=== PATIENT | male | born 1960 | race Caucasian/White ===

== ENCOUNTER 2018-05-06 01:36 | Outpatient (CLI) | payer BC, SELFPAY ==
--- NOTE | 2018-05-06 15:00 | DI.US_ITS ---
SYMPTOMS/DIAGNOSIS: LEFT RENAL CALCULUS, N20.0, F/U KIDNEY STONES RENAL ULTRASOUND: Renal ultrasound was performed according to the usual protocol. Previously described left renal mid pole calculus as seen on examination of October 2017 is again noted and is measured at about 13 mm in diameter on today's examination. No hydronephrosis identified in either kidney. No renal mass seen, although there is a small simple cyst of the left kidney measuring up to about 12 mm in diameter. Prevoid and postvoid urinary bladder volume measurements are 390 cc and 120 cc, respectively. Urinary bladder grossly unremarkable. Prostate is enlarged at a volume of about 66 cc. CONCLUSION: Persistent nonobstructing left renal calculus. This was previously measured at about 9 mm and is measured at about 13 mm on today's examination.
== END 2018-05-06 01:56 ==
PROVIDERS: PCP Emergency Medicine; Visit Provider Urology
DX: N20.0 Calculus of kidney (principal)
CPT/HCPCS: 76770

== ENCOUNTER 2018-06-06 11:50 | Day surgery (SDC) | payer BC, SELFPAY ==
[2018-06-06] VITALS (7 sets, daily range): BP systolic 142–174; BP diastolic 77–95; PULSE 57–75; RESP 11–17; TEMP 36.5–36.6; O2SAT 93–98
[2018-06-06] MEDS: Lactated Ringers 1,000 ML 80 ML IV (12:35)
--- NOTE | 2018-06-06 13:47 | DI.RAD_ITS ---
SYMPTOMS/DIAGNOSIS: URINARY CALCULI C-ARM FLUOROSCOPY: Fluoroscopy Time: 17.5 SEC C-arm fluoroscopy was utilized by Dr. Quispe during retrograde ureterography. Hardcopies show catheterization of left renal collecting system. Please see Dr. Quispe's procedure note.
[2018-06-06] MEDS: Lidocaine 2% Jelly 6 ML SYR (14:44)
--- NOTE | 2018-06-06 15:08 | W.PM.DSUDISC ---
Discharge Plan Disposition Patient Disposition: HOME Condition: Stable Discharge Details Reason For Visit: (L) RENAL CALCULUS Attending Provider: Titi Quispe Primary Care Provider: Kendall Lanier Home Meds and New Rx's Prescriptions: No Action ascorbic acid (vitamin C) 1,000 MG tablet 1,000 mg PO DAILY RF: 0 levetiracetam [Keppra] 500 MG tablet 1,000 mg PO BID Qty: 360 RF: 3 alendronate 70 MG tablet 70 mg PO once weekly Qty: 12 RF: 4 amlodipine 10 MG tablet 10 mg PO DAILY Qty: 90 RF: 4 calcium citrate-vitamin D3 1 EACH tablet 1 ea PO BID RF: 0 ranitidine HCl 150 MG capsule 300 mg PO HS Qty: 180 RF: 3 multivitamin with minerals [Men's One Daily] 1 EACH tablet 1 ea PO DAILY RF: 0 omega-3 fatty acids-fish oil 1 EACH capsule 1 ea PO HS RF: 0 ibuprofen 600 MG tablet 600 mg PO QID PRN (Reason: Pain) Qty: 15 RF: 0 Discharge Instructions Additional Instructions: F/U 4 to 6 weeks with renal US No need to strain urine Activity:: Activity as Tolerated Diet:: As Tolerated Discharge Orders Discharge Orders: Discharge Order (Routine); Ordered 06/06/18 Ordered By: Titi Quispe
[2018-06-06] MEDS: Omnipaque 300 MG/ML 50 ML BTL (15:09)
--- NOTE | 2018-06-06 16:49 | ROE_ITS ---
DATE OF PROCEDURE: June 06, 2018 PREOPERATIVE DIAGNOSIS: Left kidney stone. POSTOPERATIVE DIAGNOSIS: Same. PROCEDURE: Cystoscopy and left retrograde pyelogram; left flexible ureteroscopy with holmium laser o f stone; evacuation of stone fragments. SURGEON: Titi Quispe M.D. ANESTHESIA: General. COMPLICATIONS: None. ESTIMATED BLOOD LOSS: Minimal. HISTORY: This is a 58-year-old gentleman who has a history of hyperparathyroid disease and kidney st ones. He has an enlarging left lower pole stone that is not symptomatic, but because of its increasi ng size, he has elected to have stone manipulation. OPERATIVE REPORT: The patient was brought to the operating room on 06/06/18. After successful induc tion of general anesthesia, he was placed in the dorsal lithotomy position. His genitalia was preppe d and draped. A 22 Bur[place]ian rigid cystoscope is passed through the urethra into the bladder. The urethra and bladder were inspected with a 30-degree lens. The pendulous, bulbous and membranous urethras all appeared normal. The prostatic urethra showed lat eral lobe enlargement, as well as a slight median lobe. The bladder neck was then entered and the bl adder mucosa was inspected. The left ureteral orifice was visualized. It was cannulated with a 6 Burundian access catheter. A retr ograde film was obtained by injecting Omnipaque through the access catheter under fluoroscopic guidan ce. The retrograde film demonstrated a filling defect in the lower pole calyx. I then passed a Glidewire through the access catheter and maneuvered the wire into the upper pole calyx. I removed the access catheter and cystoscope, leaving the wire in place. I passed a dual-lumen catheter over the initial wire. I passed a second wire. We chose one of the w ires as a working wire and the other as a safety wire. We then passed a ureteral access sheath over the working wire. We passed the flexible ureteroscope u p through the access sheath into the renal pelvis. We deflected the scope to the lower pole calyx an d were able to identify his stone. We then used a 272 micron holmium laser fiber to fragment the stone. We used a power setting of 800 and a rate of 8. The stone appeared quite soft and fragmented very well. We grasped two of the larg er fragments in a Zero-Tip stone basket and removed then in their entirety. Once the fragmentation was completed, we elected not to place a ureteral stent. We then removed the access sheath and ureteroscope. He tolerated this procedure well with no complications.
== END 2018-06-06 16:42 | disposition home or self-care (01) ==
PROVIDERS: PCP Emergency Medicine; Visit Provider Urology
PROC: (CPT 52353; principal; 2018-06-06 13:00)
DX: N20.0 Calculus of kidney (principal); Z87.442 Personal history of urinary calculi; I10 Essential (primary) hypertension; E21.3 Hyperparathyroidism, unspecified
CPT/HCPCS: 52353; 74420; 82360; J1100; J1885; J2405; Q9967

== ENCOUNTER 2018-06-15 16:03 | Outpatient (CLI) | payer BC, SELFPAY ==
[2018-06-15 17:55] LABS: Cholesterol 176 mg/dL (50-200); HDL Cholesterol 44 mg/dL (40-60); LDL CHOLESTEROL 115 mg/dL (<100); Triglyceride 83 mg/dL (30-150)
== END 2018-06-15 16:23 ==
PROVIDERS: PCP Emergency Medicine; Visit Provider Emergency Medicine
DX: Z00.00 Encounter for general adult medical examination without abnormal findings (principal); Z13.220 Encounter for screening for lipoid disorders
CPT/HCPCS: 36415; 80061; 83721

== ENCOUNTER 2018-07-01 00:25 | Outpatient (CLI) | payer BC, SELFPAY ==
--- NOTE | 2018-07-01 13:53 | MERGE_ITS ---
*[facility]* *[facility]* [address] [place] [address] Date of study: 07/01/2018 Transthoracic Echocardiography M-mode, complete 2D, complete spectral Doppler, and color Doppler *STUDY CONCLUSIONS* Summary: 1. Left ventricle: The cavity size was normal. Wall thickness was normal. Systolic function was normal. The estimated ejection fraction was 60-65%. Wall motion was normal; there were no regional wall motion abnormalities. 2. Right ventricle: The cavity size was normal. Systolic function was normal. 3. Aortic valve: Possibly bicuspid; moderately thickened, mildly calcified leaflets. Valve mobility was restricted. Transvalvular velocity was increased. There was moderate stenosis. There was mild to moderate regurgitation. Peak velocity (S): 3m/sec. VTI ratio of LVOT to aortic valve: 0.49. 4. Inferior vena cava: The vessel was normal in size. The respirophasic diameter changes were in the normal range (greater than or equal to 50%), consistent with normal central venous pressure. *PATIENT PRESENTATION* Height: 185.4cm ((73in) ) S/D Pressure: 143 / 76 Weight: 97.5kg ((214.5lb) ) BSA: 2.26m^2 Test start time: 02:00 PM. Test stop time: 03:00 PM. ORDERING Kendall Lanier REFERRING Kendall Lanier PERFORMING Unknown PERFORMING [facility] MOLECULAR BIOLOGY SCIENTIST Keesha Bustamante *PROCEDURE DATA* Procedure information: This study was interpreted by [facility]. Pertinent images and digital data are archived for permanent storage and are available for subsequent review. Comparison was made to the study of 05/11/2013. Study status: Routine. Transthoracic echocardiography. M-mode, complete 2D, complete spectral Doppler, and color Doppler. A Transthoracic Echocardiogram was performed. Scanning was performed from the parasternal, apical, subcostal, and suprasternal notch acoustic windows. Images were obtained using an [employer] 2000 cardiac ultrasound machine. Image quality was adequate. Study completion: The patient tolerated the procedure well. There were no complications. History: PMH: Aortic Stenosis. *CARDIAC ANATOMY* Left ventricle: The cavity size was normal. Wall thickness was normal. Systolic function was normal. The estimated ejection fraction was 60-65%. Wall motion was normal; there were no regional wall motion abnormalities. Findings consistent with diastolic dysfunction. There was no evidence of elevated ventricular filling pressure by Doppler parameters. Aortic valve: Possibly bicuspid; moderately thickened, mildly calcified leaflets. Valve mobility was restricted. Doppler: Transvalvular velocity was increased. There was moderate stenosis. There was mild to moderate regurgitation. VTI ratio of LVOT to aortic valve: 0.49. Valve area (VTI): 1.5cm^2. Indexed valve area (VTI): 0.7cm^2/m^2. Peak velocity ratio of LVOT to aortic valve: 0.4. Valve area (Vmax): 1.2cm^2. Indexed valve area (Vmax): 0.5cm^2/m^2. Mean velocity ratio of LVOT to aortic valve: 0.38. Valve area (Vmean): 1.1cm^2. Indexed valve area (Vmean): 0.5cm^2/m^2. Mean gradient (S): 20.5mm Hg. Peak gradient (S): 36.8mm Hg. Aorta: Aortic root: The aortic root was normal in size. Ascending aorta: The ascending aorta was mildly dilated (43 mm). Mitral valve: Structurally normal valve. Mobility was not restricted. Doppler: Transvalvular velocity was within the normal range. There was no evidence for stenosis. There was trivial regurgitation. Valve area by pressure half-time: 1.9cm^2. Indexed valve area by pressure half-time: 0.8cm^2/m^2. Peak gradient (D): 2.3mm Hg. Left atrium: The atrium was normal in size. Right ventricle: The cavity size was normal. Systolic function was normal. Pulmonic valve: Poorly visualized. Doppler: Transvalvular velocity was within the normal range. There was no evidence for stenosis. There was trivial regurgitation. Tricuspid valve: Structurally normal valve. Doppler: Transvalvular velocity was within the normal range. There was no evidence for stenosis. There was mild regurgitation. Pulmonary artery: Poorly visualized. Pulmonary systolic pressure was within the normal range, in the range of 25mm Hg to 30mm Hg. Right atrium: The atrium was dilated. Pericardium: There was no pericardial effusion. Systemic veins: Inferior vena cava: The vessel was normal in size. The respirophasic diameter changes were in the normal range (greater than or equal to 50%), consistent with normal central venous pressure. Measurements Left ventricle Value Reference LV ID, ED, PLAX 5.2 cm 3.5 - 6.0 LV ID, ES, PLAX 3.6 cm 2.1 - 4.0 LV PW thickness, ED, PLAX 1.0 cm LV end-diastolic volume, 1-p A2C 129 ml LV ejection fraction, 1-p A2C 62 % LV end-diastolic volume, 1-p A4C 137 ml LV ejection fraction, 1-p A4C 63 % LV e', lateral 0.111 m/sec LV E/e', lateral 7 LV e', medial 0.092 m/sec LV E/e', medial 8 LV e', average 0.102 m/sec LV E/e', average 7 Ventricular septum Value Reference IVS thickness, ED, PLAX 1.0 cm LVOT Value Reference LVOT ID, A-P 2.0 cm LVOT area 3 cm^2 LVOT peak velocity, S 1.22 m/sec LVOT mean velocity, S 0.81 m/sec LVOT VTI, S 32.3 cm LVOT peak gradient, S 5.9 mm Hg LVOT mean gradient, S 3.1 mm Hg Stroke volume (SV), LVOT DP 97 ml Stroke index (SV/bsa), LVOT DP 43 ml/m^2 Aortic valve Value Reference Aortic valve peak velocity, S 3 m/sec Aortic valve mean velocity, S 2.14 m/sec Aortic valve VTI, S 66.0 cm Aortic mean gradient, S 20.5 mm Hg Aortic peak gradient, S 36.8 mm Hg VTI ratio, LVOT/AV 0.49 Aortic valve area, VTI 1.5 cm^2 Velocity ratio, peak, LVOT/AV 0.4 Aortic valve area, peak velocity 1.2 cm^2 Velocity ratio, mean, LVOT/AV 0.38 Aortic valve area, mean velocity 1.1 cm^2 Aortic valve area/bsa, mean velocity 0.5 cm^2/m^2 Aortic regurg deceleration 214 cm/s^2 Aortic regurg pressure half-time 514 ms Aorta Value Reference Aortic root ID, ED 3.7 cm Ascending aorta ID, A-P, S 4.3 cm Left atrium Value Reference LA ID, A-P, ES 3.0 cm LA ID/bsa, A-P 1.3 cm/m^2 <=2.2 LA area, ES, A4C 20 cm^2 8.8 - 23.4 LA area, ES, A2C 19 cm^2 LA volume/bsa, S 29 ml/m^2 LA volume, ES, 2-p 58 ml LA volume/bsa, ES, 2-p 26 ml/m^2 LA/aortic root ratio 0.82 Mitral valve Value Reference Mitral E-wave peak velocity 0.76 m/sec Mitral A-wave peak velocity 0.89 m/sec Mitral deceleration time (H) 402 ms 150 - 230 Mitral pressure half-time 117 ms Mitral peak gradient, D 2.3 mm Hg Mitral E/A ratio, peak 0.85 Mitral valve area, PHT, DP 1.9 cm^2 Tricuspid valve Value Reference Tricuspid regurg peak velocity 2.4 m/sec Tricuspid peak RV-RA gradient 23.4 mm Hg Right atrium Value Reference RA area, ES, A4C (H) 21.4 cm^2 8.3 - 19.5 Legend: (L) and (H) willard values outside specified reference range. I have personally reviewed the images and have reviewed and edited the reported findings. Electronically signed by Fito Oakley 07/02/2018 10:29
== END 2018-07-01 00:45 ==
PROVIDERS: PCP Emergency Medicine; Visit Provider Emergency Medicine
DX: I35.2 Nonrheumatic aortic (valve) stenosis with insufficiency (principal)
CPT/HCPCS: 93306

== ENCOUNTER 2018-07-22 07:06 | Outpatient (CLI) | payer BC, SELFPAY ==
--- NOTE | 2018-07-22 07:12 | DI.US_ITS ---
SYMPTOM/DIAGNOSIS: H/O KIDNEY STONES, Z87.442, F/U AFTER URETEROSCOPY RENAL ULTRASOUND: Routine examination was performed. Comparison is made with 05/06/18. The right kidney measures 13.8 cm. long. No renal masses are seen. No definite renal calculi are appreciated sonographically. There is stable mild dilatation of the right renal collecting system. The left kidney measures 13.0 cm. long. There do appear to be a few echogenic shadowing foci within the kidney suspicious for non obstructing stones. No hydronephrosis or solid renal mass is seen. The prevoid urinary bladder volume is 412 cc's. Postvoid urinary bladder volume is 14 cc's. Prostate gland measures 32 cc's. No intraluminal masses or bladder wall thickening is seen. Both ureteral jets were visualized. IMPRESSION: 1. Findings of echogenic foci seen in the left kidney suspicious for non obstructing stones. 2. Mild prominence of the left renal pelvis. This may represent extrarenal pelvis or mild hydronephrosis.
== END 2018-07-22 07:26 ==
PROVIDERS: PCP Emergency Medicine; Visit Provider Urology
DX: N20.0 Calculus of kidney (principal); Z87.442 Personal history of urinary calculi; Z98.890 Other specified postprocedural states
CPT/HCPCS: 76770

== ENCOUNTER 2018-09-14 12:10 | Outpatient (CLI) | payer BC, SELFPAY ==
[2018-09-14 13:32] LABS: Bilirubin Negative (Negative); Blood Negative (Negative); Clarity Clear; Glucose Negative (Negative); Ketones Negative (Negative); Leukocyte Esterase Negative (Negative); Nitrite Negative (Negative); Urobilinogen 0.2 EU/dL (Up TO 0.2); pH 5.5 (5-8)
[2018-09-14 13:38] LABS: ALT 26 U/L (12-78); AST 19 U/L (15-37); Abs Immature Grans 0.02 k/cumm (0.0-0.09); Absolute Basophil Count 0.02 k/cumm (0.0-0.2); Absolute Eosinophil Count 0.13 k/cumm (0.0-0.7); Absolute Lymphocyte Count 1.16 k/cumm (1.2-3.4); Absolute Monocyte Count 0.43 k/cumm (0.11-0.7); Absolute Neutrophil Count 5.17 k/cumm (1.2-6.7); Albumin 3.8 g/dL (3.4-5.0); Alkaline Phosphatase 111 U/L (46-116); Anion Gap 7.7 mmol/L (3-11); BUN 16 mg/dL (7-18); Basophils % 0.3; Bilirubin, Total 0.3 mg/dL (0.2-1.0); CO2 29.3 mmol/L (21.0-32.0); CREATININE 0.73 mg/dL (0.70-1.30); Chloride 104 mmol/L (98-107); Eosinophils % 1.9; Glucose 85 mg/dL (70-100); HCT 44.4 % (40.0-50.0); HGB 14.6 g/dL (13.5-17.5); Immature Grans % 0.3; Lipase 98 U/L (73-393); Lymphocytes % 16.7; Mean Corp. HGB Concentration 32.9 g/dL (32.0-36.0); Mean Corpuscular Hemoglobin 30.8 pg (27.0-33.0); Mean Corpuscular Volume 93.7 fL (80-95); Mean Platelet Volume 10.6 fL (8.0-11.0); Monocytes % 6.2; Neutrophils % 74.6; Platelet Count 248 x1000/uL (130-400); Potassium 3.9 mmol/L (3.5-5.1); RBC 4.74 m/cumm (4.50-6.00); Sodium 141 mmol/L (136-145); Total Protein 7.8 g/dL (6.4-8.2); White Blood Cell Count 6.93 k/cumm (4.4-10.8)
== END 2018-09-14 12:30 ==
PROVIDERS: PCP Emergency Medicine; Visit Provider Family Medicine
DX: Z00.00 Encounter for general adult medical examination without abnormal findings (principal); R10.9 Unspecified abdominal pain; R39.11 Hesitancy of micturition
CPT/HCPCS: 36415; 80053; 83690; 81003; 85025

== ENCOUNTER 2018-09-22 07:23 | Day surgery (SDC) | payer BC, SELFPAY ==
[2018-09-22] VITALS (8 sets, daily range): BP systolic 131–170; BP diastolic 69–87; PULSE 47–66; RESP 11–18; TEMP 35.6–36.6; O2SAT 94–99
[2018-09-22] MEDS: Lactated Ringers 1,000 ML 80 ML IV (08:05)
--- NOTE | 2018-09-22 08:42 | DI.RAD_ITS ---
SYMPTOM/DIAGNOSIS: CALCULUS LT KIDNEY OR RETROGRADE: Fluoroscopy Time: 27.1 seconds Fluoroscopy was utilized by Dr. Quispe during retrograde evaluation of the left renal collecting system. Please refer to the procedure report for complete details.
[2018-09-22] MEDS: Lidocaine 2% Jelly 6 ML SYR (09:28)
[2018-09-22] MEDS: Omnipaque 300 MG/ML 50 ML BTL (09:30)
--- NOTE | 2018-09-22 10:01 | W.PM.DSUDISC ---
Discharge Plan Disposition Patient Disposition: HOME Condition: Stable Discharge Details Reason For Visit: kidney stone Attending Provider: Titi Quispe Primary Care Provider: Kendall Lanier Home Meds and New Rx's Prescriptions: No Action cholecalciferol (vitamin D3) 1,000 unit capsule 1,000 unit PO DAILY RF: 0 levetiracetam [Keppra] 500 MG tablet 1,000 mg PO BID Qty: 360 RF: 3 alendronate 70 MG tablet 70 mg PO once weekly Qty: 12 RF: 4 folic acid 1 mg tablet 1 mg PO DAILY Qty: 90 RF: 3 amlodipine 10 mg tablet 10 mg PO DAILY Qty: 90 RF: 4 omeprazole 40 mg capsule,delayed release(DR/EC) 40 mg PO DAILY Qty: 30 RF: 0 multivitamin with minerals [Men's One Daily] 1 EACH tablet 1 ea PO DAILY RF: 0 omega-3 fatty acids-fish oil 1 EACH capsule 1 ea PO HS RF: 0 Discharge Instructions Additional Instructions: F/U with me 4 to 6 weeks with renal US at time of visit Activity:: Activity as Tolerated Diet:: As Tolerated Discharge Orders Discharge Orders: Discharge Order (Routine); Ordered 09/22/18 Ordered By: Titi Quispe DS: Diagnosis Discharge Diagnosis (1) Kidney stones: Status: Chronic
[2018-09-22] MEDS: Phenazopyridine 200 MG TAB PO (10:55)
[2018-09-22] MEDS: HYDROcodone 5/Acetaminophen 325 TAB PO (11:00)
[2018-09-22] MEDS: Ondansetron 4 MG/2 ML VIAL IVP (11:21)
--- NOTE | 2018-09-22 16:57 | ROE_ITS ---
DATE OF OPERATION: September 22, 2018 PREOPERATIVE DIAGNOSIS: Left kidney stones. POSTOPERATIVE DIAGNOSIS: Left kidney stones. PROCEDURE: Cystoscopy, left retrograde pyelogram, left flexible ureteroscopy with stone extractions. SURGEON: Titi Quispe M.D. ANESTHESIA: General. COMPLICATIONS: None. ESTIMATED BLOOD LOSS: Minimal. HISTORY: This is a 58-year-old gentleman who has a history of hyperparathyroid disease. He has recu rrent kidney stones and is currently found to have a 5-mm stone in the upper pole of the left kidney and two smaller stones in the mid poles. He presents now for ureteroscopic stone manipulation. OPERATIVE REPORT: The patient was brought to the Operating Room on 09/22/18. After successful inducti on of general anesthesia, he was placed in the dorsal lithotomy position. His genitalia was prepped and draped. Two percent xylocaine jelly was instilled into the urethra to act as a local anesthetic. A 22 Kisw[place]ili rigid cystoscope was passed through the urethra into the bladder. The urethra and bladde r were inspected using the 30-degree lens. The pendulous, bulbous, and membranous urethras all appeared normal with no strictures. The prostati c urethra showed some lateral lobe enlargement. The bladder neck was entered and the bladder mucosa was inspected. No stones were seen at the base o f the bladder. The left ureteral orifice was cannulated with a 6 Kiswahili access catheter and a retrog rade film was obtained by injecting Omnipaque through the access catheter under fluoroscopic guidance . This outlined at least the larger stone in the upper pole calyx. A Glidewire was then passed through the access catheter and maneuvered until the proximal end was up in the renal pelvis. The ureteral access catheter was removed and was replaced with a dual-lumen cat heter. A second wire was then positioned. The dual-lumen catheter was removed. We chose one of the wires as a working wire and the other as a safety wire. We passed the ureteral access sheath over t he working wire. A flexible ureteroscope was then introduced through the access sheath and advanced up to the upper po le calyx. The stone was visualized and was grasped in a zero-tip stone basket. The stone was then e xtracted and sent to Pathology for chemical analysis. We reintroduced the ureteroscope and inspected the other calices. A very small stone was identified at the lower pole. This was easily irrigated free. A larger stone was found in one of the midpole calices. This was grasped in a zero-tip stone basket and removed in its entirety. No traumatic injury was identified along the ureter so we elected not to place a ureteral stent. We removed the safety wire and access sheath. The bladder was then drained. The patient tolerated the procedure well. There were no complications .
[2018-09-24 00:29] LABS: Source: Kidney
== END 2018-09-22 13:10 | disposition home or self-care (01) ==
PROVIDERS: PCP Emergency Medicine; Visit Provider Urology
PROC: (CPT 52352; principal; 2018-09-22 09:00)
DX: N20.0 Calculus of kidney (principal); Z87.442 Personal history of urinary calculi; E21.3 Hyperparathyroidism, unspecified; I10 Essential (primary) hypertension
CPT/HCPCS: 52352; 74420; 82365; J0690; J1100; J1885; J2405; J3010; Q9967

== ENCOUNTER 2018-10-05 12:12 | Outpatient (CLI) | payer BC, SELFPAY ==
[2018-10-05 13:44] LABS: Anion Gap 9.9 mmol/L (3-11); BUN 24 mg/dL (7-18); CO2 27.1 mmol/L (21.0-32.0); CREATININE 0.74 mg/dL (0.70-1.30); Chloride 105 mmol/L (98-107); Glucose 87 mg/dL (70-100); Potassium 4.1 mmol/L (3.5-5.1); Sodium 142 mmol/L (136-145); TSH 0.52 uIU/mL (0.358-3.74)
== END 2018-10-05 12:32 ==
PROVIDERS: PCP Emergency Medicine; Visit Provider Emergency Medicine
DX: E03.9 Hypothyroidism, unspecified (principal); I10 Essential (primary) hypertension
CPT/HCPCS: 36415; 80048; 84443

== ENCOUNTER 2018-10-07 01:49 | Outpatient (CLI) | payer BC, SELFPAY ==
--- NOTE | 2018-11-14 15:54 | CER_ITS ---
DATE OF DICTATION: November 14, 2018 PREVENTICE MONITOR REPORT STUDY INDICATION: Aortic stenosis. REQUESTING PROVIDER: Jelani Gunderson M.D. FINDINGS: The patient was monitored for 12 days and 6 hours. Baseline sinus rhythm. Average heart rate in sinus rhythm 69 bpm, range 54-106 bpm. The patient was in atrial fibrillation for 2% of the time for a total of 6 hours and 31 minutes. Average heart rate in atrial fibrillation 114 bpm. Longest episode 2 hours and 46 minutes. No pauses greater than 3 seconds. No high-degree heart block. Two patient events. One episode correlated with atrial fibrillation with rapid ventricular response. The other event did not correlate with arrhythmias. FINAL INTERPRETATION: Paroxysmal atrial fibrillation, overall poorly-controlled and at times symptomatic.
== END 2018-10-07 02:09 ==
PROVIDERS: PCP Emergency Medicine; Visit Provider Emergency Medicine
DX: I35.0 Nonrheumatic aortic (valve) stenosis (principal); I48.91 Unspecified atrial fibrillation; I48.0 Paroxysmal atrial fibrillation
CPT/HCPCS: 93270

== ENCOUNTER 2018-10-18 01:47 | Outpatient (CLI) | payer BC, SELFPAY ==
--- NOTE | 2018-10-18 14:15 | DI.US_ITS ---
SYMPTOMS/DIAGNOSIS: CALCULUS OF KIDNEY, N20.0, ? HYDRONEPHROSIS AFTER URETEROSCOPY RENAL ULTRASOUND: The right kidney measures 12.3 x 5.2 x 5.5 cm, the left kidney 12.3 x 5.7 x 6.1 cm. There is an echogenic focus in the right kidney in the inferior to mid pole, which measures approximately 5 mm with faint posterior shadowing. This could represent a small stone or artifact. There is no evidence of right or left hydronephrosis. A simple left renal cyst in the mid pole cortex of the left kidney measures 10 x 12 x 13 mm. The prevoid bladder contains 5 cc, the postvoid bladder contains 0. The ureteral jets were not visualized. SUMMARY: The possibility of nonobstructing right nephrolithiasis could not be entirely excluded on this examination. There is a question regarding a 10 x 12 x 13 mm cyst in the left kidney. The study is otherwise unremarkable.
== END 2018-10-18 02:07 ==
PROVIDERS: PCP Emergency Medicine; Visit Provider Urology
DX: N20.0 Calculus of kidney (principal)
CPT/HCPCS: 76770

== ENCOUNTER 2018-10-23 08:16 | Outpatient (REF) | payer BC, SELFPAY ==
[2018-10-23 14:53] LABS: Total Volume 3250 ml
[2018-10-24 06:40] LABS: Creatinine,24hr Ur 1.45 g/24hr (0.95-2.49); Creatinine,Urine 45.26 mg/dL; Sodium, Urine 75 mmol/L
[2018-10-24 06:45] LABS: CLEAVED CELLS 244 mmol/24h (40-220); Total Volume 3250 ml
[2018-10-25 10:10] LABS: Calcium Urine 11.9 mg/dl; Calcium Urine 24 hr 387 mg/24hr (100-300); Magnesium 24hr Urine 107.3 mg/24h (73.0-122.0); Magnesium Random Urine 3.3 mg/dl; Uric Acid Urine 18.4 mg/dl; Uric Acid Urine 24hr 598 mg/24h (250-750)
[2018-10-25 12:35] LABS: Citrate Excretion, 24hr, U 738 mg/24 h (434 - 1191); Urine Volume 3250 mL
[2018-10-25 17:00] LABS: Oxalate Conc (mmol/L) 0.08 mmol/L; Oxalate, U 0.26 mmol/24 h (0.11-0.46); Oxalate, U 22.9 mg/24 h (9.7 - 40.5); Urine Volume 3250 mL
== END 2018-10-23 08:36 ==
LOC: LBN 08:16
PROVIDERS: PCP Emergency Medicine; Visit Provider Urology
DX: N20.0 Calculus of kidney (principal)
CPT/HCPCS: 82507; 83735; 81050; 82340; 82570; 83945; 84300; 84560

== ENCOUNTER 2018-11-15 09:17 | Outpatient (CLI) | payer BC, SELFPAY ==
[2018-11-15 10:28] LABS: Anion Gap 7.7 mmol/L (3-11); BUN 18 mg/dL (7-18); CO2 32.3 mmol/L (21.0-32.0); CREATININE 0.74 mg/dL (0.70-1.30); Calcium 8.9 mg/dL (8.5-10.1); Chloride 99 mmol/L (98-107); Glucose 95 mg/dL (70-100); Potassium 3.4 mmol/L (3.5-5.1); Sodium 139 mmol/L (136-145)
== END 2018-11-15 09:37 ==
PROVIDERS: PCP Emergency Medicine; Visit Provider Urology
DX: N20.0 Calculus of kidney (principal)
CPT/HCPCS: 36415; 80048

== ENCOUNTER 2018-12-09 01:15 | Outpatient (CLI) | payer OTHER, SELFPAY ==
[2018-12-09 10:15] LABS: Potassium 3.9 mmol/L (3.5-5.1)
== END 2018-12-09 01:35 ==
PROVIDERS: PCP Emergency Medicine; Visit Provider Urology
DX: N20.0 Calculus of kidney (principal)
CPT/HCPCS: 36415; 84132

== ENCOUNTER 2018-12-11 08:33 | Outpatient (REF) | payer OTHER, SELFPAY ==
[2018-12-13 06:29] LABS: Creatinine,Urine 52.41 mg/dL; Sodium, Urine 70 mmol/L
[2018-12-13 06:52] LABS: CLEAVED CELLS 229 mmol/24h (40-220); Creatinine,24hr Ur 1.68 g/24hr (0.95-2.49); Total Volume 3275 ml
[2018-12-14 09:01] LABS: Magnesium 24hr Urine 209.6 mg/24h (73.0-122.0); Magnesium Random Urine 6.4 mg/dl; Uric Acid Urine 26.1 mg/dl; Uric Acid Urine 24hr 855 mg/24h (250-750)
[2018-12-14 09:12] LABS: Calcium Urine 24 hr 491 mg/24hr (100-300)
[2018-12-14 16:26] LABS: Citrate Excretion, 24hr, U 940 mg/24 h (434 - 1191); Urine Volume 3275 mL
[2018-12-15 11:05] LABS: Oxalate Conc (mmol/L) 0.09 mmol/L; Oxalate Concentration 7.9 mg/L; Oxalate, U 0.29 mmol/24 h (0.11-0.46); Oxalate, U 25.5 mg/24 h (9.7 - 40.5); Urine Volume 3275 mL
== END 2018-12-11 08:53 ==
LOC: LBN 08:33
PROVIDERS: PCP Emergency Medicine; Visit Provider Urology
DX: N20.0 Calculus of kidney (principal)
CPT/HCPCS: 82507; 83735; 81050; 82340; 82570; 83945; 84300; 84560

== ENCOUNTER 2019-02-11 05:00 | Outpatient (REF) | payer OTHER, SELFPAY ==
[2019-02-12 16:32] LABS: Sodium, Urine 44 mmol/L
[2019-02-12 16:43] LABS: CLEAVED CELLS 123 mmol/24h (40-220); Total Volume 2800 ml
[2019-02-14 11:36] LABS: Calcium Urine 7.2 mg/dl; Calcium Urine 24 hr 202 mg/24hr (100-300); Uric Acid Urine 15.9 mg/dl; Uric Acid Urine 24hr 445 mg/24h (250-750)
== END 2019-02-11 05:20 ==
LOC: LBN 05:00
PROVIDERS: PCP Emergency Medicine; Visit Provider Urology
DX: N20.0 Calculus of kidney (principal)
CPT/HCPCS: 81050; 82340; 84300; 84560

== ENCOUNTER 2019-06-20 15:00 | Outpatient (CLI) | payer OTHER, SELFPAY ==
[2019-06-22 10:12] LABS: PSA, Screening 1.7 ng/mL (0.0-4.5)
== END 2019-06-20 15:20 ==
PROVIDERS: PCP Emergency Medicine; Visit Provider Emergency Medicine
DX: Z12.5 Encounter for screening for malignant neoplasm of prostate (principal)
CPT/HCPCS: 36415; 84153

== ENCOUNTER 2019-06-24 13:29 | Emergency (ER) | payer OTHER, SELFPAY ==
[2019-06-24 13:34] VITALS: BP 159/89; PULSE 63; RESP 18; TEMP 36.5; O2SAT 98
[2019-06-24] MEDS: diazePAM 5 MG TAB PO (14:16)
--- NOTE | 2019-06-24 14:30 | DI.CT_ITS ---
EXAM: CT THORACIC SPINE WO CLINICAL HISTORY: pain, hx compression fx in past, new back pain TECHNIQUE: Noncontrast COMPARISON: MRI - THORACIC SPINE WO CONT from 04/03/2016 MRI - THORACIC SPINE WO CONT from 04/03/2016 CT ABDOMEN PELVIS W from 09/14/2018 FINDINGS: There is a stable severe compression fracture of T7. There is extentuation of the normal thoracic ky phosis at this level. There is a mild compression fracture of L1, also stable. There is no evidence of an acute fracture. There is no significant narrowing of the central canal. Prominent flowing os teophytes are noted. Visualized portions of the lungs are clear. Aorta shows mild calcification. T here are coronary artery calcifications and aortic valve calcifications. The transverse dimension of the ascending aorta measures 4.5 cm. IMPRESSION: Stable severe compression fracture of T7. Stable mild compression fracture of L1.
--- NOTE | 2019-06-24 15:21 | DI.VRAD_ITS ---
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 Patient also sts known disk compressions, and herniation's. New onset pain not trauma or recent injury. TECHNIQUE: Imaging protocol: Computed tomography images of the thoracic spine without contrast. Radiation optimization: All CT scans at this facility use at least one of these dose optimization techniques: automated exposure control; mA and/or kV adjustment per patient size (includes targeted exams where dose is matched to clinical indication); or iterative reconstruction. COMPARISON: [facility] THORACIC SP 2 VIEW 07/09/2016 10:22 AM FINDINGS: Diffuse degenerative spurring of thoracic spine. Mild old compression of the T7 vertebral body. No acute fractures. No focal bony destructive process. Minimal nonobstructing right nephrolithiasis. Mild chronic lung disease at the lung bases. IMPRESSION: No evidence of acute bony abnormality. Dictated and Authenticated by: Nasim Spear MD. Ordering:RAQUEL Berry MD
--- NOTE | 2019-06-24 15:31 | ED.GENADUL_ITS ---
Discharge Plan Disposition Patient Disposition: HOME Condition: Good Discharge Details Chief Complaint: Orthopedic Clinical Impression: Back pain Primary Care Provider: Kendall Lanier ED Provider: Kristi Robertson Home Meds and New Rx's Prescriptions: New cyclobenzaprine 10 mg tablet 10 mg PO TID PRN (Reason: muscle spasm) Qty: 10 RF: 0 Discontinued ibuprofen 600 mg tablet 600 mg PO QID PRNRF: 0 No Action allopurinol 300 mg tablet 300 mg PO DAILY Qty: 30 RF: 12 ascorbic acid (vitamin C) 500 mg tablet 500 mg PO DAILY RF: 0 polyethylene glycol 3350 17 gram/dose powder 238 g PO ONCE Qty: 238 RF: 0 bisacodyl 5 mg tablet,delayed release (DR/EC) 5 mg PO ONCE Qty: 4 RF: 0 cholecalciferol (vitamin D3) 1,000 unit capsule 1,000 unit PO DAILY RF: 0 gabapentin 300 mg capsule 300 mg PO QHS Qty: 60 RF: 2 famotidine 20 mg tablet 20 mg PO BID Qty: 180 RF: 3 Eliquis 5 mg tablet 5 mg PO BID RF: 0 metoprolol tartrate 25 mg tablet 12.5 mg PO BID RF: 0 levetiracetam [Keppra] 500 mg tablet 1,000 mg PO BID Qty: 360 RF: 3 folic acid 1 mg tablet 1 mg PO DAILY Qty: 90 RF: 3 multivitamin with minerals [Men's One Daily] 1 EACH tablet 1 ea PO DAILY RF: 0 omega-3 fatty acids-fish oil 1 EACH capsule 1 ea PO HS RF: 0 Discharge Instructions Instructions: Back Pain (ED) Additional Instructions: Ice or heat to the back for discomfort. Use Tylenol [id number] if needed. Use caution not to mix with Vicodin. Rest activities as tolerated. Consider using TENS unit. Consider [id number] pain patches over site of maximum pain as discussed. Use muscle relaxant as prescribed. Use caution while taking muscle relaxant this will cause dizziness. Do not drive, drink more work while taking this medication. Use caution mixing with narcotic pain medications as discussed. Recheck with primary care doctor this week for reevaluation if not improving Medical Decision Making 59-year-old patient with known history of thoracic compression fractures due to osteoporosis. Patient reports onset of back pain in the last 24 hours for which he is concerned with the potential new compression fracture. Patient denies any specific injury or trauma recently. Patient denies any radiating pain into his legs, arms or trunk. Patient denies numbness, tingling or weakness. Patient denies any ill feeling or fever. No associated chest pain difficulty breathing shortness of breath or wheezing. Patient reports back pain in the mid back similar to his previous presentation of pain. He also does have known arthritis. Patient is requesting imaging studies to be sure there is no associated new fracture. Patient's physical exam reveals no focal tenderness of the back. No associated CVA tenderness. Clear breath sounds. Pain with straight leg raise on the left eliciting back pain. DTRs intact bilaterally no associated foot drop. Patient is nontoxic-appearing. After discussion of x-ray versus CT patient's preference is CT evaluation of the spine. Patient was provided Valium for discomfort. Patient had no significant improvement with Valium. Patient is requesting muscle relaxant as he has tolerated this in the past however Valium was unhelpful during his ER visit therefore will trial cyclobenzaprine for muscle relaxant. Conservative treatments also discussed including use of TENS unit, topical pain patches, rest. Of note patient had been taking ibuprofen regularly while he is on Eliquis. I encouraged him to discontinue any use of NSAIDs. Discussed use of Tylenol. Patient does have prescriptions for tramadol as well as Vicodin which he has present with him. Discussed use of these medications. The patient was stable and requested discharge. Prior to discharge, my usual and customary return precautions were reviewed with the patient - this included follow-up instructions and reasons to return to the Emergency Department if conditions worsens, does not improve as expected, or other new concerns arise. HPI General Date/Time Provider Initiated Documentation: 06/24/19 13:40 . HPI Narrative: This is a 59-year-old gentleman who presents to the emergency room for complaints of back pain for the last 24 hours. Patient does report a history of T7-T8 and T10 compression fractures of his spine historically several years ago. Patient does report known arthritis in his spine. Patient does report occasional flares of back pain. Patient denies any radiating symptoms into his legs. Denies numbness, tingling or weakness of arms or legs. No chest or abdominal complaints. Patient denies any specific injury or trauma. Denies fever, chills, nausea, vomiting. Eating and drink without difficulty. No ill feeling whatsoever. Patient reports back pain is worse with range of motion. He was able to find a comfortable position and sleep last night however change in position increases pain in the mid back. No difficulty breathing shortness of breath or wheezing. Related Data Home Medications Medication Instructions Recorded Confirmed multivitamin with minerals [Men's 1 ea PO DAILY 12/17/12 06/24/19 One Daily] omega-3 fatty acids-fish oil 1 ea PO HS 06/04/16 06/24/19 cholecalciferol (vitamin D3) 1,000 1,000 unit PO DAILY 06/15/18 06/24/19 unit capsule allopurinol 300 mg tablet 300 mg PO DAILY #30 tab 12/27/18 06/24/19 apixaban 5 mg tablet 5 mg PO BID 12/30/18 06/24/19 metoprolol tartrate 25 mg tablet 12.5 mg PO BID tab 12/30/18 06/24/19 ascorbic acid (vitamin C) 500 mg 500 mg PO DAILY 01/24/19 06/24/19 tablet levetiracetam 500 mg tablet 1,000 mg PO BID #360 tab-cap 03/31/19 06/24/19 bisacodyl 5 mg tablet,delayed 5 mg PO ONCE #4 tab 05/30/19 06/24/19 release polyethylene glycol 3350 17 238 g PO ONCE #238 gm 05/30/19 06/24/19 gram/dose oral powder folic acid 1 mg tablet 1 mg PO DAILY #90 tab 06/05/19 06/24/19 famotidine 20 mg tablet 20 mg PO BID #180 tab 06/20/19 06/24/19 gabapentin 300 mg capsule 300 mg PO QHS #60 cap 06/20/19 06/24/19 cyclobenzaprine 10 mg PO TID PRN #10 tab 06/24/19 Previous Rx's Medication Instructions Recorded allopurinol 300 mg tablet 300 mg PO DAILY #30 tab 12/27/18 levetiracetam 500 mg tablet 1,000 mg PO BID #360 tab-cap 03/31/19 bisacodyl 5 mg tablet,delayed 5 mg PO ONCE #4 tab 05/30/19 release polyethylene glycol 3350 17 238 g PO ONCE #238 gm 05/30/19 gram/dose oral powder folic acid 1 mg tablet 1 mg PO DAILY #90 tab 06/05/19 famotidine 20 mg tablet 20 mg PO BID #180 tab 06/20/19 gabapentin 300 mg capsule 300 mg PO QHS #60 cap 06/20/19 cyclobenzaprine 10 mg PO TID PRN #10 tab 06/24/19 Allergies Allergy/AdvReac Type Severity Reaction Status Date / Time No Known Allergies Allergy Verified 06/24/19 13:38 General Stated Complaint: Orthopedic FLY: 4 Review of Systems All systems reviewed & are unremarkable except as noted in HPI and below Constitutional Constitutional: Denies chills, Denies fatigue, Denies fever(s), Denies headache(s) and Denies malaise ENT Ears, Nose, Mouth, and Throat: Denies dizziness, Denies headache(s) and Denies neck pain Musculoskeletal Musculoskeletal: Denies abnormal gait, Reports back pain, Denies deformity, Denies neck pain, Denies numbness and Denies stiffness Integumentary/Breasts Skin/Breast: Denies rash Neurologic Neurologic: Denies abnormal gait, Denies dizziness, Denies headache(s) and Denies numbness Endocrine Endocrine: Denies fatigue [facility] Medical History Actinic keratoses (Chronic) Alcohol abuse (Chronic) in patient treatment at [facility] 2011 Aortic valve stenosis (Chronic) mild. echo 2013 neg MPI 12/01. Benign prostatic hyperplasia (Chronic) Essential hypertension (Chronic) Hearing loss (Chronic) Hyperparathyroidism (Chronic 10/22/17) [place] [facility] [place] [facility] [place] Osteoporosis (Chronic) T score of 3.5 LS spine Renal calculus, right (Chronic 03/29/17) Right ureteral stone (Chronic 03/29/17) Sciatica (Chronic) left; disk; persistent left foot numbness Seizure (Chronic) Serum calcium elevated (Chronic 11/19/15) Hyper PTH Parathyroid surgery 10/03 removing one of 4 glands Thoracic spondyloarthritis (Chronic) Tobacco use disorder (Chronic) Surgical History (Updated 05/30/19 @ 10:01 by Susie Meng MD) [place] [facility] [place]ystoscopy 11/14/15; DR. DEVI Excision, Distal Clavicle (03/22/15) ALSO [facility] ACROMIOPLASTY/LIMITED ROTATOR CUFF REPAIR/ DR ROSARIO H/O parathyroidectomy (Acute) Family History (Updated 06/21/19 @ 09:04 by Rafael Carvalho) Mother , age 68 Alzheimer disease MS (multiple sclerosis) Father , age 72 Diabetes Essential hypertension Heart disease Hyperlipidemia Sister No problems noted. Brother No problems noted. Brother Crohns disease Maternal Grandfather , age 70 Heart disease Paternal Grandfather , age 92 No problems noted. Maternal Grandmother , age 70 No problems noted. Paternal Grandmother , age 94 Intestinal cancer Brother No problems noted. Son No problems noted. Daughter No problems noted. Daughter No problems noted. Social History Smoking/Tobacco Use Status: Former Tobacco Use Quit Date: 07/19/06 Pack-years: 25 Tobacco: How many years used: 15 Second Hand Exposure: Yes Alcohol Intake: former Drug use: Current Sobriety Substance use type: does not use Caregiver/Support person: Yes Household members: spouse Housing: house Communication Needs: None Do you need help understanding health information?: Rarely Pets and animals: Yes Pets and animals: cat(s) Sexually active: Yes Do you think of yourself as: straight/heterosexual Current gender identity: male What is your relationship status?: How often do you talk on the phone with friends or family?: once per week How often do you get together with friends or relatives?: once per week How often do you attend jew or religion services?: 1-3 times per year Do you belong to any clubs or organized social groups?: no Panel score (0-1 are the most socially isolated patients): 1 What type of physical activity do you participate in: yoga Duration: 15-30 minutes/day Frequency: 5-6 times per week Caitlin/Yazidi: Nondenominational Special caitlin needs: No Seatbelt use: always Helmet use: Yes Helmet use: always Drive 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 Well hydrated. Alert and alert. NECK: Normal visual inspection. FROM. No lymphadenopathy. Trachea midline. No Midline tenderness. No meningeal signs CHEST: Normal insepection of the chest. RESP: Normal respiratory effort. Speaking full sentences. No cough. No wheezing. No retractions. Clear to auscaltation. Breath sound equal and present bilaterally. CARDIO: No JVD. Normal PMI. Regular Rate. Regular Rhythm. Normal peripheral pulses. GI: Normal inspection of abdomen. No distension. Soft. Nontender. Bowel sounds present in all 4 quadrants. No rebound. No gaurding. Back: No palpable midline tenderness. No CVA tenderness or paraspinal tenderness. No rashes MUSCULOSKELETAL: Normal Gait. FROM of all extremities. Distal neurovascularly intact. Sensation intact distally. DTRs intact and equal bilaterally. Straight leg raise intact with mild pain in the left back with left-sided straight leg raise. No foot drop. Sensation equal and intact bilaterally SKIN: Normal. Dry. No rashes. NEURO: Alert and awake. Speech clear. PSYCH: Normal affect. Cooperative. Course Vital Signs Vital signs: Vital Signs Temperature 36.5 C 06/24/19 13:34 Pulse 63 06/24/19 13:34 Respiratory Rate 18 06/24/19 13:34 Blood Pressure 159/89 H 06/24/19 13:34 Pulse Oximetry 98 06/24/19 13:34 Temperature 36.5 C 06/24/19 13:34 Temperature Source Skin 06/24/19 13:34 Pulse 63 06/24/19 13:34 Respiratory Rate 18 06/24/19 13:34 Respiratory Effort Non-Labored 06/24/19 13:37 Blood Pressure 159/89 H 06/24/19 13:34 Blood Pressure Position Sitting 06/24/19 13:34 Pulse Oximetry 98 06/24/19 13:34 Oxygen Delivery Method Room Air 06/24/19 13:34 Oxygen Flow Rate 0 06/24/19 13:34 Pain Level 9 06/24/19 14:16
[2019-06-24 15:57] VITALS: BP 159/89; PULSE 63; RESP 18; TEMP 36.5; O2SAT 98
== END 2019-06-24 15:53 | disposition home or self-care (01) ==
PROVIDERS: Emergency Provider Physician Assistant; PCP Emergency Medicine
DX: M54.6 Pain in thoracic spine (principal); M80.88XA Other osteoporosis with current pathological fracture, vertebra(e), initial encounter for fracture; I10 Essential (primary) hypertension
CPT/HCPCS: 99284; 72128

== ENCOUNTER 2019-06-27 18:09 | Emergency (ER) | payer OTHER, SELFPAY ==
[2019-06-27] VITALS (32 sets, daily range): BP systolic 135–162; BP diastolic 71–88; PULSE 58–154; RESP 13–25; TEMP 36.7–37.1; O2SAT 91–99
--- NOTE | 2019-06-27 18:47 | ED.GENADUL_ITS ---
Discharge Plan Disposition Condition: Improving Discharge Details Chief Complaint: Palpitatns Clinical Impression: PAF (paroxysmal atrial fibrillation), Acute hypokalemia Primary Care Provider: Kendall Lanier ED Provider: Fran Trivedi Home Meds and New Rx's Prescriptions: Continued allopurinol 300 mg tablet 300 mg PO DAILY Qty: 30 RF: 12 ascorbic acid (vitamin C) 500 mg tablet 500 mg PO DAILY RF: 0 polyethylene glycol 3350 17 gram/dose powder 238 g PO ONCE Qty: 238 RF: 0 bisacodyl 5 mg tablet,delayed release (DR/EC) 5 mg PO ONCE Qty: 4 RF: 0 cholecalciferol (vitamin D3) 1,000 unit capsule 1,000 unit PO DAILY RF: 0 gabapentin 300 mg capsule 300 mg PO QHS Qty: 60 RF: 2 famotidine 20 mg tablet 20 mg PO BID Qty: 180 RF: 3 Eliquis 5 mg tablet 5 mg PO BID RF: 0 metoprolol tartrate 25 mg tablet 12.5 mg PO BID RF: 0 levetiracetam [Keppra] 500 mg tablet 1,000 mg PO BID Qty: 360 RF: 3 folic acid 1 mg tablet 1 mg PO DAILY Qty: 90 RF: 3 multivitamin with minerals [Men's One Daily] 1 EACH tablet 1 ea PO DAILY RF: 0 omega-3 fatty acids-fish oil 1 EACH capsule 1 ea PO HS RF: 0 cyclobenzaprine 10 mg tablet 10 mg PO TID PRN (Reason: muscle spasm) Qty: 10 RF: 0 Discharge Instructions Instructions: Atrial Fibrillation (ED), Hypokalemia (ED) Additional Instructions: Please call [facility] [place] [facility] tomorrow morning as you have planned. Your initial rhythm upon presentation to the emergency department was a rapid atrial fibrillation with a ventricular rate of approximately 140. You spontaneously converted to a normal sinus rhythm without intervention. Your laboratories found you to have a potassium of 3.0, which was supplemented in the emergency department. You may liberalize dietary potassium as we discussed. You were given your evening dose of metoprolol and an additional 5 mg IV. Please discuss with cardiology whether you are a candidate to increase your metoprolol from 12.5 mg twice daily to 25 mg twice daily. Return to the ER for any acute concerns. Medical Decision Making 59-year-old male presents from home with his with palpitations that began at dinnertime. No syncope and no chest pain associated with this. He has a history of paroxysmal atrial fibrillation for which he has establish care with cardiology and takes metoprolol 12.5 mg twice daily (has not had evening dose) and is anticoagulated with apixaban. He also has a bicuspid aortic valve for which she has an echocardiogram scheduled on Wednesday with subsequent follow-up in cardiology clinic. He arrives to the ED with a rapid atrial fibrillation initially captured on his first EKG. He subsequently self converted to normal sinus rhythm approximately 6:30 PM, prior to intervention. Patient was placed on a hall monitor, IV access established and patient given a fluid bolus. As he had not had his evening metoprolol he was given 5 mg IV x1 as well as 12.5 mg p.o. x1. Screening laboratories obtained: ECG Data Attestation: I personally reviewed and interpreted this ECG (s) as follows: Interpretation: EKG #1 obtained at 1816 hrs. reveals atrial fibrillation with tachycardic response of 135 bpm, no ST segment elevation present. EKG #2 obtained at 1829 hrs. reveals normal sinus rhythm, rate of 88, QRS is narrow, no ST segment elevation present HPI General Mode of arrival: ambulatory . Date/Time Provider Initiated Documentation: 06/27/19 18:10 . Limitations to Documentation: no limitations . Information obtained by: patient and family . History of Present Illness 59 year old M presents to the emergency department with the chief complaint of Palpitations at home tonight at dinnertime, described as similar to prior episodes, Quality is described as constant, and is localized to the chest. Patient reports no radiation. Patient started experiencing this minute(s) and it has been constant. No relieving factors improve symptom(s), No exacerbating factors reported . Patient notes denies chest pain, shortness of breath and syncope. Patient did receive the following treatments prior to arrival, none Related Data Home Medications Medication Instructions Recorded Confirmed multivitamin with minerals [Men's 1 ea PO DAILY 12/17/12 06/27/19 One Daily] omega-3 fatty acids-fish oil 1 ea PO HS 06/04/16 06/27/19 cholecalciferol (vitamin D3) 1,000 1,000 unit PO DAILY 06/15/18 06/27/19 unit capsule allopurinol 300 mg tablet 300 mg PO DAILY #30 tab 12/27/18 06/27/19 apixaban 5 mg tablet 5 mg PO BID 12/30/18 06/27/19 metoprolol tartrate 25 mg tablet 12.5 mg PO BID tab 12/30/18 06/27/19 ascorbic acid (vitamin C) 500 mg 500 mg PO DAILY 01/24/19 06/27/19 tablet levetiracetam 500 mg tablet 1,000 mg PO BID #360 tab-cap 03/31/19 06/27/19 bisacodyl 5 mg tablet,delayed 5 mg PO ONCE #4 tab 05/30/19 06/27/19 release polyethylene glycol 3350 17 238 g PO ONCE #238 gm 05/30/19 06/24/19 gram/dose oral powder folic acid 1 mg tablet 1 mg PO DAILY #90 tab 06/05/19 06/27/19 famotidine 20 mg tablet 20 mg PO BID #180 tab 06/20/19 06/27/19 gabapentin 300 mg capsule 300 mg PO QHS #60 cap 06/20/19 06/27/19 cyclobenzaprine 10 mg PO TID PRN #10 tab 06/24/19 06/27/19 Previous Rx's Medication Instructions Recorded allopurinol 300 mg tablet 300 mg PO DAILY #30 tab 12/27/18 levetiracetam 500 mg tablet 1,000 mg PO BID #360 tab-cap 03/31/19 bisacodyl 5 mg tablet,delayed 5 mg PO ONCE #4 tab 05/30/19 release polyethylene glycol 3350 17 238 g PO ONCE #238 gm 05/30/19 gram/dose oral powder folic acid 1 mg tablet 1 mg PO DAILY #90 tab 06/05/19 famotidine 20 mg tablet 20 mg PO BID #180 tab 06/20/19 gabapentin 300 mg capsule 300 mg PO QHS #60 cap 06/20/19 cyclobenzaprine 10 mg PO TID PRN #10 tab 06/24/19 Allergies Allergy/AdvReac Type Severity Reaction Status Date / Time No Known Allergies Allergy Verified 06/27/19 18:13 General Stated Complaint: Palpitatns FLY: 2 Review of Systems Narrative: No recent illness. States he is been taking his medications as prescribed. Has an echocardiogram scheduled this Wednesday for bicuspid aortic valve. 8 systems reviewed and otherwise negative. See HPI. PFSH Medical History Actinic keratoses (Chronic) Alcohol abuse (Chronic) in patient treatment at [facility] 2011 Aortic valve stenosis (Chronic) mild. echo 2013 neg MPI 12/01. Benign prostatic hyperplasia (Chronic) Essential hypertension (Chronic) Hearing loss (Chronic) Hyperparathyroidism (Chronic 10/22/17) [place] [facility] [place] Osteoporosis (Chronic) T score of 3.5 LS spine Renal calculus, right (Chronic 03/29/17) Right ureteral stone (Chronic 03/29/17) Sciatica (Chronic) left; disk; persistent left foot numbness Seizure (Chronic) Serum calcium elevated (Chronic 11/19/15) Hyper PTH Parathyroid surgery 10/03 removing one of 4 glands Thoracic spondyloarthritis (Chronic) Tobacco use disorder (Chronic) Surgical History Colonoscopy - [facility] [place] 2008 Cystoscopy 11/14/15; DR. DEVI Excision, Distal Clavicle (03/22/15) ALSO [facility] ACROMIOPLASTY/LIMITED ROTATOR CUFF REPAIR/ DR ROSARIO H/O parathyroidectomy (Acute) Family History Mother , age 68 Alzheimer disease MS (multiple sclerosis) Father , age 72 Diabetes Essential hypertension Heart disease Hyperlipidemia Sister No problems noted. Brother No problems noted. Brother Crohns disease Maternal Grandfather , age 70 Heart disease Paternal Grandfather , age 92 No problems noted. Maternal Grandmother , age 70 No problems noted. Paternal Grandmother , age 94 Intestinal cancer Brother No problems noted. Son No problems noted. Daughter No problems noted. Daughter No problems noted. Social History Smoking/Tobacco Use Status: Former Tobacco Use Quit Date: 07/19/06 Pack-years: 25 Tobacco: How many years used: 15 Second Hand Exposure: Yes Alcohol Intake: former Drug use: Current Sobriety Substance use type: does not use Caregiver/Support person: Yes Household members: spouse Housing: house Communication Needs: None Do you need help understanding health information?: Rarely Pets and animals: Yes Pets and animals: cat(s) Sexually active: Yes Do you think of yourself as: straight/heterosexual Current gender identity: male What is your relationship status?: How often do you talk on the phone with friends or family?: once per week How often do you get together with friends or relatives?: once per week How often do you attend gnosticist or pentecostal services?: 1-3 times per year Do you belong to any clubs or organized social groups?: no Panel score (0-1 are the most socially isolated patients): 1 What type of physical activity do you participate in: yoga Duration: 15-30 minutes/day Frequency: 5-6 times per week Caitlin/Buddhism: Religion Special caitlin needs: No Seatbelt use: always Helmet use: Yes Helmet use: always Drive intox or ride w/intox charter bus 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 Exam Narrative Exam Narrative: GEN: awake, alert, oriented 3. Pleasant, well groomed, interactive. HEAD: Normocephalic, atraumatic ENT: Mucous membranes moist, oropharynx unremarkable, External ear exam unremarkable EYES: PERRL, EOMI NECK: Full ROM, no WILLEM, no menigismus CHEST/RESP: Nontender, clear to auscultation bilateral, no wheeze/rhonchi/rales CARDIOVASCULAR: RRR, no murmur, rub samy. 2+ Rad pulse bilateral ABDOMEN: Soft, nontender, no mass. +Bowel sounds EXT: Full ROM, no edema, no rash Neuro: Grossly normal neurologic exam, conversant, interactive. Psych: Speech fluent, thoughts congruent, affect normal Course Vital Signs Vital signs: Vital Signs Temperature 37.1 C 06/27/19 18:19 Pulse 147 H 06/27/19 18:19 Respiratory Rate 23 06/27/19 18:19 Blood Pressure 162/79 H 06/27/19 18:19 Pulse Oximetry 94 L 06/27/19 18:19 Temperature 37.1 C 06/27/19 18:19 Temperature Source Skin 06/27/19 18:19 Pulse 84 06/27/19 18:25 Respiratory Rate 23 06/27/19 18:19 Respiratory Effort 06/27/19 18:21 Blood Pressure 162/79 H 06/27/19 18:19 Pulse Oximetry 94 L 06/27/19 18:19 Oxygen Delivery Method Room Air 06/27/19 18:19 Oxygen Flow Rate 0 06/27/19 18:19 Pain Level 3 06/27/19 18:19 Comment 06/27/19 18:25
[2019-06-27] MEDS: Metoprolol 5 MG/5 ML VIAL IVP (19:03)
[2019-06-27] MEDS: Metoprolol 25 MG TAB (19:03)
[2019-06-27 19:06] LABS: Abs Immature Grans 0.01 k/cumm (0.0-0.09); Absolute Basophil Count 0.03 k/cumm (0.0-0.2); Absolute Eosinophil Count 0.21 k/cumm (0.0-0.7); Absolute Lymphocyte Count 1.47 k/cumm (1.2-3.4); Absolute Monocyte Count 0.78 k/cumm (0.11-0.7); Basophils % 0.3; Eosinophils % 2.4; HCT 44.9 % (40.0-50.0); HGB 14.9 g/dL (13.5-17.5); Immature Grans % 0.1; Lymphocytes % 16.7; Mean Corp. HGB Concentration 33.2 g/dL (32.0-36.0); Mean Corpuscular Hemoglobin 31.6 pg (27.0-33.0); Mean Corpuscular Volume 95.1 fL (80-95); Mean Platelet Volume 10.5 fL (8.0-11.0); Monocytes % 8.9; Neutrophils % 71.6; Platelet Count 249 x1000/uL (130-400); RBC 4.72 m/cumm (4.50-6.00); RBC Distribution Width 12.8 % (11.8-14.1)
[2019-06-27 19:22] LABS: ALT 24 U/L (16-63); AST 22 U/L (15-37); Alkaline Phosphatase 104 U/L (46-116); BUN 21 mg/dL (7-18); Bilirubin, Total 0.3 mg/dL (0.2-1.0); Chloride 104 mmol/L (98-107); Glucose 84 mg/dL (74-106); Magnesium 1.9 mg/dL (1.8-2.4); Sodium 144 mmol/L (136-145); Total Protein 8.3 g/dL (6.4-8.2); Troponin I < 0.05 ng/Ml (<0.06)
[2019-06-27] MEDS: Potassium Chloride 20 MEQ TABCR PO (19:35)
[2019-06-27] MEDS: POTASSIUM CHLORIDE 10 MEQ/100 ML BAG 100 MEQ IVPB (19:36)
[2019-06-27] MEDS: Normal Saline 1,000 ML 1000 ML IV (19:36)
== END 2019-06-27 20:55 | disposition home or self-care (01) ==
PROVIDERS: Emergency Provider Emergency Medicine; PCP Emergency Medicine
DX: I48.0 Paroxysmal atrial fibrillation (principal); E87.6 Hypokalemia; Z79.01 Long term (current) use of anticoagulants; I10 Essential (primary) hypertension; F17.210 Nicotine dependence, cigarettes, uncomplicated
CPT/HCPCS: 36415; 80053; 93005; 96361; 96365; 96375; 99284; 83735; 84484; 85025; 93010; J3480

== ENCOUNTER 2019-06-30 00:47 | Outpatient (CLI) | payer OTHER, SELFPAY ==
--- NOTE | 2019-06-20 11:32 | PDOC.ANES ---
Anesthesia Note Report Anesthesia Note: Mr. Wallace is a 59 yo man with a history of a-fib and on elaquis. He was recently seen by cardiology with dyspnea on exertion and fatigue. A stress test and echo were ordered for June. Given that he has not had these, with known symptoms as well as history of moderate valve disease, decision was made to postpone his colonoscopy scheduled for 06/23 until his cardiac workup is complete. Surgery Office is aware of plan.
--- NOTE | 2019-06-30 13:50 | DI.US_ITS ---
APPROVED REPORT EXAM: Comprehensive 2D, Doppler, and color-flow Echocardiogram Patient Location: Out-Patient [facility]ocational [facility]acement Specialist: Estrella Coughlin RDCS (AE) Rhythm: NSR Indications: aortic stenosis i35.0 Conclusion Left Ventricle : The left ventricle is normal. Mild left ventricular hypertrophy. Left ventricular s ystolic function is normal. There is normal LV segmental wall motion. The left ventricular diastolic function is normal. LVEF is estimated to be 60-65%. Right Ventricle : Right ventricle is mildly dilated. The right ventricular systolic function appears normal. Atria : The right atrium size is normal. The left atrium size is normal. Aortic Valve : Aortic valve is probably bicuspid. Moderate aortic valve sclerosis. Moderate aortic re gurgitation directed eccentrically posterior. Moderate aortic stenosis (mean gradient 24mmHg, VICENTE 1.4 2cm2). Mitral Valve : Mitral valve leaflets are mildly thickened. AVML bend without prolapse. Trivial mitral regurgitation. No evidence of mitral valve stenosis. Tricuspid Valve : The tricuspid valve is normal in structure. Trace to mild tricuspid regurgitation. Great Vessels : Aortic root is dilated (4cm) Ascending aorta is dilated (4.56cm), there is thickening of the lumen. The IVC appears small in size and collapses >50% with inspiration. Estimated RVSP is 29-32mmHg. Compared to echocardiogram dated 07/01/2018 the aortic stenosis gradient has increased minimally and the ascending aorta has increased in size. Wall motion Left Ventricle The left ventricle is normal. Left ventricular systolic function is normal. Mild left ventricular hyp ertrophy. There is normal LV segmental wall motion. The left ventricular diastolic function is normal . LVEF is estimated to be 60-65%. Right Ventricle Right ventricle is mildly dilated. The right ventricular systolic function appears normal. Atria The left atrium size is normal. The right atrium size is normal. Aortic Valve Aortic valve is probably bicuspid. Moderate aortic valve sclerosis. Moderate aortic stenosis (mean gr adient 24mmHg, VICENTE 1.42cm2). Moderate aortic regurgitation directed eccentrically posterior. Mitral Valve Mitral valve leaflets are mildly thickened. AVML bend without prolapse. No evidence of mitral valve s tenosis. Trivial mitral regurgitation. Tricuspid Valve The tricuspid valve is normal in structure. Trace to mild tricuspid regurgitation. Pulmonic Valve Pulmonic valve is not well visualized. Mild pulmonic regurgitation. Great Vessels Aortic root is dilated (4cm) Ascending aorta is dilated (4.56cm), there is thickening of the lumen. T he IVC appears small in size and collapses >50% with inspiration. Estimated RVSP is 29-32mmHg. Pericardium There is no pericardial effusion. 2D Dimensions IVSd 1.45 cm M: 0.6-1.2 LV EDV A2C 123.10 mL PWd 1.20 cm M: 0.6 - 1.2 LV EDV A4C 103.60 mL LVDd 5.45 cm M: 4.2 - 5.8 LA Volume Index A2C 30.63 mL/m2 LVDs 3.60 cm M: 2.5 - 4.0 LA Volume Index A4C 21.19 mL/m2 Aortic Root 4.00 cm M: 3.1 - 3.7 LA Volume Index Biplane 27.36 mL/m2 RA Area A4C 11.01 cm2 LA Area A4C 17.73 cm2 LVOT 2.20 cm (M/F) 1.5-2.5 LA Area A2C 22.89 cm2 Ascending Aorta 4.56 cm M: 2.6 - 3.4 EF AP4 67.57 % LVEF (Teich) 62.38 % EF AP2 71.57 % LVEF (Corbin's) 69.21 % M: 52 - 72 EF BP 69.21 % LV Volume 81.58 mL M: 62 - 150 LV Volume Index 36.25 mL/m2 M: 34 - 74 FS 34.00 % LV Diastology E/A Ratio 0.6 MED E' 0.06 (>0.07 m/s) LV E/e MED 8.25 (<14) LAT E' 0.09 (>0.1 m/s) LV E/e LAT 5.65 (<14) Aortic Valve LVOT Area 3.89 cm2 LVOT Peak Chemo. 0.95 m/s LVOT Mean Chemo. 0.80 m/s LVOT Peak Gr. 3.70 mmHg VICENTE Vmax Index 0.51 cm2/m2 LVOT Mean Gr. 2.70 mmHg LVOT VTI 0.25 m VICENTE Mean Chemo. Index 0.60 cm2/m2 AoV Peak Chemo. 3.24 (0.5-1.3 m/s) AoV Mean Chemo. 2.30 m/s AO Peak GR. 42.07 mmHg AO Mean GR. 23.74 (<5 mmHg) AO VTI 0.36 (0.18-0.25 m) VTI Ratio 0.30 VICENTE (VTI) 1.42 (2.5-4.5 cm2) VICENTE (VTI) Index 0.62 cm/m2 Mitral Valve MV E Max Chemo. 0.49 (0.4-1.3 m/s) MVA VTI 6.16 (4.0-6.0 cm2) MV A Velocity 0.80 (0.4-1.3 m/s) E/A Ratio 0.59 MV Decel. Time 367.30 (160-240 msec) MV PHT 106.52 msec MVA PHT 2.05 cm2 Tricuspid Valve TR P. Velocity 2.71 m/s TV Regurg Vmax 2.71 m/s RAP Estimate 3.00 mmHg RVSP 32.00 mmHg TR P. Gradient 29.25 mmHg
== END 2019-06-30 01:07 ==
PROVIDERS: PCP Emergency Medicine; Visit Provider Nurse Practitioner Family
DX: I35.0 Nonrheumatic aortic (valve) stenosis (principal); I51.7 Cardiomegaly; I48.91 Unspecified atrial fibrillation; I10 Essential (primary) hypertension
CPT/HCPCS: 93306

== ENCOUNTER 2019-07-10 09:55 | Day surgery (SDC) | payer OTHER, SELFPAY ==
[2019-07-10] VITALS (18 sets, daily range): BP systolic 104–254; BP diastolic 57–105; PULSE 53–93; RESP 11–24; TEMP 36.1–37.1; O2SAT 93–97
--- NOTE | 2019-07-10 10:30 | HPE_ITS ---
Date of service: 07/10/19 Time of Service: 10:30 Assessment and Plan Assessment and plan (1) Encounter for screening colonoscopy: Status: Acute Assessment and plan: I advised colonoscopy. The procedure was described including the risks of perforation with need for surgery or bleeding. Patient agrees to proceed. He stopped Eliquis on Wednesday. History of Present Illness Narrative: Presents for screening colonoscopy No abdominal complaints Last colonoscopy was 10 years. Brother with Crohn's but no FH colon cancer. Sees cardiology for a fib and a bicuspid aortic valve. Recent ECHO showed stable disease with moderate and a ascending aortic aneurysm. Did have recent episode of a fib with palpitations. Review of Systems All systems reviewed & are unremarkable except as noted in HPI and below PFS Medical History Actinic keratoses (Chronic) Alcohol abuse (Chronic) in patient treatment at [facility] 2011 Aortic valve stenosis (Chronic) mild. echo 2012 neg MPI 12/01. Benign prostatic hyperplasia (Chronic) Essential hypertension (Chronic) Hearing loss (Chronic) Hyperparathyroidism (Chronic 10/22/17) surgery [facility] [place] 2017 Osteoporosis (Chronic) T score of 3.5 LS spine Renal calculus, right (Chronic 03/29/17) Right ureteral stone (Chronic 03/29/17) Sciatica (Chronic) left; disk; persistent left foot numbness Seizure (Chronic) last seizure 35 years ago Serum calcium elevated (Chronic 11/19/15) Hyper PTH Parathyroid surgery 10/03 removing one of 4 glands Thoracic spondyloarthritis (Chronic) Tobacco use disorder (Chronic) Surgical History Colonoscopy - [facility] [place] 2008 Cystoscopy 11/14/15; DR. DEVI Excision, Distal Clavicle (03/22/15) ALSO [facility]LE ACROMIOPLASTY/LIMITED ROTATOR CUFF REPAIR/ DR ROSARIO H/O parathyroidectomy (Acute) Family History Mother , age 68 Alzheimer disease MS (multiple sclerosis) Father , age 72 Diabetes Essential hypertension Heart disease Hyperlipidemia Sister No problems noted. Brother No problems noted. Brother Crohns disease Maternal Grandfather , age 70 Heart disease Paternal Grandfather , age 92 No problems noted. Maternal Grandmother , age 70 No problems noted. Paternal Grandmother , age 94 Intestinal cancer Brother No problems noted. Son No problems noted. Daughter No problems noted. Daughter No problems noted. Social History Smoking/Tobacco Use Status: Former Tobacco Use Quit Date: 07/19/06 Pack-years: 25 Tobacco: How many years used: 15 Second Hand Exposure: Yes Alcohol Intake: former Drug use: Current Sobriety Substance use type: does not use Caregiver/Support person: Yes Household members: spouse Housing: house Communication Needs: None Do you need help understanding health information?: Rarely Pets and animals: Yes Pets and animals: cat(s) Sexually active: Yes Do you think of yourself as: straight/heterosexual Current gender identity: male What is your relationship status?: How often do you talk on the phone with friends or family?: once per week How often do you get together with friends or relatives?: once per week How often do you attend jain or taoist services?: 1-3 times per year Do you belong to any clubs or organized social groups?: no Panel score (0-1 are the most socially isolated patients): 1 What type of physical activity do you participate in: yoga Duration: 15-30 minutes/day Frequency: 5-6 times per week Caitlin/Presybeterian: Moravian Special caitlin needs: No Seatbelt use: always Helmet use: Yes Helmet use: always Drive intox or ride w/intox log 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 Meds Home Medications and Allergies Home Medications Medication Instructions Recorded Confirmed Type multivitamin with minerals [Men's 1 ea PO DAILY 12/17/12 07/07/19 History One Daily] omega-3 fatty acids-fish oil 1 ea PO HS 06/04/16 07/07/19 History cholecalciferol (vitamin D3) 25 1,000 unit PO DAILY 06/15/18 07/07/19 History mcg (1,000 unit) capsule allopurinol 300 mg tablet 300 mg PO DAILY #30 tab 12/27/18 07/07/19 Rx apixaban 5 mg tablet 5 mg PO BID 12/30/18 07/07/19 History metoprolol tartrate 25 mg tablet 25 mg PO BID tab 12/30/18 07/07/19 History ascorbic acid (vitamin C) 500 mg 500 mg PO DAILY 01/24/19 07/07/19 History tablet levetiracetam 500 mg tablet 1,000 mg PO BID #360 tab-cap 03/31/19 07/07/19 Rx bisacodyl 5 mg tablet,delayed 5 mg PO ONCE #4 tab 05/30/19 06/27/19 Rx release polyethylene glycol 3350 17 238 g PO ONCE #238 gm 05/30/19 06/24/19 Rx gram/dose oral powder folic acid 1 mg tablet 1 mg PO DAILY #90 tab 06/05/19 07/07/19 Rx famotidine 20 mg tablet 20 mg PO BID #180 tab 06/20/19 07/07/19 Rx gabapentin 300 mg capsule 300 mg PO QHS #60 cap 06/20/19 07/07/19 Rx cyclobenzaprine 10 mg PO TID PRN #10 tab 06/24/19 07/07/19 Rx Allergies Allergy/AdvReac Type Severity Reaction Status Date / Time No Known Allergies Allergy Verified 06/27/19 18:13 Exam Const General: healthy appearing and not in acute distress Nutritional Appearance: well nourished Orientation: oriented x3 HENMT Head: normal to inspection Eyes Sclera: sclerae normal Pupils: PERRL Neck Neck: no lymphadenopathy Thyroid: thyroid normal Resp Effort & Inspection: normal respiratory effort Auscultation: clear to auscultation bilaterally and no wheezes Cardio Rate: regular rate Rhythm: regular rhythm GI Inspection: non-distended Palpation: soft, no hepatosplenomegaly, no hernias and nontender Skin General skin exam: no rashes or lesions noted Neuro General: alert Cognition: normal cognition Extrem General: normal to inspection Psych Affect: normal affect Attitude: cooperative Results Last Vital Signs Temp 97.0 F L 07/10/19 10:19 Pulse 65 07/10/19 10:19 Resp 18 07/10/19 10:19 BP 141/86 H 07/10/19 10:19 Pulse Ox 97 07/10/19 10:19
--- NOTE | 2019-07-10 10:35 | W.PM.DSUDISC ---
Discharge Plan Disposition Patient Disposition: HOME Condition: Good Discharge Details Reason For Visit: SCREENING Colonoscopy Attending Provider: Susie Meng Primary Care Provider: Kendall Lanier Home Meds and New Rx's Prescriptions: Continued allopurinol 300 mg tablet 300 mg PO DAILY Qty: 30 RF: 12 ascorbic acid (vitamin C) 500 mg tablet 500 mg PO DAILY RF: 0 cholecalciferol (vitamin D3) 1,000 unit capsule 1,000 unit PO DAILY RF: 0 gabapentin 300 mg capsule 300 mg PO QHS Qty: 60 RF: 2 famotidine 20 mg tablet 20 mg PO BID Qty: 180 RF: 3 Eliquis 5 mg tablet 5 mg PO BID RF: 0 metoprolol tartrate 25 mg tablet 25 mg PO BID RF: 0 levetiracetam [Keppra] 500 mg tablet 1,000 mg PO BID Qty: 360 RF: 3 folic acid 1 mg tablet 1 mg PO DAILY Qty: 90 RF: 3 multivitamin with minerals [Men's One Daily] 1 EACH tablet 1 ea PO DAILY RF: 0 omega-3 fatty acids-fish oil 1 EACH capsule 1 ea PO HS RF: 0 cyclobenzaprine 10 mg tablet 10 mg PO TID PRN (Reason: muscle spasm) Qty: 10 RF: 0 Discontinued polyethylene glycol 3350 17 gram/dose powder 238 g PO ONCE Qty: 238 RF: 0 bisacodyl 5 mg tablet,delayed release (DR/EC) 5 mg PO ONCE Qty: 4 RF: 0 Discharge Instructions Additional Instructions: Findings: Your colonoscopy showed minimal diverticulosis. Make sure to take in 30 grams of fiber daily. Follow up: Plan for routine screening colonoscopy in 10 years or sooner if symptoms arise. Please call if you develop: fevers >101.5 Nausea or Vomiting Abdominal pain that is not transient DAY SURGERY UNIT POST COLONOSCOPY INSTRUCTIONS 1. Because there will be medication in your system for the next 24 hours, you may feel a little sleepy. Your coordination will be affected. Therefore: a. Do not drive or operate dangerous equipment for 24 hours. b. Do not drink alcohol beverages for 24 hours (not even beer). c. Plan to go home and rest for the day. 2. Generally there are no restrictions on your activity after a day or so has gone by, but you may feel a bit fatigued for a few days. 3 After you arrive home you may have a light meal and return to a normal diet as you can tolerate it without feeling sick to your stomach. 4. After surgery, you may feel pain or discomfort. This should be only transient, but if it persists please contact your doctor. 5. If there are any questions regarding the findings of your procedure, please feel free to contact your doctor. 6. If you are unable to contact your doctor with a problem, contact the hospital at [phone]. 7. Continue all your regular medications unless directed otherwise. I understand the above instructions and have no questions. Signature of Patient or Responsible Adult Escort Date/Time Name of Responsible Adult Escort Signature of Nurse Date/Time Activity:: Activity as Tolerated Diet:: As Tolerated Discharge Orders Discharge Orders: Discharge Order (Routine); Ordered 07/10/19 Ordered By: Susie Meng DS: Diagnosis Discharge Diagnosis (1) Encounter for screening colonoscopy: Status: Acute (2) Diverticulosis: Status: Acute
[2019-07-10] MEDS: Lactated Ringers 1,000 ML 80 ML IV (10:42)
--- NOTE | 2019-07-10 12:00 | DSU.FORM ---
07/10/19 1138: pt. returned from procedure room to DSU, partial vs were taken pt. BP 200/83, pulse 107 repeat BP taken, pt. stated he felt nauseous, and began to dry heave. COLIN Gatica in room, repeat BP taken on LRL, BP in high 200's, Decision was made with Nevin MEJÍAN to return to PACU for further recovery and monitoring. Report given to Lisa Persaud RN.
--- NOTE | 2019-07-10 15:19 | PDOC.ANES ---
Date of service: 07/10/19 Time of Service: 15:23 Anesthesia Note Report Anesthesia Note: Asked to see Ebenezer in DSU in preparation for discharge. Ebenezer had a colonoscopy today and towards the end of the procedure his blood pressure was noted to increase from 130's-140's systolic to 220/120. He was sent to the PACU to recover and received a total of 20mg hydralazine with some effect. During the PACU stay, he did complain of abdominal discomfort due to gas pain and while using the bathroom, did have an episode of dry heaving resulting in a frontal headache. He has been in DSU now for a few hours. He appears in no distress, does complain of a 3/10 frontal headache and blood pressure are now 150's->160's/90's. He denies chest pain, blurred vision, shortness of breath, he just states that he would like to go home and just feels wiped. He has ambulated again to the bathroom, unable to pass any additional gas.He also has received the remaining 500ml's of LR through his IV as a bolus. I discussed Ebenezer with Dr. Meng who agrees that discharge home is reasonable. Ebenezer was educated on hypertensive crisis and given literature of this as well, although I do not believe this is occurring. The plan is to go home and take his BP meds as prescribed, continue to take his blood pressure through the evening and present to the ED or call surgical team if he is feeling worse through the evening. Ebenezer understands this plan and agrees that it is reasonable.
--- NOTE | 2019-07-11 09:30 | COLE_ITS ---
DATE OF PROCEDURE July 10, 2019 PREOPERATIVE DIAGNOSIS Screening. POSTOPERATIVE DIAGNOSIS Mild diverticulosis. PROCEDURE Colonoscopy. SURGEON Susie Meng M.D. ANESTHESIA General. INDICATIONS This is a 59-year-old man, who presents for routine colon evaluation. His last colonoscopy in 2008 wa s normal. He has no family history of colon cancer. He does have a brother with Crohn's disease. PROCEDURE He was placed in the left Lewis position. Propofol was titrated to sedation. Digital rectal examinatio n revealed no abnormalities. The scope was advanced to the cecum without difficulty. The distal ileum was intubated and appeared grossly normal. The patient's prep was excellent. The scope was slowly wi thdrawn with no abnormalities seen within the ascending, transverse or descending colon. The sigmoid region revealed mild diverticular change. The rectum was normal including on retroflexed view. He emanuel erated the procedure well and was stable to Recovery. He will need a followup colonoscopy for screening purposes in 10 years, or sooner if symptoms indicat e. CC: Kendall Lanier D.O.
== END 2019-07-10 15:50 | disposition home or self-care (01) ==
PROVIDERS: PCP Emergency Medicine; Visit Provider Surgery
PROC: 0DJD8ZZ Inspection of Lower Intestinal Tract, Via Natural or Artificial Opening Endoscopic (ICD-10-PCS; CPT 45378; principal; 2019-07-10 10:15)
DX: Z12.11 Encounter for screening for malignant neoplasm of colon (principal); K57.30 Diverticulosis of large intestine without perforation or abscess without bleeding; I10 Essential (primary) hypertension
CPT/HCPCS: 45378; NC

== ENCOUNTER 2019-12-20 11:44 | Outpatient (CLI) | payer OTHER, SELFPAY ==
--- NOTE | 2019-12-20 09:15 | DI.US_ITS ---
EXAM: US RENAL CLINICAL HISTORY: monitor kidney stones, N20.0 TECHNIQUE: Ultrasound performed using standard protocol. COMPARISON: US US ECHOCARDIOGRAM from 06/30/2019 FINDINGS: Renal ultrasound was performed according to the usual protocol. The kidneys are normal in size and s hape. There are tiny nonobstructing renal calculi bilaterally, posterior acoustic shadowing and twin kle artifact noted. There is a 14 millimeter in diameter is simple cortical cyst of the left renal midpole. Urinary bladder is unremarkable in appearance with pre and postvoid urinary bladder volume 120 cc and 3 cc respectively. Ureteral jets are noted bilaterally. Prostatic volume is 46 cc. IMPRESSION: Bilateral nonobstructing renal calculi. No other specific abnormality seen. DATA REPOSITORY:
== END 2019-12-20 12:04 ==
PROVIDERS: PCP Emergency Medicine; Visit Provider Urology
DX: N20.0 Calculus of kidney (principal); N28.1 Cyst of kidney, acquired
CPT/HCPCS: 76770

== ENCOUNTER 2019-12-28 01:25 | Outpatient (CLI) | payer OTHER, SELFPAY ==
--- NOTE | 2019-12-28 13:45 | DI.DEXA_ITS ---
EXAM: XR DEXA BONE DENSITY W/WO DUGLAS CLINICAL HISTORY: OSTEOPOROSIS, M81.0, COMPRESSION FX, DRUG HOLIDAY FROM BISPHOSPHONATE TX TECHNIQUE: COMPARISON: 01/25/2018 and 02/02/2012 FINDINGS: Lateral Spine Image: Unremarkable. No compression deformities identified. Left hip: Total T-Score: -1.4 this compares to -1.7. Total Z-Score: -0.9 T- and Z-scores: Consistent with osteopenia Lumbar Spine: Total T-Score: -3.2. This compares with -2.6. Total Z-Score: -2.6 T- and Z-scores: Consistent with osteoporosis. IMPRESSION: Findings consistent with osteoporosis in the lumbar spine.
== END 2019-12-28 01:45 ==
PROVIDERS: PCP Emergency Medicine; Visit Provider Internal Medicine Endocrinology, Diabetes & Metabolism
DX: M81.0 Age-related osteoporosis without current pathological fracture (principal); M85.88 Other specified disorders of bone density and structure, other site
CPT/HCPCS: 77080

== ENCOUNTER 2020-04-18 16:26 | Emergency (ER) | payer OTHER, SELFPAY ==
[2020-04-18] VITALS (26 sets, daily range): BP systolic 111–156; BP diastolic 73–84; PULSE 76–173; RESP 10–23; TEMP 36.7; O2SAT 89–96
--- NOTE | 2020-04-18 16:15 | RT.EKG_ITS ---
APPROVED REPORT Exam: Resting ECG Patient Location: E HR:141 bpm ECG Measurements Heart Rate 141 AXIS NH [id number] P [id number] QRSd 97 QRS 34 QT 306 T 26 QTc 469 Conclusion Atrial fibrillation...V-rate 105-170, irreg A-activity
--- NOTE | 2020-04-18 16:30 | DI.RAD_ITS ---
EXAM: XR CHEST 2V PA LATERAL CLINICAL HISTORY: afib TECHNIQUE: 2D digital imaging was performed. COMPARISON: CR THORACIC SPINE from 02/14/2016 FINDINGS: The heart is mildly enlarged. The aorta is tortuous. There are mild fibrotic changes. Degenerative changes are noted in the thoracic spine. Stable T7 compression fracture. IMPRESSION: No acute abnormality. Cardiomegaly.
[2020-04-18 16:57] LABS: Abs Immature Grans 0.03 10^3/uL (0.0-0.06); Absolute Basophil Count 0.04 10^3/uL (0.0-0.2); Absolute Eosinophil Count 0.21 10^3/uL (0.0-0.7); Absolute Monocyte Count 0.74 10^3/uL (0.1-0.8); Basophils % 0.5; Eosinophils % 2.5; HCT 43.4 % (40.0-50.0); HGB 14.4 g/dL (13.5-17.5); Immature Grans % 0.4; Lymphocytes % 16.4; MCH 31.5 pg (27.0-33.0); MCHC 33.2 % (32.0-36.0); MPV 10.2 fL (8.0-11.0); Monocytes % 8.7; Neutrophils % 71.5; Nucleated RBC 0 %; Platelet Count 237 10^3/uL (130-400); RBC 4.57 10^6/uL (4.36-5.78); RDW 12.3 % (11.8-14.1); RDW-SD 42.7 fL; WBC 8.52 10^3/uL (4.4-10.8)
[2020-04-18 17:18] LABS: PTT Activated 28.8 sec (21.0-31.4); Prothrombin Time 10.2 sec (9.3-11.0)
[2020-04-18 17:21] LABS: ALT 28 U/L (16-63); AST 29 U/L (15-37); Albumin 3.8 g/dL (3.4-5.0); Alkaline Phosphatase 81 U/L (46-116); Anion Gap 7.9 mmol/L (3-11); BUN 19 mg/dL (7-18); Bilirubin, Total 0.5 mg/dL (0.2-1.0); CO2 28.1 mmol/L (21.0-32.0); CREATININE 0.95 mg/dL (0.70-1.30); Calcium 8.8 mg/dL (8.5-10.1); Chloride 104 mmol/L (98-107); Glucose 86 mg/dL (74-106); Magnesium 1.9 mg/dL (1.8-2.4); Potassium 3.5 mmol/L (3.5-5.1); Sodium 140 mmol/L (136-145); TSH 1.39 uIU/mL (0.36-3.74); Total Protein 7.7 g/dL (6.4-8.2)
[2020-04-18] MEDS: Normal Saline 1,000 ML 1000 ML IV (17:24)
[2020-04-18 17:26] LABS: Troponin I < 0.05 ng/mL (<0.06)
--- NOTE | 2020-04-18 17:30 | RT.EKG_ITS ---
APPROVED REPORT Exam: Resting ECG Patient Location: E HR:80 bpm ECG Measurements Heart Rate 80 AXIS MT 179 P 62 QRSd 100 QRS 36 QT 366 T 34 QTc 423 Conclusion Sinus rhythm...normal P axis, V-rate 60- 99
--- NOTE | 2020-04-18 17:57 | ED.GENADUL_ITS ---
Discharge Plan Disposition Patient Disposition: HOME Condition: Stable Discharge Details Clinical Impression: A-fib Primary Care Provider: Kendall Lanier ED Provider: Félix Dubose Home Meds and New Rx's Prescriptions: Continued ascorbic acid (vitamin C) 500 mg tablet 500 mg PO DAILY RF: 0 calcium citrate-vitamin D3 500 mg-500 unit /5 gram powder PO RF: 0 losartan 50 mg tablet 50 mg PO DAILY RF: 0 allopurinol 300 mg tablet 300 mg PO DAILY Qty: 30 RF: 12 cholecalciferol (vitamin D3) 1,000 unit capsule 1,000 unit PO DAILY RF: 0 gabapentin 300 mg capsule 300 mg PO QHS Qty: 60 RF: 2 Eliquis 5 mg tablet 5 mg PO BID RF: 0 metoprolol tartrate 25 mg tablet 25 mg PO BID RF: 0 folic acid 1 mg tablet 1 mg PO DAILY Qty: 90 RF: 3 famotidine 40 mg tablet 40 mg PO BID Qty: 180 RF: 3 levetiracetam [Keppra] 500 mg tablet 1,000 mg PO BID Qty: 360 RF: 3 multivitamin with minerals [Men's One Daily] 1 EACH tablet 1 ea PO DAILY RF: 0 omega-3 fatty acids-fish oil 1 EACH capsule 1 ea PO HS RF: 0 cyclobenzaprine 10 mg tablet 10 mg PO TID PRN (Reason: muscle spasm) Qty: 10 RF: 0 Discharge Instructions Instructions: A-fib (Atrial Fibrillation) (ED) Additional Instructions: At this time your laboratory values do not reveal any obvious emergent process. Your atrial fibrillation broke and went back in sinus rhythm on its own without any intervention. I personally spoke with Dr. Gunderson. He stated that if you go into A. fib for longer than 10 minutes you may take a extra dose of your metoprolol. Please contact their office tomorrow for prompt outpatient reevaluation. Otherwise I would like you to watch for new or worsening symptoms and return to the ER for any concerns. Discharge Data Discharge Date/Time-TO BE ENTERED AT DEPARTURE: 04/18/20 21:24 Medical Decision Making <THONY Andrews - Last Filed: 04/18/20 21:15> This is a 59-year-old gentleman presenting to the ER reporting that he has been in A. fib for approximately 10-15 minutes. He has a history of atrial fibrillation, seizure disorder, hypertension, aortic valve stenosis. He is followed by cardiology at [facility]. Patient has not missed any doses of his medications recently. Denies any recent illness or trauma. Denies any chest pain or shortness of breath whatsoever. No pain or swelling in his legs. On cardiac rhythm it appears as though he is in atrial fibrillation. Cardiac work-up initiated and I immediately discussed the case with Dr. Cope who personally evaluated the patient in his room. After their discussion the option was for cardioversion versus pharmacology treatments. Decision was made for cardioversion once laboratory values were obtained and resulted. Work-up was being obtained, patient spontaneously broke from A. fib and went back into a sinus rhythm. Repeat EKG obtained, please see official report by Dr. Cope. Sinus rhythm, ventricular rate of 80, no STEMI. In the meantime his work-up resulted and revealed a white blood cell count of 8.52 hemoglobin 14.4 hematocrit 43.4 platelet count 237. INR 1.0 electrolytes unremarkable. Creatinine 0.95 with a GFR greater than 60. Troponin less than 0.05. TSH 1.39. Chest x-ray read by radiology as negative I reached out to cardiology at [facility], spoke with Dr. Gunderson. We discussed the patient's work-up here in the ER including his spontaneous conversion. He felt as though the patient could be safely discharged here from the ER and had no additional recommendations while the patient was here. He did recommend that the patient feels as though he does go into atrial fibrillation, and stays in it longer than 10 minutes, he can take an extra 25 mg of his metoprolol. Patient is to contact their office tomorrow for prompt outpatient reevaluation. My discussion with the cardiology team was then relayed to the patient. He has no additional questions or concerns and is comfortable this plan. Discussed my conversation with cardiology with Dr. Cope as well. He to felt the patient can be safely discharged, no clear indication for repeat troponin. Once his atrial fibrillation broke, heart rate remained primarily in the 80s. Blood pressures trended downward and upon discharge was 123/81. Medical Records Medical records reviewed: Yes I reviewed the patient's medical records. <Mark Cope MD - Last Filed: 05/11/20 23:38> Patient seen, examined, and discussed with THONY Dubose. Initial plan for electrical cardioversion. Patient is spontaneously cardioverted while awaiting labs. Labs reviewed and nondiagnostic. 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 I agree with treatment plan as discussed/documented. HPI <THONY Andrews - Last Filed: 04/18/20 21:15> General Mode of arrival: ambulatory . Date/Time Provider Initiated Documentation: 04/18/20 16:29 . Limitations to Documentation: no limitations . Information obtained by: patient . HPI Narrative: This is a 59-year-old g entleman with past medical history of aortic valve stenosis, BPH, hypertension, seizure disorder, atrial fibrillation, currently anticoagulated with apixaban. He reports that his initial diagnosis of atrial fibrillation was approximately 2 years ago. His cardiology team is at [facility] and he reports recent stress test and echocardiogram. Approximately 15 minutes ago while working in his garage he felt fluttering in his chest, a pressure in his throat, and he could tell that he went into A. fib. He denies any chest pain, shortness of breath, cough, recent illness or trauma, abdominal pain, vomiting. Does admit to mild nausea. Denies numbness, tingling, weakness. He did take all of his medication today as directed. Patient is able to tell exactly when he went into his atrial fibrillation. Sometimes this does happen he break spontaneously but this time he has not broken yet. Related Data Home Medications Medication Instructions Recorded Confirmed multivitamin with minerals [Men's 1 ea PO DAILY 12/17/12 12/22/19 One Daily] omega-3 fatty acids-fish oil 1 ea PO HS 06/04/16 12/22/19 cholecalciferol (vitamin D3) 25 1,000 unit PO DAILY 06/15/18 12/22/19 mcg (1,000 unit) capsule apixaban 5 mg tablet 5 mg PO BID 12/30/18 12/22/19 metoprolol tartrate 25 mg tablet 25 mg PO BID tab 12/30/18 12/22/19 ascorbic acid (vitamin C) 500 mg 500 mg PO DAILY 01/24/19 12/22/19 tablet folic acid 1 mg tablet 1 mg PO DAILY #90 tab 06/05/19 12/22/19 gabapentin 300 mg capsule 300 mg PO QHS #60 cap 06/20/19 12/22/19 cyclobenzaprine 10 mg PO TID PRN #10 tab 06/24/19 12/22/19 famotidine 40 mg tablet 40 mg PO BID #180 tab 10/26/19 12/22/19 allopurinol 300 mg tablet 300 mg PO DAILY #30 tab 12/22/19 12/22/19 calcium citrate 500 mg-vit D3 12.5 gm PO 12/22/19 12/22/19 mcg (500 unit)/5 gram oral powder losartan 50 mg tablet 50 mg PO DAILY 12/22/19 12/22/19 levetiracetam 500 mg tablet 1,000 mg PO BID #360 tab-cap 03/26/20 Previous Rx's Medication Instructions Recorded folic acid 1 mg tablet 1 mg PO DAILY #90 tab 06/05/19 gabapentin 300 mg capsule 300 mg PO QHS #60 cap 06/20/19 cyclobenzaprine 10 mg PO TID PRN #10 tab 06/24/19 famotidine 40 mg tablet 40 mg PO BID #180 tab 10/26/19 allopurinol 300 mg tablet 300 mg PO DAILY #30 tab 12/22/19 levetiracetam 500 mg tablet 1,000 mg PO BID #360 tab-cap 03/26/20 Allergies Allergy/AdvReac Type Severity Reaction Status Date / Time No Known Allergies Allergy Verified 04/18/20 16:34 General Stated Complaint: Palpitatns FLY: 3 Review of Systems <THONY Andrews - Last Filed: 04/18/20 21:15> Constitutional Constitutional: Denies fatigue, Denies fever(s) and Denies headache(s) ENT Ears, Nose, Mouth, and Throat: Denies headache(s), Denies neck pain and Denies sore throat Cardiovascular Cardiovascular: Denies chest pain, Reports irregular heart rhythm and Denies dyspnea Respiratory Respiratory: Denies cough and Denies dyspnea Gastrointestinal Gastrointestinal: Denies abdominal pain, Reports nausea and Denies vomiting Musculoskeletal Musculoskeletal: Denies back pain, Denies neck pain, Denies numbness and Denies tingling Integumentary/Breasts Skin/Breast: Denies rash Neurologic Neurologic: Denies headache(s), Denies numbness and Denies tingling Endocrine Endocrine: Denies fatigue Hematologic/Lymphatic Hematologic/Lymphatic: Reports easy bleeding and Reports easy bruising PFS <THONY Andrews - Last Filed: 04/18/20 21:15> Medical History Actinic keratoses Advanced directives, counseling/discussion Alcohol abuse in patient treatment at [facility] 2011 Aortic valve stenosis mild. echo 2013 neg MPI 12/01. Benign prostatic hyperplasia Essential hypertension Hearing loss Hyperparathyroidism (10/22/17) surgery [facility] [place] Osteoporosis T score of 3.5 LS spine Renal calculus, right (03/29/17) Right ureteral stone (03/29/17) Sciatica left; disk; persistent left foot numbness Seizure last seizure 35 years ago Serum calcium elevated (11/19/15) Hyper PTH Parathyroid surgery 10/03 removing one of 4 glands Thoracic spondyloarthritis Tobacco use disorder Surgical History Colonoscopy - [facility] [place] 2008 Cystoscopy 11/14/15; DR. DEVI Excision, Distal Clavicle (03/22/15) ALSO [place] ACROMIOPLASTY/LIMITED ROTATOR CUFF REPAIR/ DR ROSARIO H/O parathyroidectomy Family History Mother , age 68 Alzheimer disease MS (multiple sclerosis) Father , age 72 Diabetes Essential hypertension Heart disease Hyperlipidemia Sister No problems noted. Brother No problems noted. Brother Crohns disease Maternal Grandfather , age 70 Heart disease Paternal Grandfather , age 92 No problems noted. Maternal Grandmother , age 70 No problems noted. Paternal Grandmother , age 94 Intestinal cancer Brother No problems noted. Son No problems noted. Daughter No problems noted. Daughter No problems noted. Social History Smoking/Tobacco Use Status: Former Tobacco Use Quit Date: 07/19/06 Pack-years: 25 Tobacco: How many years used: 15 Second Hand Exposure: Yes Alcohol Intake: former Drug use: Current Sobriety Substance use type: does not use Caregiver/Support person: Yes Household members: spouse Housing: house Communication Needs: None Do you need help understanding health information?: Rarely Pets and animals: Yes Pets and animals: cat(s) Sexually active: Yes Do you think of yourself as: straight/heterosexual Current gender identity: male What is your relationship status?: How often do you talk on the phone with friends or family?: once per week How often do you get together with friends or relatives?: once per week How often do you attend faith or jain services?: 1-3 times per year Do you belong to any clubs or organized social groups?: no Panel score (0-1 are the most socially isolated patients): 1 What type of physical activity do you participate in: yoga Duration: 15-30 minutes/day Frequency: 5-6 times per week Caitlin/Uatsdin: Adventism Special caitlin needs: No Seatbelt use: always Helmet use: Yes Helmet use: always Drive intox or ride w/intox patient transportation 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 Exam <THONY Andrews - Last Filed: 04/18/20 21:15> Const General: cooperative, healthy appearing, comfortable and no acute distress Orientation: alert, awake and oriented x3 HENMT Head: normal to inspection, normocephalic and atraumatic Mouth: moist mucous membranes Eyes Conjunctivae: conjunctivae normal Sclera: sclerae normal Neck Neck: normal visual inspection, full ROM, trachea midline, supple and nontender Resp Effort & Inspection: normal respiratory effort and able to speak in complete sentences Auscultation: clear to auscultation bilaterally Cardio Rate: tachycardic (150s) Rhythm: abnormal rhythm irregularly irregular GI Palpation: soft and nontender Back/Spine/Pelvis Back: No back tenderness Skin General skin exam: no rashes or lesions noted Neuro General: patient alert, patient awake, moves all extremities and no focal motor deficits Cognition: normal cognition Speech: speech normal Gait: normal gait Motor: muscle tone normal throughout Sensory Exam: no sensory deficits noted Extrem General: normal to inspection, full ROM, capillary refill normal, no pedal edema and no calf tenderness Psych Appearance: grossly normal Mental Status: mental status grossly normal Course <THONY Andrews - Last Filed: 04/18/20 21:15> Vital Signs Vital signs: Vital Signs Temperature 36.7 C 04/18/20 16:31 Pulse 153 H 04/18/20 16:31 Respiratory Rate 20 04/18/20 16:31 Blood Pressure 156/84 H 04/18/20 16:31 Pulse Oximetry 95 04/18/20 16:31 Temperature 36.7 C 04/18/20 16:31 Temperature Source Skin 04/18/20 16:31 Pulse 116 H 04/18/20 16:34 Pulse 144 H 04/18/20 16:35 Respiratory Rate 14 04/18/20 16:35 Respiratory Effort Non-Labored 04/18/20 16:37 Blood Pressure 156/84 H 04/18/20 16:34 Blood Pressure Mean 96 04/18/20 16:34 Blood Pressure Position Supine 04/18/20 16:31 Pulse Oximetry 95 04/18/20 16:35 Oxygen Delivery Method Room Air 04/18/20 16:31 Oxygen Flow Rate 0 04/18/20 16:31 Pain Level 4 04/18/20 16:31 Lab/Test Results Lab/Test Results: Laboratory Tests Range/Units 04/18/20 04/18/20 04/18/20 16:38 16:38 16:38 WBC (4.4-10.8) 10^3/uL 8.52 RBC (4.36-5.78) 10^6/uL 4.57 Hgb (13.5-17.5) g/dL 14.4 Hct (40.0-50.0) % 43.4 MCV (80-95) fL 95.0 MCH (27.0-33.0) pg 31.5 MCHC (32.0-36.0) % 33.2 RDW (11.8-14.1) % 12.3 Plt Count (130-400) 10^3/uL 237 MPV (8.0-11.0) fL 10.2 Immature Gran % 0.4 Neutrophils % 71.5 Lymphocytes % 16.4 Monocytes % 8.7 Eosinophils % 2.5 Basophils % 0.5 Nucleated RBC % % 0 Absolute Neutrophils (1.2-6.7) 10^3/uL 6.10 Absolute Lymphocytes (1.2-3.4) 10^3/uL 1.40 Absolute Monocytes (0.1-0.8) 10^3/uL 0.74 Absolute Eosinophils (0.0-0.7) 10^3/uL 0.21 Absolute Basophils (0.0-0.2) 10^3/uL 0.04 PT (9.3-11.0) sec 10.2 INR (0.9-1.1) 1.0 APTT (21.0-31.4) sec 28.8 Sodium (136-145) mmol/L 140 Potassium (3.5-5.1) mmol/L 3.5 Chloride (98-107) mmol/L 104 Carbon Dioxide (21.0-32.0) mmol/L 28.1 Anion Gap (3-11) mmol/L 7.9 BUN (7-18) mg/dL 19 H Creatinine (0.70-1.30) mg/dL 0.95 Estimated GFR/1.73 m2 (mL/min/1.73m2) >= 60.00 Glucose (74-106) mg/dL 86 Calcium (8.5-10.1) mg/dL 8.8 Magnesium (1.8-2.4) mg/dL 1.9 Total Bilirubin (0.2-1.0) mg/dL 0.5 AST (15-37) U/L 29 ALT (16-63) U/L 28 Alkaline Phosphatase (46-116) U/L 81 Troponin I (<0.06) ng/mL < 0.05 Total Protein (6.4-8.2) g/dL 7.7 Albumin (3.4-5.0) g/dL 3.8 TSH (0.36-3.74) uIU/mL 1.39 Critical Care Time <THONY Andrews - Last Filed: 04/18/20 21:15> Critical Care Time Critical Care Time: Yes Total Critical Care Time: 35 Attestation: Upon my evaluation, this patient had a high probability of clinically significant, life-threatening deterioration due to their current medical conditions, which required my direct attention, intervention, and personal management. I have personally provided greater than 30 minutes of critical care time exclusive of the time spend on separately billable procedures. Time includes obtaining a history, examining the patient, pulse oximetry, review of laboratory data, radiology results, discussion with consultants, arranging urgent treatment with development of a management plan, evaluation of patient's response to treatment, and monitoring for potential decompensation. Interventions were performed as documented above.
--- NOTE | 2020-04-18 19:19 | DI.VRAD_ITS ---
PROCEDURE INFORMATION: Exam: XR Chest, 2 Views Exam date and time: 04/18/2020 5:11 PM Age: 59 years old Clinical indication: Other: Afib TECHNIQUE: Imaging protocol: XR of the chest Views: 2 views. COMPARISON: CR CHEST 2 VIEWS PA,LAT 16/11/2015 09:09 FINDINGS: Lungs: Unremarkable. No consolidation. Pleural space: Unremarkable. No pleural effusion. No pneumothorax. Heart/Mediastinum: Unremarkable. No cardiomegaly. Bones/joints: Multilevel degenerative changes of the mid and lower thoracic spine. IMPRESSION: No acute cardiopulmonary findings. Dictated and Authenticated by: Susan Green MD. Ordering:MARY Heard MD
== END 2020-04-18 21:24 | disposition home or self-care (01) ==
PROVIDERS: Emergency Provider Physician Assistant; PCP Emergency Medicine
DX: I48.91 Unspecified atrial fibrillation (principal); Z79.01 Long term (current) use of anticoagulants; I10 Essential (primary) hypertension
CPT/HCPCS: 36415; 80053; 93005; 96360; 99291; 71046; 83735; 84443; 84484; 85025; 85610; 85730; 93010

== ENCOUNTER 2020-06-19 14:49 | Day surgery (SDC) | payer OTHER, SELFPAY ==
[2020-06-19 14:58] VITALS: BP 149/78; PULSE 71; RESP 18; TEMP 36.4; O2SAT 98
--- NOTE | 2020-06-19 15:53 | W.PM.DSUDISC ---
Discharge Plan Disposition Patient Disposition: HOME Condition: Good Discharge Details Reason For Visit: HALLEY Attending Provider: Denise Fragoso Primary Care Provider: Kendall Lanier Home Meds and New Rx's Prescriptions: New tramadol [Ultram] 50 mg tablet 50 mg PO Q6H PRNQty: 10 RF: 0 amoxicillin-pot clavulanate [Augmentin] 875-125 mg tablet 1 tab PO Q12H 7 Days Qty: 14 RF: 0 Bio-K plus 50 billion cell capsule,delayed release(DR/EC) 1 cap PO DAILY Qty: 30 RF: 0 Continued ascorbic acid (vitamin C) 500 mg tablet 500 mg PO DAILY RF: 0 calcium citrate-vitamin D3 500 mg-500 unit /5 gram powder PO RF: 0 losartan 50 mg tablet 50 mg PO DAILY RF: 0 allopurinol 300 mg tablet 300 mg PO DAILY Qty: 30 RF: 12 cholecalciferol (vitamin D3) 1,000 unit capsule 1,000 unit PO DAILY RF: 0 gabapentin 300 mg capsule 300 mg PO QHS Qty: 60 RF: 2 Eliquis 5 mg tablet 5 mg PO BID RF: 0 metoprolol tartrate 25 mg tablet 25 mg PO BID RF: 0 famotidine 40 mg tablet 40 mg PO BID Qty: 180 RF: 3 levetiracetam [Keppra] 500 mg tablet 1,000 mg PO BID Qty: 360 RF: 3 folic acid 1 mg tablet 1 mg PO DAILY Qty: 90 RF: 3 multivitamin with minerals [Men's One Daily] 1 EACH tablet 1 ea PO DAILY RF: 0 omega-3 fatty acids-fish oil 1 EACH capsule 1 ea PO HS RF: 0 cyclobenzaprine 10 mg tablet 10 mg PO TID PRN (Reason: muscle spasm) Qty: 10 RF: 0 Discharge Instructions Additional Instructions: Findings:infected sebaceous cyst w/ abscess Rx: augmentin and BioK (probiotic) ultram- for pain >7 tylenol or ibuprofen for mild pain. -Hold elliquis for 24hrs. Than ok to resume. Follow up: Dr Fragoso Jun 26 9:30 Please call if you develop: fevers >101.5 Nausea or Vomiting Abdominal pain that is not transient DAY SURGERY UNIT 5. If there are any questions regarding the findings of your procedure, please feel free to contact your doctor. 6. If you are unable to contact your doctor with a problem, contact the hospital at [phone]. 4. Continue all your regular medications unless directed otherwise. I understand the above instructions and have no questions. Signature of Patient or Responsible Adult Escort Date/Time Name of Responsible Adult Escort Signature of Nurse Date/Time Caring for Your Incision You?ll need to help care for your incision after surgery and certain medical procedures. To close an incision, your healthcare provider used stitches (sutures). Follow the tips on this sheet to help stop bleeding, speed healing, and prevent infection of your incision. Pain Control Use ice! Ice keeps the swelling down and swelling is what causes pain. Never apply ice directly to the skin. Wrap it in a towel or cloth. Apply ice 20 minutes on and 20 minutes off for pain control. Use as needed. Take tylenol 325 mg by mouth with food every 4 hours as needed for pain. Or ibuprofen 600 mg by mouth with food every 6 hours as needed for pain. Do not take tylenol if you have a history of heavy drinking , hepatits C or liver problems. Do not take ibuprofen if you have a history of stomach ulcers/problems, bleeding problem or kidney issues. Types of incision closures ? Surgical stitches (sutures) are placed by sewing the edges of an incision together with surgical thread. Sutures are either absorbable or non-absorbable. Absorbable sutures break down in the body over time. Non-absorbable sutures need to be removed. ? Home care ? Always wash your hands before touching your incision. ? Keep the incision clean, dry, and out of water, keep the incision out of water. ? Do not to pick at the scabs. Scabs help protect the wound. ? You can take a shower in 24 hours and wash the incision with soap and water. Pat dry/don?t scrub. It?s OK to wash around the incision. But don?t spray water directly on it. ? Pat stitches dry if they get wet. Don't rub. ? Check the incision site daily for pain, redness, drainage, swelling, or separation of the incision edges. ? If there is a bandage (dressing) over the incision, change this every 24 hours as instructed by your provider. Using clean hands change the dressing as directed by your healthcare provider. Always wash your hands before changing your dressing. ? Make sure any clothing that touches the incision is loose-fitting. This will prevent rubbing. If the incision is on the head, keep your child from wearing caps or other head coverings. These may rub against the incision. ? Try to avoid from rough play, contact sports, or physical activities for two weeks. This can put you at risk of opening the incision. ? Make sure you avoid doing things that could cause dirt or sweat to get in or on the incision. As your incision heals, the skin may appear pink or red. It may also feel slightly bumpy or raised. This is called a healing ridge. Over time, the color should fade and the raised skin will become less noticeable. Care for specific closures : ? Sutures or briseida. Once you no longer need to keep these dry, clean the incision or wound daily, generally after the first 24 hours. First remove the bandage using clean hands. Then wash the area gently with soap and warm water. Use a wet cotton swab to loosen and remove any blood or crust that forms. After cleaning, put a thin layer of antibiotic ointment on. Keep covered w/ gauze and scrotal support. Follow-up care [place] or sutures generally need to be removed in 7-10 days. Be sure to return for suture or staple removal as directed. If dissolving stitches were used in your mouth, these will not need to be removed. They should fall out or dissolve on their own. If tape closures were used, remove them yourself when your healthcare provider tells you to if they have not fallen off on their own. When to seek medical care Call your healthcare provider right away if you have any of these: ? More pain, redness, swelling, bleeding, or foul-smelling discharge around the incision area ? Fever of 101?F (38.3?C) or higher, or as directed by your child's healthcare provider ? Shaking chills ? Vomiting or nausea that doesn?t go away ? Numbness, coldness, or tingling around the incision area, or changes in skin color ? Opening of the sutures or wound Stitches or briseida come apart or fall out or surgical tape falls off before 7 days, or as directed by your healthcare provider DS: Diagnosis Discharge Diagnosis (1) Infected sebaceous cyst of skin: Status: Acute
[2020-06-19] MEDS: cefTRIAXone 1 GM VIAL IM (16:02)
[2020-06-19] MEDS: Lidocaine 1% Multi-Dose 50 ML VIAL IM (16:03)
--- NOTE | 2020-06-19 16:14 | W.PM.OP ---
Date of service: 06/19/20 Time of Service: 16:14 Operative Note Operative Note DATE OF PROCEDURE: 06/19/20 PRE-OP DIAGNOSIS: infected toby cyst w/ abscess POST-OP DIAGNOSIS: same PROCEDURE: I&D SURGEON: Denise Fragoso ANESTHESIA: local ESTIMATED BLOOD LOSS: 5 PATHOLOGY: other Patient was transported to: same day Patient's condition: stable Procedure Description: Ebenezer Wallace date of 1960 is seen today at request of Dr. Lanier. He came to the office with a left-sided scrotal abscess. Upon further questioning of the patient, I do think this is an infected sebaceous cyst. He does have a moderate infection going on and does require I&D versus excision of the cyst and antibiotics. However he is on Eliquis and took his medication today. I do not think he can wait 48 hours to have this done. He does have a history of very easy bleeding. So was decided to take patient over to the operative room and do the procedure. Informed consent is obtained explaining risks and benefits of the procedure including but not limited to: Bleeding, infection, need to heal by secondary intent, need for resection of more tissue, complications from local anesthesi, and Other unforetold complications. Patient is brought to the procedure room and placed in supine position. Timeout is performed. All Covid precautions are taken. The area is prepped and draped in the usual sterile fashion using a Betadine scrub solution. it is Infiltrated with 20 cc of quarter percent Marcaine with epinephrine. A centimeters incision is made over the apex of the cyst. Purulent drainage is encountered. Cultures are taken. Material consistent with a sebaceous cyst is encountered. All of the cyst capsule is dissected out in its entirety. Electrocautery is used to provide hemostasis. We did not encounter significant or dangerous bleeding. The wound is then copiously irrigated. The skin is closed with 3-0 chromic. Sterile compression dressings are applied. Patient tolerated the procedure well without complication and transferred back to same day surgery in stable condition.
== END 2020-06-19 16:26 | disposition home or self-care (01) ==
PROVIDERS: PCP Emergency Medicine; Visit Provider Surgery
PROC: (CPT 55100; principal; 2020-06-19 15:30)
DX: L72.3 Sebaceous cyst (principal); N49.2 Inflammatory disorders of scrotum
CPT/HCPCS: 55100; 87070; 87075; 87205; J0696

== ENCOUNTER 2020-07-30 02:19 | Outpatient (CLI) | payer OTHER, SELFPAY ==
[2020-07-30 09:23] LABS: Anion Gap 6.4 mmol/L (3-11); BUN 18 mg/dL (7-18); CO2 30.6 mmol/L (21.0-32.0); CREATININE 0.86 mg/dL (0.70-1.30); Chloride 103 mmol/L (98-107); Glucose 92 mg/dL (74-106); Potassium 4.4 mmol/L (3.5-5.1); Sodium 140 mmol/L (136-145)
== END 2020-07-30 02:39 ==
PROVIDERS: PCP Emergency Medicine; Visit Provider Emergency Medicine
DX: I10 Essential (primary) hypertension (principal)
CPT/HCPCS: 36415; 80048

== ENCOUNTER 2020-07-31 13:00 | Outpatient (RCR) | payer OTHER, SELFPAY ==
[2020-07-31] MEDS: Normal Saline Flush 10 ML SYR IVP (13:42)
== END 2020-08-18 23:59 | disposition home or self-care (01) ==
LOC: INF 13:00
PROVIDERS: PCP Emergency Medicine; Visit Provider Emergency Medicine
DX: M81.0 Age-related osteoporosis without current pathological fracture (principal)
CPT/HCPCS: 96365; J3489

== ENCOUNTER 2020-09-14 07:29 | Emergency (ER) | payer OTHER, SELFPAY ==
[2020-09-14] VITALS (13 sets, daily range): BP systolic 130–181; BP diastolic 69–86; PULSE 57–71; RESP 13–18; TEMP 36.4; O2SAT 90–96
--- NOTE | 2020-09-14 07:30 | DI.CT_ITS ---
EXAM: CT THORAX ABDOMEN CTA CLINICAL HISTORY: abd pain from umbilicus to chest. TECHNIQUE: Imaging Protocol: Axial CT angiography was performed with multi-slice acquisition and m ulti-planar and/or 3D reconstructions. CONTRAST MATERIAL: Intravenous: Omnipaque 350 Contrast volume:100 mL Oral: No COMPARISON: CT CT ABDOMEN PELVIS W from 09/14/[address] THORACIC SPINE WO from 06/24/[address] THORACIC SPINE WO from 06/24/2019 FINDINGS: CHEST: Tracheobronchial tree: Patent where visualized. Pulmonary parenchyma: No consolidation or dominant measurable mass. Mild centrilobular emphysematous changes are present. There is a 3 mm calcified granuloma in the right lower lobe. There is scarring s een in the lung bases. Pulmonary Arteries: No evidence of filling defect to suggest pulmonary emboli. Mediastinum and Radha: No dominant adenopathy or fluid collection. Visualized thyroid: Unremarkable. Pleura: No effusion or pneumothorax. Heart: The heart is not dilated. [id number]-[id number] coronary artery calcification is present. No perica rdial effusion. Aorta: The ascending aorta measures 4.5 cm in diameter. Mild atherosclerosis. No evidence of dissecti on. Soft Tissues: Unremarkable. Bones: There is an old T7 compression deformity and an old L1 compression deformity. [facility] is seen in the thoracic and upper lumbar spine. There is an old sclerotic focus seen in the T 2 vertebral body. This likely reflects a bone island. ABDOMEN AND PELVIS: Abdomen: Celiac axis/mesenteric arteries: No evidence of occlusion or significant stenosis. Renal Arteries: No evidence of occlusion or significant stenosis. There is a single renal artery per fusing each kidney. Aorta: No evidence of occlusion or significant stenosis. No aneurysm or dissection. Mild atheroscl erosis. Pelvis: Iliac Arteries: No evidence of occlusion or significant stenosis. Mild atherosclerosis. ABDOMEN: Liver: Normal density. There is a stable cyst in the left lobe of the liver. Portal, Superior Mesenteric, and Splenic Veins: Unremarkable. Gallbladder and Biliary Tract: No radiodense calculus or dilation. Pancreas: Normal density, no abnormal calcifications or inflammatory process. Spleen: Normal. Adrenals: No masses seen. Kidneys: Normal size, contour and axis. Bilateral nonobstructing renal stones. There are few tiny hyp odensities in the right kidney. They are too small for further characterization, but likely reflect s mall cysts. Bowel: No obstruction or bowel wall thickening. No evidence of acute appendicitis. Moderate amount of retained stool throughout the colon. Peritoneal Cavity: No ascites, collection or mesenteric inflammatory response. No free air. Lymph Nodes: Within normal limits. Bones: Please see the above discussion. Soft Tissues: Unremarkable. IMPRESSION: 1. No evidence of pulmonary embolism, thoracic aortic dissection. 2. 4.5 cm unruptured ascending thoracic aortic aneurysm. 3. No abdominal aneurysm or dissection. 4. No acute abdominal process. RADIATION DOSE DELIVERED: 900.08mGy.cm Total DLP DATA REPOSITORY: All CT scans at this facility are submitted to the National Radiology Data Registry (NRDR) Dose Index Registry (DIR) with the [employer] (A[employer]). RADIATION OPTIMIZATION: All CT scans at this facility use at least one of these dose optimization te chniques: automated exposure control; mA and/or kV adjustment per patient size (includes targeted exa ms where dose is matched to clinical indication); or iterative reconstruction.
--- NOTE | 2020-09-14 07:30 | RT.EKG_ITS ---
APPROVED REPORT Exam: Resting ECG Patient Location: E HR:60 bpm ECG Measurements Heart Rate 60 AXIS TN 186 P 52 QRSd 97 QRS 21 QT 403 T 36 QTc 403 Conclusion Sinus rhythm...normal P axis, V-rate 60- 99
--- NOTE | 2020-09-14 07:40 | W.ED.GENAD ---
Discharge Plan Disposition Patient Disposition: HOME Condition: Stable Discharge Details Clinical Impression: Abdominal pain Primary Care Provider: Kendall Lanier ED Provider: Albino Ambrosio Home Meds and New Rx's Prescriptions: New ondansetron 4 mg tablet,disintegrating 4 mg PO Q8H PRN (Reason: nausea and vomiting) Qty: 30 RF: 0 sucralfate [Carafate] 1 gram tablet 1 g PO BID Qty: 30 RF: 0 Continued ascorbic acid (vitamin C) 500 mg tablet 500 mg PO DAILY RF: 0 calcium citrate-vitamin D3 500 mg-500 unit /5 gram powder PO RF: 0 losartan 50 mg tablet 50 mg PO DAILY RF: 0 allopurinol 300 mg tablet 300 mg PO DAILY Qty: 30 RF: 12 cholecalciferol (vitamin D3) 1,000 unit capsule 1,000 unit PO DAILY RF: 0 gabapentin 300 mg capsule 300 mg PO QHS Qty: 60 RF: 2 Eliquis 5 mg tablet 5 mg PO BID RF: 0 metoprolol tartrate 25 mg tablet 25 mg PO BID RF: 0 famotidine 40 mg tablet 40 mg PO BID Qty: 180 RF: 3 levetiracetam [Keppra] 500 mg tablet 1,000 mg PO BID Qty: 360 RF: 3 folic acid 1 mg tablet 1 mg PO DAILY Qty: 90 RF: 3 multivitamin with minerals [Men's One Daily] 1 EACH tablet 1 ea PO DAILY RF: 0 omega-3 fatty acids-fish oil 1 EACH capsule 1 ea PO HS RF: 0 tramadol [Ultram] 50 mg tablet 50 mg PO Q6H PRNQty: 10 RF: 0 Bio-K plus 50 billion cell capsule,delayed release(DR/EC) 1 cap PO DAILY Qty: 30 RF: 0 Discharge Instructions Instructions: Abdominal Pain (ED) Additional Instructions: Your lab work and cat scan did not show any concerning findings. You likely have gastritis or a stomach ulcer you should be contacted with an appointment for general surgery to discuss having an endoscopy if you have severe worsening pain, persistent vomit or feel more ill return to the emergency department Discharge Data Discharge Date/Time-TO BE ENTERED AT DEPARTURE: 09/14/20 09:20 Medical Decision Making <Miguel A Haywood DO - Last Filed: 09/14/20 21:38> This is a pleasant 60-year-old male with a past medical history of hypertension, previous kidney stones, parathyroid surgery atrial fibrillation on Eliquis, seizures, who presents today for evaluation of umbilical to chest pain. Patient states that for the last 3 days he has had this pain in this region, it is sharp in nature, it comes and goes in severity. It travels nowhere else except from the umbilicus to the epigastric region. He denies any focal chest pain, chest tightness, arm neck or shoulder pain. He denies any tearing or ripping sensation. He denies any radiation to the genitals. Pain became severe this morning, and he did have one episode of vomiting which was nonbloody. No diarrhea. Is been eating well and this does not change his symptoms. He denies ever having symptoms like this before. States that the symptoms do not feel similar to his previous kidney stones. No other complaints at this time. No other modifying factors. Physical exam is relatively unremarkable. Mild abdominal tenderness from the epigastrium to the umbilicus. No evidence of an acute surgical abdomen. No genital tenderness. Clinically the patient feels that the symptoms are not at all similar to his previous kidney stones. Differential is broad, but includes atypical cardiac etiology, pancreatitis, less likely but potentially AAA. Especially in conjunction with his history of hypertension. We will treat the patient's pain, gently rehydrate, get a CT scan evaluating the abdomen and lower chest, monitor closely and reassess. Case will be signed out to my colleague Dr. Albino Ambrosio for follow-up on labs imaging and EKG. <Albino Ambrosio MD - Last Filed: 09/14/20 09:14> Pt's labs and imaging unremarkable. On assessment he is layinging in the stretcher in distress and no evidence of pain. States he has had 3 days of intermittent epigastric pain worse a few hours after eating. He has a soft nontender abdomen at the moment. I suspet he could have gerd vs ulcer, given reassuring labs, imaging and ct feel he is stable for d/c and will have him f/u with general surgery to discuss possible endoscopy as outpatient. Discussed with pt return precautions which he understood and is comfortable with plan. Imaging Data Radiologic Study: Attestation: I personally reviewed and interpreted this imaging study as follows: Imaging: CT Scan Radiologist's impression: no acute findings on ct Lab Data Lab results reviewed: Yes I reviewed the patient's lab results. ECG Data Attestation: I personally reviewed and interpreted this ECG (s) as follows: Prior ECG tracings: available for review Interpretation: sinus rhythm, rate of 60, pr 186, qtc 403, no acute st t wave ischemic findings HPI <Miguel A OsmanDO galileo - Last Filed: 09/14/20 21:38> General Date/Time Provider Initiated Documentation: 09/14/20 07:31. HPI Narrative: This is a pleasant 60-year-old male with a past medical history of hypertension, previous kidney stones, parathyroid surgery atrial fibrillation on Eliquis, seizures, who presents today for evaluation of umbilical to chest pain. Patient states that for the last 3 days he has had this pain in this region, it is sharp in nature, it comes and goes in severity. It travels nowhere else except from the umbilicus to the epigastric region. He denies any focal chest pain, chest tightness, arm neck or shoulder pain. He denies any tearing or ripping sensation. He denies any radiation to the genitals. Pain became severe this morning, and he did have one episode of vomiting which was nonbloody. No diarrhea. Is been eating well and this does not change his symptoms. He denies ever having symptoms like this before. States that the symptoms do not feel similar to his previous kidney stones. No other complaints at this time. No other modifying factors Related Data Home Medications Medication Instructions Recorded Confirmed multivitamin with minerals [Men's 1 ea PO DAILY 12/17/12 09/14/20 One Daily] omega-3 fatty acids-fish oil 1 ea PO HS 06/04/16 09/14/20 cholecalciferol (vitamin D3) 25 1,000 unit PO DAILY 06/15/18 09/14/20 mcg (1,000 unit) capsule apixaban 5 mg tablet 5 mg PO BID 12/30/18 09/14/20 metoprolol tartrate 25 mg tablet 25 mg PO BID tab 12/30/18 09/14/20 ascorbic acid (vitamin C) 500 mg 500 mg PO DAILY 01/24/19 09/14/20 tablet gabapentin 300 mg capsule 300 mg PO QHS #60 cap 06/20/19 09/14/20 famotidine 40 mg tablet 40 mg PO BID #180 tab 10/26/19 09/14/20 allopurinol 300 mg tablet 300 mg PO DAILY #30 tab 12/22/19 09/14/20 calcium citrate 500 mg-vit D3 12.5 gm PO 12/22/19 06/28/20 mcg (500 unit)/5 gram oral powder losartan 50 mg tablet 50 mg PO DAILY 12/22/19 09/14/20 levetiracetam 500 mg tablet 1,000 mg PO BID #360 tab-cap 03/26/20 09/14/20 folic acid 1 mg tablet 1 mg PO DAILY #90 tab 05/22/20 09/14/20 Bio-K plus 1 cap PO DAILY #30 cap 06/19/20 06/28/20 tramadol [Ultram] 50 mg PO Q6H PRN #10 tab 06/19/20 06/28/20 ondansetron 4 mg PO Q8H PRN #30 tab 09/14/20 sucralfate [Carafate] 1 g PO BID #30 tab 09/14/20 Previous Rx's Medication Instructions Recorded gabapentin 300 mg capsule 300 mg PO QHS #60 cap 06/20/19 famotidine 40 mg tablet 40 mg PO BID #180 tab 10/26/19 allopurinol 300 mg tablet 300 mg PO DAILY #30 tab 12/22/19 levetiracetam 500 mg tablet 1,000 mg PO BID #360 tab-cap 03/26/20 folic acid 1 mg tablet 1 mg PO DAILY #90 tab 05/22/20 Bio-K plus 1 cap PO DAILY #30 cap 06/19/20 tramadol [Ultram] 50 mg PO Q6H PRN #10 tab 06/19/20 ondansetron 4 mg PO Q8H PRN #30 tab 09/14/20 sucralfate [Carafate] 1 g PO BID #30 tab 09/14/20 Allergies Allergy/AdvReac Type Severity Reaction Status Date / Time No Known Allergies Allergy Verified 09/14/20 07:39 General Stated Complaint: Abd Prob FLY: 3 Review of Systems <Miguel A Haywood DO - Last Filed: 09/14/20 21:38> All systems reviewed & are unremarkable except as noted in HPI and below PFSH <Miguel A Haywood DO - Last Filed: 09/14/20 21:38> Medical History Actinic keratoses Advanced directives, counseling/discussion Alcohol abuse in patient treatment at [facility] 2011 Aortic valve stenosis mild. echo 2013 neg MPI 12/01. Benign prostatic hyperplasia Essential hypertension Hearing loss Hx of gastroesophageal reflux (GERD) Hyperparathyroidism (10/22/17) surgery [facility] [place] Infected sebaceous cyst of skin Osteoporosis T score of 3.5 LS spine Renal calculus, right (03/29/17) Right ureteral stone (03/29/17) Sciatica left; disk; persistent left foot numbness Scrotal abscess Seizure last seizure 35 years ago Serum calcium elevated (11/19/15) Hyper PTH Parathyroid surgery 10/03 removing one of 4 glands Thoracic spondyloarthritis Tobacco use disorder Surgical History Colonoscopy - [facility] [place] 2008 Cystoscopy 11/14/15; DR. DEVI Excision, Distal Clavicle (03/22/15) ALSO [place] ACROMIOPLASTY/LIMITED ROTATOR CUFF REPAIR/ DR ROSARIO H/O parathyroidectomy Hx of esophagogastroduodenoscopy Family History Mother , age 68 Alzheimer disease MS (multiple sclerosis) Father , age 72 Diabetes Essential hypertension Heart disease Hyperlipidemia Sister No problems noted. Brother No problems noted. Brother Crohns disease Maternal Grandfather , age 70 Heart disease Paternal Grandfather , age 92 No problems noted. Maternal Grandmother , age 70 No problems noted. Paternal Grandmother , age 94 Intestinal cancer Brother No problems noted. Son No problems noted. Daughter No problems noted. Daughter No problems noted. Social History Smoking/Tobacco Use Status: Former Tobacco Use Quit Date: 07/19/06 Pack-years: 25 Tobacco: How many years used: 15 Second Hand Exposure: Yes Smoking risk assessment performed?: Yes Alcohol Intake: former Drug use: Current Sobriety Substance use type: does not use Details: sober for 6 years Caregiver/Support person: Yes Household members: spouse Housing: house Communication Needs: None Do you need help understanding health information?: Rarely Pets and animals: Yes Pets and animals: cat(s) Sexually active: Yes Do you think of yourself as: straight/heterosexual Current gender identity: male What is your relationship status?: How often do you talk on the phone with friends or family?: once per week How often do you get together with friends or relatives?: once per week How often do you attend quaker or christian services?: 1-3 times per year Do you belong to any clubs or organized social groups?: no Panel score (0-1 are the most socially isolated patients): 1 What type of physical activity do you participate in: yoga Duration: 30-45 minutes/day Frequency: 3-4 times per week Caitlin/Gnosticism: Confucianist Special caitlin needs: No Seatbelt use: always Helmet use: Yes Helmet use: always Drive intox or ride w/intox driver education instructor: No Do you feel safe at home: Yes Do you feel safe in your relationship?: Yes Exam <Miguel A Haywood DO - Last Filed: 09/14/20 21:38> Narrative Exam Narrative: 1.Const: Well-nourished, Well-developed, appearing stated age 2.Eyes: PERRL, no conjunctival injection, and symmetrical lids. 3.ENT: Atraumatic external nose and ears. Moist MM. Neck: Symmetric, trachea midline, No thyromegaly. 4.CVS: +S1/S2, No murmurs or gallops. Peripheral pulses 2+ and equal in all extremities. Brisk capillary refill in all extremities. 5.RESP: Unlabored respiratory effort. Clear to auscultation bilaterally. No wheezes rales or rhonchi 6.GI: Soft, nondistended, no guarding or rebound. No pulsatile abdominal mass. Mild reproducible tenderness from the epigastrium to the umbilicus. No pain at McBurney's point, negative Asher sign. No genital tenderness. 7.MSK: Normocephalic/Atraumatic, Extremities w/o deformity or ttp No cyanosis or clubbing, Normal movement of all extremities posterior tibial pulse +2 bilaterally 8.Skin: Warm, Dry. No rashes or lesions. 9.Neuro: pricing clerk II-XII grossly intact. Sensation grossly intact, no focal neurologic deficits. 10.Psych: (AAO) x3. Appropriate mood and affect Course <Miguel A Haywood DO - Last Filed: 09/14/20 21:38> Vital Signs Vital signs: Vital Signs Temperature 36.4 C L 09/14/20 07:34 Pulse 71 09/14/20 07:34 Respiratory Rate 16 09/14/20 07:34 Blood Pressure 181/84 H 09/14/20 07:34 Pulse Oximetry 96 09/14/20 07:34 Temperature 36.4 C L 09/14/20 07:34 Temperature Source Skin 09/14/20 07:34 Pulse 71 09/14/20 07:34 Respiratory Rate 16 09/14/20 07:34 Blood Pressure 181/84 H 09/14/20 07:34 Blood Pressure Position Sitting 09/14/20 07:34 Pulse Oximetry 96 09/14/20 07:34 Oxygen Delivery Method Room Air 09/14/20 07:34 Oxygen Flow Rate 0 09/14/20 07:34 Pain Level 9 09/14/20 07:34 Sign Out <Miguel A Haywood DO - Last Filed: 09/14/20 21:38> Sign Out Data: Sign Out Comment: Abdominal pain for 3 days, follow-up on labs, imaging, and EKG. Last updated by Miguel A Haywood DO at 09/14/20 07:45
[2020-09-14] MEDS: Normal Saline 500 ML IV (07:51)
[2020-09-14 08:03] LABS: Abs Immature Grans 0.02 10^3/uL (0.0-0.06); Absolute Basophil Count 0.03 10^3/uL (0.0-0.2); Absolute Eosinophil Count 0.02 10^3/uL (0.0-0.7); Absolute Lymphocyte Count 0.96 10^3/uL (1.2-3.4); Absolute Monocyte Count 0.62 10^3/uL (0.1-0.8); Absolute Neutrophil Count 8.03 10^3/uL (1.2-6.7); Basophils % 0.3; Eosinophils % 0.2; HGB 15.4 g/dL (13.5-17.5); Immature Grans % 0.2; Lactate 0.8 mmol/L (0.6-1.4); Lymphocytes % 9.9; MCH 31.7 pg (27.0-33.0); MCHC 33.5 % (32.0-36.0); MCV 94.7 fL (80-95); MPV 10.5 fL (8.0-11.0); Monocytes % 6.4; Nucleated RBC 0 %; Platelet Count 236 10^3/uL (130-400); RBC 4.86 10^6/uL (4.36-5.78); RDW 12.4 % (11.8-14.1); RDW-SD 43.4 fL; WBC 9.68 10^3/uL (4.4-10.8)
[2020-09-14] MEDS: Omnipaque 350 MG/ML 100 ML BTL IJ (08:14)
[2020-09-14] MEDS: Normal Saline - Diluent 50 ML VIAL IV (08:15)
[2020-09-14 08:17] LABS: Prothrombin Time 10.3 sec (9.3-11.0)
[2020-09-14 08:23] LABS: ALT 26 U/L (16-63); AST 17 U/L (15-37); Albumin 3.5 g/dL (3.4-5.0); Alkaline Phosphatase 90 U/L (46-116); Anion Gap 8.9 mmol/L (3-11); BUN 18 mg/dL (7-18); Bilirubin, Total 0.5 mg/dL (0.2-1.0); CO2 26.1 mmol/L (21.0-32.0); CREATININE 0.8 mg/dL (0.70-1.30); Calcium 8.9 mg/dL (8.5-10.1); Chloride 103 mmol/L (98-107); Glucose 125 mg/dL (74-106); Lipase 74 U/L (73-393); Potassium 3.8 mmol/L (3.5-5.1); Sodium 138 mmol/L (136-145); Total Protein 7.8 g/dL (6.4-8.2); Troponin I < 0.05 ng/mL (<0.06)
--- NOTE | 2020-09-14 08:59 | DI.VRAD_ITS ---
PROCEDURE INFORMATION: Exam: CT Angiography Chest With Contrast Exam date and time: 09/14/2020 7:40 AM Age: 60 years old Clinical indication: Chest pain and other: Epigastric pain x several days; Type not specified; Abdominal pain TECHNIQUE: Imaging protocol: Computed tomographic angiography of the chest with contrast. 3D rendering (Not supervised by radiologist): MIP and/or 3D reconstructed images were created by the technologist. Radiation optimization: All CT scans at this facility use at least one of these dose optimization techniques: automated exposure control; mA and/or kV adjustment per patient size (includes targeted exams where dose is matched to clinical indication); or iterative reconstruction. Contrast material: OMNIPAQUE 350; Contrast volume: 100 ml; Contrast route: INTRAVENOUS (IV); COMPARISON: CR XR CHEST 2V PA LATERAL 04/18/2020 5:09 PM FINDINGS: Pulmonary arteries: No evidence of pulmonary embolus to the segmental level. Aorta: Unruptured aneurysm of the ascending aorta 4.5 cm. No dissection of the aorta. Lungs: Unremarkable. No consolidation. No masses. Pleural spaces: Unremarkable. No pneumothorax. No pleural effusion. Heart: Unremarkable. No cardiomegaly. No pericardial effusion. Lymph nodes: Unremarkable. No enlarged lymph nodes. Bones/joints: Compression fractures of unknown age in the thoracic spine No acute fracture. Soft tissues: Unremarkable. IMPRESSION: 1. No evidence of pulmonary embolus to the segmental level. 2. Unruptured aneurysm of the ascending aorta 4.5 cm. 3. No dissection of the aorta. PROCEDURE INFORMATION: Exam: CT Angiography Abdomen With Contrast Exam date and time: 09/14/2020 7:40 AM Age: 60 years old Clinical indication: Chest pain and other: Epigastric pain x several days; Type not specified; Abdominal pain TECHNIQUE: Imaging protocol: Computed tomographic angiography images of the abdomen with intravenous contrast material. 3D rendering (Not supervised by radiologist): MIP and/or 3D reconstructed images were created by the technologist. Radiation optimization: All CT scans at this facility use at least one of these dose optimization techniques: automated exposure control; mA and/or kV adjustment per patient size (includes targeted exams where dose is matched to clinical indication); or iterative reconstruction. Contrast material: OMNIPAQUE 350; Contrast volume: 100 ml; Contrast route: INTRAVENOUS (IV); COMPARISON: CR XR CHEST 2V PA LATERAL 04/18/2020 5:09 PM FINDINGS: Aorta: No aneurysm of the aorta. No dissection of the aorta. Celiac trunk and mesenteric arteries: No occlusion or significant stenosis. Renal arteries: No occlusion or significant stenosis. Liver: Subcentimeter low attenuation area in the liver is too small for characterization. Gallbladder and bile ducts: Normal. No calcified stones. No ductal dilation. Pancreas: Normal. No ductal dilation. Spleen: Normal. No splenomegaly. Adrenals: Normal. No mass. Kidneys and ureters: Normal. No hydronephrosis. Stomach and bowel: Unremarkable. No obstruction. No mucosal thickening. Lymph nodes: Unremarkable. No enlarged lymph nodes. Intraperitoneal space: Unremarkable. No free air. No significant fluid collection. Bones/joints: Compression fractures of unknown age in the lumbar spine No acute fracture. No dislocation. Soft tissues: Unremarkable. IMPRESSION: 1. No aneurysm of the aorta. 2. No dissection of the aorta. Dictated and Authenticated by: Jaguar Perdomo MD. Ordering:HORACIO Grady MD
--- NOTE | 2020-09-14 09:18 | NUR.NOTE ---
Referral faxed to General Surgery abd pain.Nursing Note:
--- NOTE | 2020-09-14 21:48 | W.ED.GENAD ---
Discharge Plan Disposition Patient Disposition: HOME Condition: Stable Discharge Details Clinical Impression: Abdominal pain Primary Care Provider: Kendall Lanier ED Provider: Albino Ambrosio Home Meds and New Rx's Prescriptions: New ondansetron 4 mg tablet,disintegrating 4 mg PO Q8H PRN (Reason: nausea and vomiting) Qty: 30 RF: 0 sucralfate [Carafate] 1 gram tablet 1 g PO BID Qty: 30 RF: 0 Continued ascorbic acid (vitamin C) 500 mg tablet 500 mg PO DAILY RF: 0 calcium citrate-vitamin D3 500 mg-500 unit /5 gram powder PO RF: 0 losartan 50 mg tablet 50 mg PO DAILY RF: 0 allopurinol 300 mg tablet 300 mg PO DAILY Qty: 30 RF: 12 cholecalciferol (vitamin D3) 1,000 unit capsule 1,000 unit PO DAILY RF: 0 gabapentin 300 mg capsule 300 mg PO QHS Qty: 60 RF: 2 Eliquis 5 mg tablet 5 mg PO BID RF: 0 metoprolol tartrate 25 mg tablet 25 mg PO BID RF: 0 famotidine 40 mg tablet 40 mg PO BID Qty: 180 RF: 3 levetiracetam [Keppra] 500 mg tablet 1,000 mg PO BID Qty: 360 RF: 3 folic acid 1 mg tablet 1 mg PO DAILY Qty: 90 RF: 3 multivitamin with minerals [Men's One Daily] 1 EACH tablet 1 ea PO DAILY RF: 0 omega-3 fatty acids-fish oil 1 EACH capsule 1 ea PO HS RF: 0 tramadol [Ultram] 50 mg tablet 50 mg PO Q6H PRNQty: 10 RF: 0 Bio-K plus 50 billion cell capsule,delayed release(DR/EC) 1 cap PO DAILY Qty: 30 RF: 0 Discharge Instructions Instructions: Abdominal Pain (ED) Additional Instructions: Your lab work and cat scan did not show any concerning findings. You likely have gastritis or a stomach ulcer you should be contacted with an appointment for general surgery to discuss having an endoscopy if you have severe worsening pain, persistent vomit or feel more ill return to the emergency department Discharge Data Discharge Date/Time-TO BE ENTERED AT DEPARTURE: 09/14/20 09:20 HPI General Date/Time Provider Initiated Documentation: 09/14/20 07:31. Related Data Home Medications Medication Instructions Recorded Confirmed multivitamin with minerals [Men's 1 ea PO DAILY 12/17/12 09/14/20 One Daily] omega-3 fatty acids-fish oil 1 ea PO HS 06/04/16 09/14/20 cholecalciferol (vitamin D3) 25 1,000 unit PO DAILY 06/15/18 09/14/20 mcg (1,000 unit) capsule apixaban 5 mg tablet 5 mg PO BID 12/30/18 09/14/20 metoprolol tartrate 25 mg tablet 25 mg PO BID tab 12/30/18 09/14/20 ascorbic acid (vitamin C) 500 mg 500 mg PO DAILY 01/24/19 09/14/20 tablet gabapentin 300 mg capsule 300 mg PO QHS #60 cap 06/20/19 09/14/20 famotidine 40 mg tablet 40 mg PO BID #180 tab 10/26/19 09/14/20 allopurinol 300 mg tablet 300 mg PO DAILY #30 tab 12/22/19 09/14/20 calcium citrate 500 mg-vit D3 12.5 gm PO 12/22/19 06/28/20 mcg (500 unit)/5 gram oral powder losartan 50 mg tablet 50 mg PO DAILY 12/22/19 09/14/20 levetiracetam 500 mg tablet 1,000 mg PO BID #360 tab-cap 03/26/20 09/14/20 folic acid 1 mg tablet 1 mg PO DAILY #90 tab 05/22/20 09/14/20 Bio-K plus 1 cap PO DAILY #30 cap 06/19/20 06/28/20 tramadol [Ultram] 50 mg PO Q6H PRN #10 tab 06/19/20 06/28/20 ondansetron 4 mg PO Q8H PRN #30 tab 09/14/20 sucralfate [Carafate] 1 g PO BID #30 tab 09/14/20 Previous Rx's Medication Instructions Recorded gabapentin 300 mg capsule 300 mg PO QHS #60 cap 06/20/19 famotidine 40 mg tablet 40 mg PO BID #180 tab 10/26/19 allopurinol 300 mg tablet 300 mg PO DAILY #30 tab 12/22/19 levetiracetam 500 mg tablet 1,000 mg PO BID #360 tab-cap 03/26/20 folic acid 1 mg tablet 1 mg PO DAILY #90 tab 11/04/20 Bio-K plus 1 cap PO DAILY #30 cap 06/19/20 tramadol [Ultram] 50 mg PO Q6H PRN #10 tab 06/19/20 ondansetron 4 mg PO Q8H PRN #30 tab 09/14/20 sucralfate [Carafate] 1 g PO BID #30 tab 09/14/20 Allergies Allergy/AdvReac Type Severity Reaction Status Date / Time No Known Allergies Allergy Verified 09/14/20 07:39 General Stated Complaint: Abd Prob FLY: 3 PFSH Medical History Actinic keratoses Advanced directives, counseling/discussion Alcohol abuse in patient treatment at [facility] 2011 Aortic valve stenosis mild. echo 2012 neg MPI 12/01. Benign prostatic hyperplasia Essential hypertension Hearing loss Hx of gastroesophageal reflux (GERD) Hyperparathyroidism (10/22/17) surgery [facility] [place] 2017 Infected sebaceous cyst of skin Osteoporosis T score of 3.5 LS spine Renal calculus, right (03/29/17) Right ureteral stone (03/29/17) Sciatica left; disk; persistent left foot numbness Scrotal abscess Seizure last seizure 35 years ago Serum calcium elevated (11/19/15) Hyper PTH Parathyroid surgery 10/03 removing one of 4 glands Thoracic spondyloarthritis Tobacco use disorder Surgical History Colonoscopy - [facility] [place] 2008 Cystoscopy 11/14/15; DR. DEVI Excision, Distal Clavicle (03/22/15) ALSO NEER ACROMIOPLASTY/LIMITED ROTATOR CUFF REPAIR/ DR ROSARIO H/O parathyroidectomy Hx of esophagogastroduodenoscopy Family History Mother , age 68 Alzheimer disease MS (multiple sclerosis) Father , age 72 Diabetes Essential hypertension Heart disease Hyperlipidemia Sister No problems noted. Brother No problems noted. Brother Crohns disease Maternal Grandfather , age 70 Heart disease Paternal Grandfather , age 92 No problems noted. Maternal Grandmother , age 70 No problems noted. Paternal Grandmother , age 94 Intestinal cancer Brother No problems noted. Son No problems noted. Daughter No problems noted. Daughter No problems noted. Social History Smoking/Tobacco Use Status: Former Tobacco Use Quit Date: 07/19/06 Pack-years: 25 Tobacco: How many years used: 15 Second Hand Exposure: Yes Smoking risk assessment performed?: Yes Alcohol Intake: former Drug use: Current Sobriety Substance use type: does not use Details: sober for 6 years Caregiver/Support person: Yes Household members: spouse Housing: house Communication Needs: None Do you need help understanding health information?: Rarely Pets and animals: Yes Pets and animals: cat(s) Sexually active: Yes Do you think of yourself as: straight/heterosexual Current gender identity: male What is your relationship status?: How often do you talk on the phone with friends or family?: once per week How often do you get together with friends or relatives?: once per week How often do you attend christianity or catholic services?: 1-3 times per year Do you belong to any clubs or organized social groups?: no Panel score (0-1 are the most socially isolated patients): 1 What type of physical activity do you participate in: yoga Duration: 30-45 minutes/day Frequency: 3-4 times per week Caitlin/Oriental Orthodox: Adventism Special caitlin needs: No Seatbelt use: always Helmet use: Yes Helmet use: always Drive intox or ride w/intox roll off 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 Course Vital Signs Vital signs: Vital Signs Temperature 36.4 C L 09/14/20 07:34 Pulse 71 09/14/20 07:34 Respiratory Rate 16 09/14/20 07:34 Blood Pressure 181/84 H 09/14/20 07:34 Pulse Oximetry 96 09/14/20 07:34 Temperature 36.4 C L 09/14/20 07:34 Temperature Source Skin 09/14/20 07:34 Pulse 61 09/14/20 09:22 Pulse 57 L 09/14/20 08:50 Respiratory Rate 15 09/14/20 08:50 Respiratory Effort 09/14/20 08:34 Blood Pressure 137/70 09/14/20 09:22 Blood Pressure Mean 84 09/14/20 08:46 Blood Pressure Position Sitting 09/14/20 07:34 Pulse Oximetry 96 09/14/20 09:22 Oxygen Delivery Method Room Air 09/14/20 07:34 Oxygen Flow Rate 0 09/14/20 07:34 Pain Level 3 09/14/20 09:22 Lab/Test Results Lab/Test Results: Laboratory Tests Range/Units 09/14/20 09/14/20 09/14/20 07:45 07:45 07:45 WBC (4.4-10.8) 10^3/uL 9.68 RBC (4.36-5.78) 10^6/uL 4.86 Hgb (13.5-17.5) g/dL 15.4 Hct (40.0-50.0) % 46.0 MCV (80-95) fL 94.7 MCH (27.0-33.0) pg 31.7 MCHC (32.0-36.0) % 33.5 RDW (11.8-14.1) % 12.4 Plt Count (130-400) 10^3/uL 236 MPV (8.0-11.0) fL 10.5 Immature Gran % 0.2 Neutrophils % 83.0 Lymphocytes % 9.9 Monocytes % 6.4 Eosinophils % 0.2 Basophils % 0.3 Nucleated RBC % % 0 Absolute Neutrophils (1.2-6.7) 10^3/uL 8.03 H Absolute Lymphocytes (1.2-3.4) 10^3/uL 0.96 L Absolute Monocytes (0.1-0.8) 10^3/uL 0.62 Absolute Eosinophils (0.0-0.7) 10^3/uL 0.02 Absolute Basophils (0.0-0.2) 10^3/uL 0.03 PT (9.3-11.0) sec INR (0.9-1.1) APTT (21.0-27.5) sec VBG Lactate (0.6-1.4) mmol/L 0.8 Sodium (136-145) mmol/L 138 Potassium (3.5-5.1) mmol/L 3.8 Chloride (98-107) mmol/L 103 Carbon Dioxide (21.0-32.0) mmol/L 26.1 Anion Gap (3-11) mmol/L 8.9 BUN (7-18) mg/dL 18 Creatinine (0.70-1.30) mg/dL 0.8 Estimated GFR/1.73 m2 (mL/min/1.73m2) >= 60.00 Glucose (74-106) mg/dL 125 H Calcium (8.5-10.1) mg/dL 8.9 Total Bilirubin (0.2-1.0) mg/dL 0.5 AST (15-37) U/L 17 ALT (16-63) U/L 26 Alkaline Phosphatase (46-116) U/L 90 Troponin I (<0.06) ng/mL < 0.05 Total Protein (6.4-8.2) g/dL 7.8 Albumin (3.4-5.0) g/dL 3.5 Lipase (73-393) U/L 74 Range/Units 09/14/20 07:45 WBC (4.4-10.8) 10^3/uL RBC (4.36-5.78) 10^6/uL Hgb (13.5-17.5) g/dL Hct (40.0-50.0) % MCV (80-95) fL MCH (27.0-33.0) pg MCHC (32.0-36.0) % RDW (11.8-14.1) % Plt Count (130-400) 10^3/uL MPV (8.0-11.0) fL Immature Gran % Neutrophils % Lymphocytes % Monocytes % Eosinophils % Basophils % Nucleated RBC % % Absolute Neutrophils (1.2-6.7) 10^3/uL Absolute Lymphocytes (1.2-3.4) 10^3/uL Absolute Monocytes (0.1-0.8) 10^3/uL Absolute Eosinophils (0.0-0.7) 10^3/uL Absolute Basophils (0.0-0.2) 10^3/uL PT (9.3-11.0) sec 10.3 INR (0.9-1.1) 1.0 APTT (21.0-27.5) sec 28.0 H VBG Lactate (0.6-1.4) mmol/L Sodium (136-145) mmol/L Potassium (3.5-5.1) mmol/L Chloride (98-107) mmol/L Carbon Dioxide (21.0-32.0) mmol/L Anion Gap (3-11) mmol/L BUN (7-18) mg/dL Creatinine (0.70-1.30) mg/dL Estimated GFR/1.73 m2 (mL/min/1.73m2) Glucose (74-106) mg/dL Calcium (8.5-10.1) mg/dL Total Bilirubin (0.2-1.0) mg/dL AST (15-37) U/L ALT (16-63) U/L Alkaline Phosphatase (46-116) U/L Troponin I (<0.06) ng/mL Total Protein (6.4-8.2) g/dL Albumin (3.4-5.0) g/dL Lipase (73-393) U/L Sign Out Sign Out Data: Sign Out Comment: Abdominal pain for 3 days, follow-up on labs, imaging, and EKG. Last updated by Miguel A Haywood DO at 09/14/20 07:45
== END 2020-09-14 09:20 | disposition home or self-care (01) ==
PROVIDERS: Student in an Organized Health Care Education/Training Program; Emergency Provider Emergency Medicine; PCP Emergency Medicine
DX: R10.13 Epigastric pain (principal); I71.2 Thoracic aortic aneurysm, without rupture
CPT/HCPCS: 71275; 74175; 80053; 83690; 93005; 96361; 96374; 99285; 83605; 84484; 85025; 85610; 85730; 93010; 99284; J3490

== ENCOUNTER 2020-10-01 07:11 | Day surgery (SDC) | payer OTHER, SELFPAY ==
--- NOTE | 2020-09-30 12:00 | ANES_ITS ---
Date of service: 09/30/20 Time of Service: 12:00 Anesthesia Note Report Anesthesia Note: I reviewed, after discussion with preop RN, Ebenezer's Stress test from 09/20/2019. My initial read of this test was worrisome given the Positive ECG stress test as well as 2-3mm depression without chest pain in inferior and lateral leads. I called [facility] [place] cardiology where the test was performed and initially spoke to BRADLY Dyer who then called me back after speaking to Chun Merlos NP who advised patient was cleared for his Colonoscopy/EGD and is being medically managed at this time. I clarified that there was no discussion or plan for cardiac cath given the test results to which Gomez confirmed the clearance for surgery stating that the bigger concern was the which has progressed to moderate. Given this clearance, we will proceed with the procedure.
[2020-10-01 07:15] VITALS: BP 138/77; PULSE 52; RESP 18; TEMP 36.5; O2SAT 95
[2020-10-01] MEDS: Lactated Ringers 1,000 ML 80 ML IV (07:55)
--- NOTE | 2020-10-01 09:10 | STOM_PTH ---
PATIENT: Ebenezer Wallace LOC: [facility] U#:[id number] AGE/SX: 60/M ROOM: RE10/01/[address]: Denise Fragoso : 1960 BED: DIS: 10/01/2020 SPEC #: [id number] RECD: 10/01/20 12:37 STATUS: RICARDO RE #: [id number] JOSE ALBERTO: 10/01/20 09:[address]: Denise Fragoso DEPT: Surgical Specimen RECD BY: Gricelda Mcdaniel ENTERED: 10/01/20 12:40 SP TYPE: STOMACH OTHR DR: Kendall Lanier DO Tissues: 1 - BIOPSY BOWEL 2 - BIOPSY BOWEL 3 - STOMACH BIOPSY 4 - STOMACH BIOPSY 5 - ESOPHAGUS BIOPSY 6 - ESOPHAGUS BIOPSY Procedures: GROSS AND MICRO LEVEL 4 Comments: [id number]
--- NOTE | 2020-10-01 09:17 | W.PM.DSUDISC ---
Discharge Plan Disposition Patient Disposition: HOME Condition: Good Discharge Details Reason For Visit: stomach scope Attending Provider: Denise Fragoso Primary Care Provider: Kendall Lanier Home Meds and New Rx's Prescriptions: New pantoprazole [Protonix] 40 mg tablet,delayed release (DR/EC) 40 mg PO DAILY Qty: 30 RF: 12 Continued calcium citrate-vitamin D3 500 mg-500 unit /5 gram powder 5 gm PO DAILY RF: 0 losartan 50 mg tablet 50 mg PO DAILY RF: 0 allopurinol 300 mg tablet 300 mg PO DAILY Qty: 30 RF: 12 cholecalciferol (vitamin D3) 1,000 unit capsule 1,000 unit PO DAILY RF: 0 gabapentin 300 mg capsule 300 mg PO QHS Qty: 60 RF: 2 Eliquis 5 mg tablet 5 mg PO BID RF: 0 metoprolol tartrate 25 mg tablet 25 mg PO BID RF: 0 levetiracetam [Keppra] 500 mg tablet 1,000 mg PO BID Qty: 360 RF: 3 folic acid 1 mg tablet 1 mg PO DAILY Qty: 90 RF: 3 multivitamin with minerals [Men's One Daily] 1 EACH tablet 1 ea PO DAILY RF: 0 omega-3 fatty acids-fish oil 1 EACH capsule 1 ea PO HS RF: 0 Bio-K plus 50 billion cell capsule,delayed release(DR/EC) 1 cap PO DAILY Qty: 30 RF: 0 Discontinued ascorbic acid (vitamin C) 500 mg tablet 500 mg PO DAILY RF: 0 famotidine 40 mg tablet 40 mg PO BID Qty: 180 RF: 3 Discharge Instructions Instructions: GERD (Gastroesophageal Reflux Disease) (GEN), Hiatal Hernia (GEN) Additional Instructions: Findings:hiatal hernia Continue with lifestyle modifications: no alcohol, tobacco products, Aspirin or NSAID's (ibuprofen, Motrin, Naprosyn, aleve, etc), soda pop/any carbonated beverages, caffeine (including tea & chocolate). Try to limit acidic foods, (tomatoes, citrus, onions, peppermints) spicy foods. Do not lie down for 30 minutes after eating, and do not eat 2 hours prior to bedtime. Avoid wearing tight fitting clothing/ belts No ASA/NSAID's. -Stop taking Vit C and pepcid -No alcohol -No more than 2 cups of coffee a day. Do not drink coffee on an empty stomach. Eat something first or take a carafate before you drink coffee -start taking protonix daily Follow up: pcp in 3-4 wks Please call if you develop: fevers >101.5 Nausea or Vomiting Abdominal pain that is not transient DAY SURGERY UNIT POST COLONOSCOPY INSTRUCTIONS 1. Because there will be medication in your system for the next 24 hours, you may feel a little sleepy. Your coordination will be affected. Therefore: a. Do not drive or operate dangerous equipment for 24 hours. b. Do not drink alcohol beverages for 24 hours (not even beer). c. Plan to go home and rest for the day. 2. Generally there are no restrictions on your activity after a day or so has gone by, but you may feel a bit fatigued for a few days. 3 After you arrive home you may have a light meal and return to a normal diet as you can tolerate it without feeling sick to your stomach. 4. After surgery, you may feel pain or discomfort. This should be only transient, but if it persists please contact your doctor. 5. If there are any questions regarding the findings of your procedure, please feel free to contact your doctor. 6. If you are unable to contact your doctor with a problem, contact the hospital at [phone]. 7. Continue all your regular medications unless directed otherwise. I understand the above instructions and have no questions. Signature of Patient or Responsible Adult Escort Date/Time Name of Responsible Adult Escort Signature of Nurse Date/Time DS: Diagnosis Discharge Diagnosis (1) Hiatal hernia: Status: Chronic
--- NOTE | 2020-10-01 09:24 | ENDO_ITS ---
Date of service: 10/01/20 Time of Service: 09:24 Endoscopy Report DATE OF PROCEDURE: 10/01/20 PRE-OP DIAGNOSIS: non cardiac chest pain/suspect reflux POST-OP DIAGNOSIS: other (hiatal hernia ) PROCEDURE: egd w/ bx SURGEON: Denise Fragoso ANESTHESIA: GETA ESTIMATED BLOOD LOSS: 1 PATHOLOGY: other COMPLICATIONS: None DISPOSITION: same day PROCEDURE DESCRIPTION: After informed consent was obtained the patient was take to the procedure room and placed in a supine position. Monitors were applied and a time out was done. The patients name, date of , procedure type, allergies to medications and metal in their body was reviewed. A bite block was placed and the patient was sedated. Once sedated and comfortable the gastroscope was advanced through the oropharynx which was grossly normal into the esophagus. The proximal and mid-esophagus were nl In the distal esophagus there was : No esophageal erosion/varices/diverticula apparent. the scope was advanced into the stomach and through the pylorus into the 3rd portion of the duodenum. The duodenum was noted to be nl. Biopsies were done /all specimens are retrieved and no bleeding is noted. The scope was retracted back into the stomach and biopsies were done to rule out H. pylori. There were no ulcers or gastritis.. The scope was retroflexed. The cardia and fundus were noted to be normal. There is a small a hiatal hernia noted. The scope was retracted back into the esophagus and biopsies were done of the GE junction to rule out Gruber's. The Z line was regular. The GE junction was at 38 cm. The scope was removed and the patient was woken up and taken back to [facility] in stable condition. Follow up:
[2020-10-01 09:55] VITALS: BP 131/73; PULSE 50; RESP 17; TEMP 36.3; O2SAT 94
== END 2020-10-01 11:04 | disposition home or self-care (01) ==
PROVIDERS: PCP Emergency Medicine; Visit Provider Surgery
PROC: 0DJ68ZZ Inspection of Stomach, Via Natural or Artificial Opening Endoscopic (ICD-10-PCS; CPT 43235; principal; 2020-10-01 08:30)
DX: R07.89 Other chest pain (principal); K44.9 Diaphragmatic hernia without obstruction or gangrene; I10 Essential (primary) hypertension
CPT/HCPCS: 43239; 88305; J1100; J2001; J2405

== ENCOUNTER 2020-10-08 16:26 | Inpatient (IN) | payer OTHER, SELFPAY ==
[2020-10-08] VITALS (78 sets, daily range): BP systolic 109–150; BP diastolic 63–94; PULSE 55–159; RESP 11–24; TEMP 36.4–36.9; O2SAT 89–100
--- NOTE | 2020-10-08 16:15 | RT.EKG_ITS ---
APPROVED REPORT Exam: Resting ECG Patient Location: E HR:154 bpm ECG Measurements Heart Rate 154 AXIS MD 90 P 94 QRSd 97 QRS 1 QT 344 T -66 QTc 549 Conclusion Regular narrow complex tachycardi, likely Aflutter Repolarization abnormality, prob rate related...ST dep, T neg, tachycardia Prolonged QT interval...QTc >500mS
--- NOTE | 2020-10-08 16:45 | RT.EKG_ITS ---
APPROVED REPORT Exam: Resting ECG Patient Location: E HR:137 bpm ECG Measurements Heart Rate 137 AXIS SD [id number] P [id number] QRSd 95 QRS 38 QT 313 T 27 QTc 473 Conclusion Atrial fibrillation...V-rate 101-174, irreg A-activity
--- NOTE | 2020-10-08 16:45 | RT.EKG_ITS ---
APPROVED REPORT Exam: Resting ECG Patient Location: E HR:90 bpm ECG Measurements Heart Rate 90 AXIS MI [id number] P [id number] QRSd 95 QRS 31 QT 369 T 29 QTc 452 Conclusion Atrial fibrillation...V-rate 67-111, irreg A-activity
[2020-10-08 17:14] LABS: Abs Immature Grans 0.03 10^3/uL (0.0-0.06); Absolute Basophil Count 0.05 10^3/uL (0.0-0.2); Absolute Eosinophil Count 0.16 10^3/uL (0.0-0.7); Absolute Lymphocyte Count 1.26 10^3/uL (1.2-3.4); Absolute Neutrophil Count 6.45 10^3/uL (1.2-6.7); Basophils % 0.6; Eosinophils % 1.8; HCT 42.9 % (40.0-50.0); HGB 14.3 g/dL (13.5-17.5); Immature Grans % 0.3; Lymphocytes % 14.4; MCH 31.8 pg (27.0-33.0); MCHC 33.3 % (32.0-36.0); MCV 95.5 fL (80-95); MPV 10.8 fL (8.0-11.0); Monocytes % 9.1; Neutrophils % 73.8; Nucleated RBC 0 %; Platelet Count 228 10^3/uL (130-400); RBC 4.49 10^6/uL (4.36-5.78); RDW 12.6 % (11.8-14.1); WBC 8.75 10^3/uL (4.4-10.8)
[2020-10-08] MEDS: dilTIAZem 25 MG/5 ML VIAL 20 MG IVP (17:17)
[2020-10-08 17:30] LABS: PTT Activated 27.2 sec (21.0-27.5); Prothrombin Time 10.2 sec (9.3-11.0)
[2020-10-08 17:37] LABS: ALT 34 U/L (16-63); AST 27 U/L (15-37); Albumin 3.7 g/dL (3.4-5.0); Alkaline Phosphatase 82 U/L (46-116); Anion Gap 11.3 mmol/L (3-11); BUN 23 mg/dL (7-18); Bilirubin, Total 0.6 mg/dL (0.2-1.0); CO2 26.7 mmol/L (21.0-32.0); CREATININE 0.9 mg/dL (0.70-1.30); Calcium 9.1 mg/dL (8.5-10.1); Chloride 104 mmol/L (98-107); Glucose 84 mg/dL (74-106); Magnesium 1.7 mg/dL (1.8-2.4); Potassium 3.5 mmol/L (3.5-5.1); Sodium 142 mmol/L (136-145); Total Protein 7.7 g/dL (6.4-8.2)
[2020-10-08 17:39] LABS: Troponin I < 0.05 ng/mL (<0.06)
[2020-10-08] MEDS: dilTIAZem 125 MG in Normal Saline 100 ML IV (17:49)
[2020-10-08 17:54] LABS: TSH 1.01 uIU/mL (0.36-3.74)
--- NOTE | 2020-10-08 18:00 | DI.RAD_ITS ---
EXAM: XR CHEST 2V PA LATERAL CLINICAL HISTORY: palpitations. TECHNIQUE: 2D digital imaging was performed. COMPARISON: CR,XR XR CHEST 2V PA LATERAL from 04/18/2020 FINDINGS: Heart size is normal. The mediastinum is not widened. Tortuous descending thoracic aorta is again n oted. Lungs are clear. No infiltrates nor pleural effusions. Hyperinflation again noted. Chest leads are in place. IMPRESSION: No acute pulmonary findings.No significant change compared to 04/18/2020. Nonacute compression fract ures of midthoracic vertebra is unchanged. DATA REPOSITORY: RADIATION DOSE DELIVERED:
--- NOTE | 2020-10-08 18:16 | W.ED.GENAD ---
Discharge Plan Discharge Details Chief Complaint: Palpitatns Admit Date/Time: 10/08/20 20:36 Admit Provider: Ebenezer Doyle Attending Provider: Ebenezer Doyle Primary Care Provider: Kendall Lanier ED Provider: Michaela Guzmán Medical Decision Making Patient is a pleasant 60-year-old male presented with chief complaint of palpitations. He reports he is again approximate 20 minutes prior to arrival. States that this feels similar to when he has had atrial fibrillation historically. States that he is having some neck tightness and nausea. Denies any chest pain. No shortness of breath. Denies any pain radiating into his back. Patient is anticoagulated on Eliquis. States that he was taken off of this over a week ago and missed roughly 1 week of dosing dosing for an endoscopy but has been taking this full-time for the past week. Patient is on 25 mg twice daily metoprolol. 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 Patient states that at the time of onset, he took one of his as needed metoprolol, waited 10 minutes per his previous directions and came to the ED when the symptoms did not resolve. He denies any recent trauma. No leg discomfort or swelling. Heart rate 156. I have asked nursing staff to have him try to complete vagal maneuvers. On exam, patient appears nontoxic. Lungs are clear. He is tachycardic and irregularly irregular. Heart rate 156. Abdominal exam is benign. No lower extremity swelling, calves are soft and nontender. Initial EKG was reviewed by Dr. Trivedi. He was questioning the patient was not atrial flutter. Patient was in a regular rhythm with a narrow complex a heart rate of 154. However, when I evaluated the patient, he was coming out of this was becoming more irregular with a lower heart rate. Patient blowing into a syringe to induce his vagal reaction does help slow his heart rate but this is quite short-lived. Repeat EKG after this change was again reviewed by Dr. Trivedi. Patient has a heart rate of 137 is now irregularly irregular consistent with history of atrial fibrillation. No acute ischemic changes noted. As initial maneuvers were unsuccessful, will give the patient IV diltiazem. Plan for cardiac work-up. Patient's history and exam is not consistent with dissection, pulmonary embolism, pneumothorax, infectious process. Patient is tolerating a rapid heart rate well and maintaining his blood pressure. Patient's heart rate down to the 110s after the initial bolus of diltiazem. However, he continues to be symptomatic and irregularly irregular. We will start on a diltiazem drip. Labs are reviewed. No leukocytosis. Stable H&H. Coags are normal. CMP significant for BUN of 23. Mag slightly low at 1.7. Initial troponin within normal limits. TSH within normal limits. Will replenish magnesium and continue to monitor the patient. Repeat troponin remains less than 0.05. Patient remains on the diltiazem drip. He does become notably more tachycardic with any type with minimal movement and the heart rate comes back from the low 100s to the 120s or 130s. When he does experience this increased tachycardia, symptoms of throat tightness when measured to return. I do feel that admission for observation and continued treatment is appropriate at this point. Discussed this plan with the patient is in agreement. Comfortable with Dr. Doyle who agrees to admission. Patient is already anticoagulated on Eliquis. Is on a diltiazem drip and currently resting comfortably. HPI General Mode of arrival: ambulatory. Date/Time Provider Initiated Documentation: 10/08/20 16:29. Limitations to Documentation: no limitations. Information obtained by: patient, RN notes reviewed and old records reviewed. History of Present Illness 60 year old M presents to the emergency department with the chief complaint of palpitations, described as moderate and similar to prior episodes, Quality is described as other (tight in throat), and is localized to the neck. Patient reports no radiation. Patient started experiencing this minute(s) (20) and it has been constant. No relieving factors improve symptom(s), No exacerbating factors reported . Patient notes nausea/vomiting (nausea); denies chest pain, cough, fever/chills, headaches and shortness of breath. Patient did receive the following treatments prior to arrival, other (25mg metoprolol) Related Data Home Medications Medication Instructions Recorded Confirmed multivitamin with minerals [Men's 1 ea PO DAILY 12/17/12 10/08/20 One Daily] omega-3 fatty acids-fish oil 1 ea PO HS 06/04/16 10/08/20 cholecalciferol (vitamin D3) 25 1,000 unit PO DAILY 06/15/18 10/08/20 mcg (1,000 unit) capsule apixaban 5 mg tablet 5 mg PO BID 12/30/18 10/08/20 metoprolol tartrate 25 mg tablet 25 mg PO BID tab 12/30/18 10/08/20 allopurinol 300 mg tablet 300 mg PO DAILY #30 tab 12/22/19 10/08/20 calcium citrate 500 mg-vit D3 12.5 5 gm PO DAILY 12/22/19 10/08/20 mcg (500 unit)/5 gram oral powder losartan 50 mg tablet 50 mg PO DAILY 12/22/19 10/08/20 levetiracetam 500 mg tablet 1,000 mg PO BID #360 tab-cap 03/26/20 10/08/20 folic acid 1 mg tablet 1 mg PO DAILY #90 tab 05/22/20 10/08/20 pantoprazole [Protonix] 40 mg PO DAILY #30 tab 10/01/20 10/08/20 Bio-K plus 1 cap PO DAILY PRN 10/08/20 10/08/20 gabapentin 300 mg PO QHS PRN 10/08/20 10/08/20 Previous Rx's Medication Instructions Recorded allopurinol 300 mg tablet 300 mg PO DAILY #30 tab 12/22/19 levetiracetam 500 mg tablet 1,000 mg PO BID #360 tab-cap 03/26/20 folic acid 1 mg tablet 1 mg PO DAILY #90 tab 05/22/20 pantoprazole [Protonix] 40 mg PO DAILY #30 tab 10/01/20 Allergies Allergy/AdvReac Type Severity Reaction Status Date / Time No Known Allergies Allergy Verified 10/08/20 16:36 General Stated Complaint: Palpitatns FLY: 2 Review of Systems Constitutional Constitutional: Reports as per HPI, Denies chills, Denies fever(s), Denies headache(s), Denies lethargy and Denies poor appetite Eyes Eyes: Denies change in vision ENT Ears, Nose, Mouth, and Throat: Denies dizziness and Denies headache(s) Cardiovascular Cardiovascular: Reports as per HPI, Denies dyspnea and Denies dyspnea on exertion Respiratory Respiratory: Reports as per HPI, Denies chest congestion, Denies cough, Denies pain on inspiration, Denies pain with cough, Denies dyspnea, Denies dyspnea on exertion and Denies wheezing Gastrointestinal Gastrointestinal: Reports as per HPI, Denies abdominal pain, Denies diarrhea, Denies nausea and Denies vomiting Genitourinary Genitourinary: Denies system reviewed and no additional complaints, except as documented (denies change in urinary habits) Musculoskeletal Musculoskeletal: Reports as per HPI and Denies back pain Integumentary/Breasts Skin/Breast: Reports as per HPI and Denies rash Neurologic Neurologic: Reports as per HPI, Denies dizziness and Denies headache(s) Allergic/Immunologic Allergic/Immunologic: Denies wheezing [facility] Medical History Actinic keratoses Advanced directives, counseling/discussion Alcohol abuse in patient treatment at [facility] 2011 Aortic valve stenosis mild. echo 2013 neg MPI 12/01. Ascending aortic aneurysm Benign prostatic hyperplasia Essential hypertension Hearing loss History of postoperative nausea and vomiting Hx of gastroesophageal reflux (GERD) Hyperparathyroidism (10/22/17) surgery [facility] [place] 2017 Infected sebaceous cyst of skin Osteoporosis T score of 3.5 LS spine Renal calculus, right (03/29/17) Right ureteral stone (03/29/17) Sciatica left; disk; persistent left foot numbness Scrotal abscess Seizure last seizure 35 years ago Serum calcium elevated (11/19/15) Hyper PTH Parathyroid surgery 10/03 removing one of 4 glands Thoracic spondyloarthritis Tobacco use disorder Surgical History Colonoscopy - [facility] [place] 2008 Cystoscopy 11/14/15; DR. DEVI Excision, Distal Clavicle (03/22/15) ALSO NEER ACROMIOPLASTY/LIMITED ROTATOR CUFF REPAIR/ DR ROSARIO H/O parathyroidectomy Hx of esophagogastroduodenoscopy Family History Mother , age 68 Alzheimer disease MS (multiple sclerosis) Father , age 72 Diabetes Essential hypertension Heart disease Hyperlipidemia Sister No problems noted. Brother No problems noted. Brother Crohns disease Maternal Grandfather , age 70 Heart disease Paternal Grandfather , age 92 No problems noted. Maternal Grandmother , age 70 No problems noted. Paternal Grandmother , age 94 Intestinal cancer Brother No problems noted. Son No problems noted. Daughter No problems noted. Daughter No problems noted. Social History Smoking/Tobacco Use Status: Former Tobacco Use Quit Date: 07/19/06 Pack-years: 25 Tobacco: How many years used: 15 Second Hand Exposure: Yes Smoking risk assessment performed?: Yes Alcohol Intake: former Drug use: Current Sobriety Substance use type: does not use Details: sober for 6 years Caregiver/Support person: Yes Household members: spouse Housing: house Communication Needs: None Do you need help understanding health information?: Rarely Pets and animals: Yes Pets and animals: cat(s) Sexually active: Yes Do you think of yourself as: straight/heterosexual Current gender identity: male What is your relationship status?: How often do you talk on the phone with friends or family?: once per week How often do you get together with friends or relatives?: once per week How often do you attend yazidism or mu-ism services?: 1-3 times per year Do you belong to any clubs or organized social groups?: no Panel score (0-1 are the most socially isolated patients): 1 What type of physical activity do you participate in: yoga Duration: 30-45 minutes/day Frequency: 3-4 times per week Caitlin/Worship: Shinto Special caitlin needs: No Seatbelt use: always Helmet use: Yes Helmet use: always Drive intox or ride w/intox emergency vehicle 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 Exam Const General: cooperative, healthy appearing, comfortable, no acute distress and well developed Nutritional Appearance: well nourished and overweight Orientation: alert, awake and oriented x3 HENMT Head: normal to inspection Ears: hearing grossly normal bilaterally Mouth: moist mucous membranes Chest Chest: normal inspection of the chest, normal palpation of entire chest wall and no crepitus Resp Effort & Inspection: normal respiratory effort, able to speak in complete sentences and no respiratory distress Auscultation: clear to auscultation bilaterally, no rales, no rhonchi and no wheezes Cardio Rate: tachycardic Rhythm: abnormal rhythm irregularly irregular Heart Sounds: S1 normal and S2 normal GI Inspection: normal to inspection, no edema and non-distended Palpation: soft, no hepatosplenomegaly, not firm, no guarding, not rigid and nontender Auscultation: normal bowel sounds Skin General skin exam: no rashes or lesions noted Trauma: no lacerations or abrasions Neuro General: patient alert, patient awake and patient oriented x3 Cognition: normal cognition Speech: speech normal Gait: normal gait Extrem General: normal to inspection, capillary refill normal, no pedal edema, no calf tenderness and normal gait Psych Appearance: grossly normal and well kempt Mental Status: mental status grossly normal Speech and Movement: speech and movement normal Course Vital Signs Vital signs: Vital Signs Temperature 36.9 C 10/08/20 16:28 Pulse 156 H 10/08/20 16:28 Respiratory Rate 17 10/08/20 16:28 Blood Pressure 148/93 H 10/08/20 16:28 Pulse Oximetry 97 10/08/20 16:28 Temperature 36.9 C 10/08/20 16:28 Temperature Source Skin 10/08/20 16:28 Pulse 68 10/08/20 17:51 Pulse 94 H 10/08/20 17:51 Respiratory Rate 13 10/08/20 17:51 Respiratory Effort Non-Labored 10/08/20 16:34 Blood Pressure 132/81 10/08/20 17:51 Blood Pressure Mean 93 10/08/20 17:51 Blood Pressure Position Supine 10/08/20 16:28 Pulse Oximetry 93 10/08/20 17:51 Oxygen Delivery Method Room Air 10/08/20 16:28 Oxygen Flow Rate 0 10/08/20 16:28 Pain Level 4 10/08/20 16:28 Lab/Test Results Lab/Test Results: Laboratory Tests Range/Units 10/08/20 10/08/20 10/08/20 16:33 16:33 16:33 WBC (4.4-10.8) 10^3/uL RBC (4.36-5.78) 10^6/uL Hgb (13.5-17.5) g/dL Hct (40.0-50.0) % MCV (80-95) fL MCH (27.0-33.0) pg MCHC (32.0-36.0) % RDW (11.8-14.1) % Plt Count (130-400) 10^3/uL MPV (8.0-11.0) fL Immature Gran % Neutrophils % Lymphocytes % Monocytes % Eosinophils % Basophils % Nucleated RBC % % Absolute Neutrophils (1.2-6.7) 10^3/uL Absolute Lymphocytes (1.2-3.4) 10^3/uL Absolute Monocytes (0.1-0.8) 10^3/uL Absolute Eosinophils (0.0-0.7) 10^3/uL Absolute Basophils (0.0-0.2) 10^3/uL PT (9.3-11.0) sec 10.2 INR (0.9-1.1) 1.0 APTT (21.0-27.5) sec 27.2 Sodium (136-145) mmol/L 142 Potassium (3.5-5.1) mmol/L 3.5 Chloride (98-107) mmol/L 104 Carbon Dioxide (21.0-32.0) mmol/L 26.7 Anion Gap (3-11) mmol/L 11.3 H BUN (7-18) mg/dL 23 H Creatinine (0.70-1.30) mg/dL 0.9 Estimated GFR/1.73 m2 (mL/min/1.73m2) >= 60.00 Glucose (74-106) mg/dL 84 Calcium (8.5-10.1) mg/dL 9.1 Magnesium (1.8-2.4) mg/dL 1.7 L Total Bilirubin (0.2-1.0) mg/dL 0.6 AST (15-37) U/L 27 ALT (16-63) U/L 34 Alkaline Phosphatase (46-116) U/L 82 Troponin I (<0.06) ng/mL < 0.05 Total Protein (6.4-8.2) g/dL 7.7 Albumin (3.4-5.0) g/dL 3.7 TSH (0.36-3.74) uIU/mL 1.01 Range/Units 10/08/20 16:33 WBC (4.4-10.8) 10^3/uL 8.75 RBC (4.36-5.78) 10^6/uL 4.49 Hgb (13.5-17.5) g/dL 14.3 Hct (40.0-50.0) % 42.9 MCV (80-95) fL 95.5 H MCH (27.0-33.0) pg 31.8 MCHC (32.0-36.0) % 33.3 RDW (11.8-14.1) % 12.6 Plt Count (130-400) 10^3/uL 228 MPV (8.0-11.0) fL 10.8 Immature Gran % 0.3 Neutrophils % 73.8 Lymphocytes % 14.4 Monocytes % 9.1 Eosinophils % 1.8 Basophils % 0.6 Nucleated RBC % % 0 Absolute Neutrophils (1.2-6.7) 10^3/uL 6.45 Absolute Lymphocytes (1.2-3.4) 10^3/uL 1.26 Absolute Monocytes (0.1-0.8) 10^3/uL 0.80 Absolute Eosinophils (0.0-0.7) 10^3/uL 0.16 Absolute Basophils (0.0-0.2) 10^3/uL 0.05 PT (9.3-11.0) sec INR (0.9-1.1) APTT (21.0-27.5) sec Sodium (136-145) mmol/L Potassium (3.5-5.1) mmol/L Chloride (98-107) mmol/L Carbon Dioxide (21.0-32.0) mmol/L Anion Gap (3-11) mmol/L BUN (7-18) mg/dL Creatinine (0.70-1.30) mg/dL Estimated GFR/1.73 m2 (mL/min/1.73m2) Glucose (74-106) mg/dL Calcium (8.5-10.1) mg/dL Magnesium (1.8-2.4) mg/dL Total Bilirubin (0.2-1.0) mg/dL AST (15-37) U/L ALT (16-63) U/L Alkaline Phosphatase (46-116) U/L Troponin I (<0.06) ng/mL Total Protein (6.4-8.2) g/dL Albumin (3.4-5.0) g/dL TSH (0.36-3.74) uIU/mL
--- NOTE | 2020-10-08 18:40 | DI.VRAD_ITS ---
PROCEDURE INFORMATION: Exam: XR Chest Exam date and time: 10/08/2020 6:28 PM Age: 60 years old Clinical indication: Other: Palpitations TECHNIQUE: Imaging protocol: XR of the chest Views: 2 views. Total images: 2 COMPARISON: CT THORAX ABDOMEN CTA 09/14/2020 8:17 AM FINDINGS: Lungs: Question mild hyperexpansion and hyperlucency with mild diaphragmatic flattening suggesting possible COPD. Pulmonary vasculature grossly normal. No gross pulmonary infiltrates. Pleural spaces: No pleural effusion. No pneumothorax. Heart/Mediastinum: Heart size normal. No tracheal/mediastinal shift. Vasculature: Moderate aortic ectasia/tortuosity and moderate calcific atherosclerosis. Bones/joints: No acute osseous abnormalities are identified. Osteopenia and moderate thoracic spondylosis. IMPRESSION: 1. No acute thoracic process. No significant change from CT accounting analyst image [id number]. 2. Evidence of COPD. Dictated and Authenticated by: Bhavik Muse MD. Ordering:WING Jennings MD
--- NOTE | 2020-10-08 19:28 | NUR.NOTE ---
Nursing Note: Pt stands side of bed to use urinal, O2 sat 88% at lowest, and HR up to 130's. Upon sitting back in bed HR recovers at rate prior to exerting standing at bedside to 100-108. Pt reports I was a little short of breath just then but now not. O2 corrects itself to 96% once back in bed. EDP notified of events in this note. Pt reports I feel fine. Updated awaiting for rpt trop/EKG at 1940.
[2020-10-08] MEDS: MAGNESIUM SULFATE 1 GM/100 ML BAG IVPB (19:53)
[2020-10-08 20:05] LABS: Source Nasal/Nares
[2020-10-08 20:08] LABS: Troponin I < 0.05 ng/mL (<0.06)
--- NOTE | 2020-10-08 20:51 | HPE_ITS ---
Date of service: 10/08/20 Time of Service: 20:51 Assessment and Plan Assessment and plan (1) Atrial fibrillation with rapid ventricular response: Start date: 10/08/20 Status: Acute Assessment and plan: This is a 60-year-old gentleman with paroxysmal atrial fibrillation and rapid ventricular response reporting to the ED with treatment and transferred to ICU now in sinus rhythm and comfortable. He has had negative troponins with trending and has a cardiology consultation placed for the morning if needed. Patient has had recent negative stress test and is up-to-date on his echocardiograms monitoring his aortic stenosis. His atypical chest pain associated with his rapid ventricular response is similar to previous episodes the patient has never had cardiac catheterization or an acute NE. He has minimal other risk factors for CAD. If he continues in sinus rhythm now weaned off diltiazem he could return home with increased metoprolol dosing and on losartan if blood pressure allows with outpatient reevaluation as indicated by his license and permit specialist. He is a full code. (2) Atypical chest pain: Status: Acute Assessment and plan: This radiation of pain into his neck and nausea does not appear to be angina equivalent with patient having negative stress test in the past and similar symptoms with rapid ventricular response to atrial fibrillation in the past. Patient should have ongoing cardiovascular risk reduction and monitoring. Consider empiric treatment with statin and consider reevaluation with cardiac stress test. Patient may be stable enough to have outpatient cardiology follow-up rather than immediate cardiology consultation as an inpatient. (3) Paroxysmal A-fib: Status: Chronic Assessment and plan: Continue on increased dose of metoprolol as blood pressure tolerates with adjustment of losartan as mentioned. Patient is off diltiazem and this can be held for now. History of Present Illness History of Present Illness Chief Complaint: Palpitations. Narrative: This is a 60-year-old male patient who has a history of paroxysmal atrial fibrillation on increasing dosages of metoprolol recently at 25 mg twice daily up from 12.5 mg twice daily. He recently held his Eliquis for an EGD which revealed a hiatal hernia and has been replaced on Eliquis at least for the last 5 days. 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 He has had no increased stress. He had onset of palpitations the day of presentation with associated neck tightness and nausea which has happened in the past whenever his atrial fibrillation with a rapid ventricular response. He reported to the ED after less than 1/2-hour of symptoms for evaluation and did have tachycardia with atrial fibrillation upon initial evaluation. He did respond to diltiazem to control rate but continued to have tachycardia with any exertion. With tachycardia he would have recurrent neck tightness and nausea. He had no diaphoresis, chest pain, radiation of discomfort or dyspnea. The patient did take an extra dose of metoprolol as directed by his license and permit specialist prior to reporting to the ED and reported to the ED when his symptoms persisted. His EKG showed no acute ST changes and his troponins were negative. Because of his persistent need for rate control on IV diltiazem infusion he was admitted to the ICU. Shortly after admission to the ICU the patient did convert to sinus rhythm and his symptoms resolved. He was continued on the IV diltiazem drip with weaning and he did have his metoprolol dose increased to 25 mg 3 times a day holding his losartan because of soft blood pressures. Review of Systems Narrative: 13 point review of systems otherwise unrevealing or stable. Patient has had no recent weight gain or peripheral edema. He has had no exertional symptoms. [facility] Medical History Actinic keratoses Advanced directives, counseling/discussion Alcohol abuse in patient treatment at [facility] 2011 Aortic valve stenosis mild. echo 2013 neg MPI 12/01. Ascending aortic aneurysm Benign prostatic hyperplasia Essential hypertension Hearing loss History of postoperative nausea and vomiting Hx of gastroesophageal reflux (GERD) Hyperparathyroidism (10/22/17) surgery [facility] [place] 2017 Infected sebaceous cyst of skin Osteoporosis T score of 3.5 LS spine Renal calculus, right (03/29/17) Right ureteral stone (03/29/17) Sciatica left; disk; persistent left foot numbness Scrotal abscess Seizure last seizure 35 years ago Serum calcium elevated (11/19/15) Hyper PTH Parathyroid surgery 10/03 removing one of 4 glands Thoracic spondyloarthritis Tobacco use disorder Surgical History [place]oscopy - [facility] [place] Cystoscopy 11/14/15; DR. DEVI Excision, Distal Clavicle (03/22/15) ALSO [place] ACROMIOPLASTY/LIMITED ROTATOR CUFF REPAIR/ DR ROSARIO H/O parathyroidectomy Hx of esophagogastroduodenoscopy Family History Mother , age 68 Alzheimer disease MS (multiple sclerosis) Father , age 72 Diabetes Essential hypertension Heart disease Hyperlipidemia Sister No problems noted. Brother No problems noted. Brother Crohns disease Maternal Grandfather , age 70 Heart disease Paternal Grandfather , age 92 No problems noted. Maternal Grandmother , age 70 No problems noted. Paternal Grandmother , age 94 Intestinal cancer Brother No problems noted. Son No problems noted. Daughter No problems noted. Daughter No problems noted. Social History Smoking/Tobacco Use Status: Former Tobacco Use Quit Date: 07/19/06 Pack-years: 25 Tobacco: How many years used: 15 Second Hand Exposure: Yes Smoking risk assessment performed?: Yes Alcohol Intake: former Drug use: Current Sobriety Substance use type: does not use Details: sober for 6 years Caregiver/Support person: Yes Household members: spouse Housing: house Communication Needs: None Do you need help understanding health information?: Rarely Pets and animals: Yes Pets and animals: cat(s) Sexually active: Yes Do you think of yourself as: straight/heterosexual Current gender identity: male What is your relationship status?: How often do you talk on the phone with friends or family?: once per week How often do you get together with friends or relatives?: once per week How often do you attend scientologist or anglican services?: 1-3 times per year Do you belong to any clubs or organized social groups?: no Panel score (0-1 are the most socially isolated patients): 1 What type of physical activity do you participate in: yoga Duration: 30-45 minutes/day Frequency: 3-4 times per week Caitlin/[employer] Special caitlin needs: No Seatbelt use: always Helmet use: Yes Helmet use: always Drive intox or ride w/intox driver license reviewing officer: No Do you feel safe at home: Yes Do you feel safe in your relationship?: Yes Meds Home Medications and Allergies Allergies Allergy/AdvReac Type Severity Reaction Status Date / Time No Known Allergies Allergy Verified 10/08/20 16:36 Home Medications Medication Instructions Recorded Confirmed Type multivitamin with minerals [Men's 1 ea PO DAILY 12/17/12 10/08/20 History One Daily] omega-3 fatty acids-fish oil 1 ea PO HS 06/04/16 10/08/20 History cholecalciferol (vitamin D3) 25 1,000 unit PO DAILY 06/15/18 10/08/20 History mcg (1,000 unit) capsule apixaban 5 mg tablet 5 mg PO BID 12/30/18 10/08/20 History metoprolol tartrate 25 mg tablet 25 mg PO BID tab 12/30/18 10/08/20 History allopurinol 300 mg tablet 300 mg PO DAILY #30 tab 12/22/19 10/08/20 Rx calcium citrate 500 mg-vit D3 12.5 5 gm PO DAILY 12/22/19 10/08/20 History mcg (500 unit)/5 gram oral powder losartan 50 mg tablet 50 mg PO DAILY 12/22/19 10/08/20 History levetiracetam 500 mg tablet 1,000 mg PO BID #360 tab-cap 03/26/20 10/08/20 Rx folic acid 1 mg tablet 1 mg PO DAILY #90 tab 05/22/20 10/08/20 Rx pantoprazole [Protonix] 40 mg PO DAILY #30 tab 10/01/20 10/08/20 Rx Bio-K plus 1 cap PO DAILY PRN 10/08/20 10/08/20 History gabapentin 300 mg PO QHS PRN 10/08/20 10/08/20 History Exam Narrative Exam Narrative: General: Patient appears appropriate for age, alert and oriented x3 and in no acute distress. HEENT: Normocephalic, eyes with pupils equal and reactive to light symmetrically, extraocular movement intact and sclera anicteric. Oropharynx with moist mucosa. Good dentition. Neck: Supple without JVD. No auscultated bruits. Back: Normal posture with no CVA tenderness. Lungs: Clear to auscultation and percussion. Heart: Regular rate and rhythm in normal sinus rhythm by monitor car operator at the time of exam 3/6 crescendo systolic murmur best heard with expiration over left sternal border. No gallops or rubs. Abdomen: Normal contour, soft and nontender to palpation with no palpable hepatosplenomegaly. Bowel sounds positive all quadrants. Genitalia/rectal: Exam deferred. Extremities: Without clubbing, cyanosis or pitting edema. Peripheral pulses intact. All joints have fair range of motion. Skin: Actinic changes over sun exposed areas, warm and dry with normal turgor. Neuro: Cranial nerves II through XII grossly intact, no focalizing motor deficits. Psych: Normal mood and affect, no abnormal thought processes. Remote and recent memory intact. Results Labs Result diagrams: 10/09/20 05:35 10/09/20 05:35 Labs: Laboratory Results - last 24 hr 10/08/20 10/08/20 10/08/20 16:33 16:33 16:33 WBC RBC Hgb Hct MCV MCH MCHC RDW Plt Count MPV Immature Gran % Neutrophils % Lymphocytes % Monocytes % Eosinophils % Basophils % Nucleated RBC % Absolute Neutrophils Absolute Lymphocytes Absolute Monocytes Absolute Eosinophils Absolute Basophils PT 10.2 INR 1.0 APTT 27.2 Sodium 142 Potassium 3.5 Chloride 104 Carbon Dioxide 26.7 Anion Gap 11.3 H BUN 23 H Creatinine 0.9 Estimated GFR/1.73 m2 >= 60.00 Glucose 84 Calcium 9.1 Magnesium 1.7 L Total Bilirubin 0.6 AST 27 ALT 34 Alkaline Phosphatase 82 Troponin I < 0.05 Total Protein 7.7 Albumin 3.7 TSH 1.01 COVID-19 Source 10/08/20 10/08/20 10/08/20 16:33 19:35 19:55 WBC 8.75 RBC 4.49 Hgb 14.3 Hct 42.9 MCV 95.5 H MCH 31.8 MCHC 33.3 RDW 12.6 Plt Count 228 MPV 10.8 Immature Gran % 0.3 Neutrophils % 73.8 Lymphocytes % 14.4 Monocytes % 9.1 Eosinophils % 1.8 Basophils % 0.6 Nucleated RBC % 0 Absolute Neutrophils 6.45 Absolute Lymphocytes 1.26 Absolute Monocytes 0.80 Absolute Eosinophils 0.16 Absolute Basophils 0.05 PT INR APTT Sodium Potassium Chloride Carbon Dioxide Anion Gap BUN Creatinine Estimated GFR/1.73 m2 Glucose Calcium Magnesium Total Bilirubin AST ALT Alkaline Phosphatase Troponin I < 0.05 Total Protein Albumin TSH COVID-19 Source Nasal/nares Last Vital Signs Temp 36.9 C 10/08/20 16:28 Pulse 68 10/08/20 20:16 Resp 13 10/08/20 20:20 BP 110/72 10/08/20 20:16 Pulse Ox 89 L 10/08/20 20:20 COVID-19 Screening Have you, or household traveled for leisure in last 14 days?: No Had IN PERSON contact w/suspected or confirmed C-19 person: No
[2020-10-08] MEDS: Normal Saline 1,000 ML 100 ML IV (22:37)
[2020-10-08 22:39] LABS: COVID-19 PCR Negative (Negative)
[2020-10-08] MEDS: levETIRAcetam 500 MG TAB 1000 MG PO (23:24)
[2020-10-08] MEDS: Apixaban 5 MG TAB PO (23:33)
[2020-10-08] MEDS: Metoprolol 25 MG TAB PO (23:33)
[2020-10-08 23:43] LABS: Troponin I < 0.05 ng/mL (<0.06)
[2020-10-09] VITALS (76 sets, daily range): BP systolic 85–113; BP diastolic 38–64; PULSE 48–90; RESP 12–26; TEMP 36.6; O2SAT 90–97
--- NOTE | 2020-10-09 01:03 | NUR.NOTE ---
pt goes into mik briefly when stands to void but immediately returns to sinus mauri. placed on 2l of o2 for sats of 88-90. sats now 97.
[2020-10-09 05:44] LABS: Abs Immature Grans 0.02 10^3/uL (0.0-0.06); Absolute Basophil Count 0.03 10^3/uL (0.0-0.2); Absolute Eosinophil Count 0.22 10^3/uL (0.0-0.7); Absolute Monocyte Count 0.69 10^3/uL (0.1-0.8); Absolute Neutrophil Count 3.92 10^3/uL (1.2-6.7); Basophils % 0.5; Eosinophils % 3.8; HCT 40.5 % (40.0-50.0); HGB 13.4 g/dL (13.5-17.5); Immature Grans % 0.3; Lymphocytes % 15.6; MCH 32.1 pg (27.0-33.0); MCHC 33.1 % (32.0-36.0); MCV 96.9 fL (80-95); Monocytes % 11.9; Neutrophils % 67.9; Nucleated RBC 0 %; Platelet Count 182 10^3/uL (130-400); RBC 4.18 10^6/uL (4.36-5.78); RDW 12.6 % (11.8-14.1); RDW-SD 44.8 fL; WBC 5.78 10^3/uL (4.4-10.8)
[2020-10-09] MEDS: Metoprolol 25 MG TAB PO (05:57)
[2020-10-09 06:01] LABS: ALT 28 U/L (16-63); AST 22 U/L (15-37); Albumin 3.1 g/dL (3.4-5.0); Alkaline Phosphatase 68 U/L (46-116); BUN 18 mg/dL (7-18); CREATININE 0.7 mg/dL (0.70-1.30); Chloride 107 mmol/L (98-107); Glucose 87 mg/dL (74-106); Magnesium 1.9 mg/dL (1.8-2.4); Potassium 3.9 mmol/L (3.5-5.1); Sodium 142 mmol/L (136-145); Total Protein 6.6 g/dL (6.4-8.2)
[2020-10-09 06:03] LABS: Troponin I < 0.05 ng/mL (<0.06)
[2020-10-09] MEDS: Allopurinol 300 MG TAB PO (07:56)
[2020-10-09] MEDS: Folic Acid 1 MG TAB PO (07:56)
[2020-10-09] MEDS: levETIRAcetam 500 MG TAB 1000 MG PO (07:56)
[2020-10-09] MEDS: Cholecalciferol (Vitamin D3) 1,000 UNIT TAB 1000 UNITS PO (07:56)
[2020-10-09] MEDS: Omega-3 Fatty Acids 1000 MG CAP PO (07:56)
[2020-10-09] MEDS: Apixaban 5 MG TAB PO (07:56)
[2020-10-09] MEDS: Multivitamin w/Minerals TAB 1 TAB PO (07:56)
[2020-10-09] MEDS: Pantoprazole 40 MG TABCR PO (07:56)
--- NOTE | 2020-10-09 08:10 | W.PM.PROGNOT ---
Subjective Subjective Interval history since last seen: Converted to NSR in the ED with 10 mg of diltiazem and vagal maneuver. Afib again while on diltiazem gtt in 120s-130s 2300-500 am, then back to NSR. HR 52. He is off of gtt since 5 am. Received metoprolol at 6 am today. O2 sats 88% overnight. No O2 through [place], apparently. Objective Last Vital Signs Temp 36.6 C 10/09/20 04:05 Pulse 53 L 10/09/20 06:01 Resp 17 10/09/20 06:30 BP 105/60 10/09/20 06:01 Pulse Ox 94 10/09/20 07:45 Laboratory Results - last 24 hr 10/08/20 10/08/20 10/08/20 16:33 16:33 16:33 WBC RBC Hgb Hct MCV MCH MCHC RDW Plt Count MPV Immature Gran % Neutrophils % Lymphocytes % Monocytes % Eosinophils % Basophils % Nucleated RBC % Absolute Neutrophils Absolute Lymphocytes Absolute Monocytes Absolute Eosinophils Absolute Basophils PT 10.2 INR 1.0 APTT 27.2 Sodium 142 Potassium 3.5 Chloride 104 Carbon Dioxide 26.7 Anion Gap 11.3 H BUN 23 H Creatinine 0.9 Estimated GFR/1.73 m2 >= 60.00 Glucose 84 Calcium 9.1 Magnesium 1.7 L Total Bilirubin 0.6 AST 27 ALT 34 Alkaline Phosphatase 82 Troponin I < 0.05 Total Protein 7.7 Albumin 3.7 TSH 1.01 COVID-19 Source SARS-CoV-2 (PCR) 10/08/20 10/08/20 10/08/20 16:33 19:35 19:55 WBC 8.75 RBC 4.49 Hgb 14.3 Hct 42.9 MCV 95.5 H MCH 31.8 MCHC 33.3 RDW 12.6 Plt Count 228 MPV 10.8 Immature Gran % 0.3 Neutrophils % 73.8 Lymphocytes % 14.4 Monocytes % 9.1 Eosinophils % 1.8 Basophils % 0.6 Nucleated RBC % 0 Absolute Neutrophils 6.45 Absolute Lymphocytes 1.26 Absolute Monocytes 0.80 Absolute Eosinophils 0.16 Absolute Basophils 0.05 PT INR APTT Sodium Potassium Chloride Carbon Dioxide Anion Gap BUN Creatinine Estimated GFR/1.73 m2 Glucose Calcium Magnesium Total Bilirubin AST ALT Alkaline Phosphatase Troponin I < 0.05 Total Protein Albumin TSH COVID-19 Source Nasal/nares SARS-CoV-2 (PCR) Negative 10/08/20 10/09/20 10/09/20 23:20 05:35 05:35 WBC RBC Hgb Hct MCV MCH MCHC RDW Plt Count MPV Immature Gran % Neutrophils % Lymphocytes % Monocytes % Eosinophils % Basophils % Nucleated RBC % Absolute Neutrophils Absolute Lymphocytes Absolute Monocytes Absolute Eosinophils Absolute Basophils PT INR APTT Sodium 142 Potassium 3.9 Chloride 107 Carbon Dioxide 26.0 Anion Gap 9.0 BUN 18 Creatinine 0.7 Estimated GFR/1.73 m2 >= 60.00 Glucose 87 Calcium 8.0 L Magnesium 1.9 Total Bilirubin 1.0 AST 22 ALT 28 Alkaline Phosphatase 68 Troponin I < 0.05 < 0.05 Total Protein 6.6 Albumin 3.1 L TSH COVID-19 Source SARS-CoV-2 (PCR) 10/09/20 05:35 WBC 5.78 D RBC 4.18 L Hgb 13.4 L Hct 40.5 MCV 96.9 H MCH 32.1 MCHC 33.1 RDW 12.6 Plt Count 182 MPV 10.0 Immature Gran % 0.3 Neutrophils % 67.9 Lymphocytes % 15.6 Monocytes % 11.9 Eosinophils % 3.8 Basophils % 0.5 Nucleated RBC % 0 Absolute Neutrophils 3.92 Absolute Lymphocytes 0.90 L Absolute Monocytes 0.69 Absolute Eosinophils 0.22 Absolute Basophils 0.03 PT INR APTT Sodium Potassium Chloride Carbon Dioxide Anion Gap BUN Creatinine Estimated GFR/1.73 m2 Glucose Calcium Magnesium Total Bilirubin AST ALT Alkaline Phosphatase Troponin I Total Protein Albumin TSH COVID-19 Source SARS-CoV-2 (PCR)
--- NOTE | 2020-10-09 08:15 | RT.EKG_ITS ---
APPROVED REPORT Exam: Resting ECG Patient Location: I HR:53 bpm ECG Measurements Heart Rate 53 AXIS HI 192 P 52 QRSd 100 QRS 20 QT 476 T 30 QTc 449 Conclusion Sinus bradycardia...rate< 60
--- NOTE | 2020-10-09 08:46 | PDOC.CMIN ---
Care Management Initial Assess REASON FOR HOSPITALIZATION:: PAF with Rapid Ventricular Response, Atypical CP
--- NOTE | 2020-10-09 12:02 | W.PM.DS.N ---
Date of service: 10/09/20 Time of Service: 12:03 DS: Diagnosis Discharge Diagnosis (1) Atrial fibrillation with rapid ventricular response: Status: Resolved (2) Atypical chest pain: Status: Resolved (3) Paroxysmal A-fib: Status: Chronic (4) COVID-19 ruled out by laboratory testing: Status: Ruled-out Discharge Plan Disposition Patient Disposition: HOME Condition: Good Discharge Details Reason For Visit: PAF WITH RAPID VENTRICULAR RESPONSE,ATYPICAL CP Admit Date/Time: 10/08/20 20:36 Admit Provider: Ebenezer Doyle Attending Provider: Ebenezer Doyle Primary Care Provider: Kendall Lanier [facility] Course Hospital Course: Mr Wallace is a 60 year old male with PMHx of paroxysmal afib, on metoprolol and anticoagulation with eliquis, as wlel as h/o hypertension, mild , GERD, hiatal hernia, who was a patient in [facility] ICU under the hospitalist service from 10/08/2020 until 10/09/2020 for rapid Afib. The patient also had chest discomfort associated with this. He ruled out for ACS. He converted to NSR in the ED with a bolus of cardizem IV as well as a vagal maneuver, however, converting back to rapid Afib and requiring a cardizem gtt in the ICU. He did eventually convert back to NSR. His lopressor dose was increased to 25 mg Po TID. He is being discharged home today with a prescription for oral cardizem 30 mg prn which he is instructed to take if he notices himself go back into rapid Afib and to go to the ED if this does not work after 1 hour. In light of the increase in the dose of his metoprolol, his losartan was discontinued due to borderline low BPs. The patient follows closely with his outpatient cardiology office at [facility] (Dr Amin), with whom our care management team has communicated about the need for extended cardiac monitoring. The patient has an outpatient appointment for an echocardiogram in 4 weeks which he is encouraged to keep. Finally, he would benefit from an outpatient sleep study as we have noticed desaturations in oxygenation at night. PCP is recommended to follow up on this. Patient is stable for discharge home today. Care for patient as well as completion of his discharge summary on day of discharge took 45 minutes. Home Meds and New Rx's Prescriptions: New diltiazem HCl [Cardizem] 30 mg tablet 30 mg PO DAILY PRN PRNQty: 10 RF: 0 Continued calcium citrate-vitamin D3 500 mg-500 unit /5 gram powder 5 gm PO DAILY RF: 0 allopurinol 300 mg tablet 300 mg PO DAILY Qty: 30 RF: 12 cholecalciferol (vitamin D3) 1,000 unit capsule 1,000 unit PO DAILY RF: 0 Eliquis 5 mg tablet 5 mg PO BID RF: 0 levetiracetam [Keppra] 500 mg tablet 1,000 mg PO BID Qty: 360 RF: 3 folic acid 1 mg tablet 1 mg PO DAILY Qty: 90 RF: 3 multivitamin with minerals [Men's One Daily] 1 EACH tablet 1 ea PO DAILY RF: 0 omega-3 fatty acids-fish oil 1 EACH capsule 1 ea PO HS RF: 0 pantoprazole [Protonix] 40 mg tablet,delayed release (DR/EC) 40 mg PO DAILY Qty: 30 RF: 12 gabapentin 300 mg capsule 300 mg PO QHS PRNRF: 0 Bio-K plus 50 billion cell capsule,delayed release(DR/EC) 1 cap PO DAILY PRNRF: 0 Changed metoprolol tartrate 25 mg tablet 25 mg PO TID Qty: 90 RF: 0 Discontinued losartan 50 mg tablet 50 mg PO DAILY RF: 0 Discharge Instructions Instructions: Diltiazem (By mouth), A-fib (Atrial Fibrillation) (DC), Sleep Apnea (DC), Sleep Study (GEN) Additional Instructions: Return to the hospital with any fever, bleeding, chest pain, shortness of breath. Take cardizem (diltiazem) 30 mg if your rapid afib (HR>120) recurs. If your symptoms do not improve after 1 hour, go to the emergency room. Follow up with your platform consultant for atrial fibrillation, including extended cardiac monitoring, as well as repeat echocardiogram. Follow up with your PCP in 1- 2 weeks. A sleep study referral is being sent. Referrals: SLEEP [facility]IC,[facility] [OTHER] - Kendall Lanier DO [Primary Care Provider] - Chun Merlos NP [NURSE PRACTITIONER] - Activity:: Activity as Tolerated Equipment/Supplies:: No Equipment Needed Diet:: Low Sodium Discharge Orders Discharge Orders: Discharge Order (Routine); Ordered 10/09/20 Ordered By: Jennie Watts DS: Summary Time Spent with Patient providing and/or coordinating discharge services: Greater than 30 minutes Status at Discharge Functional status at discharge: independent ambulation Overall status at discharge: patient is back to baseline Mental Status: mental status grossly normal Speech and Movement: speech and movement normal Mood: congruent mood Affect: normal affect Exam Narrative Exam Narrative: General: Pleasant middle-aged male, A&Ox3, laying comfortably in bed HEENT: EOMI, MMM Heart: RRR, + MAGGIE Lungs: CTAB Abdomen: soft,nontender, nondisteded Extremities: no edema BLEs Psych Mental Status: mental status grossly normal Speech and Movement: speech and movement normal Mood: congruent mood Affect: normal affect DS: Data Vitals/I&O Vitals and I&O: Vital Signs Temperature 36.6 C 10/09/20 09:17 Temperature Source Temporal Artery Scan 10/09/20 09:17 Pulse 53 L 10/09/20 09:17 Pulse 55 L 10/09/20 09:20 Respiratory Rate 16 10/09/20 09:20 Respiratory Effort Non-Labored 10/09/20 09:17 Respiratory Depth Normal 10/09/20 09:17 Respiratory Pattern Normal 10/09/20 09:17 Blood Pressure 108/58 L 10/09/20 09:01 Blood Pressure Mean 69 10/09/20 09:01 Blood Pressure Position Supine 10/09/20 09:17 Pulse Oximetry 94 10/09/20 09:17 Oxygen Delivery Method Room Air 10/09/20 09:17 Oxygen Flow Rate 0 10/09/20 09:17 Pain Level 0 10/09/20 09:17 Intake & Output 10/08/20 10/09/20 10/09/20 23:59 11:59 23:59 Intake Total 111.5 / 111.5 1588.833 / 1588.833 Output Total 725 / 725 600 / 600 Balance -613.5 / -613.5 988.833 / 988.833 Weight 102.3 kg 103.2 kg Intake: IV 111.5 / 111.5 1108.833 / 1108.833 Oral 480 / 480 Output: Urine 725 / 725 600 / 600 Other: Urine Color Light Susie Light Susie Urine Appearance Clear Clear Urine Odor None None Comment voids in urinal at bedside. urine clear susie # Voids 1 Data Completed and Pending Completed studies during hospitalization [Text1]: CXR: o acute pulmonary findings.No significant change compared to 04/18/2020. Nonacute compression fractures of midthoracic vertebra is unchanged. Labs on day of discharge: Labs from last 24 hours 10/09/20 10/09/20 10/09/20 05:35 05:35 05:35 WBC 5.78 D RBC 4.18 L Hgb 13.4 L Hct 40.5 MCV 96.9 H MCH 32.1 MCHC 33.1 RDW 12.6 Plt Count 182 MPV 10.0 Immature Gran % 0.3 Neutrophils % 67.9 Lymphocytes % 15.6 Monocytes % 11.9 Eosinophils % 3.8 Basophils % 0.5 Nucleated RBC % 0 Absolute Neutrophils 3.92 Absolute Lymphocytes 0.90 L Absolute Monocytes 0.69 Absolute Eosinophils 0.22 Absolute Basophils 0.03 PT INR APTT Sodium 142 Potassium 3.9 Chloride 107 Carbon Dioxide 26.0 Anion Gap 9.0 BUN 18 Creatinine 0.7 Estimated GFR/1.73 m2 >= 60.00 Glucose 87 Calcium 8.0 L Magnesium 1.9 Total Bilirubin 1.0 AST 22 ALT 28 Alkaline Phosphatase 68 Troponin I Total Protein 6.6 Albumin 3.1 L TSH Levetiracetam Pending COVID-19 Source SARS-CoV-2 (PCR) 10/09/20 10/08/20 10/08/20 05:35 23:20 19:55 WBC RBC Hgb Hct MCV MCH MCHC RDW Plt Count MPV Immature Gran % Neutrophils % Lymphocytes % Monocytes % Eosinophils % Basophils % Nucleated RBC % Absolute Neutrophils Absolute Lymphocytes Absolute Monocytes Absolute Eosinophils Absolute Basophils PT INR APTT Sodium Potassium Chloride Carbon Dioxide Anion Gap BUN Creatinine Estimated GFR/1.73 m2 Glucose Calcium Magnesium Total Bilirubin AST ALT Alkaline Phosphatase Troponin I < 0.05 < 0.05 Total Protein Albumin TSH Levetiracetam COVID-19 Source Nasal/nares SARS-CoV-2 (PCR) Negative 10/08/20 10/08/20 10/08/20 19:35 16:33 16:33 WBC 8.75 RBC 4.49 Hgb 14.3 Hct 42.9 MCV 95.5 H MCH 31.8 MCHC 33.3 RDW 12.6 Plt Count 228 MPV 10.8 Immature Gran % 0.3 Neutrophils % 73.8 Lymphocytes % 14.4 Monocytes % 9.1 Eosinophils % 1.8 Basophils % 0.6 Nucleated RBC % 0 Absolute Neutrophils 6.45 Absolute Lymphocytes 1.26 Absolute Monocytes 0.80 Absolute Eosinophils 0.16 Absolute Basophils 0.05 PT INR APTT Sodium 142 Potassium 3.5 Chloride 104 Carbon Dioxide 26.7 Anion Gap 11.3 H BUN 23 H Creatinine 0.9 Estimated GFR/1.73 m2 >= 60.00 Glucose 84 Calcium 9.1 Magnesium 1.7 L Total Bilirubin 0.6 AST 27 ALT 34 Alkaline Phosphatase 82 Troponin I < 0.05 < 0.05 Total Protein 7.7 Albumin 3.7 TSH Levetiracetam COVID-19 Source SARS-CoV-2 (PCR) 10/08/20 10/08/20 16:33 16:33 WBC RBC Hgb Hct MCV MCH MCHC RDW Plt Count MPV Immature Gran % Neutrophils % Lymphocytes % Monocytes % Eosinophils % Basophils % Nucleated RBC % Absolute Neutrophils Absolute Lymphocytes Absolute Monocytes Absolute Eosinophils Absolute Basophils PT 10.2 INR 1.0 APTT 27.2 Sodium Potassium Chloride Carbon Dioxide Anion Gap BUN Creatinine Estimated GFR/1.73 m2 Glucose Calcium Magnesium Total Bilirubin AST ALT Alkaline Phosphatase Troponin I Total Protein Albumin TSH 1.01 Levetiracetam COVID-19 Source SARS-CoV-2 (PCR) [facility] Medical History Actinic keratoses Advanced directives, counseling/discussion Alcohol abuse in patient treatment at [place] 2011 Aortic valve stenosis mild. echo 2013 neg MPI 12/01. Ascending aortic aneurysm Benign prostatic hyperplasia Essential hypertension Hearing loss History of postoperative nausea and vomiting Hx of gastroesophageal reflux (GERD) Hyperparathyroidism (10/22/17) surgery [facility] 2018 Infected sebaceous cyst of skin Osteoporosis T score of 3.5 LS spine Renal calculus, right (03/29/17) Right ureteral stone (03/29/17) Sciatica left; disk; persistent left foot numbness Scrotal abscess Seizure last seizure 35 years ago Serum calcium elevated (11/19/15) Hyper PTH Parathyroid surgery 10/03 removing one of 4 glands Thoracic spondyloarthritis Tobacco use disorder Surgical History Colonoscopy - [facility] [place] 2008 Cystoscopy 11/14/15; DR. DEVI Excision, Distal Clavicle (03/22/15) ALSO NEER ACROMIOPLASTY/LIMITED ROTATOR CUFF REPAIR/ DR ROSARIO H/O parathyroidectomy Hx of esophagogastroduodenoscopy Family History Mother , age 68 Alzheimer disease MS (multiple sclerosis) Father , age 72 Diabetes Essential hypertension Heart disease Hyperlipidemia Sister No problems noted. Brother No problems noted. Brother Crohns disease Maternal Grandfather , age 70 Heart disease Paternal Grandfather , age 92 No problems noted. Maternal Grandmother , age 70 No problems noted. Paternal Grandmother , age 94 Intestinal cancer Brother No problems noted. Son No problems noted. Daughter No problems noted. Daughter No problems noted. Social History Smoking/Tobacco Use Status: Former Tobacco Use Quit Date: 07/19/06 Pack-years: 25 Tobacco: How many years used: 15 Second Hand Exposure: Yes Smoking risk assessment performed?: Yes Alcohol Intake: former Drug use: Current Sobriety Substance use type: does not use Details: sober for 6 years Caregiver/Support person: Yes Household members: spouse Housing: house Communication Needs: None Do you need help understanding health information?: Rarely Pets and animals: Yes Pets and animals: cat(s) Sexually active: Yes Do you think of yourself as: straight/heterosexual Current gender identity: male What is your relationship status?: How often do you talk on the phone with friends or family?: once per week How often do you get together with friends or relatives?: once per week How often do you attend gnosticist or sikhism services?: 1-3 times per year Do you belong to any clubs or organized social groups?: no Panel score (0-1 are the most socially isolated patients): 1 What type of physical activity do you participate in: yoga Duration: 30-45 minutes/day Frequency: 3-4 times per week Caitlin/Pentecostalism: Rastafari Special caitlin needs: No Seatbelt use: always Helmet use: Yes Helmet use: always Drive intox or ride w/intox utility worker 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
--- NOTE | 2020-10-09 14:37 | CMPROGNOTE_ITS ---
Care Management Progress Note requested CHAPIS to coordinate follow up appointment with [facility] Cardiology. CHAPIS called [phone] and left voicemail, F#[phone]. CHAPIS faxed dc summary and request for follow up appointment and prior authorization for 14 day systems engineering manager.
--- NOTE | 2020-10-09 14:37 | PDOC.CMPRO ---
Care Management Progress Note requested CHAPIS to coordinate follow up appointment with [facility] [place] Cardiology. CHAPIS called [phone] and left voicemail, F#[phone]. CHAPIS faxed dc summary and request for follow up appointment and prior authorization for 14 day youth nutritional monitor.
[2020-10-11 10:18] LABS: Levetiracetam 17.5 mcg/mL
== END 2020-10-09 12:45 | disposition home or self-care (01) | DRG 313 ==
LOC: ER 20:58 → ICU 21:50
PROVIDERS: Admitting Provider Family Medicine; Emergency Provider Physician Assistant; PCP Emergency Medicine; Visit Provider Family Medicine
DX: R07.89 Other chest pain (principal); I48.0 Paroxysmal atrial fibrillation; Z20.822 Contact with and (suspected) exposure to COVID-19; Z79.01 Long term (current) use of anticoagulants; I10 Essential (primary) hypertension; I35.0 Nonrheumatic aortic (valve) stenosis; K21.9 Gastro-esophageal reflux disease without esophagitis; K44.9 Diaphragmatic hernia without obstruction or gangrene; F10.11 Alcohol abuse, in remission; I71.2 Thoracic aortic aneurysm, without rupture; N40.0 Benign prostatic hyperplasia without lower urinary tract symptoms; H91.90 Unspecified hearing loss, unspecified ear; M81.0 Age-related osteoporosis without current pathological fracture; M54.32 Sciatica, left side; Z87.442 Personal history of urinary calculi; F17.210 Nicotine dependence, cigarettes, uncomplicated; M47.894 Other spondylosis, thoracic region
CPT/HCPCS: 36415; 80053; 87635; 93005; 96365; 96366; 96367; 96375; 99223; 99239; 99285; 71046; 80177; 83735; 84443; 84484; 85025; 85610; 85730; 93010; 93306; J3475

== ENCOUNTER 2021-04-04 02:51 | Outpatient (CLI) | payer OTHER, SELFPAY ==
[2021-04-04 15:06] LABS: Anion Gap 5.1 mmol/L (3-11); BUN 24 mg/dL (7-18); CO2 29.9 mmol/L (21.0-32.0); CREATININE 0.9 mg/dL (0.70-1.30); Calcium 9.1 mg/dL (8.5-10.1); Chloride 107 mmol/L (98-107); Glucose 72 mg/dL (74-106); Potassium 4.1 mmol/L (3.5-5.1); Sodium 142 mmol/L (136-145)
[2021-04-07 02:41] LABS: Vitamin D 25 Total 28.3 ng/mL (30-100)
[2021-04-07 09:16] LABS: Parathyroid Hormone,Intact 49 pg/mL (19-88)
== END 2021-04-04 02:52 | disposition home or self-care (01) ==
LOC: LBO 02:51
PROVIDERS: Internal Medicine Endocrinology, Diabetes & Metabolism; PCP Emergency Medicine; Visit Provider Emergency Medicine
DX: M81.0 Age-related osteoporosis without current pathological fracture (principal)
CPT/HCPCS: 36415; 80048; 82306; 83970

== ENCOUNTER 2021-06-03 06:30 | Emergency (ER) | payer OTHER, SELFPAY ==
--- NOTE | 2021-06-03 | DI.CT_ITS ---
Exam(s) CT LUMBAR SPINE WO EXAM: CT LUMBAR SPINE WO CLINICAL HISTORY: BACK PAIN. TECHNIQUE: Imaging Protocol: Axial computed tomography images with coronal and sagittal reformatted images were created and reviewed CONTRAST MATERIAL: Noncontrast COMPARISON: CT CT THORACIC SPINE WO from 06/24/[address] THORAX ABDOMEN CTA from 09/14/[address] THORAX ABDOMEN CTA from 09/14/2020 FINDINGS: Bones: The last intervertebral disc space is designated the L5/S1 level for the numbering purpose of this examination. Stable mild L1 compression fracture.. Alignment is satisfactory. Multi level end plate osteophytes, extent trick toward the left. T12-L1: No disc herniations, central canal stenosis or neural foraminal narrowing are present. L1-2: No disc herniations, central canal stenosis or neural foraminal narrowing are present. L2-3: No disc herniations, central canal stenosis or neural foraminal narrowing are present. L3-4: No disc herniations, central canal stenosis or neural foraminal narrowing are present. L4-5: Mild concentric disc bulging. No focal disc herniation present. Facet degenerative changes c ombine with disc bulging to produce mild central canal stenosis and mild bilateral neural foraminal n arrowing. L5-S1: Endplate osteophytes and degenerative signal changes in the endplates. Mild disc space narro wing greater on the left. Bilateral neural foraminal narrowing. No significant central canal stenos is. Soft Tissues: The visualized SI joints show mild spurring. The paraspinal soft tissues are unremark able. IMPRESSION: 1. Mild L1 compression fracture, stable. 2. Degenerative changes greatest at L5-S1 where there is bilateral neural foraminal narrowing. Mild central canal stenosis and neural foraminal narrowing at L4-5. No visible focal disc herniation. RADIATION DOSE DELIVERED: 904.12mGy.cm Total DLP DATA REPOSITORY: All CT scans at this facility are submitted to the National Radiology Data Registry (NRDR) Dose Index Registry (DIR) with the [employer] (A[employer]). RADIATION OPTIMIZATION: All CT scans at this facility use at least one of these dose optimization te chniques: automated exposure control; mA and/or kV adjustment per patient size (includes targeted exa ms where dose is matched to clinical indication); or iterative reconstruction.
[2021-06-03 12:28] LABS: Bilirubin Negative (Negative); Blood Trace-lysed (Negative); Clarity Clear (Clear); Glucose Negative (Negative); Ketones Negative (Negative); Leukocyte Esterase Negative (Negative); Nitrite Negative (Negative); Urobilinogen 0.2 EU/dL (Up TO 0.2)
[2021-06-03 12:29] LABS: Bacteria Negative HPF (Negative); C & S Indicated? No; Casts Negative LPF (Negative); Crystals Negative HPF (Negative); Epithelial Cells Negative HPF (Negative); Mucus Negative (Negative); RBC 0-2 HPF (0-2); WBC 0-2 HPF (0-5)
== END 2021-06-03 07:10 ==
LOC: ER 09:48
PROVIDERS: Emergency Provider Student in an Organized Health Care Education/Training Program; PCP Emergency Medicine
DX: M54.50 Low back pain, unspecified (principal)
CPT/HCPCS: 99284; 72131; 81003; 81015

== ENCOUNTER 2021-06-11 02:22 | Outpatient (CLI) | payer OTHER, SELFPAY ==
[2021-06-11 08:56] LABS: Anion Gap 7.1 mmol/L (3-11); BUN 22 mg/dL (7-18); CO2 31.9 mmol/L (21.0-32.0); CREATININE 0.8 mg/dL (0.70-1.30); Calcium 8.9 mg/dL (8.5-10.1); Chloride 100 mmol/L (98-107); Glucose 94 mg/dL (74-106); Potassium 4.6 mmol/L (3.5-5.1); Sodium 139 mmol/L (136-145)
== END 2021-06-11 02:23 | disposition home or self-care (01) ==
LOC: LBO 02:22
PROVIDERS: PCP Emergency Medicine; Visit Provider Internal Medicine Endocrinology, Diabetes & Metabolism
DX: M81.0 Age-related osteoporosis without current pathological fracture (principal)
CPT/HCPCS: 36415; 80048

== ENCOUNTER 2021-07-03 02:30 | Outpatient (CLI) | payer OTHER, SELFPAY ==
[2021-07-03 13:42] LABS: Anion Gap 5.2 mmol/L (3-11); BUN 21 mg/dL (7-18); CO2 32.8 mmol/L (21.0-32.0); Calcium 9.1 mg/dL (8.5-10.1); Chloride 104 mmol/L (98-107); Glucose 69 mg/dL (74-106); Potassium 3.6 mmol/L (3.5-5.1); Sodium 142 mmol/L (136-145)
== END 2021-07-03 02:31 | disposition home or self-care (01) ==
LOC: LBO 02:30
PROVIDERS: PCP Emergency Medicine; Visit Provider Emergency Medicine
DX: I10 Essential (primary) hypertension (principal); Z12.5 Encounter for screening for malignant neoplasm of prostate
CPT/HCPCS: 36415; 80048; 84153

== ENCOUNTER 2021-07-31 04:14 | Outpatient (CLI) | payer OTHER, SELFPAY ==
[2021-07-31 22:50] LABS: PSA, Diagnostic 2.3 ng/mL (0.0-4.5)
[2021-08-01 10:05] LABS: CREATININE 0.9 mg/dL (0.70-1.30)
== END 2021-07-31 04:15 | disposition home or self-care (01) ==
LOC: LBO 04:15
PROVIDERS: PCP Emergency Medicine; Visit Provider Emergency Medicine
DX: R97.20 Elevated prostate specific antigen [PSA] (principal); M81.0 Age-related osteoporosis without current pathological fracture
CPT/HCPCS: 36415; 82565; 84153

== ENCOUNTER 2021-08-01 03:33 | Outpatient (RCR) | payer OTHER, SELFPAY ==
[2021-08-01] MEDS: Normal Saline Flush 10 ML SYR IVP (11:08)
== END 2021-08-18 23:59 | disposition home or self-care (01) ==
LOC: INF 03:33
PROVIDERS: PCP Emergency Medicine; Visit Provider Emergency Medicine
DX: M81.0 Age-related osteoporosis without current pathological fracture (principal)
CPT/HCPCS: 96365; J3489

== ENCOUNTER 2021-10-10 09:42 | Emergency (ER) | payer OTHER, SELFPAY ==
[2021-10-10] VITALS (25 sets, daily range): BP systolic 112–138; BP diastolic 59–95; PULSE 42–70; RESP 8–21; TEMP 36; O2SAT 93–98
[2021-10-10 10:18] LABS: Abs Immature Grans 0.01 10^3/uL (0.0-0.06); Absolute Basophil Count 0.03 10^3/uL (0.0-0.2); Absolute Eosinophil Count 0.13 10^3/uL (0.0-0.7); Absolute Lymphocyte Count 1.19 10^3/uL (1.2-3.4); Absolute Monocyte Count 0.39 10^3/uL (0.1-0.8); Absolute Neutrophil Count 4.03 10^3/uL (1.2-6.7); Basophils % 0.5; Eosinophils % 2.2; HCT 42.1 % (40.0-50.0); HGB 13.6 g/dL (13.5-17.5); Immature Grans % 0.2; Lymphocytes % 20.6; MCH 31.5 pg (27.0-33.0); MCHC 32.3 % (32.0-36.0); MCV 97.5 fL (80-95); MPV 9.9 fL (8.0-11.0); Monocytes % 6.7; Neutrophils % 69.8; Nucleated RBC 0 %; Platelet Count 193 10^3/uL (130-400); RBC 4.32 10^6/uL (4.36-5.78); RDW 12.3 % (11.8-14.1); WBC 5.78 10^3/uL (4.4-10.8)
--- NOTE | 2021-10-10 10:37 | W.ED.GENAD ---
Discharge Plan Disposition Patient Disposition: HOME Condition: Stable Discharge Details Clinical Impression: Dizziness, Bradycardia Primary Care Provider: Konstantin Barba ED Provider: Codie Lam Home Meds and New Rx's Prescriptions: Continued calcium citrate-vitamin D3 500 mg-500 unit /5 gram powder 5 gm PO DAILY 0RF allopurinol 300 mg tablet 300 mg PO DAILY Qty: 30 12RF hydrochlorothiazide 12.5 mg capsule 12.5 mg PO DAILY 0RF acetaminophen [Tylenol Extra Strength] 500 mg tablet 500 mg PO Q6H PRN0RF lidocaine 4 % adhesive patch,medicated 1 patch topical BID PRN0RF cholecalciferol (vitamin D3) 1,000 unit capsule 1,000 unit PO DAILY 0RF Eliquis 5 mg tablet 5 mg PO BID 0RF Label Comments: 12/30/18 rx by cardiology at [facility]. [facility] isosorbide mononitrate 30 mg tablet extended release 24 hr 30 mg PO DAILY 0RF atorvastatin 40 mg tablet 40 mg PO DAILY 0RF nitroglycerin 0.4 mg tablet, sublingual 0.4 mg sublingual Q5M PRN0RF Rx Instructions: do not exceed 3 doses per episode levetiracetam [Keppra] 500 mg tablet 1,000 mg PO BID Qty: 360 3RF folic acid 1 mg tablet 1 mg PO DAILY Qty: 90 3RF pantoprazole 40 mg tablet,delayed release (DR/EC) See Rx Instructions .ROUTE .COMPLEX Qty: 30 12RF Dose Instruction: TAKE ONE TABLET BY MOUTH EVERY DAY Rx Instructions: TAKE ONE TABLET BY MOUTH EVERY DAY Men's One Daily 1 EACH tablet 1 ea PO DAILY 0RF omega-3 fatty acids-fish oil 1 EACH capsule 1 ea PO HS 0RF gabapentin 300 mg capsule 300 mg PO QHS PRN0RF Label Comments: 06/27/19-med recently rx for RLS pt hasnt started med yet Bio-K plus 50 billion cell capsule,delayed release(DR/EC) 1 cap PO DAILY PRN0RF diltiazem HCl [Cardizem] 30 mg tablet 30 mg PO DAILY PRN PRNQty: 10 0RF Rx Instructions: prn recurrence of rapid Afib. Go to the ED if this does not control your symptoms within 1 hour. metoprolol tartrate 25 mg tablet 25 mg PO TID Qty: 90 0RF Label Comments: 12/30/18 rx by cardiology CV. md Discharge Instructions Instructions: Bradycardia (ED), Dizziness (ED) Additional Instructions: Your lab work, EKG and imaging today is reassuring and shows no evidence of acute concerning or significant findings. Your blood pressure has improved and appears more consistent with your normal blood pressure levels. Your heart rate has ranged between 40s and 50s when you are resting. It is recommended that you decrease your metoprolol from 3 times daily to 2 times daily. Do not take any additional metoprolol today. Resume taking your metoprolol tomorrow and take it twice daily starting tomorrow. You can stop taking your Flomax as recommended by Dr. Quispe. Follow-up with Dr. Quispe for reevaluation as needed. 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 Call your primary care doctor on Wednesday morning to schedule a follow-up appointment for reevaluation and for continued monitoring of your heart rate and blood pressure. Follow-up with your scheduled appointment with [facility] cardiology next month. Return immediately to the emergency department if you develop any worsening or new concerning symptoms. Referrals: Titi Quispe MD [ [facility] STAFF PHYSICIAN] - Discharge Data Discharge Physician: Codie Lam Medical Decision Making 1000 -- 61-year-old male with a history of paroxysmal atrial fibrillation on Eliquis, hypertension, GERD, seizure who presents from home for fatigue and dizziness with a blood pressure of 111/56 heart rate of 49 with dizziness and fatigue at home this morning. Heart rate 52, blood pressure 136/56 on arrival. He appears comfortable and nontoxic. EKG notes a rate of 48, sinus, no STEMI and nondiagnostic. Review of heart rate on previous ED visit notes it is usually in the mid 50s. He appears comfortable and. He has no focal deficits on exam. History and presentation does not appear consistent with acute CVA, sepsis, pneumonia, UTI, however considering patient's age and comorbidities, will obtain screening labs, chest x-ray, urinalysis and give fluids, IV Tylenol and Zofran and reassess. 1100 --labs and imaging reviewed and unremarkable. Normal white blood cell count. Normal electrolytes. Troponin negative. Urinalysis negative. Chest x-ray negative. Patient states he would rather stop the Flomax as his urinary retention complaint is more tolerable than the fatigue and lightheadedness which is potentially caused by flomax. 1250 --discussed with Dr. Quispe and he is fine with stopping the Flomax at this time. Orthostatic vital signs obtained and they are unremarkable. Heart rate was noted to be in the low to mid 40s. Patient states he is completely asymptomatic and would like to go home. Case discussed with hospitalist regarding patient's beta-suad and current bradycardia --recommends decreasing metoprolol from 3 times daily to twice daily. Patient states he only takes the Cardizem as needed for symptoms or heart rate associated with his atrial fibrillation states he has not taken it for the past year. He took his metoprolol this morning so he is advised to hold any additional doses today and start taking metoprolol twice daily tomorrow. We are placing a 48-hour Holter monitor here in the ED. Patient advised to call his PCP on Wednesday morning for follow-up. Usual and customary return precautions given prior to discharge. Medical Records Medical records reviewed: Yes I reviewed the patient's medical records. Imaging Data Radiologic Study: Radiologist's impression: ?XR CHEST 2V PA ? LATERAL CLINICAL HISTORY:? dizziness, fatigue, hypotension, r/o acute disease TECHNIQUE:? 2D digital imaging was performed of the chest.? Two images were obtained.? PA and lateral views were obtained. COMPARISON:? CR,XR XR CHEST 2V PA ? LATERAL from 10/08/2020 FINDINGS: MEDIASTINUM: Normal.? HEART: Normal. PULMONARY VASCULATURE: Normal. LUNGS: Clear. ? PLEURAL SPACE: No pleural effusion or pneumothorax. BONE:Within normal limits for the patient's age.? Stable old mid thoracic compression fracture deformity is noted. OTHER FINDINGS:Normal.? IMPRESSION: No acute pulmonary findings. Lab Data Lab results reviewed: Yes I reviewed the patient's lab results. Labs: Laboratory Tests Range/Units 10/10/21 10/10/21 10/10/21 10:12 10:12 11:30 WBC (4.4-10.8) 10^3/uL 5.78 RBC (4.36-5.78) 10^6/uL 4.32 L Hgb (13.5-17.5) g/dL 13.6 Hct (40.0-50.0) % 42.1 MCV (80-95) fL 97.5 H MCH (27.0-33.0) pg 31.5 MCHC (32.0-36.0) % 32.3 RDW (11.8-14.1) % 12.3 Plt Count (130-400) 10^3/uL 193 MPV (8.0-11.0) fL 9.9 Immature Gran % 0.2 Neutrophils % 69.8 Lymphocytes % 20.6 Monocytes % 6.7 Eosinophils % 2.2 Basophils % 0.5 Nucleated RBC % % 0 Absolute Neutrophils (1.2-6.7) 10^3/uL 4.03 Absolute Lymphocytes (1.2-3.4) 10^3/uL 1.19 L Absolute Monocytes (0.1-0.8) 10^3/uL 0.39 Absolute Eosinophils (0.0-0.7) 10^3/uL 0.13 Absolute Basophils (0.0-0.2) 10^3/uL 0.03 Sodium (136-145) mmol/L 139 Potassium (3.5-5.1) mmol/L 3.5 Chloride (98-107) mmol/L 103 Carbon Dioxide (21.0-32.0) mmol/L 31.5 Anion Gap (3-11) mmol/L 4.5 BUN (7-18) mg/dL 10 Creatinine (0.70-1.30) mg/dL 0.8 Estimated GFR/1.73 m2 (mL/min/1.73m2) >= 60.00 Glucose (74-106) mg/dL 102 Calcium (8.5-10.1) mg/dL 8.8 Magnesium (1.8-2.4) mg/dL 1.9 Total Bilirubin (0.2-1.0) mg/dL 0.7 AST (15-37) U/L 23 ALT (16-63) U/L 35 Alkaline Phosphatase (46-116) U/L 98 Troponin I (<or=60) ng/L < 50 Total Protein (6.4-8.2) g/dL 7.7 Albumin (3.4-5.0) g/dL 3.9 Urine Color (Yellow) Yellow Urine Clarity (Clear) Clear Urine pH (5-8) 6.5 Ur Specific [place] (1.005-1.025) 1.010 Urine Protein (Negative) mg/dL Negative Urine Ketones (Negative) mg/dL Negative Urine Blood (Negative) Negative Urine Nitrite (Negative) Negative Urine Bilirubin (Negative) Negative Urine Urobilinogen (Up TO 0.2) EU/dL 0.2 Ur Leukocyte Esterase (Negative) Negative Urine Glucose (Negative) mg/dL Negative ECG Data Attestation: I personally reviewed and interpreted this ECG (s) as follows: Interpretation: Rate of 48, sinus, normal axis, no STEMI. HPI General Mode of arrival: ambulatory. Date/Time Provider Initiated Documentation: 10/10/21 09:44. Limitations to Documentation: no limitations. Information obtained by: patient. HPI Narrative: Patient is a 61-year-old male with a history of paroxysmal atrial fibrillation on Eliquis, hypertension, GERD, seizures, presents from home for hypotension and bradycardia noted this morning upon checking at home. Patient states he was placed on Flomax for urinary retention at Dr. Quispe 1 week ago and was told that it may cause hypotension. He states he checked his blood pressure and heart rate this morning due to recently starting the flomax but also for feeling fatigued and lightheaded. Patient states he awakes early for work and upon standing he felt lightheaded and fatigued. He states this is when his blood pressure was 111/56 and his heart rate was 49. He states he took his regular blood pressure medication an hour before checking his blood pressure. He admits to a similar episode occurring 2 days ago upon awakening and then resolved. He states he also had a mild frontal headache and nausea this morning. He states overall his symptoms are significantly improved. He denies any significant blurry vision, chest pain, shortness of breath, vomiting or palpitations. He states he had similar symptoms occur last month when started on a new cardiac medication. Related Data Home Medications Medication Instructions Recorded Confirmed multivitamin with minerals (Men's 1 ea PO DAILY 12/17/12 10/10/21 One Daily) omega-3 fatty acids-fish oil 300 1 ea PO HS 06/04/16 10/10/21 mg-1,000 mg capsule cholecalciferol (vitamin D3) 25 1,000 unit PO DAILY 06/15/18 10/10/21 mcg (1,000 unit) capsule apixaban 5 mg tablet (Eliquis) 5 mg PO BID 12/30/18 10/10/21 calcium citrate 500 mg-vit D3 12.5 5 gm PO DAILY 12/22/19 10/10/21 mcg (500 unit)/5 gram oral powder L. acidophilus,casei,rhamnosus 50 1 cap PO DAILY PRN 10/08/20 10/10/21 billion cell capsule,delayed release (Bio-K plus) gabapentin 300 mg capsule 300 mg PO QHS PRN 10/08/20 10/10/21 diltiazem HCl 30 mg tablet 30 mg PO DAILY PRN PRN #10 tab 10/09/20 10/10/21 (Cardizem) metoprolol tartrate 25 mg tablet 25 mg PO TID #90 tab 10/09/20 10/10/21 allopurinol 300 mg tablet 300 mg PO DAILY #30 tab 01/24/21 10/10/21 levetiracetam 500 mg tablet 1,000 mg PO BID #360 tab-cap 03/27/21 10/10/21 (Keppra) folic acid 1 mg tablet 1 mg PO DAILY #90 tab 05/23/21 10/10/21 acetaminophen 500 mg tablet 500 mg PO Q6H PRN 06/04/21 10/10/21 (Tylenol Extra Strength) hydrochlorothiazide 12.5 mg capsule 12.5 mg PO DAILY 06/04/21 10/10/21 lidocaine 4 % topical patch 1 patch TOPICAL BID PRN 06/04/21 10/10/21 atorvastatin 40 mg tablet 40 mg PO DAILY 09/26/21 10/10/21 isosorbide mononitrate 30 mg 30 mg PO DAILY 09/26/21 10/10/21 tablet,extended release 24 hr nitroglycerin 0.4 mg sublingual 0.4 mg SUBLINGUAL Q5M PRN 09/26/21 10/10/21 tablet pantoprazole 40 mg tablet,delayed See Rx Instructions .ROUTE 10/07/21 10/10/21 release .COMPLEX #30 tab Previous Rx's Medication Instructions Recorded diltiazem HCl 30 mg tablet 30 mg PO DAILY PRN PRN #10 tab 10/09/20 (Cardizem) metoprolol tartrate 25 mg tablet 25 mg PO TID #90 tab 10/09/20 allopurinol 300 mg tablet 300 mg PO DAILY #30 tab 01/24/21 levetiracetam 500 mg tablet 1,000 mg PO BID #360 tab-cap 03/27/21 (Keppra) folic acid 1 mg tablet 1 mg PO DAILY #90 tab 05/23/21 pantoprazole 40 mg tablet,delayed See Rx Instructions .ROUTE 10/07/21 release .COMPLEX #30 tab Allergies Allergy/AdvReac Type Severity Reaction Status Date / Time No Known Allergies Allergy Verified 10/10/21 09:54 General Stated Complaint: GenMedical FLY: 2 Review of Systems All systems reviewed & are unremarkable except as noted in HPI and below Constitutional Constitutional: Denies chills, Denies excessive sweating, Reports fatigue, Denies fever(s), Reports weakness and Denies weight loss Eyes Eyes: Reports system reviewed and no additional complaints, except as documented and Denies blurry vision ENT Ears, Nose, Mouth, and Throat: Denies vertigo, Reports dizziness, Denies otalgia, Denies nasal congestion, Denies sore throat and Denies throat swelling Cardiovascular Cardiovascular: Denies chest pain, Denies syncope, Denies rapid heart rate and Denies dyspnea Respiratory Respiratory: Denies chest congestion, Denies cough, Denies pain on inspiration and Denies dyspnea Gastrointestinal Gastrointestinal: Denies abdominal pain, Denies diarrhea and Denies vomiting Genitourinary Genitourinary: Denies hematuria, Denies dysuria and Denies flank pain Musculoskeletal Musculoskeletal: Denies back pain and Denies joint swelling Integumentary/Breasts Skin/Breast: Denies lesions and Denies rash Neurologic Neurologic: Denies behavioral changes, Denies confusion, Denies vertigo, Reports dizziness, Denies syncope, Denies localized weakness and Reports weakness Psychiatric Psychiatric: Denies behavioral changes, Denies confusion and Denies depression Endocrine Endocrine: Denies excessive sweating and Reports fatigue Hematologic/Lymphatic Hematologic/Lymphatic: Denies easy bruising and Denies lymphadenopathy Allergic/Immunologic Allergic/Immunologic: Denies throat swelling PFSH All Active Problems Dizziness (Acute) Bradycardia (Acute) Urinary hesitancy (Acute) Rising PSA level (Acute) Kidney stones (Chronic) Paroxysmal A-fib (Chronic) Ascending aortic aneurysm (Acute) Scrotal abscess (Acute) Actinic keratoses (Chronic) Essential hypertension (Chronic) Tobacco use disorder (Chronic) Serum calcium elevated (Chronic 11/19/15) Hyper PTH Parathyroid surgery 10/03 removing one of 4 glands Seizure (Chronic) last seizure 35 years ago Sciatica (Chronic) left; disk; persistent left foot numbness 05/2021-recurrent low back pain. No persistent sciatica, prior history of compression fracture to L1-stable per imaging consistent with diagnosis of prior osteoporosis Osteoporosis (Chronic) T score of 3.5 LS spine, history of compression fracture, managed by endocrine at [facility], presumed secondary to iatrogenic effect with long-term seizure use-Dilantin, as of 05/2021 on Reclast infusion Hyperparathyroidism (Chronic 10/22/17) surgery [facility] [place] 2017 Hearing loss (Chronic) Benign prostatic hyperplasia (Chronic) Aortic valve stenosis (Chronic) mild. echo 2012 neg MPI 12/01. Alcohol abuse (Chronic) in patient treatment at [facility] [employer] [facility] 2011 Medical History (Updated 10/10/21 @ 13:40 by Codie Lam DO) History of postoperative nausea and vomiting Hx of gastroesophageal reflux (GERD) Surgical History (Updated 06/04/21 @ 08:08 by Konstantin Barba MD) Colonoscopy - [facility] [place] Cystoscopy 11/14/15; DR. QUISPE Excision, Distal Clavicle (03/22/15) ALSO NEER ACROMIOPLASTY/LIMITED ROTATOR CUFF REPAIR/ DR ROSARIO H/O parathyroidectomy Hx of esophagogastroduodenoscopy (~10/01/20) Family History Mother , age 68 Alzheimer disease MS (multiple sclerosis) Father , age 72 Diabetes Essential hypertension Heart disease Hyperlipidemia Sister No problems noted. Brother No problems noted. Brother Crohns disease Maternal Grandfather , age 70 Heart disease Paternal Grandfather , age 92 No problems noted. Maternal Grandmother , age 70 No problems noted. Paternal Grandmother , age 94 Intestinal cancer Brother No problems noted. Son No problems noted. Daughter No problems noted. Daughter No problems noted. Social History (Updated 07/01/21 @ 16:43 by Sara Lieberman) Smoking/Tobacco Use Status: Former Tobacco Use tobacco type: cigarettes Quit Date: 07/19/06 Pack-years: 25 Tobacco: How many years used: 15 Second Hand Exposure: Yes Smoking risk assessment performed?: Yes Alcohol Intake: former Drug use: Never Substance use type: does not use Details: sober for 6 years Caregiver/Support person: Yes Household members: spouse Housing: house Communication Needs: None Do you need help understanding health information?: Rarely Pets and animals: Yes Pets and animals: dog(s) Sexually active: Yes Do you think of yourself as: straight/heterosexual Current gender identity: male What is your relationship status?: How often do you talk on the phone with friends or family?: once per week How often do you get together with friends or relatives?: once per week How often do you attend orthodoxy or oriental orthodox services?: decline to answer Do you belong to any clubs or organized social groups?: no Panel score (0-1 are the most socially isolated patients): 1 What type of physical activity do you participate in: walking Duration: 30-45 minutes/day Frequency: 1-2 times per week Caitlin/Gnosticism: No preference Special caitlin needs: No Seatbelt use: always Helmet use: Yes Helmet use: always Drive intox or ride w/intox xm1 tank 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 Exam Const General: cooperative, healthy appearing and no acute distress Orientation: alert, awake and oriented x3 HENMT Head: normal to inspection Ears: hearing grossly normal bilaterally, external ears normal and TM's normal bilaterally General nose exam: external nose normal Face and sinus: normal facial exam Mouth: oral mucosae normal Teeth and gingiva: dentition normal Throat: posterior oropharynx normal Eyes General: appearance normal, both eyes and all related structures Eyelids: eyelids normal Pupils: PERRL EOM: EOM intact bilaterally Neck Neck: normal visual inspection Lymphatic: no lymphadenopathy noted Chest Chest: normal inspection of the chest Resp Effort & Inspection: normal respiratory effort and able to speak in complete sentences Auscultation: clear to auscultation bilaterally Cardio Rate: regular rate Rhythm: regular rhythm GI Inspection: normal to inspection Palpation: soft, not firm, no guarding, no hepatosplenomegaly, no masses and nontender Auscultation: normal bowel sounds Back/Spine/Pelvis Back: no CVA tenderness Skin General skin exam: no rashes or lesions noted Neuro General: patient alert, patient awake, patient oriented x3, moves all extremities and no meningeal signs Cranial Nerves: CN's II-XI intact bilaterally Cognition: normal cognition Speech: speech normal Gait: normal gait Motor: muscle tone normal throughout and strength 5/5 throughout Sensory Exam: no sensory deficits noted Extrem General: normal to inspection, full ROM and capillary refill normal Psych Appearance: grossly normal Mental Status: mental status grossly normal Speech and Movement: speech and movement normal Affect: normal affect Thought Process: normal Course Vital Signs Vital signs: Vital Signs Temperature 96.8 F L 10/10/21 09:50 Pulse 52 L 10/10/21 09:50 Respiratory Rate 16 10/10/21 09:50 Blood Pressure 136/66 10/10/21 09:50 Pulse Oximetry 97 10/10/21 09:50 Temperature 96.8 F L 10/10/21 09:50 Temperature Source Skin 10/10/21 09:50 Pulse 52 L 10/10/21 09:50 Respiratory Rate 16 10/10/21 09:50 Respiratory Effort Non-Labored 10/10/21 10:00 Respiratory Depth Normal 10/10/21 10:00 Respiratory Pattern Normal 10/10/21 10:00 Blood Pressure 136/66 10/10/21 09:50 Blood Pressure Position Sitting 10/10/21 09:50 Pulse Oximetry 97 10/10/21 09:50 Oxygen Delivery Method Room Air 10/10/21 09:50 Oxygen Flow Rate 0 10/10/21 09:50 Pain Level 0 10/10/21 09:50 Lab/Test Results Lab/Test Results: Laboratory Tests Range/Units 10/10/21 10:12 WBC (4.4-10.8) 10^3/uL 5.78 RBC (4.36-5.78) 10^6/uL 4.32 L Hgb (13.5-17.5) g/dL 13.6 Hct (40.0-50.0) % 42.1 MCV (80-95) fL 97.5 H MCH (27.0-33.0) pg 31.5 MCHC (32.0-36.0) % 32.3 RDW (11.8-14.1) % 12.3 Plt Count (130-400) 10^3/uL 193 MPV (8.0-11.0) fL 9.9 Immature Gran % 0.2 Neutrophils % 69.8 Lymphocytes % 20.6 Monocytes % 6.7 Eosinophils % 2.2 Basophils % 0.5 Nucleated RBC % % 0 Absolute Neutrophils (1.2-6.7) 10^3/uL 4.03 Absolute Lymphocytes (1.2-3.4) 10^3/uL 1.19 L Absolute Monocytes (0.1-0.8) 10^3/uL 0.39 Absolute Eosinophils (0.0-0.7) 10^3/uL 0.13 Absolute Basophils (0.0-0.2) 10^3/uL 0.03
--- NOTE | 2021-10-10 10:45 | RT.EKG_ITS ---
APPROVED REPORT Exam: Resting ECG Reason for Exam: dizziness Patient Location: E HR:48 bpm ECG Measurements Heart Rate 48 AXIS MD 192 P 34 QRSd 102 QRS 16 QT 447 T 18 QTc 398 Conclusion Sinus bradycardia...rate< 60. Sinus. Normal axis. No STEMI. I have reviewed and interpreted ECG and agree with software generated interpretation.
[2021-10-10 10:47] LABS: ALT 35 U/L (16-63); AST 23 U/L (15-37); Albumin 3.9 g/dL (3.4-5.0); Alkaline Phosphatase 98 U/L (46-116); Anion Gap 4.5 mmol/L (3-11); BUN 10 mg/dL (7-18); Bilirubin, Total 0.7 mg/dL (0.2-1.0); CO2 31.5 mmol/L (21.0-32.0); CREATININE 0.8 mg/dL (0.70-1.30); Calcium 8.8 mg/dL (8.5-10.1); Chloride 103 mmol/L (98-107); Glucose 102 mg/dL (74-106); Magnesium 1.9 mg/dL (1.8-2.4); Potassium 3.5 mmol/L (3.5-5.1); Sodium 139 mmol/L (136-145); Total Protein 7.7 g/dL (6.4-8.2); Troponin I < 50 ng/L (<or=60)
--- NOTE | 2021-10-10 11:15 | DI.RAD_ITS ---
Exam(s) XR CHEST 2V PA LATERAL EXAM: XR CHEST 2V PA LATERAL CLINICAL HISTORY: dizziness, fatigue, hypotension, r/o acute disease TECHNIQUE: 2D digital imaging was performed of the chest. Two images were obtained. PA and lateral views were obtained. COMPARISON: CR,XR XR CHEST 2V PA LATERAL from 10/08/2020 FINDINGS: MEDIASTINUM: Normal. HEART: Normal. PULMONARY VASCULATURE: Normal. LUNGS: Clear. PLEURAL SPACE: No pleural effusion or pneumothorax. BONE:Within normal limits for the patient's age. Stable old mid thoracic compression fracture deform ity is noted. OTHER FINDINGS:Normal. IMPRESSION: No acute pulmonary findings. DATA REPOSITORY: RADIATION DOSE DELIVERED:
[2021-10-10] MEDS: Normal Saline 1,000 ML 1000 ML IV (11:31)
[2021-10-10 11:42] LABS: Bilirubin Negative (Negative); Blood Negative (Negative); Clarity Clear (Clear); Glucose Negative (Negative); Ketones Negative (Negative); Leukocyte Esterase Negative (Negative); Nitrite Negative (Negative); Urobilinogen 0.2 EU/dL (Up TO 0.2); pH 6.5 (5-8)
[2021-10-10] MEDS: Ondansetron 4 MG/2 ML VIAL IVP (12:13)
[2021-10-10] MEDS: ACETAMINOPHEN 1,000 MG/100 ML BTL 400 MG IVPB (12:14)
== END 2021-10-10 15:12 | disposition home or self-care (01) ==
PROVIDERS: Emergency Provider Physician Assistant; PCP Family Medicine
DX: R42 Dizziness and giddiness (principal); R00.1 Bradycardia, unspecified; I95.9 Hypotension, unspecified; R53.83 Other fatigue
CPT/HCPCS: 36415; 80053; 93005; 96361; 96374; 96375; 99284; 71046; 81003; 83735; 84484; 85025; 93010; 93225; J0131; J2405

== ENCOUNTER 2021-10-10 14:25 | Outpatient (RCR) | payer OTHER, SELFPAY ==
--- NOTE | 2021-10-10 14:30 | HOLTER_ITS ---
APPROVED REPORT Conclusion This is a 48-hour Holter monitor ordered for bradycardia Predominant rhythm was sinus average heart rate was 53. Minimum was 42, maximum 130 There were very rare isolated premature ventricular contractions There were rare atrial premature beats. A total of 4 self-limited atrial runs occurred, the longest of which was 4 beats in duration There was no atrial fibrillation, no high-grade AV block, no pauses greater than 3 seconds Patient symptoms (angina in neck while walking uphill) corresponded to sinus rhythm rate 130
== END 2021-10-16 23:59 | disposition home or self-care (01) ==
LOC: RT 14:25
PROVIDERS: PCP Family Medicine; Visit Provider Family Medicine
DX: R00.1 Bradycardia, unspecified (principal)
CPT/HCPCS: 93225; 93226

== ENCOUNTER 2021-10-13 03:17 | Outpatient (CLI) | payer OTHER, SELFPAY ==
[2021-10-13 14:44] LABS: Anion Gap 4.3 mmol/L (3-11); BUN 10 mg/dL (7-18); CO2 32.7 mmol/L (21.0-32.0); CREATININE 0.8 mg/dL (0.70-1.30); Calcium 8.8 mg/dL (8.5-10.1); Chloride 103 mmol/L (98-107); Glucose 78 mg/dL (74-106); Potassium 3.7 mmol/L (3.5-5.1); Sodium 140 mmol/L (136-145)
== END 2021-10-13 03:18 | disposition home or self-care (01) ==
LOC: LBO 03:18
PROVIDERS: PCP Family Medicine; Visit Provider Emergency Medicine
DX: I10 Essential (primary) hypertension (principal)
CPT/HCPCS: 36415; 80048

== ENCOUNTER 2021-10-15 08:56 | Observation (INO) | payer OTHER, SELFPAY ==
[2021-10-15] VITALS (68 sets, daily range): BP systolic 110–166; BP diastolic 60–81; PULSE 43–67; RESP 9–24; TEMP 36.4–36.8; O2SAT 92–99
--- NOTE | 2021-10-15 08:45 | RT.EKG_ITS ---
APPROVED REPORT Exam: Resting ECG Reason for Exam: chest pain Patient Location: E HR:52 bpm ECG Measurements Heart Rate 52 AXIS NH 192 P 63 QRSd 111 QRS 44 QT 411 T 42 QTc 383 Conclusion Sinus bradycardia...rate< 60. Sinus. Normal axis. No STEMI. I have reviewed and interpreted ECG and agree with software generated interpretation.
--- NOTE | 2021-10-15 09:01 | W.ED.GENAD ---
Discharge Plan Disposition Patient Disposition: [facility] INPATIENT Condition: Stable Discharge Details Clinical Impression: Chest pain, rule out acute myocardial infarction, Dizziness, Bradycardia Admit Date/Time: 10/15/21 13:51 Admit Provider: Jonathan Cronin Attending Provider: Jonathan Cronin Primary Care Provider: Davidson Cline ED Provider: Codie Lam Discharge Data Discharge Date/Time-TO BE ENTERED AT DEPARTURE: 10/15/21 15:02 Medical Decision Making 60-year-old male with a history of atrial fibrillation on metoprolol, aortic valve stenosis, hypertension, ascending aortic aneurysm, GERD who presents to the ED with a complaint of intermittent twinges of chest pain this morning. Patient was seen in the ED 5 days ago for hypotension, lightheadedness and bradycardia and his metoprolol was decreased from 25 mg 3 times daily down to 25 mg twice daily and his Flomax was stopped as it was thought this may have been contributing to his hypotension and lightheadedness. He saw his PCP in the office yesterday and he is still complaining of lightheadedness, was noted to have a heart rate of 55, regular with plan to hold his isosorbide and follow-up with cardiology in 2 weeks. EKG on arrival notes a rate of 52, sinus, no STEMI and nondiagnostic.. Heart rate ranged between 50s and 60s and appears sinus on the monitor. Blood pressure within normal limits. Patient appears comfortable and nontoxic and is currently pain-free. He describes intermittent episodes of twinges of pain in the left chest that occur at rest. He has had stable angina for some time now that is being followed by Dr. Rubio that [facility]. He states he was placed on Imdur and Lipitor in July and has had lightheadedness since then. His chest pain does not appear cardiac in etiology. Will discuss with [facility] cardiology for Discussed with [facility] cardiology and they recommend repeat troponin and EKG, orthostatics and decreasing his metoprolol to 12.5 mg twice daily, and can consider holding of metoprolol if he has any dizziness. Recommend to continue to hold the Imdur. If patient remains pain-free, and plan for outpatient stress test but if his symptoms persist, can consider admission. Repeat troponin negative. Repeat EKG unchanged. Patient reassessed and he admits to multiple episodes of chest pain since last assessed. Discussed with patient that it would be recommended to admit for observation, serial troponins and EKGs and telemetry monitoring with plan for stress test while inpatient. Patient is agreeable with plan for admission. Case discussed with hospitalist who accepts patient for admission. Medical Records Medical records reviewed: Yes I reviewed the patient's medical records. Medical records narrative: 10/09/21 Echo Summary: 1. The left ventricular chamber size is normal. Mild concentric left ventricular hypertrophy is observed. There is normal global left ventricular systolic function. The quantitative left ventricular ejection fraction by biplane Corbin's method is 62%. 2. Right ventricular chamber size, wall thickness and systolic function are within normal limits. 3. All leaflets of the aortic valve are thickened. Moderate aortic leaflet calcification is visualized. The mean trans-valvular gradient across the aortic valve is 20mmHg. the calculated aortic valve area is 1.5 cm?. There is mild to moderate aortic valve stenosis. Moderate (2+/4+) aortic valve regurgitation is present. 10/10/21 Holter monitor Conclusion This is a 48-hour Holter monitor ordered for bradycardia Predominant rhythm was sinus average heart rate was 53.? Minimum was 42, maximum 130 There were very rare isolated premature ventricular contractions There were rare atrial premature beats.? A total of 4 self-limited atrial runs occurred, the longest of which was 4 beats in duration There was no atrial fibrillation, no high-grade AV block, no pauses greater than 3 seconds Patient symptoms (angina in neck while walking uphill) corresponded to sinus rhythm rate 130. Imaging Data Radiologic Study: Radiologist's impression: XR CHEST 2V PA ? LATERAL CLINICAL HISTORY:? L sided chest pain, r/o acute disease TECHNIQUE:? 2D digital imaging was performed. COMPARISON:? CR XR CHEST 2V PA ? LATERAL from 10/10/2021 FINDINGS: The heart is not enlarged. The lungs are clear and well expanded. No pleural effusion seen. Mediastinal contours appear intact. IMPRESSION: Normal chest. Lab Data Lab results reviewed: Yes I reviewed the patient's lab results. Labs: Laboratory Tests Range/Units 10/15/21 10/15/21 10/15/21 09:05 09:05 12:09 WBC (4.4-10.8) 10^3/uL 6.87 RBC (4.36-5.78) 10^6/uL 4.66 Hgb (13.5-17.5) g/dL 14.7 Hct (40.0-50.0) % 45.5 MCV (80-95) fL 97.6 H MCH (27.0-33.0) pg 31.5 MCHC (32.0-36.0) % 32.3 RDW (11.8-14.1) % 12.3 Plt Count (130-400) 10^3/uL 209 MPV (8.0-11.0) fL 10.6 Immature Gran % 0.3 Neutrophils % 76.2 Lymphocytes % 15.4 Monocytes % 5.8 Eosinophils % 1.9 Basophils % 0.4 Nucleated RBC % % 0 Absolute Neutrophils (1.2-6.7) 10^3/uL 5.23 Absolute Lymphocytes (1.2-3.4) 10^3/uL 1.06 L Absolute Monocytes (0.1-0.8) 10^3/uL 0.40 Absolute Eosinophils (0.0-0.7) 10^3/uL 0.13 Absolute Basophils (0.0-0.2) 10^3/uL 0.03 Sodium (136-145) mmol/L 139 Potassium (3.5-5.1) mmol/L 3.6 Chloride (98-107) mmol/L 102 Carbon Dioxide (21.0-32.0) mmol/L 31.9 Anion Gap (3-11) mmol/L 5.1 BUN (7-18) mg/dL 10 Creatinine (0.70-1.30) mg/dL 0.8 Estimated GFR/1.73 m2 (mL/min/1.73m2) >= 60.00 Glucose (74-106) mg/dL 82 Calcium (8.5-10.1) mg/dL 9.1 Magnesium (1.8-2.4) mg/dL 1.8 Total Bilirubin (0.2-1.0) mg/dL 0.6 AST (15-37) U/L 23 ALT (16-63) U/L 41 Alkaline Phosphatase (46-116) U/L 106 Troponin I (<or=60) ng/L < 50 < 50 Total Protein (6.4-8.2) g/dL 8.3 H Albumin (3.4-5.0) g/dL 4.2 ECG Data Attestation: I personally reviewed and interpreted this ECG (s) as follows: Interpretation: #1 -- rate of 52, sinus, normal axis, no STEMI. #2 -- rate of 48, sinus, normal aixs, no STEMI. HPI General Mode of arrival: ambulatory. Date/Time Provider Initiated Documentation: 10/15/21 08:57. Limitations to Documentation: no limitations. Information obtained by: patient. HPI Narrative: Patient is a 61-year-old male with a history of atrial fibrillation on metoprolol and Eliquis, hypertension, aortic valve stenosis, GERD who presents for chest pain. Patient was seen in the ED 5 days ago for hypotension and lightheadedness and was noted to have bradycardia while in the ED with an otherwise unremarkable work-up. He has been on Flomax which was thought to be contributing to his hypotension and lightheadedness and this was stopped. His metoprolol was also decreased from 25 mg twice daily to 25 mg twice daily. He followed up with his primary care doctor yesterday and still complained of lightheadedness but was noted to have a heart rate of 55 and regular. The primary care doctor stopped his isosorbide and plan was for follow-up with cardiology in 2 weeks. Patient states his chest pain started at 8 AM this morning while he was standing for short work. He states this does not anything exertional and that he had multiple episodes of twinges of pain in the left side of his chest that have been minor and 3/10 at its worst. He denies any pain at present. He denies any aggravating or alleviating factors associated with the pain. He denies any radiation of the pain. He denies any fever, nausea, shortness of breath or dizziness. He denies any recent injury. Related Data Home Medications Medication Instructions Recorded Confirmed multivitamin with minerals (Men's 1 ea PO DAILY 12/17/12 10/15/21 One Daily) omega-3 fatty acids-fish oil 300 1 ea PO HS 06/04/16 10/15/21 mg-1,000 mg capsule cholecalciferol (vitamin D3) 25 1,000 unit PO DAILY 06/15/18 10/15/21 mcg (1,000 unit) capsule apixaban 5 mg tablet (Eliquis) 5 mg PO BID 12/30/18 10/15/21 calcium citrate 500 mg-vit D3 12.5 5 gm PO DAILY 12/22/19 10/15/21 mcg (500 unit)/5 gram oral powder L. acidophilus,casei,rhamnosus 50 1 cap PO DAILY PRN 10/08/20 10/15/21 billion cell capsule,delayed release (Bio-K plus) gabapentin 300 mg capsule 300 mg PO QHS PRN 10/08/20 10/15/21 diltiazem HCl 30 mg tablet 30 mg PO DAILY PRN PRN #10 tab 10/09/20 10/15/21 (Cardizem) allopurinol 300 mg tablet 300 mg PO DAILY #30 tab 01/24/21 10/15/21 levetiracetam 500 mg tablet 1,000 mg PO BID #360 tab-cap 03/27/21 10/15/21 (Keppra) folic acid 1 mg tablet 1 mg PO DAILY #90 tab 05/23/21 10/15/21 acetaminophen 500 mg tablet 500 mg PO Q6H PRN 06/04/21 10/15/21 (Tylenol Extra Strength) hydrochlorothiazide 12.5 mg capsule 12.5 mg PO DAILY 06/04/21 10/15/21 lidocaine 4 % topical patch 1 patch TOPICAL BID PRN 06/04/21 10/15/21 atorvastatin 40 mg tablet 40 mg PO DAILY 09/26/21 10/15/21 isosorbide mononitrate 30 mg 30 mg PO DAILY 09/26/21 10/15/21 tablet,extended release 24 hr nitroglycerin 0.4 mg sublingual 0.4 mg SUBLINGUAL Q5M PRN 09/26/21 10/15/21 tablet pantoprazole 40 mg tablet,delayed See Rx Instructions .ROUTE 10/07/21 10/15/21 release .COMPLEX #30 tab metoprolol tartrate 25 mg tablet 12.5 mg PO BID #90 tab 10/16/21 10/15/21 Previous Rx's Medication Instructions Recorded diltiazem HCl 30 mg tablet 30 mg PO DAILY PRN PRN #10 tab 10/09/20 (Cardizem) allopurinol 300 mg tablet 300 mg PO DAILY #30 tab 01/24/21 levetiracetam 500 mg tablet 1,000 mg PO BID #360 tab-cap 03/27/21 (Keppra) folic acid 1 mg tablet 1 mg PO DAILY #90 tab 05/23/21 pantoprazole 40 mg tablet,delayed See Rx Instructions .ROUTE 10/07/21 release .COMPLEX #30 tab metoprolol tartrate 25 mg tablet 12.5 mg PO BID #90 tab 10/16/21 Allergies Allergy/AdvReac Type Severity Reaction Status Date / Time No Known Allergies Allergy Verified 10/15/21 09:08 General Stated Complaint: Chest Pain FLY: 2 Review of Systems All systems reviewed & are unremarkable except as noted in HPI and below Constitutional Constitutional: Denies chills, Denies excessive sweating, Denies fatigue, Denies fever(s), Denies weakness and Denies weight loss Eyes Eyes: Reports system reviewed and no additional complaints, except as documented and Denies blurry vision ENT Ears, Nose, Mouth, and Throat: Denies vertigo, Denies dizziness, Denies otalgia, Denies nasal congestion, Denies sore throat and Denies throat swelling Cardiovascular Cardiovascular: Reports chest pain, Denies syncope, Denies rapid heart rate and Denies dyspnea Respiratory Respiratory: Denies chest congestion, Denies cough, Denies pain on inspiration and Denies dyspnea Gastrointestinal Gastrointestinal: Denies abdominal pain, Denies diarrhea and Denies vomiting Genitourinary Genitourinary: Denies hematuria, Denies dysuria and Denies flank pain Musculoskeletal Musculoskeletal: Denies back pain and Denies joint swelling Integumentary/Breasts Skin/Breast: Denies lesions and Denies rash Neurologic Neurologic: Denies behavioral changes, Denies confusion, Denies vertigo, Denies dizziness, Denies syncope, Denies localized weakness and Denies weakness Psychiatric Psychiatric: Denies behavioral changes, Denies confusion and Denies depression Endocrine Endocrine: Denies excessive sweating and Denies fatigue Hematologic/Lymphatic Hematologic/Lymphatic: Denies easy bruising and Denies lymphadenopathy Allergic/Immunologic Allergic/Immunologic: Denies throat swelling PFSH All Active Problems Discharge planning issues (Acute) Chest pain, rule out acute myocardial infarction (Acute) Dizziness (Acute) Bradycardia (Acute) Dizziness (Acute) Bradycardia (Acute) Urinary hesitancy (Acute) Rising PSA level (Acute) Kidney stones (Chronic) Paroxysmal A-fib (Chronic) Ascending aortic aneurysm (Acute) Scrotal abscess (Acute) Actinic keratoses (Chronic) Essential hypertension (Chronic) Tobacco use disorder (Chronic) Serum calcium elevated (Chronic 11/19/15) Hyper PTH Parathyroid surgery 10/03 removing one of 4 glands Seizure (Chronic) last seizure 35 years ago Sciatica (Chronic) left; disk; persistent left foot numbness 05/2021-recurrent low back pain. No persistent sciatica, prior history of compression fracture to L1-stable per imaging consistent with diagnosis of prior osteoporosis Osteoporosis (Chronic) T score of 3.5 LS spine, history of compression fracture, managed by endocrine at [facility], presumed secondary to iatrogenic effect with long-term seizure use-Dilantin, as of 05/2021 on Reclast infusion Hyperparathyroidism (Chronic 10/22/17) [place] [facility] [place] Hearing loss (Chronic) Benign prostatic hyperplasia (Chronic) Aortic valve stenosis (Chronic) mild. echo 2012 neg MPI 12/01. Alcohol abuse (Chronic) in patient treatment at [facility] 2011 Medical History (Updated 10/15/21 @ 16:22 by Nancy Bowman NP) History of postoperative nausea and vomiting Hx of gastroesophageal reflux (GERD) Surgical History (Updated 06/04/21 @ 08:08 by Konstantin Barba MD) Colonoscopy - [facility] 2008 Cystoscopy 11/14/15; DR. DEVI Excision, Distal Clavicle (03/22/15) ALSO NEER ACROMIOPLASTY/LIMITED ROTATOR CUFF REPAIR/ DR ROSARIO H/O parathyroidectomy Hx of esophagogastroduodenoscopy (~10/01/20) Family History Mother , age 68 Alzheimer disease MS (multiple sclerosis) Father , age 72 Diabetes Essential hypertension Heart disease Hyperlipidemia Sister No problems noted. Brother No problems noted. Brother Crohns disease Maternal Grandfather , age 70 Heart disease Paternal Grandfather , age 92 No problems noted. Maternal Grandmother , age 70 No problems noted. Paternal Grandmother , age 94 Intestinal cancer Brother No problems noted. Son No problems noted. Daughter No problems noted. Daughter No problems noted. Social History (Updated 07/01/21 @ 16:43 by Sara Lieberman) Smoking/Tobacco Use Status: Former Tobacco Use tobacco type: cigarettes Quit Date: 07/19/06 Pack-years: 25 Tobacco: How many years used: 15 Second Hand Exposure: Yes Smoking risk assessment performed?: Yes Alcohol Intake: former Drug use: Never Substance use type: does not use Details: sober for 6 years Caregiver/Support person: Yes Household members: spouse Housing: house Communication Needs: None Do you need help understanding health information?: Rarely Pets and animals: Yes Pets and animals: dog(s) Sexually active: Yes Do you think of yourself as: straight/heterosexual Current gender identity: male What is your relationship status?: How often do you talk on the phone with friends or family?: once per week How often do you get together with friends or relatives?: once per week How often do you attend mu-ism or zoroastrian services?: decline to answer Do you belong to any clubs or organized social groups?: no Panel score (0-1 are the most socially isolated patients): 1 What type of physical activity do you participate in: walking Duration: 30-45 minutes/day Frequency: 1-2 times per week Caitlin/Jehovah'S Witness: No preference Special caitlin needs: No Seatbelt use: always Helmet use: Yes Helmet use: always Drive intox or ride w/intox ups 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 Exam Const General: cooperative and healthy appearing Orientation: alert, awake and oriented x3 HENMT Head: normal to inspection Ears: hearing grossly normal bilaterally and external ears normal General nose exam: external nose normal Face and sinus: normal facial exam Mouth: oral mucosae normal Eyes General: appearance normal, both eyes and all related structures Eyelids: eyelids normal Pupils: PERRL EOM: EOM intact bilaterally Neck Neck: normal visual inspection Lymphatic: no lymphadenopathy noted Chest Chest: normal inspection of the chest and normal palpation of entire chest wall Resp Effort & Inspection: normal respiratory effort and able to speak in complete sentences Auscultation: clear to auscultation bilaterally Cardio Rate: regular rate Rhythm: regular rhythm GI Inspection: normal to inspection Palpation: soft, not firm, no guarding, no hepatosplenomegaly, no masses and nontender Auscultation: normal bowel sounds Back/Spine/Pelvis Back: no CVA tenderness Skin General skin exam: no rashes or lesions noted Neuro General: patient alert and patient awake Cognition: normal cognition Speech: speech normal Gait: normal gait Motor: muscle tone normal throughout Sensory Exam: no sensory deficits noted Extrem General: normal to inspection, full ROM, capillary refill normal and no edema Psych Appearance: grossly normal Mental Status: mental status grossly normal Speech and Movement: speech and movement normal Affect: normal affect Thought Process: normal
[2021-10-15 09:16] LABS: Abs Immature Grans 0.02 10^3/uL (0.0-0.06); Absolute Basophil Count 0.03 10^3/uL (0.0-0.2); Absolute Eosinophil Count 0.13 10^3/uL (0.0-0.7); Absolute Lymphocyte Count 1.06 10^3/uL (1.2-3.4); Absolute Neutrophil Count 5.23 10^3/uL (1.2-6.7); Basophils % 0.4; Eosinophils % 1.9; HCT 45.5 % (40.0-50.0); HGB 14.7 g/dL (13.5-17.5); Immature Grans % 0.3; Lymphocytes % 15.4; MCH 31.5 pg (27.0-33.0); MCHC 32.3 % (32.0-36.0); MCV 97.6 fL (80-95); MPV 10.6 fL (8.0-11.0); Monocytes % 5.8; Neutrophils % 76.2; Nucleated RBC 0 %; Platelet Count 209 10^3/uL (130-400); RBC 4.66 10^6/uL (4.36-5.78); RDW 12.3 % (11.8-14.1); RDW-SD 44.6 fL; WBC 6.87 10^3/uL (4.4-10.8)
[2021-10-15 09:34] LABS: ALT 41 U/L (16-63); AST 23 U/L (15-37); Albumin 4.2 g/dL (3.4-5.0); Alkaline Phosphatase 106 U/L (46-116); Anion Gap 5.1 mmol/L (3-11); BUN 10 mg/dL (7-18); Bilirubin, Total 0.6 mg/dL (0.2-1.0); CO2 31.9 mmol/L (21.0-32.0); CREATININE 0.8 mg/dL (0.70-1.30); Calcium 9.1 mg/dL (8.5-10.1); Chloride 102 mmol/L (98-107); Glucose 82 mg/dL (74-106); Magnesium 1.8 mg/dL (1.8-2.4); Potassium 3.6 mmol/L (3.5-5.1); Sodium 139 mmol/L (136-145); Total Protein 8.3 g/dL (6.4-8.2); Troponin I < 50 ng/L (<or=60)
--- NOTE | 2021-10-15 09:45 | DI.RAD_ITS ---
Exam(s) XR CHEST 2V PA LATERAL EXAM: XR CHEST 2V PA LATERAL CLINICAL HISTORY: L sided chest pain, r/o acute disease TECHNIQUE: 2D digital imaging was performed. COMPARISON: CR XR CHEST 2V PA LATERAL from 10/10/2021 FINDINGS: The heart is not enlarged. The lungs are clear and well expanded. No pleural effusion seen. Mediastin al contours appear intact. IMPRESSION: Normal chest. RADIATION DOSE DELIVERED: Total DLP
[2021-10-15] MEDS: Normal Saline 500 ML IV (10:30)
--- NOTE | 2021-10-15 10:45 | RT.EKG_ITS ---
APPROVED REPORT Exam: Resting ECG Reason for Exam: chest pain Patient Location: E HR:48 bpm ECG Measurements Heart Rate 48 AXIS ID 190 P 46 QRSd 105 QRS 23 QT 453 T 22 QTc 406 Conclusion Sinus bradycardia...rate< 60. Sinus. Normal axis. No STEMI. I have reviewed and interpreted ECG and agree with software generated interpretation.
[2021-10-15 13:01] LABS: Troponin I < 50 ng/L (<or=60)
--- NOTE | 2021-10-15 13:54 | HPE_ITS ---
Date of service: 10/15/21 Time of Service: 13:54 Assessment and Plan Assessment and plan (1) Chest pain, rule out acute myocardial infarction: Status: Acute Assessment and plan: will be referred to observation for chest pain r/o NV. he has had 2 negative troponins and ekg with no acute changes and his pain is not consistent with acute coronary syndrome. will place on telemetry. troponin tonight and tomorrow morning stress test in am. hold beta suad (2) Bradycardia: Status: Acute Assessment and plan: will monitor on telemetry improved since his beta suad dose decreased will be hold for am stress test (3) Essential hypertension: Status: Chronic Assessment and plan: will monitor continue HCTZ (4) Seizure: Status: Chronic Assessment and plan: stable with last seizure > 30 years ago will continue keppra (5) Discharge planning issues: Status: Acute Assessment and plan: plan to discharge to home tomorrow after stress test if negative with no services. will ultimately depend on outcome of testing. discussed with DR Cronin. History of Present Illness History of Present Illness Chief Complaint: chest pain Narrative: presents to ED for left sided chest twinges occurring today since stopping imdur. work up in the ED shows normal troponin and EKG. case discussed with cardiology at [facility] [place], where he is followed, recommends rule out and stress. Review of Systems Constitutional Constitutional: Denies body ache(s), Denies chills and Denies fever(s) PFSH All Active Problems Discharge planning issues (Acute) Chest pain, rule out acute myocardial infarction (Acute) Dizziness (Acute) Bradycardia (Acute) Dizziness (Acute) Bradycardia (Acute) Urinary hesitancy (Acute) Rising PSA level (Acute) Kidney stones (Chronic) Paroxysmal A-fib (Chronic) Ascending aortic aneurysm (Acute) Scrotal abscess (Acute) Actinic keratoses (Chronic) Essential hypertension (Chronic) Tobacco use disorder (Chronic) Serum calcium elevated (Chronic 11/19/15) Hyper PTH Parathyroid surgery 10/03 removing one of 4 glands Seizure (Chronic) last seizure 35 years ago Sciatica (Chronic) left; disk; persistent left foot numbness 05/2021-recurrent low back pain. No persistent sciatica, prior history of compression fracture to L1-stable per imaging consistent with diagnosis of pr ior osteoporosis Osteoporosis (Chronic) T score of 3.5 LS spine, history of compression fracture, managed by endocrine at [facility], presumed secondary to iatrogenic effect with long- term seizure use-Dilantin, as of 05/2021 on Reclast infusion Hyperparathyroidism (Chronic 10/22/17) surgery [facility] 2017 Hearing loss (Chronic) Benign prostatic hyperplasia (Chronic) Aortic valve stenosis (Chronic) mild. echo 2012 neg MPI 12/01. Alcohol abuse (Chronic) in patient treatment at [facility] 2011 Medical History (Updated 10/15/21 @ 16:22 by Nancy Bowman NP) History of postoperative nausea and vomiting Hx of gastroesophageal reflux (GERD) Surgical History (Updated 06/04/21 @ 08:08 by Konstantin Barba MD) Colonoscopy - [facility] 2008 Cystoscopy 11/14/15; DR. DEVI Excision, Distal Clavicle (03/22/15) ALSO NEJIMI ACROMIOPLASTY/LIMITED ROTATOR CUFF REPAIR/ DR ROSARIO H/O parathyroidectomy Hx of esophagogastroduodenoscopy (~10/01/20) Family History Mother , age 68 Alzheimer disease MS (multiple sclerosis) Father , age 72 Diabetes Essential hypertension Heart disease Hyperlipidemia Sister No problems noted. Brother No problems noted. Brother Crohns disease Maternal Grandfather , age 70 Heart disease Paternal Grandfather , age 92 No problems noted. Maternal Grandmother , age 70 No problems noted. Paternal Grandmother , age 94 Intestinal cancer Brother No problems noted. Son No problems noted. Daughter No problems noted. Daughter No problems noted. Social History (Updated 07/01/21 @ 16:43 by Sara Lieberman) Smoking/Tobacco Use Status: Former Tobacco Use tobacco type: cigarettes Quit Date: 07/19/06 Pack-years: 25 Tobacco: How many years used: 15 Second Hand Exposure: Yes Smoking risk assessment performed?: Yes Alcohol Intake: former Drug use: Never Substance use type: does not use Details: sober for 6 years Caregiver/Support person: Yes Household members: spouse Housing: house Communication Needs: None Do you need help understanding health information?: Rarely Pets and animals: Yes Pets and animals: dog(s) Sexually active: Yes Do you think of yourself as: straight/heterosexual Current gender identity: male What is your relationship status?: How often do you talk on the phone with friends or family?: once per week How often do you get together with friends or relatives?: once per week How often do you attend catholic or jew services?: decline to answer Do you belong to any clubs or organized social groups?: no Panel score (0-1 are the most socially isolated patients): 1 What type of physical activity do you participate in: walking Duration: 30-45 minutes/day Frequency: 1-2 times per week Caitlin/Jewish: No preference Special caitlin needs: No Seatbelt use: always Helmet use: Yes Helmet use: always Drive intox or ride w/intox local hazmat 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 Meds Allergies and Home Medications Allergies Allergy/AdvReac Type Severity Reaction Status Date / Time No Known Allergies Allergy Verified 10/15/21 09:08 Home Medications Medication Instructions Recorded Confirmed Type multivitamin with minerals (Men's 1 ea PO DAILY 12/17/12 10/15/21 History One Daily) omega-3 fatty acids-fish oil 300 1 ea PO HS 06/04/16 10/15/21 History mg-1,000 mg capsule cholecalciferol (vitamin D3) 25 1,000 unit PO DAILY 06/15/18 10/15/21 History mcg (1,000 unit) capsule apixaban 5 mg tablet (Eliquis) 5 mg PO BID 12/30/18 10/15/21 History calcium citrate 500 mg-vit D3 12.5 5 gm PO DAILY 12/22/19 10/15/21 History mcg (500 unit)/5 gram oral powder L. acidophilus,casei,rhamnosus 50 1 cap PO DAILY PRN 10/08/20 10/15/21 History billion cell capsule,delayed release (Bio-K plus) gabapentin 300 mg capsule 300 mg PO QHS PRN 10/08/20 10/15/21 History diltiazem HCl 30 mg tablet 30 mg PO DAILY PRN PRN #10 tab 10/09/20 10/15/21 Rx (Cardizem) allopurinol 300 mg tablet 300 mg PO DAILY #30 tab 01/24/21 10/15/21 Rx levetiracetam 500 mg tablet 1,000 mg PO BID #360 tab-cap 03/27/21 10/15/21 Rx (Keppra) folic acid 1 mg tablet 1 mg PO DAILY #90 tab 05/23/21 10/15/21 Rx acetaminophen 500 mg tablet 500 mg PO Q6H PRN 06/04/21 10/15/21 History (Tylenol Extra Strength) hydrochlorothiazide 12.5 mg capsule 12.5 mg PO DAILY 06/04/21 10/15/21 History lidocaine 4 % topical patch 1 patch TOPICAL BID PRN 06/04/21 10/15/21 History atorvastatin 40 mg tablet 40 mg PO DAILY 09/26/21 10/15/21 History isosorbide mononitrate 30 mg 30 mg PO DAILY 09/26/21 10/15/21 History tablet,extended release 24 hr nitroglycerin 0.4 mg sublingual 0.4 mg SUBLINGUAL Q5M PRN 09/26/21 10/15/21 History tablet pantoprazole 40 mg tablet,delayed See Rx Instructions .ROUTE 10/07/21 10/15/21 Rx release .COMPLEX #30 tab metoprolol tartrate 25 mg tablet 25 mg PO BID #90 tab 10/14/21 10/15/21 Rx Exam Const General: cooperative, healthy appearing, comfortable, no acute distress, well developed and well groomed Nutritional Appearance: average body habitus Orientation: alert, awake and oriented x3 HENMT Head: normal to inspection, normocephalic and atraumatic Mouth: oral mucosae normal Chest Chest: normal inspection of the chest Resp Effort & Inspection: normal respiratory effort Auscultation: clear to auscultation bilaterally Cardio Rate: regular rate Rhythm: regular rhythm GI Inspection: normal to inspection Palpation: soft Auscultation: normal bowel sounds Skin General skin exam: no rashes or lesions noted Neuro General: patient alert, patient awake, patient oriented x3 and no focal motor deficits Extrem General: normal to inspection, full ROM and no pedal edema Results Labs Result diagrams: 10/15/21 09:05 10/15/21 09:05 Labs: Laboratory Results - last 24 hr 10/15/21 10/15/21 10/15/21 09:05 09:05 12:09 WBC 6.87 RBC 4.66 Hgb 14.7 Hct 45.5 MCV 97.6 H MCH 31.5 MCHC 32.3 RDW 12.3 Plt Count 209 MPV 10.6 Immature Gran % 0.3 Neutrophils % 76.2 Lymphocytes % 15.4 Monocytes % 5.8 Eosinophils % 1.9 Basophils % 0.4 Nucleated RBC % 0 Absolute Neutrophils 5.23 Absolute Lymphocytes 1.06 L Absolute Monocytes 0.40 Absolute Eosinophils 0.13 Absolute Basophils 0.03 Sodium 139 Potassium 3.6 Chloride 102 Carbon Dioxide 31.9 Anion Gap 5.1 BUN 10 Creatinine 0.8 Estimated GFR/1.73 m2 >= 60.00 Glucose 82 Calcium 9.1 Magnesium 1.8 Total Bilirubin 0.6 AST 23 ALT 41 Alkaline Phosphatase 106 Troponin I < 50 < 50 Total Protein 8.3 H Albumin 4.2 Last Vital Signs Temp 36.8 C 10/15/21 09:00 Pulse 47 L 10/15/21 13:16 Resp 15 10/15/21 13:20 BP 114/61 10/15/21 13:16 Pulse Ox 94 10/15/21 13:20
[2021-10-15 14:21] LABS: Source Nasal/Nares
[2021-10-15 14:58] LABS: COVID-19 PCR Negative (Negative)
[2021-10-15 18:57] LABS: Troponin I < 50 ng/L (<or=60)
[2021-10-15] MEDS: Normal Saline Flush 10 ML SYR IVP (19:53)
[2021-10-15] MEDS: Apixaban 5 MG TAB PO (19:53)
[2021-10-15] MEDS: levETIRAcetam 500 MG TAB 1000 MG PO (19:53)
--- NOTE | 2021-10-16 | DI.NM_ITS ---
APPROVED REPORT Exam: Exercise Treadmill Patient Location: In-Patient Room/Bed: [facility] Stress Nurse: Sara Romero RN Ordering Provider:CAMILLA WHEELER, Contact Number: BMI: 28.36 Baseline Rhythm: Sinus Bradycardia Indications: CHEST PAIN Medical History Medical History: Bradycardia, AFIB w/ RVR, pAF, Dizziness, Ascending aortic aneurysm, HTN, Tobacco us e, Osteoporosis, Sciatica, Seizure, AV stenosis, Bicsupid AV valve, ETOH abuse, CAD, Angina Cardiac Medications: Apixaban, Hydrochlorothiazide, Pantoprazole, Metoprolol tartrate, [place]-3 fish o il, Isosorbide mononitrate, Diltiazem, Atorvastatin, Nitro SL. Allergies: No known drug allergies Cardiac Risk Factors: FHX of CAD, HTN, Smoking (former) Previous Cardiac Procedures: None Pretest Chest Pain Characteristics: No chest pain Exercise History: Physically active Physical Disabilities: None Lung Sounds: Clear to auscultation Heart Sounds: Regular Stress Test Details Test: Exercise stress testing was performed using a David protocol. Nuclear Acquisition: Rest Tc-99m/Stress Tc-99m 1 day Rest Isotope: Tc-99m Sestamibi. Dose: 10.6 Date: 10/16/2021 Injection Time: 1045 Stress Isotope: Tc-99m Sestamibi. Dose: 33.1 Date: 10/16/2021 Injection Time: 1210 HR Resting HR Supine: 54 bpm Max Heart Rate (APMHR): 157.783438 bpm Resting HR Standin bpm Target HR (85% APMHR): 133.745783 bpm Max HR Achieved: 150 bpm % of APMHR: 95.54 Recovery HR: 71 bpm HR response to stress: Normal HR response to stress BP Resting BP Supine: 130/66 mmHg Resting BP Standin/74 mmHg Max BP: 198/88 mmHg Recovery BP: 138/68 mmHg BP response to stress: Normal blood pressure response to stress. ECG Resting ECG: Sinus Bradycardia Ectopy: None Stress ECG: Sinus Tachycardia ST Change: No significant ST segment changes noted Arrhythmia: PACs, PVC, 4 beat SVT Recovery ECG: Sinus Rhythm Recovery ST Change: No significant ST segment changes noted Recovery Arrhythmia: PACs, PVCs, PVC triplet Clinical Reason for Termination: Terminated by RN d/t loss of ECG lead Stress Symptoms: Chest discomfort, General Fatigue Highest Stage Reached: Stage 3: 3.4 mph at 14% grade. Exercise capacity: 10.16 METs Sesay Treadmill Score: 5 Rate Pressure Product: [id number] Stress ECG Conclusion 1. Resting electrocardiogram was within normal limits 2. Patient exercised on the David protocol and completed a workload of 10.16 METS. 3. Normal heart rate and blood pressure response to exercise. The patient achieved 95% of predicted heart rate for age 4. There was no electrocardiographic evidence of myocardial ischemia 5. Atrial and ventricular ectopic beats were noted 6. See MPI report Sesay Treadmill Score is 5 which is Low risk. Stress Test Summary STAGE Time (mins) Speed (mph) Grade (%) HR BP SYMPTOMS METS Supine 54 130/66 Standing 71 114/74 1 3 1.7 10 99 140/70 4.6 2 6 2.5 12 118 164/78 7 3 9 3.4 14 145 178/80 3/10 chest/throat discomfort 10.2 1 min recovery 109 198/88 chest/throat discomfort resolved with rest. 3 min recovery 71 184/74 6 min recovery 71 138/68 MPI Conclusion Normal myocardial perfusion without evidence of ischemia or prior infarction EF is 54%, normal wall motion Radiologist Interpretation Radiologist agrees with Director Corporate's Interpretation. Radiologist Interpretation by: Lisseth Mahoney MD Interpretation Date/Time: 10/16/2021 16:34:20
[2021-10-16 03:19] VITALS: BP 137/70; PULSE 44; RESP 16; TEMP 36.4; O2SAT 93
[2021-10-16 06:47] LABS: Abs Immature Grans 0.01 10^3/uL (0.0-0.06); Absolute Basophil Count 0.03 10^3/uL (0.0-0.2); Absolute Eosinophil Count 0.18 10^3/uL (0.0-0.7); Absolute Lymphocyte Count 0.77 10^3/uL (1.2-3.4); Absolute Monocyte Count 0.43 10^3/uL (0.1-0.8); Absolute Neutrophil Count 3.86 10^3/uL (1.2-6.7); Basophils % 0.6; Eosinophils % 3.4; HCT 41.8 % (40.0-50.0); HGB 13.8 g/dL (13.5-17.5); Immature Grans % 0.2; Lymphocytes % 14.6; MCH 31.9 pg (27.0-33.0); MCV 96.8 fL (80-95); MPV 10.9 fL (8.0-11.0); Monocytes % 8.1; Neutrophils % 73.1; Nucleated RBC 0 %; Platelet Count 173 10^3/uL (130-400); RBC 4.32 10^6/uL (4.36-5.78); RDW 12.5 % (11.8-14.1); RDW-SD 44.6 fL; WBC 5.28 10^3/uL (4.4-10.8)
[2021-10-16 07:06] VITALS: PULSE 48
[2021-10-16 07:06] LABS: Calcium 8.6 mg/dL (8.5-10.1); Chloride 107 mmol/L (98-107); Sodium 143 mmol/L (136-145)
[2021-10-16 07:07] LABS: Anion Gap 5.5 mmol/L (3-11); BUN 11 mg/dL (7-18); CO2 30.5 mmol/L (21.0-32.0); CREATININE 0.8 mg/dL (0.70-1.30); Glucose 82 mg/dL (74-106); Troponin I < 50 ng/L (<or=60)
[2021-10-16 07:15] VITALS: BP 116/72; PULSE 48; RESP 17; TEMP 36.7; O2SAT 93
[2021-10-16] MEDS: Allopurinol 300 MG TAB PO (09:06)
[2021-10-16] MEDS: Apixaban 5 MG TAB PO (09:06)
[2021-10-16] MEDS: hydroCHLOROthiazide 12.5 MG TAB PO (09:07)
[2021-10-16] MEDS: Atorvastatin 40 MG TAB PO (09:07)
[2021-10-16] MEDS: levETIRAcetam 500 MG TAB 1000 MG PO (09:08)
--- NOTE | 2021-10-16 09:35 | PDOC.CMIN ---
- If Service Date Differs Date of service: 10/16/21 Time of Service: 09:35 Care Management Initial Assess REASON FOR HOSPITALIZATION:: Chest Pain PAST MEDICAL HISTORY/PAST SURGICAL HISTORY:: Medical History (Updated 10/15/21 @ 16:22 by Nancy Bowman NP). History of postoperative nausea and vomiting. Hx of gastroesophageal reflux (GERD). Surgical History (Updated 06/04/21 @ 08:08 by Konstantin Barba MD). Colonoscopy - [facility]. 2008. Cystoscopy. 11/14/15; DR. DEVI. Excision, Distal Clavicle (03/22/15). ALSO CAM[place]LE ACROMIOPLASTY/LIMITED ROTATOR CUFF REPAIR/ DR ROSARIO. H/O parathyroidectomy. Hx of esophagogastroduodenoscopy (~10/01/20)
--- NOTE | 2021-10-16 13:08 | INITIAL_ITS ---
- If Service Date Differs Date of service: 10/16/21 Time of Service: 13:08 Care Management Initial Assess REASON FOR HOSPITALIZATION:: Chest Pain PAST MEDICAL HISTORY/PAST SURGICAL HISTORY:: Medical History (Updated 10/15/21 @ 16:22 by Nancy Bowman NP). History of postoperative nausea and vomiting. Hx of gastroesophageal reflux (GERD). Surgical History (Updated 06/04/21 @ 08:08 by Konstantin Barba MD). Colonoscopy - [facility]. 2009. Cystoscopy. 11/14/15; DR. DEVI. Excision, Distal Clavicle (03/22/15). ALSO CAMILLE ACROMIOPLASTY/LIMITED ROTATOR CUFF REPAIR/ DR ROSARIO. H/O parathyroidectomy. Hx of esophagogastroduodenoscopy (~10/01/20) PREVIOUS FUNCTIONAL STATUS/SOCIAL/FAMILY SUPPORTS:: Resides in [facility] with Aubree. Independent at baseline. ADVANCE DIRECTIVES:: On file, Aubree as agent, Dee Dee as alternate, Jordana as next alternate. Has patient been provided with info about the portal/API?: Yes Did the patient sign up for the portal?: Yes CODE STATUS:: Full Code INSURANCE COVERAGE / FINANCIAL ISSUES:: [employer] CURRENT HOME/COMMUNITY SERVICES/EQUIPMENT:: None, currently. PRIMARY CARE PHYSICIAN:: Davidson Cline POTENTIAL DISCHARGE NEEDS:: MPI stress test. PATIENT/FAMILY EDUCATION NEEDS:: Review discharge instructions, discuss Ask Me Three. ANTICIPATED BARRIERS TO DISCHARGE:: None identified this time. TRANSPORTATION:: Via private vehicle with Aubree mabry PLAN:: Per MD Ebenezer will discharge home with no new services. He will follow up with his community providers and plan of care as prescribed. He will transport via private vehicle with his Aubree.
[2021-10-16 14:38] VITALS: BP 124/73; PULSE 66; RESP 18; TEMP 36.7; O2SAT 96
[2021-10-16 15:30] VITALS: PULSE 71
--- NOTE | 2021-10-16 15:31 | DSE_ITS ---
Date of service: 10/16/21 Time of Service: 16:02 DS: Diagnosis Discharge Diagnosis (1) Chest pain, rule out acute myocardial infarction: Status: Acute Asessment and Plan: nuclear stress test negative troponins negative. no further symptoms (2) Bradycardia: Status: Acute Asessment and Plan: heart rate up to 60-70's will reduce metoprolol to 12.5 mg po bid from 25 mg bid (3) Essential hypertension: Status: Chronic Asessment and Plan: blood pressures controlled. will continue hctz, reduced metoprolol. advised to monitor (4) Seizure: Status: Chronic Asessment and Plan: stable, continue home medication Discharge Plan Disposition Patient Disposition: HOME Condition: Stable Discharge Details Reason For Visit: Chest Pain Admit Date/Time: 10/15/21 13:51 Admit Provider: Jonathan Cronin Attending Provider: Jonathan Cronin Primary Care Provider: Davidson Cline Hospital Course Hospital Course: This is a 61 year old with history of afib on eliquis, who's been experiencing bradycardia, dizziness and now left sided chest pain since reducing metoprolol dose and stopping imdur. Home Meds and New Rx's Prescriptions: Continued calcium citrate-vitamin D3 500 mg-500 unit /5 gram powder 5 gm PO DAILY 0RF allopurinol 300 mg tablet 300 mg PO DAILY Qty: 30 12RF hydrochlorothiazide 12.5 mg capsule 12.5 mg PO DAILY 0RF acetaminophen [Tylenol Extra Strength] 500 mg tablet 500 mg PO Q6H PRN0RF lidocaine 4 % adhesive patch,medicated 1 patch topical BID PRN0RF cholecalciferol (vitamin D3) 1,000 unit capsule 1,000 unit PO DAILY 0RF Eliquis 5 mg tablet 5 mg PO BID 0RF Label Comments: 12/30/18 rx by cardiology at [facility]. [facility] atorvastatin 40 mg tablet 40 mg PO DAILY 0RF nitroglycerin 0.4 mg tablet, sublingual 0.4 mg sublingual Q5M PRN0RF Rx Instructions: do not exceed 3 doses per episode levetiracetam [Keppra] 500 mg tablet 1,000 mg PO BID Qty: 360 3RF folic acid 1 mg tablet 1 mg PO DAILY Qty: 90 3RF pantoprazole 40 mg tablet,delayed release (DR/EC) See Rx Instructions .ROUTE .COMPLEX Qty: 30 12RF Dose Instruction: TAKE ONE TABLET BY MOUTH EVERY DAY Rx Instructions: TAKE ONE TABLET BY MOUTH EVERY DAY Men's One Daily 1 EACH tablet 1 ea PO DAILY 0RF omega-3 fatty acids-fish oil 1 EACH capsule 1 ea PO HS 0RF gabapentin 300 mg capsule 300 mg PO QHS PRN0RF Label Comments: 06/27/19-med recently rx for RLS pt hasnt started med yet Bio-K plus 50 billion cell capsule,delayed release(DR/EC) 1 cap PO DAILY PRN0RF diltiazem HCl [Cardizem] 30 mg tablet 30 mg PO DAILY PRN PRNQty: 10 0RF Rx Instructions: prn recurrence of rapid Afib. Go to the ED if this does not control your symptoms within 1 hour. Changed metoprolol tartrate 25 mg tablet 12.5 mg PO BID Qty: 90 0RF Label Comments: 12/30/18 rx by cardiology [facility]. [facility] Held isosorbide mononitrate 30 mg tablet extended release 24 hr 30 mg PO DAILY 0RF Hold Instructions: Home Medication placed on hold at Doctor's office Discharge Instructions Instructions: Chest Pain (DC), Bradycardia (DC) Additional Instructions: monitor blood pressure and heart rate daily and when having symptoms and record to bring to your follow up appointment. return to the emergency department for new or worsening symptoms. Stand Alone Forms: Nursing Discharge Form Referrals: Sherif Guaman [ NON-[facility] STAFF PHYSICIAN] - Dawit Rubio [ NON-[facility] STAFF PHYSICIAN] - 11/04/21 10:00 am () Activity:: Activity as Tolerated Equipment/Supplies:: No Equipment Needed Diet:: As Tolerated Discharge Orders Discharge Orders: Discharge Order (Routine); Ordered 10/16/21 Ordered By: Nancy Bowman Discharge Data Discharge Date/Time-TO BE ENTERED AT DEPARTURE: 10/16/21 16:46 DS: Summary Time Spent with Patient providing and/or coordinating discharge services: Less than 30 minutes Status at Discharge Functional status at discharge: independent ambulation Overall status at discharge: patient is back to baseline Mental Status: mental status grossly normal Speech and Movement: speech and movement normal Mood: congruent mood Affect: normal affect Exam Const General: cooperative, healthy appearing, comfortable, no acute distress, well developed and well groomed Nutritional Appearance: average body habitus Orientation: alert, awake and oriented x3 HENMT Head: normal to inspection, normocephalic and atraumatic Mouth: oral mucosae normal Chest Chest: normal inspection of the chest Resp Effort & Inspection: normal respiratory effort Auscultation: clear to auscultation bilaterally Cardio Rate: regular rate Rhythm: regular rhythm GI Inspection: normal to inspection Palpation: soft Auscultation: normal bowel sounds Skin General skin exam: no rashes or lesions noted Neuro General: patient alert, patient awake, patient oriented x3 and no focal motor deficits Extrem General: normal to inspection, full ROM and no pedal edema Psych Mental Status: mental status grossly normal Speech and Movement: speech and movement normal Mood: congruent mood Affect: normal affect DS: Data Vitals/I&O Vitals and I&O: Vital Signs Temperature 36.7 C 10/16/21 14:38 Temperature Source Tympanic 10/16/21 14:38 Pulse 66 10/16/21 14:38 Pulse Rhythm Regular 10/16/21 09:32 Pulse 49 L 10/15/21 14:40 Respiratory Rate 18 10/16/21 14:38 Respiratory Effort Non-Labored 10/16/21 09:32 Respiratory Depth Normal 10/16/21 09:32 Respiratory Pattern Normal 10/16/21 09:32 Blood Pressure 124/73 10/16/21 14:38 Blood Pressure Mean 81 10/15/21 14:16 Blood Pressure Position Supine 10/15/21 09:00 Pulse Oximetry 96 10/16/21 14:38 Oxygen Delivery Method Room Air 10/16/21 14:38 Oxygen Flow Rate 0 10/16/21 14:38 Pain Level 0 10/16/21 14:38 Comment 10/15/21 19:35 Intake & Output 10/15/21 10/16/21 10/16/21 23:59 11:59 23:59 Intake Total 110 / 610 Output Total 1400 / 1400 775 / 775 Balance -1290 / -790 -775 / -775 Intake: IV 10 / 510 Oral 100 / 100 Output: Urine 1400 / 1400 775 / 775 Other: Urine Color Yellow Yellow Urine Appearance Clear Clear Urine Odor Normal Normal Comment Total amount for two voids. Voiding Methods Toilet Toilet Data Completed and Pending Labs on day of discharge: Labs from last 24 hours 10/16/21 10/16/21 10/15/21 06:08 06:08 18:30 WBC 5.28 RBC 4.32 L Hgb 13.8 Hct 41.8 MCV 96.8 H MCH 31.9 MCHC 33.0 RDW 12.5 Plt Count 173 MPV 10.9 Immature Gran % 0.2 Neutrophils % 73.1 Lymphocytes % 14.6 Monocytes % 8.1 Eosinophils % 3.4 Basophils % 0.6 Nucleated RBC % 0 Absolute Neutrophils 3.86 Absolute Lymphocytes 0.77 L Absolute Monocytes 0.43 Absolute Eosinophils 0.18 Absolute Basophils 0.03 Sodium 143 Potassium 4.0 Chloride 107 Carbon Dioxide 30.5 Anion Gap 5.5 BUN 11 Creatinine 0.8 Estimated GFR/1.73 m2 >= 60.00 Glucose 82 Calcium 8.6 Troponin I < 50 < 50 10/15/21 16:53 WBC RBC Hgb Hct MCV MCH MCHC RDW Plt Count MPV Immature Gran % Neutrophils % Lymphocytes % Monocytes % Eosinophils % Basophils % Nucleated RBC % Absolute Neutrophils Absolute Lymphocytes Absolute Monocytes Absolute Eosinophils Absolute Basophils Sodium Potassium Chloride Carbon Dioxide Anion Gap BUN Creatinine Estimated GFR/1.73 m2 Glucose Calcium Troponin I Cancelled [facility] All Active Problems Discharge planning issues (Acute) Chest pain, rule out acute myocardial infarction (Acute) Dizziness (Acute) Bradycardia (Acute) Dizziness (Acute) Bradycardia (Acute) Urinary hesitancy (Acute) Rising PSA level (Acute) Kidney stones (Chronic) Paroxysmal A-fib (Chronic) Ascending aortic aneurysm (Acute) Scrotal abscess (Acute) Actinic keratoses (Chronic) Essential hypertension (Chronic) Tobacco use disorder (Chronic) Serum calcium elevated (Chronic 11/19/15) Hyper PTH Parathyroid surgery 10/03 removing one of 4 glands Seizure (Chronic) last seizure 35 years ago Sciatica (Chronic) left; disk; persistent left foot numbness 05/2021-recurrent low back pain. No persistent sciatica, prior history of compression fracture to L1-stable per imaging consistent with diagnosis of prior osteoporosis Osteoporosis (Chronic) T score of 3.5 LS spine, history of compression fracture, managed by endocrine at [facility], presumed secondary to iatrogenic effect with long- term seizure use-Dilantin, as of 05/2021 on Reclast infusion Hyperparathyroidism (Chronic 10/22/17) surgery [facility] 2018 Hearing loss (Chronic) Benign prostatic hyperplasia (Chronic) Aortic valve stenosis (Chronic) mild. echo 2012 neg MPI 12/01. Alcohol abuse (Chronic) in patient treatment at [facility] [employer] [facility] 2011 Medical History (Updated 10/15/21 @ 16:22 by Nancy Bowman NP) History of postoperative nausea and vomiting Hx of gastroesophageal reflux (GERD) Surgical History (Updated 06/04/21 @ 08:08 by Konstantin Barba MD) Colonoscopy - [facility] 2008 Cystoscopy 11/14/15; DR. DEVI Excision, Distal Clavicle (03/22/15) ALSO [facility] ACROMIOPLASTY/LIMITED ROTATOR CUFF REPAIR/ DR ROSARIO H/O parathyroidectomy Hx of esophagogastroduodenoscopy (~10/01/20) Family History Mother , age 68 Alzheimer disease MS (multiple sclerosis) Father , age 72 Diabetes Essential hypertension Heart disease Hyperlipidemia Sister No problems noted. Brother No problems noted. Brother Crohns disease Maternal Grandfather , age 70 Heart disease Paternal Grandfather , age 92 No problems noted. Maternal Grandmother , age 70 No problems noted. Paternal Grandmother , age 94 Intestinal cancer Brother No problems noted. Son No problems noted. Daughter No problems noted. Daughter No problems noted. Social History (Updated 07/01/21 @ 16:43 by Sara Lieberman) Smoking/Tobacco Use Status: Former Tobacco Use tobacco type: cigarettes Quit Date: 07/19/06 Pack-years: 25 Tobacco: How many years used: 15 Second Hand Exposure: Yes Smoking risk assessment performed?: Yes Alcohol Intake: former Drug use: Never Substance use type: does not use Details: sober for 6 years Caregiver/Support person: Yes Household members: spouse Housing: house Communication Needs: None Do you need help understanding health information?: Rarely Pets and animals: Yes Pets and animals: dog(s) Sexually active: Yes Do you think of yourself as: straight/heterosexual Current gender identity: male What is your relationship status?: How often do you talk on the phone with friends or family?: once per week How often do you get together with friends or relatives?: once per week How often do you attend buddhist or yarsanism services?: decline to answer Do you belong to any clubs or organized social groups?: no Panel score (0-1 are the most socially isolated patients): 1 What type of physical activity do you participate in: walking Duration: 30-45 minutes/day Frequency: 1-2 times per week Caitlin/Taoism: No preference Special caitlin needs: No Seatbelt use: always Helmet use: Yes Helmet use: always Drive intox or ride w/intox pile driver engineer: No Do you feel safe at home: Yes Do you feel safe in your relationship?: Yes
== END 2021-10-16 16:46 | disposition home or self-care (01) ==
LOC: ER 14:28 → MS 14:56
PROVIDERS: Nurse Practitioner Acute Care; Admitting Provider Family Medicine; Emergency Provider Physician Assistant; PCP Nurse Practitioner Family; Visit Provider Family Medicine
DX: R07.89 Other chest pain (principal); R00.1 Bradycardia, unspecified; R42 Dizziness and giddiness; I10 Essential (primary) hypertension; G40.909 Epilepsy, unspecified, not intractable, without status epilepticus; Z79.899 Other long term (current) drug therapy; I48.0 Paroxysmal atrial fibrillation; I71.2 Thoracic aortic aneurysm, without rupture; M81.0 Age-related osteoporosis without current pathological fracture; N40.0 Benign prostatic hyperplasia without lower urinary tract symptoms; I35.0 Nonrheumatic aortic (valve) stenosis; F10.10 Alcohol abuse, uncomplicated; Z87.891 Personal history of nicotine dependence; Z79.01 Long term (current) use of anticoagulants
CPT/HCPCS: 36415; 78452; 80048; 80053; 87635; 93005; 96360; 99285; 71046; 83735; 84484; 85025; 93010; 93017; 99217; 99220; G0378

== ENCOUNTER 2021-10-24 02:35 | Outpatient (CLI) | payer OTHER, SELFPAY ==
[2021-10-24 11:18] LABS: Hemoglobin A1C 5.5 % (<5.7)
[2021-10-24 11:49] LABS: Calculated LDL 31 mg/dL (<100); Cholesterol 78 mg/dL (<200); HDL Cholesterol 37 mg/dL (40-60); Triglyceride 54 mg/dL (<150)
== END 2021-10-24 02:36 | disposition home or self-care (01) ==
LOC: LBO 02:35
PROVIDERS: PCP Nurse Practitioner Family; Visit Provider Nurse Practitioner Family
DX: E78.5 Hyperlipidemia, unspecified (principal); F10.10 Alcohol abuse, uncomplicated
CPT/HCPCS: 36415; 80061; 83036

== ENCOUNTER 2021-12-30 02:44 | Outpatient (CLI) | payer OTHER, SELFPAY ==
--- NOTE | 2022-01-05 15:47 | PDOC.EEG_ITS ---
Neurology EEG EEG: [facility] Department of Neurology LONG-TERM AMBULATORY EEG REPORT Date of Recordin12/30/21 at 08:44:58 to 12/31/21 at 08:58:04 Interpreting Physician: Dr. Jovita Burns PCP/Referring Provider: Davidson Cline NP Reason for study: Mr. Wallace is a 61 year-old man with epilepsy and no seizures in in 30+ years. He desires to see if he can come off medications. Current Medications: Home Medications Medication Instructions Recorded Confirmed Type multivitamin with minerals (Men's 1 ea PO DAILY 12/17/12 12/18/21 History One Daily tablet) omega-3 fatty acids-fish oil 300 1 ea PO HS 06/04/16 12/18/21 History mg-1,000 mg capsule cholecalciferol (vitamin D3) 25 1,000 unit PO DAILY 06/15/18 12/18/21 History mcg (1,000 unit) capsule apixaban 5 mg tablet (Eliquis) 5 mg PO BID 12/30/18 12/18/21 History diltiazem HCl 30 mg tablet 30 mg PO DAILY PRN PRN #10 tabs 10/09/20 12/18/21 Rx (Cardizem) allopurinol 300 mg tablet 300 mg PO DAILY #30 tabs 01/24/21 12/18/21 Rx levetiracetam 500 mg tablet 1,000 mg PO BID #360 tab-caps 03/27/21 12/18/21 Rx (Keppra) folic acid 1 mg tablet 1 mg PO DAILY #90 tabs 05/23/21 12/18/21 Rx acetaminophen 500 mg tablet 500 mg PO Q6H PRN 06/04/21 12/18/21 History (Tylenol Extra Strength) hydrochlorothiazide 12.5 mg capsule 12.5 mg PO DAILY 06/04/21 12/18/21 History atorvastatin 40 mg tablet 40 mg PO DAILY 09/26/21 12/18/21 History nitroglycerin 0.4 mg sublingual 0.4 mg sublingual Q5M PRN 09/26/21 12/18/21 History tablet pantoprazole 40 mg tablet,delayed See Rx Instructions .Route 10/07/21 12/18/21 Rx release .COMPLEX #30 tabs calcium citrate 315 mg 2 tab PO DAILY 10/17/21 12/18/21 History calcium-vitamin D3 6.25 mcg (250 unit) tablet METHODS: An 18-channel digitized electroencephalogram was recorded in the ambulatory setting with video. The 10/20 international system of electrode placement was used and bipolar and referential electrode montages were recorded. In addition to EEG the patient was monitored for EKG and by video. Activation procedures of photic stimulation and hyperventilation were performed if applicable. The duration of the recording was ~24 hours. DESCRIPTION OF EEG: Waking background activity: During maximal wakefulness a 9-Hz posterior background rhythm was present which was well-modulated, symmetrical, reactive to eye opening, and of moderate voltage. Faster frequencies were present in the bilateral anterior head regions. There was a normal anterior-posterior voltage gradient. Drowsy and sleeping background activity: During drowsiness, there was attenuation of the posterior dominant background rhythm and vertex waves. Normal stage II and III sleep was present with symmetrical sleep spindles, K- complexes, and vertex waves with slowing of the background rhythm to delta/theta frequencies. REM sleep manifested by rapid lateral eye movements and faster background rhythms was recorded. Arousal was unremarkable. Interictal abnormalities: none. Ictal findings: No events recorded. Activating Procedures: Photic stimulation was performed which produced a symmetrical posterior driving response at various flash frequencies. Hyperventilation was performed with mo derate effort and produced moderate physiological slowing of the background. EKG: EKG revealed sinus bradycardia. INTERPRETATION: This long-term EEG is normal during the awake and sleep states as well as during the activation procedures. PRIOR EEG: none CLINICAL CORRELATION: No focal regions of cerebral dysfunction or epileptiform activity was present. Epilepsy remains a clinical diagnosis and a normal EEG does not rule out epilepsy. Clinical correlation is advised. Jovita Burns MD
== END 2021-12-30 02:45 | disposition home or self-care (01) ==
LOC: RT 02:44
PROVIDERS: PCP Nurse Practitioner Family; Visit Provider Psychiatry & Neurology Neurology
DX: R41.89 Other symptoms and signs involving cognitive functions and awareness (principal)
CPT/HCPCS: 95714

== ENCOUNTER → 2022-01-01 03:08 | Outpatient (CLI) | payer OTHER, SELFPAY ==
--- NOTE | 2022-01-01 07:15 | DI.MRI_ITS ---
Exam(s) MR BRAIN WO EXAM: MR BRAIN WO CLINICAL HISTORY: epilepsy,g40.909 TECHNIQUE: Multiplanar multisequence MRI of the brain was performed. COMPARISON: No exams were available for comparison FINDINGS: CEREBRAL PARENCHYMA: There is no evidence of intracranial hemorrhage, mass effect, or shift of midline structures. There are no extra-axial fluid collections. Ventricles are not enlarged or shifted. There is no significant focal signal abnormality in the cerebellar hemispheres nor within the gloria, m idbrain, and thalami. There is no abnormal signal in the medial temporal lobes and amygdala regions, given the history here. No obvious asymmetry to suggest mesial temporal sclerosis. There is no abnormal signal abnormality in the periventricular white matter. There is no significant focal signal abnormality evident on diffusion imaging to suggest acute ischem ic event. There is an asymmetric finding in the choroid plexus of the atrium left lateral ventricle which measu res 8 by 7 millimeters, not associated with distension of the atrium. However, there appears to be s ome blooming artifact at this location on the susceptibility weighted sequence. PITUITARY GLAND: No mass nor parasellar abnormality. No obvious abnormality in the cavernous sinuses. FLOW VOIDS: The expected flow void are noted. No evidence of obvious aneurysm nor obvious vascular ma lformation. There appear to be posterior communicating arteries on both sides of the [id number] PARANASAL SINUSES: Mucosal thickening and retention cysts noted in the right maxillary sinus. Lesser amount of mucosal thickening in the left maxillary sinus. Sphenoid and frontal sinuses are clear as are the ethmoidal air cells and mastoid air cells are also well aerated. ORBITS: No obvious findings. IMPRESSION: 1. No abnormal signal in the medial temporal lobes nor obvious mesial temporal sclerosis, given the h istory here. Also no abnormal white matter signal. 2. There is asymmetric 7 x 8 millimeter finding in the choroid plexus of the atrium of the left later al ventricle with hypointense signal on susceptibility imaging. There is no layering blood within th e ventricular system. Possible intra atrial/intra-articular choroid plexus lesion at this level. As the next step I recommend CT scan (noninfused) to determine if there is significant asymmetric calci fication at this level versus other findings. This may add specificity. DATA REPOSITORY:
== END ==
PROVIDERS: PCP Nurse Practitioner Family; Visit Provider Psychiatry & Neurology Neurology
DX: G40.909 Epilepsy, unspecified, not intractable, without status epilepticus (principal); Q04.8 Other specified congenital malformations of brain
CPT/HCPCS: 70551

== ENCOUNTER → 2022-06-25 00:58 | Outpatient (CLI) | payer OTHER, SELFPAY ==
--- NOTE | 2022-06-25 | DI.DEXA_ITS ---
Exam(s) XR DEXA BONE DENSITY W/WO DUGLAS EXAM: XR DEXA BONE DENSITY W/WO DUGLAS CLINICAL HISTORY: OSTEOPOROSIS, M81.0 TECHNIQUE: COMPARISON: CR XR DEXA BONE DENSITY W/WO DUGLAS from 12/28/2019 FINDINGS: Lateral Spine Image: There is a stable compression deformity of L1. Left hip: Total T-Score: -1.3. This compares to -1.4 on the prior examination. Total Z-Score: -0.8 T- and Z-scores: Findings are consistent with osteopenia. Lumbar Spine: Total T-Score: -2.3. This compares to -2.6 on the prior examination. Total Z-Score: -1.5 T- and Z-scores: Findings are consistent with osteopenia. IMPRESSION: Osteopenia in the lumbar spine and left hip.
== END ==
PROVIDERS: PCP Nurse Practitioner Family; Visit Provider Internal Medicine Endocrinology, Diabetes & Metabolism
DX: Z13.820 Encounter for screening for osteoporosis (principal); M85.89 Other specified disorders of bone density and structure, multiple sites
CPT/HCPCS: 77080

== ENCOUNTER 2022-09-10 02:51 | Outpatient (CLI) | payer BC, SELFPAY ==
[2022-09-10 16:34] LABS: Anion Gap 4.9 mmol/L (3-11); BUN 12 mg/dL (7-18); CO2 36.1 mmol/L (21.0-32.0); CREATININE 0.6 mg/dL (0.70-1.30); Calculated LDL 34 mg/dL (<100); Chloride 102 mmol/L (98-107); Cholesterol 86 mg/dL (<200); Glucose 85 mg/dL (74-106); HDL Cholesterol 38 mg/dL (40-60); Potassium 3.8 mmol/L (3.5-5.1); Sodium 143 mmol/L (136-145); Triglyceride 74 mg/dL (<150)
[2022-09-10 17:10] LABS: Vitamin D 25 Total 32.4 ng/mL (30-100)
== END 2022-09-10 02:52 | disposition home or self-care (01) ==
LOC: LBO 02:51
PROVIDERS: PCP Nurse Practitioner Family; Visit Provider Internal Medicine Endocrinology, Diabetes & Metabolism
DX: I25.10 Atherosclerotic heart disease of native coronary artery without angina pectoris (principal); E55.9 Vitamin D deficiency, unspecified; M81.0 Age-related osteoporosis without current pathological fracture
CPT/HCPCS: 36415; 80048; 80061; 82306

== ENCOUNTER 2022-09-24 02:31 | Outpatient (RCR) | payer BC, SELFPAY ==
[2022-09-24] MEDS: ZOLEDRONIC ACID/MANNITOL/WATER 5 MG/100 ML BTL 300 MG IVPB (13:58)
[2022-09-24] MEDS: Normal Saline Flush 10 ML SYR IVP (14:01)
== END 2022-10-16 23:59 | disposition home or self-care (01) ==
LOC: INF 02:31
PROVIDERS: PCP Nurse Practitioner Family; Visit Provider Internal Medicine
DX: M81.0 Age-related osteoporosis without current pathological fracture (principal)
CPT/HCPCS: 96365; J3489

== ENCOUNTER 2023-03-24 04:01 | Outpatient (CLI) | payer BC, SELFPAY ==
[2023-03-24 18:13] LABS: Anion Gap 4.9 mmol/L (3-11); BUN 12 mg/dL (7-18); CO2 30.1 mmol/L (21.0-32.0); CREATININE 0.6 mg/dL (0.70-1.30); Calcium 8.7 mg/dL (8.5-10.1); Chloride 102 mmol/L (98-107); Glucose 86 mg/dL (74-106); Potassium 3.5 mmol/L (3.5-5.1); Sodium 137 mmol/L (136-145)
[2023-03-24 23:49] LABS: Vitamin D 25 Total 30.8 ng/mL (30-100)
[2023-03-25 19:27] LABS: Parathyroid Hormone,Intact 74 pg/mL (19-88)
== END 2023-03-24 04:02 | disposition home or self-care (01) ==
LOC: LBO 04:01
PROVIDERS: PCP Nurse Practitioner Family; Visit Provider Internal Medicine Endocrinology, Diabetes & Metabolism
DX: E21.3 Hyperparathyroidism, unspecified (principal); E55.9 Vitamin D deficiency, unspecified
CPT/HCPCS: 36415; 80048; 82306; 83970

== ENCOUNTER 2023-11-25 01:04 | Outpatient (CLI) | payer BC, SELFPAY ==
[2023-11-25 16:36] LABS: Anion Gap 7.4 mmol/L (3-11); BUN 13 mg/dL (7-18); CO2 31.6 mmol/L (21.0-32.0); CREATININE 0.7 mg/dL (0.70-1.30); Calcium 9.3 mg/dL (8.5-10.1); Chloride 103 mmol/L (98-107); Estimated GFR 102.25 (mL/min/1.73m2); Glucose 82 mg/dL (74-106); Potassium 3.7 mmol/L (3.5-5.1); Sodium 142 mmol/L (136-145)
[2023-11-25 17:03] LABS: Vitamin D 25 Total 26.2 ng/mL (30-100)
== END 2023-11-25 01:05 | disposition home or self-care (01) ==
LOC: LBO 01:05
PROVIDERS: Urology; PCP Nurse Practitioner Family; Visit Provider Internal Medicine Endocrinology, Diabetes & Metabolism
DX: R97.20 Elevated prostate specific antigen [PSA] (principal)
CPT/HCPCS: 36415; 80048; 82306; 84153

== ENCOUNTER 2023-11-30 06:02 | Emergency (ER) | payer BC, SELFPAY ==
[2023-11-30] VITALS (42 sets, daily range): BP systolic 116–171; BP diastolic 57–93; PULSE 56–79; RESP 12–25; TEMP 36.4–36.7; O2SAT 88–98
--- NOTE | 2023-11-30 06:00 | RT.EKG_ITS ---
APPROVED REPORT Exam: Resting ECG Reason for Exam: chest pain Patient Location: E HR:70 bpm ECG Measurements Heart Rate 70 AXIS MT 167 P 40 QRSd 100 QRS 21 QT 385 T 14 QTc 417 Conclusion Sinus rhythm...normal P axis, V-rate 60- 99 Physician: no stemi
--- NOTE | 2023-11-30 06:15 | DI.CT_ITS ---
Exam(s) CT THORAX CTA EXAM: CT THORAX CTA CLINICAL HISTORY: hx of AA, chest pain today, eval for dissection. TECHNIQUE: Imaging Protocol: CT angiography of the chest was performed using pulmonary embolus carmelo col. Multi planar reconstructions were performed. CONTRAST MATERIAL: Intravenous: Omnipaque 350 Contrast volume: 100 cc COMPARISON: CR XR CHEST 2V PA LATERAL from 10/15/2021 FINDINGS: CHEST: THORACIC AORTA: The ascending thoracic aorta enlarged, exhibiting maximum diameter of 4.8 cm. There is no evidence of dissection. The aortic arch measures 2.5 cm. Proximal descending thoracic aorta m easures 3 cm and descending thoracic aorta measures 2.5 cm. The aorta the level of the superior mese nteric. Incidental note made of the left vertebral artery originating as an independent vessel off t he aortic arch, instead of arising in conventional fashion off of the left subclavian artery. There is no evidence of significant proximal subclavian artery stenosis. LUNGS: Mild increased markings in the posterior basal segments of both lower lobes, not associated wi th pleural effusions. No ominous pulmonary nodules. No pneumothorax. No findings in the trachea an d mainstem bronchi.. There are no pleural effusions. MEDIASTINUM: There is no hilar nor mediastinal adenopathy. CARDIAC: Heart size is upper normal. There is no pericardial effusion. Ventricular ratio is 1:1 PARTIALLY VISUALIZED UPPERMOST ABDOMEN: No adrenal masses. No splenomegaly. Benign-appearing cyst n oted in the left hepatic lobe which measures 1.5 cm size. OSSEOUS: No significant osseous lesions.Nonacute appearing compression fracture of T7 noted. Also no nacute appearing mild compression fracture of superior endplate of L1. No acute fractures evident.. IMPRESSION: 1. Ascending thoracic aortic aneurysm with maximum diameter of 4.8 cm. No evidence of dissection. N o pericardial effusion.. 2. Other findings as above. 3. RADIATION DOSE DELIVERED: 527.14mGy.cm Total DLP DATA REPOSITORY: All CT scans at this facility are submitted to the National Radiology Data Registry (NRDR) Dose Index Registry (DIR) with the [employer] (ACR). RADIATION OPTIMIZATION: All CT scans at this facility use at least one of these dose optimization te chniques: automated exposure control; mA and/or kV adjustment per patient size (includes targeted exa ms where dose is matched to clinical indication); or iterative reconstruction.
--- NOTE | 2023-11-30 06:19 | ED.GENADUL_ITS ---
Discharge Plan Discharge Details Chief Complaint: Chest Pain Primary Care Provider: Davidson Cline ED Provider: Miguel A Haywood Home Meds and New Rx's Prescriptions: No Action hydrochlorothiazide 12.5 mg capsule 12.5 mg PO DAILY acetaminophen [Tylenol Extra Strength] 500 mg tablet 500 mg PO Q6H PRN calcium citrate-vitamin D3 315 mg-6.25 mcg (250 unit) tablet 2 tab PO DAILY cholecalciferol (vitamin D3) 1,000 unit capsule 1,000 unit PO DAILY Eliquis 5 mg tablet 5 mg PO BID Patient Comments: 12/30/18 rx by cardiology at [facility]. [facility] atorvastatin 40 mg tablet 40 mg PO DAILY nitroglycerin 0.4 mg tablet, sublingual 0.4 mg sublingual Q5M PRN Rx Instructions: do not exceed 3 doses per episode levetiracetam [Keppra] 500 mg tablet 500 mg PO BID Qty: 180 3RF allopurinol 300 mg tablet See Rx Instructions .ROUTE .COMPLEX Qty: 30 12RF Dose Instruction: TAKE ONE TABLET BY MOUTH EVERY DAY Rx Instructions: TAKE ONE TABLET BY MOUTH EVERY DAY folic acid 1 mg tablet 1 mg PO DAILY Qty: 90 3RF pantoprazole 40 mg tablet,delayed release (DR/EC) See Rx Instructions .ROUTE .COMPLEX Qty: 30 12RF Dose Instruction: TAKE ONE TABLET BY MOUTH EVERY DAY Rx Instructions: TAKE ONE TABLET BY MOUTH EVERY DAY Men's One Daily 1 EACH tablet 1 ea PO DAILY omega-3 fatty acids-fish oil 1 EACH capsule 1 ea PO HS diltiazem HCl [Cardizem] 30 mg tablet 30 mg PO DAILY PRN PRNQty: 10 0RF Rx Instructions: prn recurrence of rapid Afib. Go to the ED if this does not control your symptoms within 1 hour. zoledronic zoqh-vinhxcnz-edyap [Reclast] 5 mg/100 mL piggyback See Rx Instructions IV .COMPLEX Rx Instructions: intravenously every 14mo for osteoarthritis; HPI General Date/Time Provider Initiated Documentation: 11/30/23 06:03 . HPI Narrative: This is a very pleasant 63-year-old male with a past medical history of coronary artery disease detected on CT scan, aortic aneurysm, bicuspid aortic valve, A-fib which has been effectively resolved with CPAP, but still remains on Eliquis, sleep apnea, but lower cholesterol currently well-managed, previous kidney stones, and osteoporosis currently taking supplemental q. 14-month injections who presents today for evaluation of chest pain. Patient states that he got up at his normal morning time of 2:30 in the morning, and he noticed an achy consistent left-sided chest squeeze that radiated up into his left neck, jaw, shoulder. He got up and continued his normal day, drinking, eating, and exerting himself with no change or worsening of his symptoms whatsoever. Patient did Mill a significant amount of wood yesterday, and felt some mild soreness but denies any pain from that. Pain is not made worse in his chest by moving around or moving his extremities. He denies any recent long trips surgeries or procedures. He has been taking his anticoagulant as directed. No other complaints at this time. Related Data Home Medications Medication Instructions Recorded Confirmed multivitamin with minerals (Men's 1 ea PO DAILY 12/17/12 11/30/23 One Daily tablet) omega-3 fatty acids-fish oil 300 1 ea PO HS 06/04/16 11/30/23 mg-1,000 mg capsule cholecalciferol (vitamin D3) 25 1,000 unit PO DAILY 06/15/18 11/30/23 mcg (1,000 unit) capsule apixaban 5 mg tablet (Eliquis) 5 mg PO BID 12/30/18 11/30/23 diltiazem HCl 30 mg tablet 30 mg PO DAILY PRN PRN #10 tabs 10/09/20 11/30/23 (Cardizem) acetaminophen 500 mg tablet 500 mg PO Q6H PRN 06/04/21 11/30/23 (Tylenol Extra Strength) hydrochlorothiazide 12.5 mg capsule 12.5 mg PO DAILY 06/04/21 11/30/23 atorvastatin 40 mg tablet 40 mg PO DAILY 09/26/21 11/30/23 nitroglycerin 0.4 mg sublingual 0.4 mg sublingual Q5M PRN 09/26/21 11/30/23 tablet calcium citrate 315 mg 2 tab PO DAILY 10/17/21 11/30/23 calcium-vitamin D3 6.25 mcg (250 unit) tablet levetiracetam 500 mg tablet 500 mg PO BID #180 tab-caps 12/15/22 11/30/23 (Keppra) allopurinol 300 mg tablet See Rx Instructions .Route 02/01/23 11/30/23 .COMPLEX #30 tabs folic acid 1 mg tablet 1 mg PO DAILY #90 tabs 05/12/23 11/30/23 pantoprazole 40 mg tablet,delayed See Rx Instructions .Route 10/30/23 11/30/23 release .COMPLEX #30 tabs zoledronic acid 5 mg/100 mL in See Rx Instructions IV .COMPLEX 11/30/23 11/30/23 mannitol 5 %-water intravenous piggybck (Reclast) Previous Rx's Medication Instructions Recorded diltiazem HCl 30 mg tablet 30 mg PO DAILY PRN PRN #10 tabs 10/09/20 (Cardizem) levetiracetam 500 mg tablet 500 mg PO BID #180 tab-caps 12/15/22 (Keppra) allopurinol 300 mg tablet See Rx Instructions .Route 02/01/23 .COMPLEX #30 tabs folic acid 1 mg tablet 1 mg PO DAILY #90 tabs 05/12/23 pantoprazole 40 mg tablet,delayed See Rx Instructions .Route 10/30/23 release .COMPLEX #30 tabs Allergies Allergy/AdvReac Type Severity Reaction Status Date / Time No Known Allergies Allergy Verified 11/30/23 06:09 General Stated Complaint: Chest Pain FLY: 2 Review of Systems All systems reviewed & are unremarkable except as noted in HPI and below Exam Narrative Exam Narrative: 1.Const: Well-nourished, Well-developed, appearing stated age 2.Eyes: PERRL, no conjunctival injection, and symmetrical lids. 3.ENT: Atraumatic external nose and ears. Moist MM. Neck: Symmetric, trachea mi dline, No thyromegaly. 4.CVS: +S1/S2, No murmurs or gallops. Peripheral pulses 2+ and equal in all extremities. Brisk capillary refill in all extremities. 5.RESP: Unlabored respiratory effort. Clear to auscultation bilaterally. No wheezes rales or rhonchi 6.GI: Soft, Nontender/Nondistended, No hepatosplenomegaly. No guarding or rebound. 7.MSK: Normocephalic/Atraumatic, Extremities w/o deformity or ttp No cyanosis or clubbing, Normal movement of all extremities. Radial pulses +2 bilaterally. 8.Skin: Warm, Dry. No rashes or lesions. 9.Neuro: diamond assorter II-XII grossly intact. Sensation grossly intact, no focal neurologic deficits. 10.Psych: (AAO) x3. Appropriate mood and affect Course Vital Signs Vital signs: Vital Signs Temperature 36.7 C 11/30/23 06:05 Pulse 70 11/30/23 06:05 Respiratory Rate 22 11/30/23 06:05 Blood Pressure 171/93 H 11/30/23 06:05 Pulse Oximetry 95 11/30/23 06:05 Temperature 36.7 C 11/30/23 06:05 Temperature Source Temporal Artery Scan 11/30/23 06:05 Pulse 70 11/30/23 06:05 Respiratory Rate 19 11/30/23 06:11 Respiratory Effort Normal, Non-Labored 11/30/23 06:11 Respiratory Depth Normal 11/30/23 06:11 Respiratory Pattern Normal 11/30/23 06:11 Blood Pressure 171/93 H 11/30/23 06:05 Blood Pressure Position Sitting 11/30/23 06:05 Pulse Oximetry 95 11/30/23 06:05 Oxygen Delivery Method Room Air 11/30/23 06:05 Oxygen Flow Rate 0 11/30/23 06:05 Pain Level 5 11/30/23 06:11 Medical Decision Making This is a very pleasant 63-year-old male with a past medical history of coronary artery disease detected on CT scan, aortic aneurysm, bicuspid aortic valve, A-fib which has been effectively resolved with CPAP, but still remains on Eliquis, sleep apnea, but lower cholesterol currently well-managed, previous kidney stones, and osteoporosis currently taking supplemental q. 14-month injections who presents today for evaluation of chest pain. Patient states that he got up at his normal morning time of 2:30 in the morning, and he noticed an achy consistent left-sided chest squeeze that radiated up into his left neck, jaw, shoulder. He got up and continued his normal day, drinking, eating, and exerting himself with no change or worsening of his symptoms whatsoever. Patient did Mill a significant amount of wood yesterday, and felt some mild soreness but denies any pain from that. Pain is not made worse in his chest by moving around or moving his extremities. He denies any recent long trips surgeries or procedures. He has been taking his anticoagulant as directed. No other complaints at this time. Physical exam demonstrates a well-appearing male, no acute distress. Pain is described as 5 out of 10 at this time. Radial pulses are equal, lungs are clear. No rash on the chest. Differential includes musculoskeletal strain secondary to activity and use, however because of his history, risk factors the differential also certainly includes cardiac etiology/ACS/unstable angina/aortic dissection. PE unlikely secondary to his regular Eliquis use and no history of clots or other red flags. Will evaluate for cardiac etiology. We will give nitroglycerin to see if this changes his symptoms. We will get a CTA for evaluation of potential aortic dissection or worsening aneurysm. Will monitor closely and reassess. EKG demonstrates a sinus rhythm with a rate of [address] elevations depressions or other abnormalities otherwise. 7:30 AM Laboratory workup demonstrates normal white count, stable hemoglobin, electrolytes stable, renal function normal, troponin and lipase normal. Patient was given nitroglycerin and had no improvement. We will try GI cocktail. Patient otherwise notably stable. Pain is unchanged. Patient will be signed out to Dr. Michael Jackson for follow-up on CT and repeat troponin Quality:[facility] Health Related Social Needs: No Data to Display [facility] All Active Problems Onychocryptosis (Acute) Heart murmur (Acute) Left leg numbness (Acute) Epilepsy (Acute) Essential hypertension (Acute) Hyperlipidemia (Acute) Sleep apnea (Acute) Uses CPAP Urinary hesitancy (Acute) Rising PSA level (Acute) Kidney stones (Chronic) Paroxysmal A-fib (Chronic) Sees cardiology at [facility] Ascending aortic aneurysm (Acute) Actinic keratoses (Chronic) Tobacco use disorder (Chronic) Quit 15 years ago. Serum calcium elevated (Chronic 11/19/15) Hyper PTH Parathyroid surgery 10/03 removing one of 4 glands Sciatica (Chronic) left; disk; persistent left foot numbness 05/2021-recurrent low back pain. No persistent sciatica, prior history of compression fracture to L1-stable per imaging consistent with diagnosis of prior osteoporosis Osteoporosis (Chronic) T score of 3.5 LS spine, history of compression fracture, managed by endocrine at [facility], presumed secondary to iatrogenic effect with long- term seizure use-David, as of 05/2021 on Reclast infusion Hyperparathyroidism (Chronic 10/22/17) surgery [facility] [place] 2018 Hearing loss (Chronic) Benign prostatic hyperplasia (Chronic) Aortic valve stenosis (Chronic) mild. echo 2013 neg MPI 12/01. Alcohol abuse (Chronic) sober for 7 years as of 2021 Medical History History of postoperative nausea and vomiting Hx of gastroesophageal reflux (GERD) Seizure last seizure 35 years ago Surgical History Hx of esophagogastroduodenoscopy (~10/01/20) H/O parathyroidectomy Excision, Distal Clavicle (03/22/15) ALSO NEER ACROMIOPLASTY/LIMITED ROTATOR CUFF REPAIR/ DR ROSARIO Cystoscopy 11/14/15; DR. DEVI Colonoscopy - [facility] [place] 2008 Family History Mother , age 68 Alzheimer disease MS (multiple sclerosis) Father , age 72 Diabetes Essential hypertension Heart disease Hyperlipidemia Sister No problems noted. Brother No problems noted. Brother Crohns disease Maternal Grandfather , age 70 Heart disease Paternal Grandfather , age 92 No problems noted. Maternal Grandmother , age 70 No problems noted. Paternal Grandmother , age 94 Intestinal cancer Brother No problems noted. Son No problems noted. Daughter No problems noted. Daughter No problems noted. Social History Smoking/Tobacco Use Status: Former Tobacco Use tobacco type: cigarettes Quit Date: 07/19/06 Pack-years: 25 Tobacco: How many years used: 13 Second Hand Exposure: Yes Smoking risk assessment performed?: Yes Alcohol Intake: former Drug use: Never Substance use type: does not use Details: sober for 6 years Caregiver/Support person: Yes Household members: spouse Housing: house Communication Needs: None Do you need help understanding health information?: Rarely Pets and animals: Yes Pets and animals: dog(s) Sexually active: Yes Do you think of yourself as: straight/heterosexual Current gender identity: male What is your relationship status?: How often do you talk on the phone with friends or family?: once per week How often do you get together with friends or relatives?: once per week How often do you attend religious or baptist services?: decline to answer Do you belong to any clubs or organized social groups?: no Panel score (0-1 are the most socially isolated patients): 1 What type of physical activity do you participate in: walking Duration: 30-45 minutes/day Frequency: 1-2 times per week Caitlin/Buddhist: No preference Special caitlin needs: No Seatbelt use: always Helmet use: Yes Helmet use: always Drive intox or ride w/intox driver courier: No Do you feel safe at home: Yes Do you feel safe in your relationship?: Yes
[2023-11-30] MEDS: nitroGLYcerin 0.4 MG TAB SL (06:23)
[2023-11-30 06:30] LABS: Abs Immature Grans 0.02 10^3/uL (0.0-0.06); Absolute Basophil Count 0.03 10^3/uL (0.0-0.2); Absolute Eosinophil Count 0.15 10^3/uL (0.0-0.7); Absolute Lymphocyte Count 0.81 10^3/uL (1.2-3.4); Absolute Monocyte Count 0.57 10^3/uL (0.1-0.8); Absolute Neutrophil Count 6.06 10^3/uL (1.2-6.7); Basophils % 0.4 %; HCT 42.8 % (40.0-50.0); HGB 13.8 g/dL (13.5-17.5); Immature Grans % 0.3 %; Lymphocytes % 10.6 %; MCH 31.9 pg (27.0-33.0); MCHC 32.2 % (32.0-36.0); MCV 99 fL (80-95); MPV 11.2 fL (8.0-11.0); Monocytes % 7.5 %; Neutrophils % 79.2 %; Platelet Count 170 10^3/uL (130-400); RBC 4.33 10^6/uL (4.36-5.78); RDW 13.2 % (11.8-14.1); RDW-SD 47.8 fL; WBC 7.64 10^3/uL (4.4-10.8)
[2023-11-30 06:43] LABS: PTT Activated 29.6 sec (23.6-32.8); Prothrombin Time 10.3 sec (9.1-11.1)
[2023-11-30 06:48] LABS: ALT 37 U/L (16-63); AST 28 U/L (15-37); Albumin 3.7 g/dL (3.4-5.0); Alkaline Phosphatase 142 U/L (46-116); Anion Gap 5.7 mmol/L (3-11); BUN 11 mg/dL (7-18); Bilirubin, Total 0.3 mg/dL (0.2-1.0); CO2 32.3 mmol/L (21.0-32.0); CREATININE 0.7 mg/dL (0.70-1.30); Chloride 104 mmol/L (98-107); Estimated GFR 102.25 (mL/min/1.73m2); Glucose 82 mg/dL (74-106); Lipase 27 U/L (16-77); Potassium 3.5 mmol/L (3.5-5.1); Sodium 142 mmol/L (136-145); Total Protein 7.7 g/dL (6.4-8.2); Troponin I < 50 ng/L (< or =60)
[2023-11-30] MEDS: Omnipaque 350 MG/ML 100 ML BTL IJ (07:20)
[2023-11-30] MEDS: Normal Saline - Diluent 50 ML VIAL IJ (07:20)
--- NOTE | 2023-11-30 07:42 | DI.VRAD_ITS ---
PROCEDURE INFORMATION: Exam: CTA Chest With Contrast Exam date and time: 11/30/2023 7:13 AM Age: 63 years old Clinical indication: Chest wall pain; Additional info: HX of aa, chest pain today, eval for dissection TECHNIQUE: Imaging protocol: Computed tomographic angiography of the chest with contrast. Exam focused on the arteries. 3D rendering (Not supervised by radiologist): MIP and/or 3D reconstructed images were created by the technologist. Contrast material: OMNI 350; Contrast volume: 100 ml; Contrast route: INTRAVENOUS (IV); COMPARISON: CT THORAX ABDOMEN CTA 09/14/2020 8:17 AM FINDINGS: Limitations: Mild motion artifact. Pulmonary arteries: Examination not optimized for evaluation of the pulmonary arteries. Aorta: 4.7 cm ascending thoracic aortic aneurysm. No dissection seen. Lungs: Dependent changes are present in the lungs. Pleural spaces: No pleural effusion. Heart: Trace pericardial fluid. Coronary arteries: Coronary artery calcifications. Lymph nodes: Nonspecific mediastinal lymph nodes. Liver: Cyst in the left hepatic lobe. Adrenal glands: Adrenal thickening. Kidneys and ureters: Small nonobstructing left renal calculus. Left renal cyst. Bones/joints: Compression deformities in the spine appear chronic. Soft tissues: No acute pertinent abnormality seen. IMPRESSION: 1. Ascending thoracic aortic aneurysm. No dissection seen. 2. Additional findings as above. Dictated and Authenticated by: Catie Landry MD. Ordering:HORACIO Grady MD
[2023-11-30] MEDS: Lidocaine 2% Viscous 15 ML CUP (08:31)
[2023-11-30] MEDS: Dexamethasone 10 MG/ML VIAL IVP (09:16)
[2023-11-30] MEDS: diphenhydrAMINE 50 MG/ML VIAL 25 MG IVP (09:17)
[2023-11-30 09:47] LABS: Troponin I < 50 ng/L (< or =60)
--- NOTE | 2023-11-30 10:42 | W.EDPROG ---
Date of service: 11/30/23 Time of Service: 10:42 Medical Decision Making Patient resting comfortably no acute distress. Was endorsing discomfort into his trapezius and neck, that began before the CT scan however got slightly worse afterwards, resolved after dexamethasone and Benadryl. Patient found to have thoracic aortic aneurysm, largely unchanged from prior imaging in 2000, patient is being surveyed as an outpatient. Feeling comfortable, asymptomatic currently. Patient to follow-up closely with his primary care physician. Home care instructions and return precautions given Quality:[facility] Health Related Social Needs: No Data to Display Sign Out Sign Out Data: Sign Out Comment: Chest pain in the left chest rating to the left neck, moderate risk heart score. History of aortic aneurysm. Pending CT scan and repeat Trope. Last updated by Miguel A Haywood DO at 11/30/23 07:30 Discharge Plan Disposition Patient Disposition: Home Condition: Improving Discharge Details Chief Complaint: Chest Pain Clinical Impression: Chest pain Primary Care Provider: Davidson Cline ED Provider: Jonathan Crespo Home Meds and New Rx's Prescriptions: No Action hydrochlorothiazide 12.5 mg capsule 12.5 mg PO DAILY acetaminophen [Tylenol Extra Strength] 500 mg tablet 500 mg PO Q6H PRN calcium citrate-vitamin D3 315 mg-6.25 mcg (250 unit) tablet 2 tab PO DAILY cholecalciferol (vitamin D3) 1,000 unit capsule 1,000 unit PO DAILY Eliquis 5 mg tablet 5 mg PO BID Patient Comments: 12/30/18 rx by cardiology at [facility]. [facility] atorvastatin 40 mg tablet 40 mg PO DAILY nitroglycerin 0.4 mg tablet, sublingual 0.4 mg sublingual Q5M PRN Rx Instructions: do not exceed 3 doses per episode levetiracetam [Keppra] 500 mg tablet 500 mg PO BID Qty: 180 3RF allopurinol 300 mg tablet See Rx Instructions .ROUTE .COMPLEX Qty: 30 12RF Dose Instruction: TAKE ONE TABLET BY MOUTH EVERY DAY Rx Instructions: TAKE ONE TABLET BY MOUTH EVERY DAY folic acid 1 mg tablet 1 mg PO DAILY Qty: 90 3RF pantoprazole 40 mg tablet,delayed release (DR/EC) See Rx Instructions .ROUTE .COMPLEX Qty: 30 12RF Dose Instruction: TAKE ONE TABLET BY MOUTH EVERY DAY Rx Instructions: TAKE ONE TABLET BY MOUTH EVERY DAY Men's One Daily 1 EACH tablet 1 ea PO DAILY omega-3 fatty acids-fish oil 1 EACH capsule 1 ea PO HS diltiazem HCl [Cardizem] 30 mg tablet 30 mg PO DAILY PRN PRNQty: 10 0RF Rx Instructions: prn recurrence of rapid Afib. Go to the ED if this does not control your symptoms within 1 hour. zoledronic zrzp-ekrxcgnj-unfdj [Reclast] 5 mg/100 mL piggyback See Rx Instructions IV .COMPLEX Rx Instructions: intravenously every 14mo for osteoarthritis; Discharge Instructions Instructions: Chest Pain (ED) Additional Instructions: Please follow-up with your primary care physician. Please continue to have your thoracic aortic aneurysm monitored on an outpatient basis. If you have any worsening symptoms please return to the emergency department
== END 2023-11-30 10:54 | disposition home or self-care (01) ==
PROVIDERS: Student in an Organized Health Care Education/Training Program; Emergency Provider Emergency Medicine; PCP Nurse Practitioner Family
DX: R07.9 Chest pain, unspecified (principal); I71.21 Aneurysm of the ascending aorta, without rupture; Q23.1 Congenital insufficiency of aortic valve; I25.10 Atherosclerotic heart disease of native coronary artery without angina pectoris; I10 Essential (primary) hypertension; Z79.01 Long term (current) use of anticoagulants; Z87.891 Personal history of nicotine dependence
CPT/HCPCS: 00123; 36415; 71275; 80053; 83690; 93005; 96374; 99285; 84484; 85025; 85610; 85730; 93010; 99284; J1100; J1200; J3490

== ENCOUNTER 2023-12-02 04:50 | Inpatient (IN) | payer BC, SELFPAY ==
[2023-12-02] VITALS (59 sets, daily range): BP systolic 94–193; BP diastolic 50–156; PULSE 48–150; RESP 10–24; TEMP 36.6–37; O2SAT 92–99
--- NOTE | 2023-12-02 04:45 | RT.EKG_ITS ---
APPROVED REPORT Exam: Resting ECG Reason for Exam: Chest pain Patient Location: E HR:122 bpm ECG Measurements Heart Rate 122 AXIS MS [id number] P [id number] QRSd 105 QRS 26 QT 316 T 34 QTc 450 Conclusion Atrial fibrillation...V-rate 91-150, irreg A-activity Physician: afib w/ rvr, mild lateral st depressions. No stemi
[2023-12-02] MEDS: Normal Saline 1,000 ML 1000 ML IV (05:10)
[2023-12-02 05:11] LABS: Abs Immature Grans 0.03 10^3/uL (0.0-0.06); Absolute Basophil Count 0.03 10^3/uL (0.0-0.2); Absolute Eosinophil Count 0.06 10^3/uL (0.0-0.7); Absolute Lymphocyte Count 1.51 10^3/uL (1.2-3.4); Absolute Monocyte Count 0.76 10^3/uL (0.1-0.8); Absolute Neutrophil Count 6.55 10^3/uL (1.2-6.7); Basophils % 0.3 %; Eosinophils % 0.7 %; HCT 44.3 % (40.0-50.0); HGB 14.6 g/dL (13.5-17.5); Immature Grans % 0.3 %; Lymphocytes % 16.9 %; MCH 32.6 pg (27.0-33.0); MCV 99 fL (80-95); MPV 11.3 fL (8.0-11.0); Monocytes % 8.5 %; Neutrophils % 73.3 %; Platelet Count 191 10^3/uL (130-400); RBC 4.48 10^6/uL (4.36-5.78); RDW 13.3 % (11.8-14.1); RDW-SD 48.6 fL; WBC 8.94 10^3/uL (4.4-10.8)
[2023-12-02] MEDS: dilTIAZem 25 MG/5 ML VIAL 15 MG IVP (05:12)
[2023-12-02] MEDS: Propofol 200 MG/20 ML VIAL 50 MG IVP (05:15)
[2023-12-02] MEDS: dilTIAZem 25 MG/5 ML VIAL 10 MG IVP (05:26)
[2023-12-02 05:29] LABS: PTT Activated 29.1 sec (23.6-32.8); Prothrombin Time 9.9 sec (9.1-11.1)
--- NOTE | 2023-12-02 05:32 | NUR.NOTE ---
Nursing Note:MD and pt time out done at bedside and witnessed by this nurse @ 0513, BP 169/93, o2 98%, Afrib RVR 130, RR24, co2 34. RT at bedside for support. 0511 15mg diltiazem administered, 0514 50 mg propofol administered by , 0515 25 mg propofol administered by MD 0516 25 mg propofol administered by MD 0517 50 mg propofol administered by MD. Pt sedated, O2 96% supported by RT. 0518 120 J synced administered to pt by MD, NSR 0518 HR 74. 0519 Afib RVR returned HR 115, pt sedated and supported by RT o2 95%, 120j synced administered to pt by MD, NSR not achieved. 0524 10 mg diltiazem administered to pt by this nurse. Afib rvr continued, dilt drip indicated per
--- NOTE | 2023-12-02 05:36 | W.ED.GENAD ---
Discharge Plan Disposition Patient Disposition: Admit to [facility] Condition: Improving Discharge Details Chief Complaint: Chest Pain Clinical Impression: Atrial fibrillation with RVR, Acute hypokalemia Primary Care Provider: Davidson Cline ED Provider: Miguel A Haywood Home Meds and New Rx's Prescriptions: No Action hydrochlorothiazide 12.5 mg capsule 12.5 mg PO DAILY acetaminophen [Tylenol Extra Strength] 500 mg tablet 500 mg PO Q6H PRN calcium citrate-vitamin D3 315 mg-6.25 mcg (250 unit) tablet 2 tab PO DAILY cholecalciferol (vitamin D3) 1,000 unit capsule 1,000 unit PO DAILY Eliquis 5 mg tablet 5 mg PO BID Patient Comments: 12/30/18 rx by cardiology at [facility]. [facility] atorvastatin 40 mg tablet 40 mg PO DAILY nitroglycerin 0.4 mg tablet, sublingual 0.4 mg sublingual Q5M PRN Rx Instructions: do not exceed 3 doses per episode levetiracetam [Keppra] 500 mg tablet 500 mg PO BID Qty: 180 3RF allopurinol 300 mg tablet See Rx Instructions .ROUTE .COMPLEX Qty: 30 12RF Dose Instruction: TAKE ONE TABLET BY MOUTH EVERY DAY Rx Instructions: TAKE ONE TABLET BY MOUTH EVERY DAY folic acid 1 mg tablet 1 mg PO DAILY Qty: 90 3RF pantoprazole 40 mg tablet,delayed release (DR/EC) See Rx Instructions .ROUTE .COMPLEX Qty: 30 12RF Dose Instruction: TAKE ONE TABLET BY MOUTH EVERY DAY Rx Instructions: TAKE ONE TABLET BY MOUTH EVERY DAY Men's One Daily 1 EACH tablet 1 ea PO DAILY omega-3 fatty acids-fish oil 1 EACH capsule 1 ea PO HS diltiazem HCl [Cardizem] 30 mg tablet 30 mg PO DAILY PRN PRNQty: 10 0RF Rx Instructions: prn recurrence of rapid Afib. Go to the ED if this does not control your symptoms within 1 hour. zoledronic [id number] [Reclast] 5 mg/100 mL piggyback See Rx Instructions IV .COMPLEX Rx Instructions: intravenously every 14mo for osteoarthritis; HPI General Date/Time Provider Initiated Documentation: 12/02/23 04:50. HPI Narrative: This is a very pleasant 63-year-old male with a past medical history of coronary artery disease detected on CT scan, aortic aneurysm, bicuspid aortic valve, A-fib which has been effectively resolved with CPAP, but still remains on Eliquis, sleep apnea, but lower cholesterol currently well-managed, previous kidney stones, and osteoporosis currently taking supplemental q. 14-month injections, who presents today for rapid heart rate. Patient has not had A-fib for years, in fact they are actually talking about taking him off his Eliquis recently, 24 hours ago the patient was here in the emergency department for mild left-sided chest achiness that occurred after doing a fair bit of wood milling at home. His workup including CTA was benign, his aortic aneurysm was unchanged, serial troponins were normal, patient felt well and was discharged home this morning. Unfortunately this evening about 20 hours later the patient awoke and began his day, shortly thereafter he noted a fluttering sensation in his chest which felt identical to his previous atrial fibrillation episodes. He took a single oral diltiazem of 30 mg which he only takes on a as needed basis and has not taken for quite some time. Unfortunately this did not change anything and he came to the ER for further evaluation. He denies any chest pain, syncope, vomiting or diarrhea. He denies any fever or chills. He has been taking his regular medications otherwise as directed. Related Data Home Medications Medication Instructions Recorded Confirmed multivitamin with minerals (Men's 1 ea PO DAILY 12/17/12 12/02/23 One Daily tablet) omega-3 fatty acids-fish oil 300 1 ea PO HS 06/04/16 12/02/23 mg-1,000 mg capsule cholecalciferol (vitamin D3) 25 1,000 unit PO DAILY 06/15/18 12/02/23 mcg (1,000 unit) capsule apixaban 5 mg tablet (Eliquis) 5 mg PO BID 12/30/18 12/02/23 diltiazem HCl 30 mg tablet 30 mg PO DAILY PRN PRN #10 tabs 10/09/20 12/02/23 (Cardizem) acetaminophen 500 mg tablet 500 mg PO Q6H PRN 06/04/21 12/02/23 (Tylenol Extra Strength) hydrochlorothiazide 12.5 mg capsule 12.5 mg PO DAILY 06/04/21 12/02/23 atorvastatin 40 mg tablet 40 mg PO DAILY 09/26/21 12/02/23 nitroglycerin 0.4 mg sublingual 0.4 mg sublingual Q5M PRN 09/26/21 12/02/23 tablet calcium citrate 315 mg 2 tab PO DAILY 10/17/21 12/02/23 calcium-vitamin D3 6.25 mcg (250 unit) tablet levetiracetam 500 mg tablet 500 mg PO BID #180 tab-caps 12/15/22 12/02/23 (Keppra) allopurinol 300 mg tablet See Rx Instructions .Route 02/01/23 12/02/23 .COMPLEX #30 tabs folic acid 1 mg tablet 1 mg PO DAILY #90 tabs 05/12/23 12/02/23 pantoprazole 40 mg tablet,delayed See Rx Instructions .Route 10/30/23 12/02/23 release .COMPLEX #30 tabs zoledronic acid 5 mg/100 mL in See Rx Instructions IV .COMPLEX 11/30/23 12/02/23 mannitol 5 %-water intravenous piggybck (Reclast) Previous Rx's Medication Instructions Recorded diltiazem HCl 30 mg tablet 30 mg PO DAILY PRN PRN #10 tabs 10/09/20 (Cardizem) levetiracetam 500 mg tablet 500 mg PO BID #180 tab-caps 12/15/22 (Keppra) allopurinol 300 mg tablet See Rx Instructions .Route 02/01/23 .COMPLEX #30 tabs folic acid 1 mg tablet 1 mg PO DAILY #90 tabs 05/12/23 pantoprazole 40 mg tablet,delayed See Rx Instructions .Route 10/30/23 release .COMPLEX #30 tabs Allergies Allergy/AdvReac Type Severity Reaction Status Date / Time No Known Allergies Allergy Verified 11/30/23 06:09 General Stated Complaint: Chest Pain FLY: 3 Review of Systems All systems reviewed & are unremarkable except as noted in HPI and below Exam Narrative Exam Narrative: 1.Const: Well-nourished, Well-developed, appearing stated age 2.Eyes: PERRL, no conjunctival injection, and symmetrical lids. 3.ENT: Atraumatic external nose and ears. Moist MM. Neck: Symmetric, trachea midline, No thyromegaly. 4.CVS: +S1/S2, No murmurs or gallops. Peripheral pulses 2+ and equal in all extremities. Brisk capillary refill in all extremities. 5.RESP: Unlabored respiratory effort. Clear to auscultation bilaterally. No wheezes rales or rhonchi 6.GI: Soft, Nontender/Nondistended, No hepatosplenomegaly. No guarding or rebound. 7.MSK: Normocephalic/Atraumatic, Extremities w/o deformity or ttp No cyanosis or clubbing, Normal movement of all extremities 8.Skin: Warm, Dry. No rashes or lesions. 9.Neuro: placement officer II-XII grossly intact. Sensation grossly intact, no focal neurologic deficits. 10.Psych: (AAO) x3. Appropriate mood and affect Course Vital Signs Vital signs: Vital Signs Temperature 36.6 C 12/02/23 04:55 Pulse 132 H 12/02/23 04:55 Respiratory Rate 20 12/02/23 04:55 Blood Pressure 172/113 H 12/02/23 04:55 Pulse Oximetry 98 12/02/23 04:55 Temperature 36.6 C 12/02/23 04:55 Pulse 96 H 12/02/23 05:27 Pulse 109 H 12/02/23 05:27 Respiratory Rate 22 12/02/23 05:27 Respiratory Effort Normal 12/02/23 04:58 Blood Pressure 109/61 12/02/23 05:27 Blood Pressure Mean 76 12/02/23 05:27 Pulse Oximetry 96 12/02/23 05:27 Respiratory End-tidal CO2 16 12/02/23 05:27 Oxygen Delivery Method Room Air 12/02/23 04:55 Oxygen Flow Rate 0 12/02/23 04:55 Lab/Test Results Lab/Test Results: Laboratory Tests Range/Units 12/02/23 05:01 WBC (4.4-10.8) 10^3/uL 8.94 RBC (4.36-5.78) 10^6/uL 4.48 Hgb (13.5-17.5) g/dL 14.6 Hct (40.0-50.0) % 44.3 MCV (80-95) fL 99 H MCH (27.0-33.0) pg 32.6 MCHC (32.0-36.0) % 33.0 RDW (11.8-14.1) % 13.3 Plt Count (130-400) 10^3/uL 191 MPV (8.0-11.0) fL 11.3 H Immature Gran % % 0.3 Neutrophils % % 73.3 Lymphocytes % % 16.9 Monocytes % % 8.5 Eosinophils % % 0.7 Basophils % % 0.3 Nucleated RBC % (0.0-0.3) % 0.0 Absolute Neutrophils (1.2-6.7) 10^3/uL 6.55 Absolute Lymphocytes (1.2-3.4) 10^3/uL 1.51 Absolute Monocytes (0.1-0.8) 10^3/uL 0.76 Absolute Eosinophils (0.0-0.7) 10^3/uL 0.06 Absolute Basophils (0.0-0.2) 10^3/uL 0.03 PT (9.1-11.1) sec 9.9 INR (0.9-1.1) 1.0 APTT (23.6-32.8) sec 29.1 Procedures Procedural Sedation Indication: other (Cardioversion) ASA Class: I Preparation: finance lead applied, pulse oximeter, capnometry used, supplemental O2 applied, suction/airway equipment at bedside and IV secured IV Propofol dose (mg): 150 Patient Tolerated Procedure: well and no complications Complications: hypoventilation Interventions: oxygen applied Other Description: Time out was taken to identify the correct patient, procedure, and site. Risks and benefits were discussed with the patient and consent was obtained. The cardioversion pads are placed in the front to back orientation overlying the heart. After appropriate analgesia and anesthesia are obtained, the defibrillator is synchronized to the patient's heart rhythm. 120 J of energy are delivered and the patient's rhythm converted to normal sinus for a brief period. Second shock was performed at 150 J while the patient was still while sedated. Patient did not convert for his rate or rhythm and still remained in A-fib with RVR. The patient tolerated the procedure. There were no complications. Medical Decision Making This is a very pleasant 63-year-old male with a past medical history of coronary artery disease detected on CT scan, aortic aneurysm, bicuspid aortic valve, A-fib which has been effectively resolved with CPAP, but still remains on Eliquis, sleep apnea, but lower cholesterol currently well-managed, previous kidney stones, and osteoporosis currently taking supplemental q. 14-month injections, who presents today for rapid heart rate. Patient has not had A-fib for years, in fact they are actually talking about taking him off his Eliquis recently, 24 hours ago the patient was here in the emergency department for mild left-sided chest achiness that occurred after doing a fair bit of wood milling at home. His workup including CTA was benign, his aortic aneurysm was unchanged, serial troponins were normal, patient felt well and was discharged home this morning. Unfortunately this evening about 20 hours later the patient awoke and began his day, shortly thereafter he noted a fluttering sensation in his chest which felt identical to his previous atrial fibrillation episodes. He took a single oral diltiazem of 30 mg which he only takes on a as needed basis and has not taken for quite some time. Unfortunately this did not change anything and he came to the ER for further evaluation. He denies any chest pain, syncope, vomiting or diarrhea. He denies any fever or chills. He has been taking his regular medications otherwise as directed. Exam demonstrates well-appearing male, no acute distress, heart rates in the 160s to 170s, blood pressure is stable though. Patient did take his apixaban as prescribed this morning. Patient otherwise looks well. Does appear that patient's atrial fibrillation has returned on EKG. He is in A-fib with RVR. No significant ST elevations, minimal lateral ST depressions are noted. I had a long discussion with the patient, and he states that he has required to be admitted in the past and has required Cardizem infusion/drips. I did discuss options of electrocardioversion versus medication utilization. After long discussion through shared decision-making process, patient has requested a preference to electrical cardioversion for potential rate and rhythm management. Patient consents to sedation and procedure. We will give 15 mg of IV Cardizem prior to electrical cardioversion. Will call RT, sedate with propofol, monitor closely and reassess. 5:42 AM Patient was initially given 50 of propofol, inadequate sedation, patient was given an additional 50, and adequate sedation, patient was given an additional 50, and achieved good sedation status. Patient was then synchronized and cardioverted at 120 J. Patient had a brief 10-20 beat run of normal sinus rhythm however shortly thereafter he went back into A-fib with RVR, the decision was made to perform second cardioversion as the patient was still well sedated. Second cardioversion brought about no rate or rhythm change. An additional 10 mg of Cardizem was then given, unfortunately still no change after 10 to 15-minute observation. It was then decided to add a Cardizem drip for rate and rhythm control. Will continue to monitor closely, rehydrate and reassess. Patient came out of his sedation very well, and had no problems pain or challenges from the vent. 6 AM Patient's heart rate remains elevated, currently in the low 100s, patient is still in atrial fibrillation while on the Cardizem drip. With no significant improvement I do feel that he will require admission. Will page the hospitalist at this time. Electrolytes do demonstrate a low potassium at 3.0, we will give 40 mEq orally and 20 IV. 6:50 AM Spoke with hospitalist Dr. Doyle, he agrees with the assessment and plan. Patient will be admitted on Cardizem drip. Patient's heart rate jumps between the 80s in the 130s now. He is still in A-fib. Blood pressure remained stable. Symptomatically he feels much better. I have extensively reviewed the treatment plan with the patient. I have addressed all patient concerns at this time. I have also discussed the plan with the admitting physician and they agree with the current assessment and plan and have agreed to assume responsibility for the patient. All parties demonstrate verbal understanding and agreement with our assessment and plan at this time. The documentation in this chart was dictated using [employer] dictation software. Please excuse any dictation errors. Quality:SDOH Health Related Social Needs: No Data to Display Critical Care Time Critical Care Time Critical Care Time: Yes Total Critical Care Time: 100 Attestation: Upon my evaluation, this patient had a high probability of imminent or life-threatening deterioration, which required my direct attention, intervention, and personal management. I have personally provided 100 minutes of critical care time exclusive of time spent on separately billable procedures. Time includes review of laboratory data, radiology results, discussion with consultants, and monitoring for potential decompensation. Interventions were performed as documented. PFSH All Active Problems Acute hypokalemia (Acute) Atrial fibrillation with RVR (Acute) Atrial fibrillation with rapid ventricular response (Acute) Hypokalemia (Acute) Chest pain (Acute) Onychocryptosis (Acute) Heart murmur (Acute) Left leg numbness (Acute) Epilepsy (Chronic) Essential hypertension (Chronic) Hyperlipidemia (Chronic) Sleep apnea (Chronic) Uses CPAP Urinary hesitancy (Acute) Rising PSA level (Acute) Kidney stones (Chronic) Paroxysmal A-fib (Chronic) Sees cardiology at [facility] Ascending aortic aneurysm (Acute) Actinic keratoses (Chronic) Tobacco use disorder (Chronic) Quit 15 years ago. Serum calcium elevated (Chronic 11/19/15) Hyper PTH Parathyroid surgery 10/03 removing one of 4 glands Sciatica (Chronic) left; disk; persistent left foot numbness 05/2021-recurrent low back pain. No persistent sciatica, prior history of compression fracture to L1-stable per imaging consistent with diagnosis of prior osteoporosis Osteoporosis (Chronic) T score of 3.5 LS spine, history of compression fracture, managed by endocrine at [facility], presumed secondary to iatrogenic effect with long-term seizure use-Dilantin, as of 05/2021 on Reclast infusion Hyperparathyroidism (Chronic 10/22/17) surgery [facility] [place] Hearing loss (Chronic) Benign prostatic hyperplasia (Chronic) Aortic valve stenosis (Chronic) mild. echo 2012 neg MPI 12/01. Alcohol abuse (Chronic) sober for 7 years as of 2021 Medical History History of postoperative nausea and vomiting Hx of gastroesophageal reflux (GERD) Seizure last seizure 35 years ago Surgical History Hx of esophagogastroduodenoscopy (~10/01/20) H/O parathyroidectomy Excision, Distal Clavicle (03/22/15) ALSO NEER ACROMIOPLASTY/LIMITED ROTATOR CUFF REPAIR/ DR ROSARIO Cystoscopy 11/14/15; DR. DEVI Colonoscopy - [facility] [place] 2008 Family History Mother , age 68 Alzheimer disease MS (multiple sclerosis) Father , age 72 Diabetes Essential hypertension Heart disease Hyperlipidemia Sister No problems noted. Brother No problems noted. Brother Crohns disease Maternal Grandfather , age 70 Heart disease Paternal Grandfather , age 92 No problems noted. Maternal Grandmother , age 70 No problems noted. Paternal Grandmother , age 94 Intestinal cancer Brother No problems noted. Son No problems noted. Daughter No problems noted. Daughter No problems noted. Social History Smoking/Tobacco Use Status: Former Tobacco Use tobacco type: cigarettes Quit Date: 07/19/06 Pack-years: 25 Tobacco: How many years used: 13 Second Hand Exposure: Yes Smoking risk assessment performed?: Yes Alcohol Intake: former Drug use: Never Substance use type: does not use Details: sober for 6 years Caregiver/Support person: Yes Household members: spouse Housing: house Communication Needs: None Do you need help understanding health information?: Rarely Pets and animals: Yes Pets and animals: dog(s) Sexually active: Yes Do you think of yourself as: straight/heterosexual Current gender identity: male What is your relationship status?: How often do you talk on the phone with friends or family?: once per week How often do you get together with friends or relatives?: once per week How often do you attend pentecostalism or scientology services?: decline to answer Do you belong to any clubs or organized social groups?: no Panel score (0-1 are the most socially isolated patients): 1 What type of physical activity do you participate in: walking Duration: 30-45 minutes/day Frequency: 1-2 times per week Caitlin/Quaker: No preference Special caitlin needs: No Seatbelt use: always Helmet use: Yes Helmet use: always Drive intox or ride w/intox local company hazmat 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
[2023-12-02 05:39] LABS: ALT 42 U/L (16-63); AST 29 U/L (15-37); Albumin 3.6 g/dL (3.4-5.0); Alkaline Phosphatase 121 U/L (46-116); Anion Gap 7.4 mmol/L (3-11); BUN 15 mg/dL (7-18); Bilirubin, Total 0.3 mg/dL (0.2-1.0); CO2 30.6 mmol/L (21.0-32.0); CREATININE 0.8 mg/dL (0.70-1.30); Calcium 9.1 mg/dL (8.5-10.1); Chloride 104 mmol/L (98-107); Estimated GFR 98.21 (mL/min/1.73m2); Glucose 108 mg/dL (74-106); NT-proBNP 240 pg/mL (<300); Sodium 142 mmol/L (136-145); TSH (W/Ref FT4) 2.35 uIU/mL (0.36-3.74); Total Protein 8.1 g/dL (6.4-8.2); Troponin I < 50 ng/L (< or =60)
[2023-12-02] MEDS: dilTIAZem 125 MG in Normal Saline 100 ML 15 MG IV (05:41)
[2023-12-02 06:08] LABS: Magnesium 1.8 mg/dL (1.8-2.4)
[2023-12-02] MEDS: POTASSIUM CHLORIDE 20 MEQ/100 ML BAG 50 MEQ IVINF (06:08)
[2023-12-02] MEDS: Potassium Chloride 20 MEQ TABCR 40 MEQ PO (06:08)
--- NOTE | 2023-12-02 06:36 | W.PM.HP.N ---
Date of service: 12/02/23 Time of Service: 06:36 Assessment and Plan Assessment and plan (1) Atrial fibrillation with rapid ventricular response: Start date: 12/02/23 Status: Acute Assessment and plan: This is a 63-year-old gentleman who has not had an episode of atrial fibrillation for 4 years on treatment of NINA with CPAP. He presented to the ED with recurrent atrial fibrillation and rapid ventricular response with symptoms of palpitations and chest tightness radiating into his neck which resolved with heart rate control. He failed cardioversion attempt x 2 being on Eliquis chronically even though he has been in normal sinus rhythm for 4 years. He does see cardiology and electrophysiology at [facility]. Initial troponin is negative and will be trended. He is asymptomatic presently. He did respond to diltiazem bolus and infusion and will be admitted to ICU for continued monitoring and trending labs. He did have a low potassium on chronic controlled thiazide for hypertension and this will be repleted. Admission was low normal and will be repleted. The patient will need echocardiogram updated which was scheduled for September 2023. This has not been performed at [facility]. Patient will be converted to oral therapy if he does convert on diltiazem versus discussion of ablation therapy which can be discussed with follow-up at [facility] electrophysiology. He has not trialed any antiarrhythmics which may be appropriate prior to considering ablation. Patient is a full code. (2) Chest pain: Status: Chronic Assessment and plan: Patient recently had musculoskeletal chest pain not responsive to nitroglycerin and does have a history of nitroglycerin responsive exertional chest pain in the past. He has not used his nitroglycerin recently. He does have cardiovascular risk and is on appropriate therapy. Trend troponins and follow-up discussion with [facility]. Patient never has had an acute OR. Qualifiers: Chest pain type: other chest pain Qualified Code(s): R07.89 - Other chest pain (3) Hypokalemia: Start date: 12/02/23 Status: Acute Assessment and plan: IV repletion and follow-up BMP on oral therapy daily. (4) Essential hypertension: Status: Chronic Assessment and plan: Patient is on low-dose hydrochlorothiazide and does have hypokalemia. This appears to be controlled with minimal therapy. Continue thiazide 12.5 mg daily. (5) Sleep apnea: Status: Chronic Assessment and plan: On chronic CPAP and doing well. Continue the same. Qualifiers: Sleep apnea type: obstructive Qualified Code(s): G47.33 - Obstructive sleep apnea (adult) (pediatric) (6) Aortic valve stenosis: Status: Chronic Assessment and plan: Moderate and stable by most recent echocardiogram at [facility]. Update echocardiogram. He does have a bicuspid valve. Qualifiers: Cardiac valve disease etiology: etiology unspecified Qualified Code(s): I35.0 - Nonrheumatic aortic (valve) stenosis (7) Hyperlipidemia: Status: Chronic Assessment and plan: On atorvastatin with continuation of the same. Qualifiers: Hyperlipidemia type: other hyperlipidemia Qualified Code(s): E78.49 - Other hyperlipidemia (8) Epilepsy: Status: Chronic Assessment and plan: Seizure-free for many years but continuing on low-dose Keppra. There are no plans to change his therapy. 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 This is not an active problem. He has good insight. (10) Kidney stones: Status: Chronic Assessment and plan: On allopurinol for prevention. Continue same. Check uric acid History of Present Illness History of Present Illness Chief Complaint: Sudden onset chest pain with palpitations Narrative: This is a 63-year-old male patient who had a recent visit to the ED for chest pain which was diagnosed as musculoskeletal and did not respond to nitroglycerin sublingually with a negative troponin at that time. He carries a history of exertional angina but has never taken nitroglycerin for his chest pain even though he carries a fresh bottle. He was diagnosed with CAD by CT scan. He also has a history of an aortic aneurysm which was stable on recent CTA with no evidence of dissection or PE. He is chronically on Eliquis for paroxysmal atrial fibrillation and at his initial visit he was in sinus rhythm. He usually goes to sleep around 7 PM and wears CPAP which has corrected his paroxysmal atrial fibrillation for 4 years with discussion of possibly stopping Eliquis recently. He has been compliant on Eliquis. He was using Cardizem 30 mg as needed for palpitations or recurrent atrial fibrillation which he has not had for at least 4 years after initiation of his treatment of NINA with CPAP. He does see cardiology at [facility]. 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 He awakens at about 3 AM in the morning and on the morning of admission he awakened and had breakfast. At about 4 AM in the morning the patient had a sudden onset of palpitations with chest tightness going into his neck which is common when he is in atrial fibrillation. He awakened his and reported to the ED for reevaluation and was found to have rapid ventricular response with atrial fibrillation. His heart rate was in the 170s. He had discussed ablation therapy 4 years ago prior to control of his paroxysmal atrial fibrillation using CPAP for treatment of NINA. He does see electrophysiology at [facility]. In the ED, he consented to attempt of cardioversion which was performed twice with the first cardioversion attempt converting him to sinus rhythm for a brief period and a second cardioversion attempt being unsuccessful. He was started on a diltiazem infusion after 2 boluses but still remains in atrial fibrillation though his heart rate is controlled just above 100 varying at times down to the 80s while I was interviewing him at the bedside. He is not having chest tightness or neck discomfort presently and did not receive any nitroglycerin this ED visit. His troponin was negative initially with his second troponin pending. Patient's other medical problems are stable on medical therapy and he is on atorvastatin and baby aspirin for his cardiovascular risk. He did have a slightly low potassium which will be repleted and follow his magnesium was low normal with magnesium being given as will and will be trended. EKG did not show any acute ST-T changes with atrial fibrillation. Patient will be admitted to ICU for continued IV diltiazem and heart rate control hopefully can convert to oral diltiazem if he automatically converts. [facility] cardiology will be called. He is a full code. Review of Systems Narrative: 13 point review of systems otherwise unrevealing or stable. He has had no weight gain or recent exertional symptoms. He denies any peripheral edema. PFSH All Active Problems Acute hypokalemia (Acute) Atrial fibrillation with RVR (Acute) Atrial fibrillation with rapid ventricular response (Acute) Hypokalemia (Acute) Chest pain (Chronic) Onychocryptosis (Acute) Heart murmur (Acute) Left leg numbness (Acute) Epilepsy (Chronic) Essential hypertension (Chronic) Hyperlipidemia (Chronic) Sleep apnea (Chronic) Uses CPAP Urinary hesitancy (Acute) Rising PSA level (Acute) Kidney stones (Chronic) Paroxysmal A-fib (Chronic) Sees cardiology at [facility] Ascending aortic aneurysm (Acute) Actinic keratoses (Chronic) Tobacco use disorder (Chronic) Quit 15 years ago. Serum calcium elevated (Chronic 11/19/15) Hyper PTH Parathyroid surgery 10/03 removing one of 4 glands Sciatica (Chronic) left; disk; persistent left foot numbness 05/2021-recurrent low back pain. No persistent sciatica, prior history of compression fracture to L1-stable per imaging consistent with diagnosis of prior osteoporosis Osteoporosis (Chronic) T score of 3.5 LS spine, history of compression fracture, managed by endocrine at [facility], presumed secondary to iatrogenic effect with long-term seizure use-Dilantin, as of 05/2021 on Reclast infusion Hyperparathyroidism (Chronic 10/22/17) surgery [facility] 2017 Hearing loss (Chronic) Benign prostatic hyperplasia (Chronic) Aortic valve stenosis (Chronic) mild. echo 2013 neg MPI 12/01. Alcohol abuse (Chronic) sober for 7 years as of 2021 Medical History History of postoperative nausea and vomiting Hx of gastroesophageal reflux (GERD) Seizure last seizure 35 years ago Surgical History Hx of esophagogastroduodenoscopy (~10/01/20) H/O parathyroidectomy Excision, Distal Clavicle (03/22/15) ALSO NEER ACROMIOPLASTY/LIMITED ROTATOR CUFF REPAIR/ DR ROSARIO Cystoscopy 11/14/15; DR. DEVI Colonoscopy - [facility] 2008 Family History Mother , age 68 Alzheimer disease MS (multiple sclerosis) Father , age 72 Diabetes Essential hypertension Heart disease Hyperlipidemia Sister No problems noted. Brother No problems noted. Brother Crohns disease Maternal Grandfather , age 70 Heart disease Paternal Grandfather , age 92 No problems noted. Maternal Grandmother , age 70 No problems noted. Paternal Grandmother , age 94 Intestinal cancer Brother No problems noted. Son No problems noted. Daughter No problems noted. Daughter No problems noted. Social History Smoking/Tobacco Use Status: Former Tobacco Use tobacco type: cigarettes Quit Date: 07/19/06 Pack-years: 25 Tobacco: How many years used: 13 Second Hand Exposure: Yes Smoking risk assessment performed?: Yes Alcohol Intake: former Drug use: Never Substance use type: does not use Details: sober for 6 years Caregiver/Support person: Yes Household members: spouse Housing: house Communication Needs: None Do you need help understanding health information?: Rarely Pets and animals: Yes Pets and animals: dog(s) Sexually active: Yes Do you think of yourself as: straight/heterosexual Current gender identity: male What is your relationship status?: How often do you talk on the phone with friends or family?: once per week How often do you get together with friends or relatives?: once per week How often do you attend synagogue or uatsdin services?: decline to answer Do you belong to any clubs or organized social groups?: no Panel score (0-1 are the most socially isolated patients): 1 What type of physical activity do you participate in: walking Duration: 30-45 minutes/day Frequency: 1-2 times per week Caitlin/Mu-Ism: No preference Special caitlin needs: No Seatbelt use: always Helmet use: Yes Helmet use: always Drive 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 or ride w/intox 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 Meds Allergies and Home Medications Allergies Allergy/AdvReac Type Severity Reaction Status Date / Time No Known Allergies Allergy Verified 11/30/23 06:09 Home Medications Medication Instructions Recorded Confirmed Type multivitamin with minerals (Men's 1 ea PO DAILY 12/17/12 12/02/23 History One Daily tablet) omega-3 fatty acids-fish oil 300 1 ea PO HS 06/04/16 12/02/23 History mg-1,000 mg capsule cholecalciferol (vitamin D3) 25 1,000 unit PO DAILY 06/15/18 12/02/23 History mcg (1,000 unit) capsule apixaban 5 mg tablet (Eliquis) 5 mg PO BID 12/30/18 12/02/23 History diltiazem HCl 30 mg tablet 30 mg PO DAILY PRN PRN #10 tabs 10/09/20 12/02/23 Rx (Cardizem) acetaminophen 500 mg tablet 500 mg PO Q6H PRN 06/04/21 12/02/23 History (Tylenol Extra Strength) atorvastatin 40 mg tablet 40 mg PO DAILY 09/26/21 12/02/23 History nitroglycerin 0.4 mg sublingual 0.4 mg sublingual Q5M PRN 09/26/21 12/02/23 History tablet calcium citrate 315 mg 2 tab PO DAILY 10/17/21 12/02/23 History calcium-vitamin D3 6.25 mcg (250 unit) tablet levetiracetam 500 mg tablet 500 mg PO BID #180 tab-caps 12/15/22 12/02/23 Rx (Keppra) allopurinol 300 mg tablet See Rx Instructions .Route 02/01/23 12/02/23 Rx .COMPLEX #30 tabs folic acid 1 mg tablet 1 mg PO DAILY #90 tabs 05/12/23 12/02/23 Rx pantoprazole 40 mg tablet,delayed See Rx Instructions .Route 10/30/23 12/02/23 Rx release .COMPLEX #30 tabs zoledronic acid 5 mg/100 mL in See Rx Instructions IV .COMPLEX 11/30/23 12/02/23 History mannitol 5 %-water intravenous piggybck (Reclast) hydrochlorothiazide 12.5 mg tablet 12.5 mg PO DAILY 12/02/23 12/02/23 History Exam Narrative Exam Narrative: General: Patient appears appropriate for age and is in no acute distress. He is talkative with a normal speech and rhythm and is not anxious. He is accompanied by his . Patient is alert and oriented x 3. HEENT: Cephalic, eyes with pupils equal and reactive to light symmetrically, extraocular movement intact and sclera anicteric. Oropharynx with moist mucosa and fair dentition. Neck: Supple without JVD. Surgical scars well-healed from previous parathyroidectomy Back: Normal posture without CVA tenderness. Lungs: Fair aeration and clear to auscultation percussion with no focalizing rales or rhonchi. No expiratory wheeze. Heart: Irregularly irregular rhythm with tachycardic rate. He does at times have a heart rate below 100 but it increases above 100 with conversation. 3/6 crescendo systolic murmur over left sternal border. No rubs or gallops. Abdomen: Normal contour, soft nontender to palpation no palpable hepatosplenomegaly. Bowel sounds positive in all quadrants. Genitalia/rectal: Exam deferred. Skin: Normal color, warm and dry. Rough texture with actinic changes over sun exposed areas. Extremities: Without clubbing, cyanosis or pitting edema. Peripheral pulses intact. Neuro: Cranial nerves II through XII gross intact, no focalizing motor deficits. No tremor. Psych: Normal affect and mood. No abnormal thought processes. Remote and recent memory intact. Results Imaging Imaging Studies: CT THORAX CTA EXAM: CT THORAX CTA CLINICAL HISTORY: hx of AA, chest pain today, eval for dissection. TECHNIQUE: Imaging Protocol: CT angiography of the chest was performed using pulmonary embolus protocol. Multi planar reconstructions were performed. CONTRAST MATERIAL: Intravenous: Omnipaque 350 Contrast volume: 100 cc COMPARISON: CR XR CHEST 2V PA LATERAL from 10/15/2021 FINDINGS: CHEST: THORACIC AORTA: The ascending thoracic aorta enlarged, exhibiting maximum diameter of 4.8 cm. There is no evidence of dissection. The aortic arch measures 2.5 cm. Proximal descending thoracic aorta measures 3 cm and descending thoracic aorta measures 2.5 cm. The aorta the level of the superior mesenteric. Incidental note made of the left vertebral artery originating as an independent vessel off the aortic arch, instead of arising in conventional fashion off of the left subclavian artery. There is no evidence of significant proximal subclavian artery stenosis. LUNGS: Mild increased markings in the posterior basal segments of both lower lobes, not associated with pleural effusions. No ominous pulmonary nodules. No pneumothorax. No findings in the trachea and mainstem bronchi.. There are no pleural effusions. MEDIASTINUM: There is no hilar nor mediastinal adenopathy. CARDIAC: Heart size is upper normal. There is no pericardial effusion. Ventricular ratio is 1:1 PARTIALLY VISUALIZED UPPERMOST ABDOMEN: No adrenal masses. No splenomegaly. Benign-appearing cyst noted in the left hepatic lobe which measures 1.5 cm size. OSSEOUS: No significant osseous lesions.Nonacute appearing compression fracture of T7 noted. Also nonacute appearing mild compression fracture of superior endplate of L1. No acute fractures evident.. IMPRESSION: 1. Ascending thoracic aortic aneurysm with maximum diameter of 4.8 cm. No evidence of dissection. No pericardial effusion.. 2. Other findings as above. Labs 12/02/23 05:01 12/02/23 08:40 Labs: Laboratory Results - last 24 hr 12/02/23 05:01 WBC 8.94 RBC 4.48 Hgb 14.6 Hct 44.3 MCV 99 H MCH 32.6 MCHC 33.0 RDW 13.3 Plt Count 191 MPV 11.3 H Immature Gran % 0.3 Neutrophils % 73.3 Lymphocytes % 16.9 Monocytes % 8.5 Eosinophils % 0.7 Basophils % 0.3 Nucleated RBC % 0.0 Absolute Neutrophils 6.55 Absolute Lymphocytes 1.51 Absolute Monocytes 0.76 Absolute Eosinophils 0.06 Absolute Basophils 0.03 PT 9.9 INR 1.0 APTT 29.1 Sodium 142 Potassium 3.0 L Chloride 104 Carbon Dioxide 30.6 Anion Gap 7.4 BUN 15 Creatinine 0.8 Est GFR (CKD-EPI 2020) 98.21 Glucose 108 H Calcium 9.1 Magnesium 1.8 Total Bilirubin 0.3 AST 29 ALT 42 Alkaline Phosphatase 121 H Troponin I < 50 NT-Pro-B Natriuret Pep 240 Total Protein 8.1 Albumin 3.6 TSH 2.35 Last Vital Signs Temp 36.6 C 12/02/23 04:55 Pulse 83 12/02/23 06:16 Resp 20 12/02/23 06:20 BP 119/68 12/02/23 06:16 Pulse Ox 95 12/02/23 06:20 Time Spent Time spent with Patient: >75 minutes Time was spent: preparing to see the patient(eg.review tests), obtaining and/or reviewing separately otained hiistory, ordering medications,tests, procedures, referring, communicating with other health patient care, indepentently interpreting results and care coordination
--- NOTE | 2023-12-02 07:38 | W.PC.ACHO ---
Registration Status: REG ER Primary Language: Preferred Language: Kazakh ED Information & Data Chief Complaint Chest Pain 12/02/23 05:49 Triage Note PT comes to the ED with 12/02/23 04:55 elevated HR and chest pain that started 1 hour ago. Medical / Surgical History (Last Reviewed 12/02/23 @ 06:38 by Ebenezer Doyle) History of postoperative nausea and vomiting Hx of gastroesophageal reflux (GERD) Seizure (Last Reviewed 12/02/23 @ 06:38 by Ebenezer Doyle) Hx of esophagogastroduodenoscopy (~10/01/20) H/O parathyroidectomy Excision, Distal Clavicle (03/22/15) Cystoscopy Colonoscopy - [facility] Most Recent Vital Signs Temperature 36.6 C 12/02/23 04:55 Pulse 87 12/02/23 06:31 Pulse 81 12/02/23 06:40 Respiratory Rate 17 12/02/23 06:40 Respiratory Effort Normal 12/02/23 04:58 Blood Pressure 115/76 12/02/23 06:31 Blood Pressure Mean 87 12/02/23 06:31 Pulse Oximetry 97 12/02/23 06:40 Respiratory End-tidal CO2 30 12/02/23 06:40 Oxygen Delivery Method Room Air 12/02/23 04:55 Oxygen Flow Rate 0 12/02/23 04:55 Pain Level 0 12/02/23 06:23 Allergies No Known Allergies Allergy (Verified 11/30/23 06:09) Active Medications Generic Name Dose Route Start Last Admin Trade Name Freq PRN Reason Stop Dose Admin Diltiazem HCl 125 mg/ Sodium 125 mls @ 15 mls/hr 12/02/23 05:45 12/02/23 05:41 Chloride IV 15 mg/hr INFUSION ZULLY 15 mls/hr Administration Protocol 15 MG/HR Potassium Chloride 20 meq in 100 mls @ 50 mls/hr 12/02/23 05:50 12/02/23 06:08 IVINF 12/02/23 07:49 50 mls/hr NOW ONE Administration IV IV Catheter Type [Right Saline Lock Antecubital] IV Catheter Type [Left Saline Lock Antecubital] IV Catheter Gauge [Right 20 Antecubital] IV Catheter Gauge [Left 18 Antecubital] Diet Orders Category Date Time Status Heart Healthy Eating [DIET] Nutrition 12/02/23 Breakfast Active Diagnostics 12/02/23 12/02/23 12/02/23 Range/Units 12:00 08:01 08:00 WBC (4.4-10.8) 10^3/uL RBC (4.36-5.78) 10^6/uL Hgb (13.5-17.5) g/dL Hct (40.0-50.0) % MCV (80-95) fL MCH (27.0-33.0) pg MCHC (32.0-36.0) % RDW (11.8-14.1) % Plt Count (130-400) 10^3/uL MPV (8.0-11.0) fL Immature Gran % % Neutrophils % % Lymphocytes % % Monocytes % % Eosinophils % % Basophils % % Nucleated RBC % (0.0-0.3) % Absolute Neutrophils (1.2-6.7) 10^3/uL Absolute Lymphocytes (1.2-3.4) 10^3/uL Absolute Monocytes (0.1-0.8) 10^3/uL Absolute Eosinophils (0.0-0.7) 10^3/uL Absolute Basophils (0.0-0.2) 10^3/uL PT (9.1-11.1) sec INR (0.9-1.1) APTT (23.6-32.8) sec Sodium Pending (136-145) mmol/L Potassium Pending (3.5-5.1) mmol/L Chloride Pending (98-107) mmol/L Carbon Dioxide Pending (21.0-32.0) mmol/L Anion Gap Pending (3-11) mmol/L BUN Pending (7-18) mg/dL Creatinine Pending (0.70-1.30) mg/dL Est GFR (CKD-EPI 2020) Pending (mL/min/1.73m2) Glucose Pending (74-106) mg/dL Uric Acid Calcium Pending (8.5-10.1) mg/dL Magnesium (1.8-2.4) mg/dL Total Bilirubin (0.2-1.0) mg/dL AST (15-37) U/L ALT (16-63) U/L Alkaline Phosphatase (46-116) U/L Troponin I Pending Pending (< or =60) ng/L NT-Pro-B Natriuret Pep (<300) pg/mL Total Protein (6.4-8.2) g/dL Albumin (3.4-5.0) g/dL TSH (0.36-3.74) uIU/mL 12/02/23 12/02/23 Range/Units 06:56 05:01 WBC 8.94 (4.4-10.8) 10^3/uL RBC 4.48 (4.36-5.78) 10^6/uL Hgb 14.6 (13.5-17.5) g/dL Hct 44.3 (40.0-50.0) % MCV 99 H (80-95) fL MCH 32.6 (27.0-33.0) pg MCHC 33.0 (32.0-36.0) % RDW 13.3 (11.8-14.1) % Plt Count 191 (130-400) 10^3/uL MPV 11.3 H (8.0-11.0) fL Immature Gran % 0.3 % Neutrophils % 73.3 % Lymphocytes % 16.9 % Monocytes % 8.5 % Eosinophils % 0.7 % Basophils % 0.3 % Nucleated RBC % 0.0 (0.0-0.3) % Absolute Neutrophils 6.55 (1.2-6.7) 10^3/uL Absolute Lymphocytes 1.51 (1.2-3.4) 10^3/uL Absolute Monocytes 0.76 (0.1-0.8) 10^3/uL Absolute Eosinophils 0.06 (0.0-0.7) 10^3/uL Absolute Basophils 0.03 (0.0-0.2) 10^3/uL PT 9.9 (9.1-11.1) sec INR 1.0 (0.9-1.1) APTT 29.1 (23.6-32.8) sec Sodium 142 (136-145) mmol/L Potassium 3.0 L (3.5-5.1) mmol/L Chloride 104 (98-107) mmol/L Carbon Dioxide 30.6 (21.0-32.0) mmol/L Anion Gap 7.4 (3-11) mmol/L BUN 15 (7-18) mg/dL Creatinine 0.8 (0.70-1.30) mg/dL Est GFR (CKD-EPI 2020) 98.21 (mL/min/1.73m2) Glucose 108 H (74-106) mg/dL Uric Acid Pending Calcium 9.1 (8.5-10.1) mg/dL Magnesium 1.8 (1.8-2.4) mg/dL Total Bilirubin 0.3 (0.2-1.0) mg/dL AST 29 (15-37) U/L ALT 42 (16-63) U/L Alkaline Phosphatase 121 H (46-116) U/L Troponin I < 50 (< or =60) ng/L NT-Pro-B Natriuret Pep 240 (<300) pg/mL Total Protein 8.1 (6.4-8.2) g/dL Albumin 3.6 (3.4-5.0) g/dL TSH 2.35 (0.36-3.74) uIU/mL Intake and Output - 24 Hour Total 12/02/23 04:50 thru 12/02/23 06:23 Output Total 400 Balance -400 Weight 103.4 kg Output: Urine 400 Problems Atrial fibrillation with rapid ventricular response (Acute) Hypokalemia (Acute) Epilepsy (Chronic) Essential hypertension (Chronic) Hyperlipidemia (Chronic) Sleep apnea (Chronic) Aortic valve stenosis (Chronic) Alcohol abuse (Chronic) Notes 12/02/23 05:32 Nursing Notes by Chika Silvestre Nursing Note:MD and pt time out done at bedside and witnessed by this nurse @ 0513, BP 169/93, o2 98%, Afrib RVR 130, RR24, co2 34. RT at bedside for support. 0511 15mg diltiazem administered, 0514 50 mg propofol administered by , 0515 25 mg propofol administered by MD 0516 25 mg propofol administered by 0517 50 mg propofol administered by MD. Pt sedated, O2 96% supported by RT. 0518 120 J synced administered to pt by MD, NSR 0518 HR 74. 0519 Afib RVR returned HR 115, pt sedated and supported by RT o2 95%, 120j synced administered to pt by , NSR not achieved. 0524 10 mg diltiazem administered to pt by this nurse. Afib rvr continued, dilt drip indicated per MD Initialized on 05/16/24 05:32 - END OF NOTE v v v v v v v v v Sending and/or Receiving Nurses: Please use comment section below to note any information pertinent to the patient hand-off not included above. Information / Comments: Report received from: Jorge A Nicolas RN
--- NOTE | 2023-12-02 08:00 | DI.US_ITS ---
APPROVED REPORT EXAM: Comprehensive 2D, Doppler, and color-flow Echocardiogram Patient Location: In-Patient Room/Bed: [id number] Clear Coat Sprayer: Keesha Bustamante RDCS (AE) Indications: Aortic Stenosis with PAF, RVR Other Information Study Quality: Adequate. Technically limited study due to exam done bedside icu. Conclusion Normal left ventricular wall thickness and chamber size. Ejection fraction is 60 to 65%. Wall motio n is normal Normal right ventricular size and function Both atria are normal in size Aortic valve is sclerotic. Number of aortic valve leaflets could not be accurately determined. Ther e is mild aortic stenosis. Peak gradient is 29, mean 16 mmHg. Calculated aortic valve area is 1.5 c m??. There is mild eccentric aortic regurgitation Estimated right ventricular systolic pressure is 22 mmHg Wall motion Left Ventricle The left ventricle is normal size. The left ventricular systolic function is normal. The left ventric ular ejection fraction is within the normal range. There is normal left ventricular wall thickness.. There is normal LV segmental wall motion. There is no ventricular septal defect visualized. LVEF is 5 8%. Right Ventricle Right ventricle is grossly normal in size. Right ventricular systolic function is grossly normal. Atria The left atrium size is normal. The right atrium size is normal. The interatrial septum is intact wit h no evidence for an atrial septal defect. Aortic Valve Aortic valve is calcified. Number of aortic valve leaflets could not be assessed. Mild aortic stenosi s. Peak aortic valve gradient is 29.88mmHg. Highest mean aortic valve gradient is 16.34mmHg. Calculat ed VICENTE by the continuity equation is 1.5cm2. Mild eccentric aortic regurgitation. Mitral Valve The mitral valve is normal in structure. No evidence of mitral valve stenosis. Trace mitral regurgita tion. Tricuspid Valve The tricuspid valve is normal in structure. There is no tricuspid valve stenosis. Trace to mild tricu spid regurgitation. The RVSP is 22.1 mmHg. Pulmonic Valve Pulmonic valve is not well visualized. There is no pulmonic valvular stenosis. Trace pulmonic regurgi tation. Great Vessels The aortic root is normal in size. Ascending aorta is not well visualized. Aortic arch is not well vi sualized. IVC is normal in size and collapses >50% with inspiration. Pericardium There is no pericardial effusion. 2D Dimensions IVSD d PLAX 1.23 cm M: 0.6-1.2 Ao Root d 3.73 cm M: 3.1 - 3.7 LVPW d PLAX 1.21 cm M: 0.6 - 1.2 LVID d PLAX 5.03 cm M: 4.2 - 5.8 LVDs 3.56 cm M: 2.5 - 4.0 LV EF Teichholz 55.7 % FS 29.13 % LV EDV (Teich) 119.8 mL LV ESV (Teich) 53.1 mL M-Mode TAPSE 1.91 cm (M/F) >1.7 Auto EF LV EDV A4C 176.1 mL LV EDV A2C 169.9 mL LV EDV BP 171.5 mL LV ESV A4C 70.5 mL LV ESV A2C 71.1 mL LV ESV BP 72.4 mL LVEF(%) A4C 60.0 % LVEF(%) A2C 58.1 % LVEF(%) BP 57.8 % LV SV A4C 105.6 ml LV SV A2C 98.7 ml LV SV BP 99.2 ml LV CO A4C 6.2 L/min LV CO A2C 5.5 L/min LV CO BP 5.8 L/min HR A4C 58.54 BPM HR A2C 55.64 BPM LV EDV Index (BP) LA Volume LA Length A4C 5.6 cm LA Length A2C 5.7 cm LA Area A4C s 21.16 cm2 LA Area A2C s 19.54 cm2 LA Vol A4C A-L 67.51 mL LA Vol A2C A-L 56.89 mL LA Vol Biplane A-L 62.3 mL LA Vol/BSA A4C A-L LA Vol/BSA A2C A-L LA Vol/BSA BP A-L 28.0 mL/m2 LA Vol A4C MOD 62.1 mL LA Vol A2C MOD 53.0 mL LA Vol BP MOD 57.5 mL RA Volume RA Area A4C 13.7 cm2 RA ESV A4C (A-L) 27.8mL RA Vol/BSA A4C A-L RA Length A4C 5.7 cm RA ESV A4C (MOD) 26.9mL LV Diastology MV E' medial 0.115 (>0.07 m/s) MV E' lateral 0.144 (>0.1 m/s) Aortic Valve AoV Vmax 2.73 m/s LVOT Vmax 1.18 m/s AoV Peak Grad 42.1 mmHg LVOT Peak Grad 5.5 mmHg AoV Area (Vmax) 1.49 cm2 LVOT VTI 0.305 m AoV VTI 0.555 m LVOT Mean Grad 4.0 mmHg AoV Mean Chemo. 1.89 m/s LVOT SV 105.21 mL AoV Mean Grad 16.3 mmHg LVOT Diam s 2.05 cm AoV Area (VTI) 1.90 cm2 AV Regurg Peak Gr. 54.35 mmHg Velocity Ratio 0.43 AR Decel [place] 1.8m/sec2 AR DT 2030 msec AR PHT 589 msec AR Vmax 3.69 m/s Mitral Valve MV Vmax TIPS 0.99 m/s MV Mean Grad 1.6 (<2mmHg) MV VTI 0.253 m Pulmonary Valve PV Vmax 0.68 (0.5-1.5 m/s) RVOT Vmax 0.57 m/s PV Peak Grad 1.8 mmHg RVOT Peak Gr. 1.3 mmHg PV Mean Chemo 0.52 m/s RVOT VTI 0.116 m PV Mean Grad 1.1 mmHg RVOT Mean Gr. 0.7 mmHg Tricuspid Valve RA Pressure 3.00 mmHg TR Vmax 2.19 m/s TV S' 0.14 m/s TR Peak Grad 19.1 mmHg RVSP (TR) 22.1 mmHg
[2023-12-02] MEDS: Potassium Chloride 20 MEQ TABCR PO (08:20)
[2023-12-02] MEDS: MAGNESIUM SULFATE 1 GM/100 ML BAG IVINF (08:21)
[2023-12-02] MEDS: Normal Saline Flush 10 ML SYR IVP ×3 (08:33→21:29)
[2023-12-02 09:05] LABS: Anion Gap 10.5 mmol/L (3-11); BUN 13 mg/dL (7-18); CO2 27.5 mmol/L (21.0-32.0); CREATININE 0.6 mg/dL (0.70-1.30); Calcium 8.6 mg/dL (8.5-10.1); Chloride 107 mmol/L (98-107); Estimated GFR 107.13 (mL/min/1.73m2); Glucose 100 mg/dL (74-106); Potassium 3.8 mmol/L (3.5-5.1); Sodium 145 mmol/L (136-145)
[2023-12-02 09:08] LABS: Uric Acid 2.7 mg/dL (3.5-7.2)
[2023-12-02 09:17] LABS: Troponin I 82 ng/L (< or =60)
--- NOTE | 2023-12-02 11:13 | PHA.REVIEW2 ---
Pharmacy Admission Review Admission Clinical Review Admission Pharmacy Review: Atrial fibrillation with rapid ventricular response (Acute) Hypokalemia (Acute) No Known Allergies Allergy (Verified 11/30/23 06:09) Resuscitation Status Full Code Height 6 ft 1 in Weight 99.9 kg Pharmacy Admission Review Renal Dosing Renal Dosing: BUN 13 mg/dL (7-18) 12/02/23 08:40 Creatinine 0.6 mg/dL (0.70-1.30) L 12/02/23 08:40 Medications needing adjustments: Reviewed (CrCl 91.56 mL/min) List of meds needing interventions: Current medications are okay Anticoagulation Anticoagulation: Hgb 14.6 g/dL (13.5-17.5) 12/02/23 05:01 Hct 44.3 % (40.0-50.0) 12/02/23 05:01 Plt Count 191 10^3/uL (130-400) 12/02/23 05:01 INR 1.0 (0.9-1.1) 12/02/23 05:01 Creatinine 0.6 mg/dL (0.70-1.30) L 12/02/23 08:40 DVT Prophylaxis: Reviewed Medications: Apixaban (5mg PO BID) Relevant Labs Relevant Labs: Sodium 145 mmol/L (136-145) 12/02/23 08:40 Potassium 3.8 mmol/L (3.5-5.1) 12/02/23 08:40 Chloride 107 mmol/L (98-107) 12/02/23 08:40 Magnesium 1.8 mg/dL (1.8-2.4) 12/02/23 05:01 Electrolytes, C-Reactive P, ESR: Reviewed Cardiac Review Cardiac Review: Troponin I 82 ng/L (< or =60) H* 12/02/23 08:40 NT-Pro-B Natriuret Pep 240 pg/mL (<300) 12/02/23 05:01 BP, HR, EF%: Reviewed (BP WNL, HR 55 - was 132 when admitted, repeat troponin pending) QTc Review QTc: Reviewed (450 from 12/02/23) IV to PO Switch IV Medications: Reviewed (Diltiazem drip - trying to transition to PO) Home Meds Home Med List reviewed: Reviewed Relevent Home Meds Not ordered & why?: Diltiazem (has order for infusion that will be switched to oral once stable), multivitamin and Reclast (every 14 months) Current Meds Current Medication Order Review: Reviewed Comments: Diltiazem infusion currently at 10mg/hr, last decreased at 1115 today
[2023-12-02 12:52] LABS: Troponin I 65 ng/L (< or =60)
--- NOTE | 2023-12-02 13:03 | W.PM.PROGNOT ---
Date of Service Date of service: 12/02/23 Time of Service: 13:03 Assessment and Plan Assessment and plan (1) Atrial fibrillation with rapid ventricular response: Status: Acute Assessment and plan: remains on diltiazem drip at 10 mg/hr but I have begun him on oral diltiazem 60 mg po tid.He has had his first dose this morning. Hopefully can be weaned off and then tomorrow can go home on long acting diltiazem and follow up w/ Dr. Guaman [place] [facility] [place] (2) Chest pain: Status: Chronic Assessment and plan: resolved, Dr. Doyle thought this to be musculoskeletal in origin; he did have mild bump in his troponin to 82 but now down to 65. I suspect this to be d/t rapid afib and possible d/t DCC Qualifiers: Chest pain type: other chest pain Qualified Code(s): R07.89 - Other chest pain (3) Hypokalemia: Status: Acute Assessment and plan: getting replacement. repeat level 3.8 today. needs to remain on replacement as long as he takes HCTZ for his HTN (4) Essential hypertension: Status: Chronic (5) Sleep apnea: Status: Chronic Assessment and plan: to bring his CPAP machine in [facility] Qualifiers: Sleep apnea type: obstructive Qualified Code(s): G47.33 - Obstructive sleep apnea (adult) (pediatric) (6) Aortic valve stenosis: Status: Chronic Assessment and plan: mild , mild AI, normal LV and RV systolic function, LVEF 60 TO 65% Qualifiers: Cardiac valve disease etiology: etiology unspecified Qualified Code(s): I35.0 - Nonrheumatic aortic (valve) stenosis (7) Hyperlipidemia: Status: Chronic Assessment and plan: continue atorvastatin Qualifiers: Hyperlipidemia type: other hyperlipidemia Qualified Code(s): E78.49 - Other hyperlipidemia (8) Epilepsy: Status: Chronic Assessment and plan: continue home Keppra dose Qualifiers: Epilepsy type: other Intractability: not intractable Status epilepticus: without status epilepticus Qualified Code(s): G40.802 - Other epilepsy, not intractable, without status epilepticus Subjective Subjective Interval history since last seen: Patient admitted w/ PAF w/ RVR. He is a patient of Dr. Guaman and Dr. Rubio at [facility] [place]. He has had PAF related to his NINA and since going on CPAP his episodes of PAF have resolved (used to get episodes couple times per year). he has been chronically on apixaban but not on any rate controlling meds. This afernoon he is feeling much better. No CP or dyspnea. I told him his troponin I did rise a litle but is now going back towards normal and his echo is reassuring in showing normal LV and RV function. he has known /AI of a mild degree and TAA and is followed by Dr. Rubio. Exam Narrative Exam Narrative: alert and oriented, N.A.D Lungs: clear Heart: rate controlled but still irregular, grade 2/6 high pich systolic murmur along aortic outflow; no thrill or gallop Objective Last Vital Signs Temp 36.9 C 12/02/23 08:21 Pulse 55 L 12/02/23 10:01 Resp 17 12/02/23 10:01 BP 104/70 12/02/23 10:01 Pulse Ox 97 12/02/23 08:20 Laboratory Results - last 24 hr 12/02/23 12/02/23 12/02/23 05:01 08:40 12:20 WBC 8.94 RBC 4.48 Hgb 14.6 Hct 44.3 MCV 99 H MCH 32.6 MCHC 33.0 RDW 13.3 Plt Count 191 MPV 11.3 H Immature Gran % 0.3 Neutrophils % 73.3 Lymphocytes % 16.9 Monocytes % 8.5 Eosinophils % 0.7 Basophils % 0.3 Nucleated RBC % 0.0 Absolute Neutrophils 6.55 Absolute Lymphocytes 1.51 Absolute Monocytes 0.76 Absolute Eosinophils 0.06 Absolute Basophils 0.03 PT 9.9 INR 1.0 APTT 29.1 Sodium 142 145 Potassium 3.0 L 3.8 Chloride 104 107 Carbon Dioxide 30.6 27.5 Anion Gap 7.4 10.5 BUN 15 13 Creatinine 0.8 0.6 L Est GFR (CKD-EPI 2020) 98.21 107.13 Glucose 108 H 100 Uric Acid 2.7 L Calcium 9.1 8.6 Magnesium 1.8 Total Bilirubin 0.3 AST 29 ALT 42 Alkaline Phosphatase 121 H Troponin I < 50 82 H* 65 H* NT-Pro-B Natriuret Pep 240 Total Protein 8.1 Albumin 3.6 TSH 2.35 Time Spent with Patient Time Spent with Patient: <25 minutes Time was spent: preparing to see the patient(eg.review tests), ordering medications,tests, procedures, referring, communicating with other health primary care nurse (Dr. Doyle), indepentently interpreting results, counseling the patient and care coordination
[2023-12-02] MEDS: dilTIAZem 30 MG TAB 60 MG PO (13:22)
--- NOTE | 2023-12-02 15:08 | CHAPLAIN ---
I had a brief visit with Ebenezer. He was resting in bed. He said he wasn't ready for a rolfer visit, and explained that I introduce myself to all patients and was checking in. He said he's feeling better and his kids have been checking in on his. They all live in [facility] except for one in [place].
[2023-12-02] MEDS: dilTIAZem 60 MG TAB PO (17:24)
--- NOTE | 2023-12-02 18:30 | RT.EKG_ITS ---
APPROVED REPORT Exam: Resting ECG Reason for Exam: Rhythm Change Patient Location: I Conclusion NSR Normal Electrocardiogram
[2023-12-02] MEDS: Apixaban 5 MG TAB PO (21:12)
[2023-12-02] MEDS: levETIRAcetam 500 MG TAB PO (21:12)
[2023-12-02] MEDS: Omega-3 Fatty Acids 1000 MG CAP PO (21:12)
[2023-12-03] VITALS (11 sets, daily range): BP systolic 99–129; BP diastolic 63–90; PULSE 48–70; RESP 12–22; TEMP 36.9–37.2; O2SAT 92–98
[2023-12-03 06:32] LABS: HGB 13.2 g/dL (13.5-17.5); MCV 97 fL (80-95); MPV 11.3 fL (8.0-11.0); Platelet Count 178 10^3/uL (130-400); RBC 4.13 10^6/uL (4.36-5.78); RDW 13.6 % (11.8-14.1); RDW-SD 48.7 fL; WBC 6.07 10^3/uL (4.4-10.8)
[2023-12-03 06:47] LABS: Prothrombin Time 10.3 sec (9.1-11.1)
[2023-12-03 07:09] LABS: ALT 39 U/L (16-63); AST 26 U/L (15-37); Alkaline Phosphatase 92 U/L (46-116); BUN 14 mg/dL (7-18); Bilirubin, Total 0.6 mg/dL (0.2-1.0); CREATININE 0.6 mg/dL (0.70-1.30); Calcium 8.4 mg/dL (8.5-10.1); Chloride 106 mmol/L (98-107); Estimated GFR 107.13 (mL/min/1.73m2); Glucose 92 mg/dL (74-106); Magnesium 1.9 mg/dL (1.8-2.4); Potassium 3.8 mmol/L (3.5-5.1); Sodium 141 mmol/L (136-145); Total Protein 6.6 g/dL (6.4-8.2)
--- NOTE | 2023-12-03 08:46 | DSE_ITS ---
Date of service: 12/03/23 Time of Service: 09:21 DS: Diagnosis Discharge Diagnosis (1) Atrial fibrillation with rapid ventricular response: Status: Acute Asessment and Plan: Initially on diltiazem drip and 60 mg p.o. diltiazem 3 times daily --Patient received 1 dose of 60 mg p.o. diltiazem and then became significantly bradycardic overnight with heart rate in the 40s -Diltiazem has since been held -Patient will be discharged with p.o. as needed 30 mg short acting diltiazem for heart rate above 110 bpm while at rest -Patient will have close follow-up with his primary care physician as well as [facility] cardiology and EP services (2) Chest pain: Status: Chronic Asessment and Plan: - Secondary to A-fib, resolved (3) Hypokalemia: Status: Acute Asessment and Plan: - Improved status post repletion (4) Essential hypertension: Status: Chronic Asessment and Plan: - Continue home regimen (5) Sleep apnea: Status: Chronic Asessment and Plan: -Continue CPAP overnight (6) Aortic valve stenosis: Status: Chronic (7) Hyperlipidemia: Status: Chronic (8) Epilepsy: Status: Chronic Discharge Plan Disposition Patient Disposition: Home Condition: Good Discharge Details Reason For Visit: Atrial Fibrillation with Rapid Ventricular Respons Admit Date/Time: 12/02/23 06:46 Admit Provider: Ebenezer Doyle Attending Provider: Ebenezer Doyle Primary Care Provider: Davidson Cline Hospital Course Hospital Course: Patient initially presented with chest pain secondary to A-fib with RVR. He was on diltiazem drip which was discontinued, but patient developed mild bradycardia with heart rates down to the mid 40s while on 60 mg p.o. diltiazem 3 times daily . This was held overnight with heart rate back in the mid 70s. Given the patient has a history of using diltiazem as needed, and he already sees [facility] cardiology and EP Dr. Guaman, decision was made for patient to be discharged with 30 mg p.o. as needed diltiazem if heart rate sustained greater than 110 bpm while at rest and have close follow-up with his primary care physician and manager hris. Home Meds and New Rx's Prescriptions: Continued acetaminophen [Tylenol Extra Strength] 500 mg tablet 500 mg PO Q6H PRN cholecalciferol (vitamin D3) 1,000 unit capsule 1,000 unit PO DAILY Eliquis 5 mg tablet 5 mg PO BID Patient Comments: 12/30/18 rx by cardiology at [facility]. abby atorvastatin 40 mg tablet 40 mg PO DAILY nitroglycerin 0.4 mg tablet, sublingual 0.4 mg sublingual Q5M PRN Rx Instructions: do not exceed 3 doses per episode levetiracetam [Keppra] 500 mg tablet 500 mg PO BID Qty: 180 3RF allopurinol 300 mg tablet See Rx Instructions .ROUTE .COMPLEX Qty: 30 12RF Dose Instruction: TAKE ONE TABLET BY MOUTH EVERY DAY Rx Instructions: TAKE ONE TABLET BY MOUTH EVERY DAY folic acid 1 mg tablet 1 mg PO DAILY Qty: 90 3RF pantoprazole 40 mg tablet,delayed release (DR/EC) See Rx Instructions .ROUTE .COMPLEX Qty: 30 12RF Dose Instruction: TAKE ONE TABLET BY MOUTH EVERY DAY Rx Instructions: TAKE ONE TABLET BY MOUTH EVERY DAY Men's One Daily 1 EACH tablet 1 ea PO DAILY omega-3 fatty acids-fish oil 1 EACH capsule 1 ea PO HS zoledronic [id number]-dhityfhv-[id number] [Reclast] 5 mg/100 mL piggyback See Rx Instructions IV .COMPLEX Rx Instructions: intravenously every 14mo for osteoarthritis; hydrochlorothiazide 12.5 mg tablet 12.5 mg PO DAILY Patient Comments: TAKE ONE TABLET BY MOUTH EVERY MORNING diltiazem HCl [Cardizem] 30 mg tablet 30 mg PO DAILY PRN PRNQty: 20 0RF Rx Instructions: prn recurrence of rapid Afib. Go to the ED if this does not control your symptoms within 1 hour. No Action calcium citrate-vitamin D3 315 mg-6.25 mcg (250 unit) tablet 2 tab PO DAILY Discharge Instructions Referrals: Davidson Cline NP [Primary Care Provider] - 12/09/23 2:40 pm Sherif Guaman [ [facility] STAFF PHYSICIAN] - 12/08/23 10:00 am (Patient will be seeing Barney BHANDARI [place] [facility] Activity:: Activity as Tolerated Equipment/Supplies:: No Equipment Needed Diet:: As Tolerated Discharge Orders Discharge Orders: Discharge Order (Routine); Ordered 12/03/23 Ordered By: Eric Tapia DS: Summary Time Spent with Patient providing and/or coordinating discharge services: Greater than 30 minutes Status at Discharge Functional status at discharge: independent ambulation Overall status at discharge: patient is back to baseline Mental Status: mental status grossly normal Speech and Movement: speech and movement normal Mood: congruent mood Affect: normal affect Quality:SDOH Health Related Social Needs: No Data to Display Exam Narrative Exam Narrative: Well-appearing gentleman laying in bed in no acute distress, ANO x 4, heart regular rate rhythm, lungs clear to auscultation bilaterally, abdomen soft, nontender, nondistended Psych Mental Status: mental status grossly normal Speech and Movement: speech and movement normal Mood: congruent mood Affect: normal affect DS: Data Vitals/I&O Vitals and I&O: Vital Signs Temperature 98.4 F 12/03/23 03:09 Temperature Source Temporal Artery Scan 12/03/23 03:09 Pulse 63 12/03/23 07:07 Pulse 61 12/03/23 07:07 Respiratory Rate 14 12/03/23 07:07 Respiratory Effort Normal 12/03/23 03:09 Respiratory Depth Normal 12/03/23 03:09 Respiratory Pattern Normal 12/03/23 03:09 Blood Pressure 119/90 12/03/23 07:07 Blood Pressure Mean 100 12/03/23 07:07 Blood Pressure Position Left Lateral 12/03/23 03:09 Pulse Oximetry 97 12/03/23 07:07 Respiratory End-tidal CO2 39 12/02/23 07:46 Oxygen Delivery Method Cpap 12/03/23 03:09 Oxygen Flow Rate 0 12/03/23 03:09 Fraction of Inspired Oxygen (FIO2) 21 12/02/23 18:51 Pain Level 0 12/02/23 16:15 Intake & Output 12/02/23 12/03/23 12/03/23 17:59 05:59 17:59 Intake Total 1308.584 / 1308.584 490 / 1798.584 485 / 485 Output Total 2675 / 2675 850 / 3525 Balance -1366.416 / -1366.416 -360 / -1726.416 485 / 485 Weight 220 lb 3.869 oz 221 lb 1.978 oz Intake: IV 1308.584 / 1308.584 Oral 490 / 490 485 / 485 Output: Urine 2675 / 2675 850 / 3525 Other: Urine Color Yellow Yellow Urine Appearance Clear Clear Urine Odor Normal Normal Comment History enlarged prostate. urinal indep unmeasured with BM on toilet - QS per pt Stool Characteristics Formed Voiding Methods Urinal Urinal Data Completed and Pending Labs on day of discharge: Labs from last 24 hours 12/03/23 12/03/23 12/02/23 06:04 05:35 12:20 WBC 6.07 RBC 4.13 L Hgb 13.2 L Hct 40.0 MCV 97 H MCH 32.0 MCHC 33.0 RDW 13.6 Plt Count 178 MPV 11.3 H PT 10.3 INR 1.0 Sodium 141 Cancelled Potassium 3.8 Cancelled Chloride 106 Cancelled Carbon Dioxide 27.0 Cancelled Anion Gap 8.0 Cancelled BUN 14 Cancelled Creatinine 0.6 L Cancelled Est GFR (CKD-EPI 2020) 107.13 Cancelled Glucose 92 Cancelled Uric Acid Calcium 8.4 L Cancelled Magnesium 1.9 Total Bilirubin 0.6 AST 26 ALT 39 Alkaline Phosphatase 92 Troponin I 65 H* Total Protein 6.6 Albumin 3.0 L 12/02/23 08:40 WBC RBC Hgb Hct MCV MCH MCHC RDW Plt Count MPV PT INR Sodium 145 Potassium 3.8 Chloride 107 Carbon Dioxide 27.5 Anion Gap 10.5 BUN 13 Creatinine 0.6 L Est GFR (CKD-EPI 2020) 107.13 Glucose 100 Uric Acid 2.7 L Calcium 8.6 Magnesium Total Bilirubin AST ALT Alkaline Phosphatase Troponin I 82 H* Total Protein Albumin PFSH All Active Problems Acute hypokalemia (Acute) Atrial fibrillation with RVR (Acute) Atrial fibrillation with rapid ventricular response (Acute) Hypokalemia (Acute) Chest pain (Chronic) Onychocryptosis (Acute) Heart murmur (Acute) Left leg numbness (Acute) Epilepsy (Chronic) Essential hypertension (Chronic) Hyperlipidemia (Chronic) Sleep apnea (Chronic) Uses CPAP Urinary hesitancy (Acute) Rising PSA level (Acute) Kidney stones (Chronic) Paroxysmal A-fib (Chronic) Sees cardiology at [facility] Ascending aortic aneurysm (Acute) Actinic keratoses (Chronic) Tobacco use disorder (Chronic) Quit 15 years ago. Serum calcium elevated (Chronic 11/19/15) Hyper PTH Parathyroid surgery 10/03 removing one of 4 glands Sciatica (Chronic) left; disk; persistent left foot numbness 05/2021-recurrent low back pain. No persistent sciatica, prior history of compression fracture to L1-stable per imaging consistent with diagnosis of prior osteoporosis Osteoporosis (Chronic) T score of 3.5 LS spine, history of compression fracture, managed by endocrine at [facility], presumed secondary to iatrogenic effect with long- term seizure use-Girishanticarmina, as of 05/2021 on Reclast infusion Hyperparathyroidism (Chronic 10/22/17) surgery [facility] 2018 Hearing loss (Chronic) Benign prostatic hyperplasia (Chronic) Aortic valve stenosis (Chronic) mild. echo 2013 neg MPI 12/01. Alcohol abuse (Chronic) sober for 7 years as of 2021 Medical History History of postoperative nausea and vomiting Hx of gastroesophageal reflux (GERD) Seizure last seizure 35 years ago Surgical History Hx of esophagogastroduodenoscopy (~10/01/20) H/O parathyroidectomy Excision, Distal Clavicle (03/22/15) ALSO NEER ACROMIOPLASTY/LIMITED ROTATOR CUFF REPAIR/ DR ROSARIO Cystoscopy 11/14/15; DR. DEVI [place] [facility] [place] Family History Mother , age 68 Alzheimer disease MS (multiple sclerosis) Father , age 72 Diabetes Essential hypertension Heart disease Hyperlipidemia Sister No problems noted. Brother No problems noted. Brother Crohns disease Maternal Grandfather , age 70 Heart disease Paternal Grandfather , age 92 No problems noted. Maternal Grandmother , age 70 No problems noted. Paternal Grandmother , age 94 Intestinal cancer Brother No problems noted. Son No problems noted. Daughter No problems noted. Daughter No problems noted. Social History Smoking/Tobacco Use Status: Former Tobacco Use tobacco type: cigarettes Quit Date: 07/19/06 Pack-years: 25 Tobacco: How many years used: 13 Second Hand Exposure: Yes Smoking risk assessment performed?: Yes Alcohol Intake: former Drug use: Never Substance use type: does not use Details: sober for 6 years Caregiver/Support person: Yes Household members: spouse Housing: house Communication Needs: None Do you need help understanding health information?: Rarely Pets and animals: Yes Pets and animals: dog(s) Sexually active: Yes Do you think of yourself as: straight/heterosexual Current gender identity: male What is your relationship status?: How often do you talk on the phone with friends or family?: once per week How often do you get together with friends or relatives?: once per week How often do you attend mormonism or jewish services?: decline to answer Do you belong to any clubs or organized social groups?: no Panel score (0-1 are the most socially isolated patients): 1 What type of physical activity do you participate in: walking Duration: 30-45 minutes/day Frequency: 1-2 times per week Caitlin/Congregation: No preference Special caitlin needs: No Seatbelt use: always Helmet use: Yes Helmet use: always Drive intox or ride w/intox armored car guard and 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 Time Spent with Patient Time Spent with Patient: <45 minutes Time was spent: preparing to see the patient(eg.review tests), obtaining and/or reviewing separately otained hiistory, ordering medications,tests, procedures, referring, communicating with other health respite care provider, indepentently int erpreting results, counseling the patient and care coordination
[2023-12-03] MEDS: Normal Saline Flush 10 ML SYR IVP (08:48)
[2023-12-03] MEDS: hydroCHLOROthiazide 12.5 MG TAB PO (08:48)
[2023-12-03] MEDS: levETIRAcetam 500 MG TAB PO (08:49)
[2023-12-03] MEDS: Pantoprazole 40 MG TABCR PO (08:49)
[2023-12-03] MEDS: Potassium Chloride 20 MEQ TABCR PO (08:50)
[2023-12-03] MEDS: Allopurinol 300 MG TAB PO (08:50)
[2023-12-03] MEDS: Atorvastatin 40 MG TAB PO (08:50)
[2023-12-03] MEDS: Cholecalciferol (Vitamin D3) 1,000 UNIT TAB 1000 UNITS PO (08:50)
[2023-12-03] MEDS: Apixaban 5 MG TAB PO (08:50)
[2023-12-03] MEDS: Folic Acid 1 MG TAB PO (08:51)
== END 2023-12-03 10:00 | disposition home or self-care (01) | DRG 309 ==
LOC: ER 07:00 → ICU 08:06
PROVIDERS: Admitting Provider Family Medicine; Emergency Provider Student in an Organized Health Care Education/Training Program; PCP Nurse Practitioner Family; Visit Provider Family Medicine
DX: I48.0 Paroxysmal atrial fibrillation (principal); G40.802 Other epilepsy, not intractable, without status epilepticus; R07.89 Other chest pain; E87.6 Hypokalemia; G47.33 Obstructive sleep apnea (adult) (pediatric); I10 Essential (primary) hypertension; I35.0 Nonrheumatic aortic (valve) stenosis; E78.5 Hyperlipidemia, unspecified; N20.0 Calculus of kidney; Z79.899 Other long term (current) drug therapy; F10.11 Alcohol abuse, in remission; I25.10 Atherosclerotic heart disease of native coronary artery without angina pectoris; M81.0 Age-related osteoporosis without current pathological fracture; Z87.891 Personal history of nicotine dependence; I71.21 Aneurysm of the ascending aorta, without rupture; N40.0 Benign prostatic hyperplasia without lower urinary tract symptoms; E89.2 Postprocedural hypoparathyroidism
CPT/HCPCS: 00123; 36415; 80048; 80053; 85027; 92960; 93005; 96365; 96366; 96375; 96376; 99291; 83735; 83880; 84443; 84484; 84550; 85025; 85610; 85730; 93010; 93306; 99223; 99238; J2704; J3475; J3480

== ENCOUNTER 2023-12-10 02:19 | Outpatient (RCR) | payer BC, SELFPAY ==
[2023-12-10] MEDS: Normal Saline Flush 10 ML SYR IVP (08:19)
[2023-12-10] MEDS: ZOLEDRONIC ACID/MANNITOL/WATER 5 MG/100 ML BTL 300 MG IVPB (08:19)
== END 2023-12-17 23:59 | disposition home or self-care (01) ==
LOC: INF 02:19
PROVIDERS: PCP Nurse Practitioner Family; Visit Provider Internal Medicine
DX: M81.0 Age-related osteoporosis without current pathological fracture (principal)
CPT/HCPCS: 96365; J3489

== ENCOUNTER 2023-12-16 04:33 | Outpatient (CLI) | payer BC, SELFPAY | END 2023-12-16 04:34 | disposition home or self-care (01) | PROVIDERS: PCP Nurse Practitioner Family; Visit Provider Dietitian, Registered | DX: E63.8 Other specified nutritional deficiencies (principal) | CPT/HCPCS: 97802 ==

== ENCOUNTER 2023-12-17 02:34 | Emergency (ER) | payer BC, SELFPAY ==
[2023-12-17 02:37] VITALS: BP 150/83; PULSE 71; RESP 18; TEMP 36.6; O2SAT 98
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
[2023-12-17] MEDS: Acetaminophen 500 MG TAB PO (03:11)
[2023-12-17] MEDS: Tetanus & Diphtheria Tox,ADULT 0.5 ML VIAL IM (03:12)
[2023-12-17] MEDS: Bacitracin 30 GM TUBE TP (03:16)
--- NOTE | 2023-12-17 03:28 | NUR.NOTE ---
PT did not want dressing applied in the ED. PT was given supplies and instruction on application. PT verbalized understanding. Nursing Note:
--- NOTE | 2023-12-17 09:24 | TELEFU_ITS ---
Date of service: 12/16/23 Time of Service: 13:00 Nutrition Note NOTE: Ebenezer came in today for nutrition referral regarding: provider concerns of low protein intake and pt generally desiring some dietary guidance. Ebenezer lives at home with his and they share shopping/cooking responsib ilities currently (more so now that ebenezer has invested himself in some significant dietary changes). Ebenezer explains his concerns with cardiovascular health and CAD currently and relates 3 arteries are partially blocked. He shares that 2 years ago he invested himself into a whole foods, plant-based eating plan after researching anyway he can reverse some of his cardiometabolic concerns. He states early into it he lost about 30 pounds (since gained back about 20lbs and now said he is decreasing some portions and losing weight once more). He notes rapid improvement with GI symptoms and states basically solved his hiatal hernia pain although still takes pantoprazole. He continues on atorvastatin for protective benefits but states his LDL drastically improved to <100. He is pretty much following a vegan diet, with no animal products. They make their own high-fiber, minimally processed bread at home. He reviewed his meals/food choices with me through his own notes. He definitely has a significant amount of fiber in his diet - I would say over 40grams per day easily between daily consumption of beans/lentils, broccoli, home-grown luis, other non-starchy veggies, oats, wheat berries, nuts and seeds, flax, beets and more. Ensured pt knows to keep fluid intake high with so much fivver and he works at this with a good 2L per plus black coffee and a sprite zero. He does eat a good amount of fruit as well with > 5 servings per day. He sticks to 3 meals and a mid-morning snack of homemade granola bar. He takes a multivitamin/mineral and extra vitamin D due to recent and h istorically low level. He has Rx for 1mg folate. He takes a n-3 supplement that appears to have 300-1,000mg in it. Pt may be at risk for B12 and iron deficiency with strict plant-based diet. Encouraged him to check his MVI to ensure it contains b12, iron and iodine and would consider it worth while to discontinue the folate and just take a Bcomplex. Pt also uses lots of spices like tumeric, cinnamon, dorene. Estimated energy needs: 2486kcals ([id number]) - recommended 2000-2200kcals for slow wt loss. suggested 20% kcals come from protein - at 2200 this is 110grams. After assessing his diet and goals I find that his routine food choices/menus are low in fat. He also voiced sort of developing a fear of fat with his history of CAD and really doesn't use any added fats/oils currently. 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 Although he doesn't use animal products right now, he is open to the idea of using a scoop of whey protein daily to ensure an extra ~25g of protein per day. We reviewed ways he could work it into his menus and I reviewed the health benefits to this protein, including cardiometabolic benefits. I also reviewed without animal products and his only fat from his usual diet coming from some flax, seeds.nuts and a very small amount of avocado, he could use more and would actually see health benefits from olive oil, more avocado, and maybe considering a teaspoon or two of MCT oil for an energy source. Emphasized to continue to get oils from nuts, seeds, his fish oil supplement. Highlighted that he is not adding protein and fat to his current intake, he is swapping out some grains and fruit for these so he can keep his calories down a bit while still getting a variety of nutrients. he took my card so he can contact me with any questions. Recommendations: -Talk to provider about d/c folic acid and just take Bcomplex. Unless folate levels were found deficient, I wouldn't think this pt is at risk for folic acid deficiency due to high intake of broccoli, legumes and other great sources of folate. -Would consider increase in fish oil to 1-2g mixed DHA/EPA per day - blood thinning may be a risk in conjunction with elequis but usually blood thinning occurs with >5g supplementation. -Use ~25g whey protein per day to supplement -decrease fruit and grains by a couple servings per day and add some healthy fats from avocado, nuts/seeds, olive oil, avocado oil, mct oil Time Spent in Nutritional Counseling and Treatment: 60 minutes
== END 2023-12-17 03:29 | disposition home or self-care (01) ==
PROVIDERS: Emergency Provider Emergency Medicine; PCP Nurse Practitioner Family
DX: T21.26XA Burn of second degree of male genital region, initial encounter (principal); T24.111A Burn of first degree of right thigh, initial encounter; T31.0 Burns involving less than 10% of body surface; I48.0 Paroxysmal atrial fibrillation; I10 Essential (primary) hypertension; E78.5 Hyperlipidemia, unspecified; E89.2 Postprocedural hypoparathyroidism; Z23 Encounter for immunization; Z79.01 Long term (current) use of anticoagulants; Z87.891 Personal history of nicotine dependence; X10.0XXA Contact with hot drinks, initial encounter; Y93.89 Activity, other specified
CPT/HCPCS: 00123; 90471; 90714; 99284

== ENCOUNTER 2024-01-13 01:59 | Outpatient (CLI) | payer BC, SELFPAY ==
[2024-01-13 09:52] LABS: Hemoglobin A1C 5.6 % (<5.7)
[2024-01-13 09:55] LABS: Calculated LDL 36 mg/dL (<100); Cholesterol 84 mg/dL (<200); HDL Cholesterol 39 mg/dL (40-60); Triglyceride 48 mg/dL (<150)
== END 2024-01-13 02:00 | disposition home or self-care (01) ==
LOC: LBO 02:00
PROVIDERS: PCP Nurse Practitioner Family; Visit Provider Nurse Practitioner Family
DX: Z13.1 Encounter for screening for diabetes mellitus (principal); E78.49 Other hyperlipidemia
CPT/HCPCS: 36415; 80061; 83036

== ENCOUNTER 2024-04-03 06:25 | Emergency (ER) | payer BC, SELFPAY ==
[2024-04-03 06:29] VITALS: BP 141/66; PULSE 58; RESP 16; TEMP 36.4; O2SAT 97
--- NOTE | 2024-04-03 07:09 | W.ED.GENAD ---
Discharge Plan Disposition Patient Disposition: Home Condition: Good Discharge Details Clinical Impression: Back pain Primary Care Provider: Davidson lCine ED Provider: Miguel A Haywood Home Meds and New Rx's Prescriptions: New cyclobenzaprine 10 mg tablet 10 mg PO TID Qty: 14 0RF prednisone 50 mg tablet 50 mg PO DAILY Qty: 5 0RF lidocaine [Lidoderm] 5 % adhesive patch,medicated 1 patch Topical Q24H Qty: 15 0RF No Action acetaminophen [Tylenol Extra Strength] 500 mg tablet 500 mg PO Q6H PRN calcium citrate-vitamin D3 315 mg-6.25 mcg (250 unit) tablet 2 tab PO DAILY ergocalciferol (vitamin D2) 1,250 mcg (50,000 unit) capsule 1,250 mcg PO QWEEK Multaq 400 mg tablet 400 mg PO BID Patient Comments: TAKE ONE TABLET BY MOUTH TWICE A DAY (WITH MEALS) cholecalciferol (vitamin D3) 1,000 unit capsule 1,000 unit PO DAILY Eliquis 5 mg tablet 5 mg PO BID Patient Comments: 12/30/18 rx by cardiology at [facility]. [facility] atorvastatin 40 mg tablet 40 mg PO DAILY nitroglycerin 0.4 mg tablet, sublingual 0.4 mg sublingual Q5M PRN Rx Instructions: do not exceed 3 doses per episode lidocaine 5 % cream 1 applic topical QID PRN (Reason: pain) Qty: 30 5RF Rx Instructions: apply small amount to L thigh as needed folic acid 1 mg tablet 1 mg PO DAILY Qty: 90 3RF pantoprazole 40 mg tablet,delayed release (DR/EC) See Rx Instructions .ROUTE .COMPLEX Qty: 30 12RF Dose Instruction: TAKE ONE TABLET BY MOUTH EVERY DAY Rx Instructions: TAKE ONE TABLET BY MOUTH EVERY DAY levetiracetam [Keppra] 500 mg tablet 500 mg PO BID Qty: 180 3RF allopurinol 300 mg tablet See Rx Instructions .ROUTE .COMPLEX Qty: 30 12RF Dose Instruction: TAKE ONE TABLET BY MOUTH EVERY DAY Rx Instructions: TAKE ONE TABLET BY MOUTH EVERY DAY Men's One Daily 1 EACH tablet 1 ea PO DAILY omega-3 fatty acids-fish oil 1 EACH capsule 1 ea PO HS zoledronic [id number] [Reclast] 5 mg/100 mL piggyback See Rx Instructions IV .COMPLEX Rx Instructions: intravenously every 14mo for osteoarthritis; hydrochlorothiazide 12.5 mg tablet 12.5 mg PO DAILY Patient Comments: TAKE ONE TABLET BY MOUTH EVERY MORNING diltiazem HCl [Cardizem] 30 mg tablet 30 mg PO DAILY PRN PRNQty: 20 0RF Rx Instructions: prn recurrence of rapid Afib. Go to the ED if this does not control your symptoms within 1 hour. Discharge Instructions Instructions: Low Back Pain ED Additional Instructions: At this time your signs and symptoms are clinically consistent with a back sprain. This can cause significant pain and take a fair bit of time to heal. In the meantime do not lift anything greater than 5 pounds for the next 2 weeks. Avoid any significant vigorous physical activity. Perform easy gentle regular activities at home without any significant bending or lifting. Please take the steroids as directed. You have been given a prescription for Lidoderm patch. If your insurance does not cover this you can get [id number] Lidoderm patches at 4% which are almost just as effective. Please take the Flexeril as directed but do not take it when driving or operating any vehicles or heavy machinery, swimming, taking long baths, or operating firearms. Please use a heating pad as often as possible on your back. Perform daily gentle stretches on your back. Please continue to take the Tylenol you can take 1000 mg of Tylenol every 6 hours, you can also apply Voltaren gel to your back every 6-8 hours as well. This is [id number].. If you notice any worsening of your symptoms, or any new symptoms such as vomiting, diarrhea, fever, chills, shortness of breath, chest pain, numbness or tingling in your groin or legs, weakness in your legs, loss of control for your bowels or bladder, or fainting , please return immediately to the emergency department for reevaluation. Please follow up with your primary care provider as soon as possible for reassessment and reevaluation. As always, it was a pleasure participating in your medical care today. Referrals: Davidson Cline NP [Primary Care Provider] - Discharge Data Discharge Date/Time-TO BE ENTERED AT DEPARTURE: 04/03/24 07:22 HPI General Date/Time Provider Initiated Documentation: 04/03/24 06:29. HPI Narrative: 63-year-old male with a past medical history of paroxysmal A-fib currently on Eliquis who recently had an ablation within the last 2 weeks, CT evidence of coronary artery disease, aortic aneurysm, bicuspid aortic valve, high cholesterol, hypertension, chronic back pain with a chronic L1 compression fracture, presents today for evaluation of back pain. Patient states that over the last week or so he has been doing a significant amount of sitting and laying because of his procedures for his cardiac ablation. And then yesterday he noticed that his back was quite sore. He denies any falls or trauma. Patient denies any saddle anesthesia, numbness or tingling in the groin, change in sensation when wiping. Patient denies any change in sensation during sexual intercourse, difficulty achieving or maintaining an erection or ejaculation, bowel or bladder incontinence, leakage, or retention. Patient denies any weakness in the lower extremities, atypical falls or imbalance. He states that the pain is in his mid to low back in the regions where it is usually sore during these exacerbations. He did take Tylenol and has been icing his back which has been helping somewhat. He denies any other complaints. Pain is made worse when he is transitioning from sitting to standing. No other modifying factors. Related Data Home Medications ?Medication ?Instructions ?Recorded ?Confirmed multivitamin with minerals (Men's 1 ea PO DAILY 12/17/12 04/03/24 One Daily tablet) omega-3 fatty acids-fish oil 300 1 ea PO HS 06/04/16 04/03/24 mg-1,000 mg capsule cholecalciferol (vitamin D3) 25 1,000 unit PO DAILY 06/15/18 04/03/24 mcg (1,000 unit) capsule apixaban 5 mg tablet (Eliquis) 5 mg PO BID 12/30/18 04/03/24 acetaminophen 500 mg tablet 500 mg PO Q6H PRN 06/04/21 04/03/24 (Tylenol Extra Strength) atorvastatin 40 mg tablet 40 mg PO DAILY 09/26/21 04/03/24 nitroglycerin 0.4 mg sublingual 0.4 mg sublingual Q5M PRN 09/26/21 04/03/24 tablet calcium citrate 315 mg 2 tab PO DAILY 10/17/21 04/03/24 calcium-vitamin D3 6.25 mcg (250 unit) tablet folic acid 1 mg tablet 1 mg PO DAILY #90 tabs 05/12/23 04/03/24 pantoprazole 40 mg tablet,delayed See Rx Instructions .Route 10/30/23 04/03/24 release .COMPLEX #30 tabs zoledronic acid 5 mg/100 mL in See Rx Instructions IV .COMPLEX 11/30/23 04/03/24 mannitol 5 %-water intravenous piggybck (Reclast) hydrochlorothiazide 12.5 mg tablet 12.5 mg PO DAILY 12/02/23 04/03/24 diltiazem HCl 30 mg tablet 30 mg PO DAILY PRN PRN #20 tabs 12/03/23 04/03/24 (Cardizem) levetiracetam 500 mg tablet 500 mg PO BID #180 tab-caps 12/06/23 04/03/24 (Keppra) ergocalciferol (vitamin D2) 1,250 1,250 mcg PO QWEEK 12/09/23 04/03/24 mcg (50,000 unit) capsule dronedarone 400 mg tablet (Multaq) 400 mg PO BID 01/06/24 04/03/24 lidocaine 5 % topical cream 1 applic topical QID PRN pain #30 01/13/24 04/03/24 grams allopurinol 300 mg tablet See Rx Instructions .Route 03/06/24 04/03/24 .COMPLEX #30 tabs cyclobenzaprine 10 mg tablet 10 mg PO TID #14 tabs 04/03/24 lidocaine 5 % topical patch 1 patch topical Q24H #15 ea 04/03/24 (Lidoderm) prednisone 50 mg tablet 50 mg PO DAILY #5 tabs 04/03/24 Previous Rx's ?Medication ?Instructions ?Recorded folic acid 1 mg tablet 1 mg PO DAILY #90 tabs 05/12/23 pantoprazole 40 mg tablet,delayed See Rx Instructions .Route 10/30/23 release .COMPLEX #30 tabs diltiazem HCl 30 mg tablet 30 mg PO DAILY PRN PRN #20 tabs 12/03/23 (Cardizem) levetiracetam 500 mg tablet 500 mg PO BID #180 tab-caps 12/06/23 (Keppra) lidocaine 5 % topical cream 1 applic topical QID PRN pain #30 01/13/24 grams allopurinol 300 mg tablet See Rx Instructions .Route 03/06/24 .COMPLEX #30 tabs cyclobenzaprine 10 mg tablet 10 mg PO TID #14 tabs 04/03/24 lidocaine 5 % topical patch 1 patch topical Q24H #15 ea 04/03/24 (Lidoderm) prednisone 50 mg tablet 50 mg PO DAILY #5 tabs 04/03/24 Allergies Allergy/AdvReac Type Severity Reaction Status Date / Time No Known Allergies Allergy Verified 04/03/24 06:36 General Stated Complaint: Nk/Back Pain FLY: 4 Review of Systems All systems reviewed & are unremarkable except as noted in HPI and below Exam Narrative Exam Narrative: 1.Const: Well-nourished, Well-developed, appearing stated age 2.Eyes: PERRL, no conjunctival injection, and symmetrical lids. 3.ENT: Atraumatic external nose and ears. Moist MM. Neck: Symmetric, trachea midline, No thyromegaly. 4.CVS: +S1/S2, No murmurs or gallops. Peripheral pulses 2+ and equal in all extremities. Brisk capillary refill in all extremities. 5.RESP: Unlabored respiratory effort. Clear to auscultation bilaterally. No wheezes rales or rhonchi 6.GI: Soft, Nontender/Nondistended, No hepatosplenomegaly. No guarding or rebound. 7.MSK: Normocephalic/Atraumatic, Extremities w/o deformity or ttp No cyanosis or clubbing, Normal movement of all extremities No significant midline tenderness to palpation over the CTLS spine. Normal ROM in flexion, extension, side bend, and rotation. Patient has +5 out of 5 strength in the lower extremities in dorsiflexion and plantarflexion, knee flexion and extension, hip flexion and extension. Normal strength for dorsiflexion and plantar flexion of the great toe bilaterally. There is +2 over 2 dorsalis pedis pulses bilaterally. There is normal sensation to the skin with light touch at the foot, knee, and hip. Normal saddle sensation. Good sensation over the deep sural nerve area bilaterally. Rectal exam demonstrates good rectal tone with excellent hammad-rectal sensation. Reflexes are +2 over 4 in the patellar reflex bilaterally. +5 out of 5 strength in the medial, ulnar, radial nerve distribution bilaterally in the hands as well as intact light touch sensation to these dermatomes on the hands 8.Skin: Warm, Dry. No rashes or lesions. 9.Neuro: chief orthoptist II-XII grossly intact. Sensation grossly intact, no focal neurologic deficits. 10.Psych: (AAO) x3. Appropriate mood and affect Course Vital Signs Vital signs: Vital Signs Temperature 36.4 C 04/03/24 06:29 Pulse 58 L 04/03/24 06:29 Respiratory Rate 16 04/03/24 06:29 Blood Pressure 141/66 H 04/03/24 06:29 Pulse Oximetry 97 04/03/24 06:29 Temperature 36.4 C 04/03/24 06:29 Temperature Source Temporal Artery Scan 04/03/24 06:29 Pulse 58 L 04/03/24 06:29 Respiratory Rate 16 04/03/24 06:29 Respiratory Effort Normal, Non-Labored 04/03/24 06:33 Blood Pressure 141/66 H 04/03/24 06:29 Blood Pressure Position Sitting 04/03/24 06:29 Pulse Oximetry 97 04/03/24 06:29 Medical Decision Making 63-year-old male with a past medical history of paroxysmal A-fib currently on Eliquis who recently had an ablation within the last 2 weeks, CT evidence of coronary artery disease, aortic aneurysm, bicuspid aortic valve, high cholesterol, hypertension, chronic back pain with a chronic L1 compression fracture, presents today for evaluation of back pain. Patient states that over the last week or so he has been doing a significant amount of sitting and laying because of his procedures for his cardiac ablation. And then yesterday he noticed that his back was quite sore. He denies any falls or trauma. Patient denies any saddle anesthesia, numbness or tingling in the groin, change in sensation when wiping. Patient denies any change in sensation during sexual intercourse, difficulty achieving or maintaining an erection or ejaculation, bowel or bladder incontinence, leakage, or retention. Patient denies any weakness in the lower extremities, atypical falls or imbalance. He states that the pain is in his mid to low back in the regions where it is usually sore during these exacerbations. He did take Tylenol and has been icing his back which has been helping somewhat. He denies any other complaints. Pain is made worse when he is transitioning from sitting to standing. No other modifying factors. Exam demonstrates well-appearing male, no significant midline tenderness. Mild muscle spasm and achiness in the paravertebral aspect around L1-L2-L3 and L4 bilaterally. No concerning red flags to suggest cauda equina syndrome. No saddle anesthesia. Patient demonstrates good rectal tone. Patient denies any trauma, so the likelihood of paravertebral hematoma or epidural hematoma notably unlikely and clinically inconsistent with current clinical picture. No IV drug use to suggest meningitis or paravertebral abscess. No new trauma to suggest new osseous abnormality. No neurologic deficit to suggest acute neurovascular compromise. Symptoms appear consistent with mild lumbar muscle spasm. Discussed risks and benefits of neuroimaging at this time. Weighing the risks and benefits, patient has decided to hold off and declined imaging currently. I did discuss with him how he can return at any time for further neuroimaging if he develops any change or worsening of his symptoms whatsoever. Patient will be started on a short course of prednisone, Flexeril, Tylenol, Lidoderm patch, and potential Voltaren gel if needed. No evidence of life-threatening or emergent surgical pathology noted on current clinical exam or assessment. Patient stable for discharge. I have extensively reviewed the treatment plan and discharge instructions with the patient. I have addressed all patient concerns at this time. The patient was made aware of what symptoms to monitor for that would warrant a return to the emergency department. Discussed the plan with the patient, they demonstrate verbal understanding and agreement with our assessment and plan at this time. The documentation in this chart was dictated using [employer] dictation software. Please excuse any dictation errors. Quality:SDOH Health Related Social Needs: Health related social needs inadequate housing Health related social needs details none PFSH All Active Problems Back pain (Acute) Paroxysmal A-fib (Acute) Sees cardiology at [facility] [place] Hx of gastroesophageal reflux (GERD) (Acute) Sleep apnea (Acute) Uses CPAP Hyperlipidemia (Acute) Essential hypertension (Chronic) History of postoperative nausea and vomiting (Acute) Onychocryptosis (Acute) Heart murmur (Acute) Left leg numbness (Acute) Urinary hesitancy (Acute) Rising PSA level (Acute) Kidney stones (Chronic) Actinic keratoses (Chronic) Tobacco use disorder (Chronic) Quit 15 years ago. Serum calcium elevated (Chronic 11/19/15) Hyper PTH Parathyroid surgery 10/03 removing one of 4 glands Sciatica (Chronic) left; disk; persistent left foot numbness 05/2021-recurrent low back pain. No persistent sciatica, prior history of compression fracture to L1-stable per imaging consistent with diagnosis of prior osteoporosis Osteoporosis (Chronic) T score of 3.5 LS spine, history of compression fracture, managed by endocrine at [facility], presumed secondary to iatrogenic effect with long-term seizure use-Dilantin, as of 05/2021 on Reclast infusion Hyperparathyroidism (Chronic 10/22/17) surgery [facility] [place] 2018 Hearing loss (Chronic) Benign prostatic hyperplasia (Chronic) Aortic valve stenosis (Chronic) mild. echo 2012 neg MPI 12/01. Alcohol abuse (Chronic) sober for 7 years as of 2021 Medical History Ascending aortic aneurysm Seizure last seizure 35 years ago Surgical History Hx of esophagogastroduodenoscopy (~10/01/20) H/O parathyroidectomy Excision, Distal Clavicle (03/22/15) ALSO NEER ACROMIOPLASTY/LIMITED ROTATOR CUFF REPAIR/ DR ROSARIO Cystoscopy 11/14/15; DR. DEVI [place] [facility] [place] Family History Mother , age 68 Alzheimer disease MS (multiple sclerosis) Father , age 72 Diabetes Essential hypertension Heart disease Hyperlipidemia Sister No problems noted. Brother No problems noted. Brother Crohns disease Maternal Grandfather , age 70 Heart disease Paternal Grandfather , age 92 No problems noted. Maternal Grandmother , age 70 No problems noted. Paternal Grandmother , age 94 Intestinal cancer Brother No problems noted. Son No problems noted. Daughter No problems noted. Daughter No problems noted. Social History Smoking/Tobacco Use Status: Former Tobacco Use tobacco type: cigarettes Quit Date: 07/19/08 Pack-years: 25 Tobacco: How many years used: 25 Second Hand Exposure: Yes Smoking risk assessment performed?: Yes Alcohol Intake: former Year quit: 2014 Drug use: Current Sobriety Substance use type: does not use and marijuana Details: sober for 6 years Caregiver/Support person: Yes Household members: spouse Housing: house Communication Needs: None Do you need help understanding health information?: Rarely Pets and animals: Yes Pets and animals: dog(s) Sexually active: Yes Do you think of yourself as: straight/heterosexual Current gender identity: male What is your relationship status?: How often do you talk on the phone with friends or family?: once per week How often do you get together with friends or relatives?: once per week How often do you attend jain or confucianist services?: decline to answer Do you belong to any clubs or organized social groups?: no Panel score (0-1 are the most socially isolated patients): 1 What type of physical activity do you participate in: walking Duration: 30-45 minutes/day Frequency: 1-2 times per week Caitlin/Episcopalian: No preference Special caitlin needs: No Seatbelt use: always Helmet use: Yes Helmet use: always Drive intox or ride w/intox gas 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
[2024-04-03] MEDS: Cyclobenzaprine 10 MG TAB PO (07:20)
[2024-04-03] MEDS: Lidocaine 5% Patch 1 PATCH TP (07:20)
[2024-04-03] MEDS: predniSONE 20 MG TAB 60 MG PO (07:20)
--- NOTE | 2024-04-10 09:56 | NUR.NOTE ---
Access chart to determine PCP for notice from [facility] and the prescription of cyclobenazprine. Sent to [facility] for review. Nursing Note:
== END 2024-04-03 07:22 | disposition home or self-care (01) ==
PROVIDERS: Emergency Provider Student in an Organized Health Care Education/Training Program; PCP Nurse Practitioner Family
DX: M54.50 Low back pain, unspecified (principal); I48.0 Paroxysmal atrial fibrillation; I25.10 Atherosclerotic heart disease of native coronary artery without angina pectoris; I10 Essential (primary) hypertension; E78.00 Pure hypercholesterolemia, unspecified; I71.40 Abdominal aortic aneurysm, without rupture, unspecified; Q23.1 Congenital insufficiency of aortic valve; Z79.01 Long term (current) use of anticoagulants; Z87.891 Personal history of nicotine dependence
CPT/HCPCS: 99283; J7512

== ENCOUNTER 2024-06-26 01:43 | Outpatient (CLI) | payer BC, SELFPAY ==
--- NOTE | 2024-06-26 | DI.DEXA_ITS ---
Exam(s) XR DEXA BONE DENSITY W/WO DUGLAS EXAM: XR DEXA BONE DENSITY W/WO DUGLAS CLINICAL HISTORY: Osteoporosis on treatment, needs interval exam, M81.0 TECHNIQUE: Routine DEXA evaluation of the lumbar spine, hip, or forearm. COMPARISON: CR XR DEXA BONE DENSITY W/WO DUGLAS from 06/25/2022 FINDINGS: Performed on a Hologic unit. Lateral image: Stable compression deformity of L1 again noted. Lumbar Spine total T-score: -2.4. Prior reading June 2022 was -2.3. Still remains in the osteopenia zone Hip total T-score:-1.3. This is identical reading to June 2022 Independent reading at the level of the femoral neck yields T-score of -1.6 Forearm total T-score: -0.5. Prior reading June 2022 was -0.4 IMPRESSION: Bone mineral density measures/remains in the osteopenia range. Fracture risk remains moderate. Note: Any spine fracture indicates 5x risk for subsequent spine fracture and 2x risk for subsequent h ip fracture. World Health Organization criteria for BMD interpretation classify patients: Normal...... T- Score at or above -1.0 Osteopenic... T- Score between -1.0 and -2.5 Osteoporosis... T-Score at or below -2.5
== END 2024-06-26 02:03 ==
PROVIDERS: PCP Nurse Practitioner Family; Visit Provider Internal Medicine Endocrinology, Diabetes & Metabolism
DX: M81.0 Age-related osteoporosis without current pathological fracture (principal)
CPT/HCPCS: 77080

== ENCOUNTER → 2024-11-14 14:22 | Outpatient (BNVA) | payer MEDICARE, SELFPAY | PROVIDERS: PCP Nurse Practitioner Family; Visit Provider Urology | DX: N40.1 Benign prostatic hyperplasia with lower urinary tract symptoms (principal); Z87.442 Personal history of urinary calculi; R39.11 Hesitancy of micturition; Z79.01 Long term (current) use of anticoagulants | CPT/HCPCS: 99214 ==

== ENCOUNTER 2024-12-28 16:43 | Emergency (ER) | payer MEDICARE, SELFPAY ==
[2024-12-28 16:45] VITALS: BP 135/78; PULSE 65; RESP 16; TEMP 36.2; O2SAT 95
--- NOTE | 2024-12-28 17:18 | W.ED.GENAD ---
Discharge Plan Disposition Patient Disposition: Home Condition: Stable Discharge Details Clinical Impression: Laceration of finger of left hand Primary Care Provider: Davidson Cline ED Provider: Jovita Caupto Home Meds and New Rx's Prescriptions: No Action acetaminophen [Tylenol Extra Strength] 500 mg tablet 500 mg PO Q6H PRN calcium citrate-vitamin D3 315 mg-6.25 mcg (250 unit) tablet 2 tab PO DAILY ergocalciferol (vitamin D2) 1,250 mcg (50,000 unit) capsule 1,250 mcg PO QWEEK allopurinol 300 mg tablet 300 mg PO .COMPLEX Qty: 90 4RF Rx Instructions: 300 mg orally; Multaq 400 mg tablet 400 mg PO BID Patient Comments: TAKE ONE TABLET BY MOUTH TWICE A DAY (WITH MEALS) cholecalciferol (vitamin D3) 1,000 unit capsule 1,000 unit PO DAILY Eliquis 5 mg tablet 5 mg PO BID Patient Comments: 12/30/18 rx by cardiology at [facility]. [facility] atorvastatin 40 mg tablet 40 mg PO DAILY nitroglycerin 0.4 mg tablet, sublingual 0.4 mg sublingual Q5M PRN Rx Instructions: do not exceed 3 doses per episode lidocaine 5 % cream 1 applic topical QID PRN (Reason: pain) Qty: 30 5RF Rx Instructions: apply small amount to L thigh as needed folic acid 1 mg tablet 1 mg PO DAILY Qty: 90 3RF pantoprazole 40 mg tablet,delayed release (DR/EC) See Rx Instructions .ROUTE .COMPLEX Qty: 90 3RF Dose Instruction: TAKE ONE TABLET BY MOUTH EVERY DAY Rx Instructions: TAKE ONE TABLET BY MOUTH EVERY DAY levetiracetam [Keppra] 500 mg tablet 500 mg PO BID Qty: 180 3RF Men's One Daily 1 EACH tablet 1 ea PO DAILY omega-3 fatty acids-fish oil 1 EACH capsule 1 ea PO HS zoledronic texy-mzqfycny-hphom [Reclast] 5 mg/100 mL piggyback See Rx Instructions IV .COMPLEX Rx Instructions: intravenously every 14mo for osteoarthritis; hydrochlorothiazide 12.5 mg tablet 12.5 mg PO DAILY Patient Comments: TAKE ONE TABLET BY MOUTH EVERY MORNING diltiazem HCl [Cardizem] 30 mg tablet 30 mg PO DAILY PRN PRNQty: 20 0RF Rx Instructions: prn recurrence of rapid Afib. Go to the ED if this does not control your symptoms within 1 hour. lidocaine [Lidoderm] 5 % adhesive patch,medicated 1 patch Topical Q24H Qty: 15 0RF Discharge Instructions Instructions: Laceration Repair With Glue ED Additional Instructions: You were seen in the emergency department today for evaluation of a finger laceration that was repaired with glue and Steri-Strips. Your tetanus shot was also updated as it has been 10 years since your last booster. The glue and Steri-Strips will fall off on their own, please avoid soaking or scrubbing the area, wear gloves when washing dishes, but it is okay for you to bathe or shower typically. Pat the area dry afterwards and when the glue and Steri-Strips have fallen off, you can transition to antibiotic ointment and bandages. Please follow-up with your primary care provider in the next few days to discuss this visit and any symptoms that change, worsen, or persist. Thank you for allowing us to be part of your care. HPI General Mode of arrival: ambulatory. Date/Time Provider Initiated Documentation: 12/28/24 16:56. Limitations to Documentation: no limitations. Information obtained by: patient, family and old records reviewed. HPI Narrative: This is a 64-year-old male patient with a past medical history significant for atrial fibrillation on Eliquis, hypertension, hyperlipidemia, NINA, presenting for evaluation of a finger laceration. The patient was using a utility knife to cut some posterior board, states that he cut the index finger of his left hand just lateral to the nail fold. He states that this is an isolated injury that occurred just prior to arrival. He did not take any medications prior to arrival to our facility, had some difficulty getting the bleeding to stop and held direct pressure. The patient had his last tetanus shot in 2014. He denies numbness tingling, or weakness distal to the injury, and did not disrupt the fingernail itself. He is right-hand dominant. Related Data Home Medications ?Medication ?Instructions ?Recorded ?Confirmed multivitamin with minerals (Men's 1 ea PO DAILY 12/17/12 12/28/24 One Daily tablet) omega-3 fatty acids-fish oil 300 1 ea PO HS 06/04/16 12/28/24 mg-1,000 mg capsule cholecalciferol (vitamin D3) 25 1,000 unit PO DAILY 06/15/18 12/28/24 mcg (1,000 unit) capsule apixaban 5 mg tablet (Eliquis) 5 mg PO BID 12/30/18 12/28/24 acetaminophen 500 mg tablet 500 mg PO Q6H PRN 06/04/21 12/28/24 (Tylenol Extra Strength) atorvastatin 40 mg tablet 40 mg PO DAILY 09/26/21 12/28/24 nitroglycerin 0.4 mg sublingual 0.4 mg sublingual Q5M PRN 09/26/21 12/28/24 tablet calcium 315 mg (as 2 tab PO DAILY 10/17/21 12/28/24 citrate)-vitamin D3 6.25 mcg (250 unit) tablet zoledronic acid 5 mg/100 mL in See Rx Instructions IV .COMPLEX 11/30/23 12/28/24 mannitol 5 %-water intravenous piggybck (Reclast) hydrochlorothiazide 12.5 mg tablet 12.5 mg PO DAILY 12/02/23 12/28/24 diltiazem HCl 30 mg tablet 30 mg PO DAILY PRN PRN #20 tabs 12/03/23 12/28/24 (Cardizem) ergocalciferol (vitamin D2) 1,250 1,250 mcg PO QWEEK 12/09/23 12/28/24 mcg (50,000 unit) capsule dronedarone 400 mg tablet (Multaq) 400 mg PO BID 01/06/24 12/28/24 lidocaine 5 % topical cream 1 applic topical QID PRN pain #30 01/13/24 12/28/24 grams lidocaine 5 % topical patch 1 patch topical Q24H #15 ea 04/03/24 12/28/24 (Lidoderm) folic acid 1 mg tablet 1 mg PO DAILY #90 tabs 04/24/24 12/28/24 pantoprazole 40 mg tablet,delayed See Rx Instructions .Route 11/08/24 12/28/24 release .COMPLEX #90 tabs allopurinol 300 mg tablet 300 mg PO .COMPLEX #90 tabs 11/14/24 12/28/24 levetiracetam 500 mg tablet 500 mg PO BID #180 tab-caps 12/04/24 12/28/24 (Keppra) Previous Rx's ?Medication ?Instructions ?Recorded diltiazem HCl 30 mg tablet 30 mg PO DAILY PRN PRN #20 tabs 05/17/24 (Cardizem) lidocaine 5 % topical cream 1 applic topical QID PRN pain #30 01/13/24 grams lidocaine 5 % topical patch 1 patch topical Q24H #15 ea 04/03/24 (Lidoderm) folic acid 1 mg tablet 1 mg PO DAILY #90 tabs 04/24/24 pantoprazole 40 mg tablet,delayed See Rx Instructions .Route 11/08/24 release .COMPLEX #90 tabs allopurinol 300 mg tablet 300 mg PO .COMPLEX #90 tabs 11/14/24 levetiracetam 500 mg tablet 500 mg PO BID #180 tab-caps 12/04/24 (Keppra) Allergies Allergy/AdvReac Type Severity Reaction Status Date / Time No Known Allergies Allergy Verified 12/28/24 16:48 General Stated Complaint: Laceration FLY: 4 Exam Narrative Exam Narrative: Gen: Awake and alert, in no apparent distress HEENT: Non-icteric sclera Neck: Supple Lungs: No apparent respiratory distress, normal respiratory effort. CV: Appears well perfused Abdomen: Non-distended MSK: Moves 4 extremities without apparent limitation in ROM Skin: Visualized skin without rashes, cyanosis. The patient has 1/2 cm laceration just lateral to the left index finger nail, without disruption of the eponychial fold. The wound is oozing slightly, this stops with direct pressure. The wound edges are well-approximated, and quite superficial with no deeper structures visualized. The patient has preserved very refill, sensation distal to this injury Neuro: Normal Gait, no obvious focal deficits or facial asymmetry. Speaks in full, clear sentences. Psych: Appropriate for situation. Course Vital Signs Vital signs: Vital Signs Temperature 36.2 C L 12/28/24 16:45 Pulse 65 12/28/24 16:45 Respiratory Rate 16 12/28/24 16:45 Blood Pressure 135/78 12/28/24 16:45 Pulse Oximetry 95 12/28/24 16:45 Temperature 36.2 C L 12/28/24 16:45 Temperature Source Skin 12/28/24 16:45 Pulse 65 12/28/24 16:45 Respiratory Rate 16 12/28/24 16:45 Blood Pressure 135/78 12/28/24 16:45 Blood Pressure Position Sitting 12/28/24 16:45 Pulse Oximetry 95 12/28/24 16:45 Oxygen Delivery Method Room Air 12/28/24 16:45 Oxygen Flow Rate 0 12/28/24 16:45 Pain Level 3 12/28/24 16:45 Medical Decision Making This is a 64-year-old male patient presenting for evaluation of a finger laceration. Reassuringly, this is quite a superficial laceration, with no evidence of damage to the deep structures such as tendons, ligamentous structures, neurovascular structures. I note no evidence for foreign body or contamination of the wound. The amount of blood loss is minimal despite his anticoagulated status and I have a low concern for anemia. The tetanus shot was updated, the wound was thoroughly cleansed and hemostasis achieved using direct pressure. The wound was repaired using skin glue and Steri-Strips, with excellent approximation and hemostasis appreciated after this procedure. The patient was counseled on wound care techniques, and has a follow-up visit with his primary care scheduled for 1 week from now. I counseled him on ice and conservative [id number] medications for pain, and at this time, the patient has had a full medical evaluation and is safe for discharge to home. They are hemodynamically stable, ambulatory, and tolerating PO. They are understanding of the follow-up plan and return precautions. They left our facility without incident. Jovita Caputo MD Quality:SDOH Health Related Social Needs: Health related social needs details none PFSH All Active Problems Laceration of finger of left hand (Acute) Paroxysmal A-fib (Acute) Sees cardiology at [facility] Hx of gastroesophageal reflux (GERD) (Acute) Sleep apnea (Acute) Uses CPAP Hyperlipidemia (Acute) Essential hypertension (Chronic) History of postoperative nausea and vomiting (Acute) Onychocryptosis (Acute) Heart murmur (Acute) Left leg numbness (Acute) Urinary hesitancy (Acute) Rising PSA level (Acute) Kidney stones (Chronic) Actinic keratoses (Chronic) Tobacco use disorder (Chronic) Quit 15 years ago. Serum calcium elevated (Chronic 11/19/15) Hyper PTH Parathyroid surgery 10/03 removing one of 4 glands Sciatica (Chronic) left; disk; persistent left foot numbness 05/2021-recurrent low back pain. No persistent sciatica, prior history of compression fracture to L1-stable per imaging consistent with diagnosis of prior osteoporosis Osteoporosis (Chronic) T score of 3.5 LS spine, history of compression fracture, managed by endocrine at [facility], presumed secondary to iatrogenic effect with long-term seizure use-Dilantin, as of 05/2021 on Reclast infusion Hyperparathyroidism (Chronic 10/22/17) surgery [facility] 2018 Hearing loss (Chronic) Benign prostatic hyperplasia (Chronic) Aortic valve stenosis (Chronic) mild. echo 2012 neg MPI 12/01. Alcohol abuse (Chronic) sober for 7 years as of 2021 Medical History Ascending aortic aneurysm Seizure last seizure 35 years ago Surgical History Hx of esophagogastroduodenoscopy (~10/01/20) H/O parathyroidectomy Excision, Distal Clavicle (03/22/15) ALSO NEER ACROMIOPLASTY/LIMITED ROTATOR CUFF REPAIR/ DR ROSARIO Cystoscopy 11/14/15; DR. DEVI Colonoscopy - [facility] [place] 2008 Family History Mother , age 68 Alzheimer disease MS (multiple sclerosis) Father , age 72 Diabetes Essential hypertension Heart disease Hyperlipidemia Sister No problems noted. Brother No problems noted. Brother Crohns disease Maternal Grandfather , age 70 Heart disease Paternal Grandfather , age 92 No problems noted. Maternal Grandmother , age 70 No problems noted. Paternal Grandmother , age 94 Intestinal cancer Brother No problems noted. Son No problems noted. Daughter No problems noted. Daughter No problems noted. Social History Smoking/Tobacco Use Status: Former Tobacco Use tobacco type: cigarettes Quit Date: 07/19/08 Pack-years: 25 Tobacco: How many years used: 25 Second Hand Exposure: Yes Smoking risk assessment performed?: Yes Alcohol Intake: former Year quit: 2014 Drug use: Current Sobriety Substance use type: does not use and marijuana Details: sober for 6 years Caregiver/Support person: Yes Household members: spouse Housing: house Communication Needs: None Do you need help understanding health information?: Rarely Pets and animals: Yes Pets and animals: dog(s) Sexually active: Yes Do you think of yourself as: straight/heterosexual Current gender identity: male What is your relationship status?: How often do you talk on the phone with friends or family?: once per week How often do you get together with friends or relatives?: once per week How often do you attend spiritism or anabaptism services?: decline to answer Do you belong to any clubs or organized social groups?: no Panel score (0-1 are the most socially isolated patients): 1 What type of physical activity do you participate in: walking Duration: 30-45 minutes/day Frequency: 1-2 times per week Caitlin/Church: No preference Special caitlin needs: No Seatbelt use: always Helmet use: Yes Helmet use: always Drive intox or ride w/intox escort vehicle 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
[2024-12-28] MEDS: Diph,Pertuss(Acell),Tet Vac/Pf 0.5 ML SYR IM (17:20)
== END 2024-12-28 17:35 | disposition home or self-care (01) ==
PROVIDERS: Emergency Provider Emergency Medicine; PCP Nurse Practitioner Family
DX: S61.211A Laceration without foreign body of left index finger without damage to nail, initial encounter (principal); W26.0XXA Contact with knife, initial encounter
CPT/HCPCS: 12001; 90471; 90715

== ENCOUNTER → 2025-01-10 10:07 | Outpatient (BNVA) | payer MEDICARE, SELFPAY | PROVIDERS: PCP Nurse Practitioner Family; Referring Provider Nurse Practitioner Family; Visit Provider Psychiatry & Neurology Neurology | DX: G40.802 Other epilepsy, not intractable, without status epilepticus (principal); R20.0 Anesthesia of skin; M54.17 Radiculopathy, lumbosacral region; Z79.01 Long term (current) use of anticoagulants; I10 Essential (primary) hypertension | CPT/HCPCS: 99214 ==

== ENCOUNTER 2025-01-18 13:48 | Outpatient (CLI) | payer MEDICARE, SELFPAY ==
--- NOTE | 2025-01-18 13:45 | DI.RAD_ITS ---
Exam(s) XR HIP RT COMPLETE AP PELVIS EXAM: XR HIP RT COMPLETE AP PELVIS CLINICAL HISTORY: right hip pain M25.551. TECHNIQUE: 2D digital imaging was performed. COMPARISON: No exams were available for comparison FINDINGS: Two views No evidence of pelvic nor hip fractures. There mild narrowing of both hip joint spaces. No osteophytes nor degenerative subarticular cysts. No significant osseous lesions. Sacroiliac joints appear unremarkable. IMPRESSION: Mild degenerative changes. DATA REPOSITORY: RADIATION DOSE DELIVERED:
== END 2025-01-18 14:08 ==
LOC: DI 13:48
PROVIDERS: PCP Nurse Practitioner Family; Visit Provider Physician Assistant
DX: M25.551 Pain in right hip (principal)
CPT/HCPCS: 73502

== ENCOUNTER 2025-02-23 01:14 | Outpatient (CLI) | payer MEDICARE, SELFPAY ==
[2025-02-23 08:58] LABS: Hemoglobin A1C 5.5 % (<5.7)
[2025-02-23 09:25] LABS: Calculated LDL 31 mg/dL (<100); Cholesterol 78 mg/dL (<200); HDL Cholesterol 35 mg/dL (>or=40); Triglyceride 61 mg/dL (<150)
== END 2025-02-23 01:15 | disposition home or self-care (01) ==
LOC: LBO 01:14
PROVIDERS: PCP Nurse Practitioner Family; Visit Provider Nurse Practitioner Family
DX: Z13.1 Encounter for screening for diabetes mellitus (principal); Z13.6 Encounter for screening for cardiovascular disorders
CPT/HCPCS: 36415; 80061; 83036

== ENCOUNTER 2025-05-13 14:33 | Emergency (ER) | payer MEDICARE, SELFPAY ==
[2025-05-13] VITALS (71 sets, daily range): BP systolic 89–132; BP diastolic 40–74; PULSE 50–80; RESP 8–25; TEMP 36.8; O2SAT 89–99
--- NOTE | 2025-05-13 15:30 | RT.EKG_ITS ---
APPROVED REPORT Exam: Resting ECG Reason for Exam: weakness Patient Location: E HR:55 bpm ECG Measurements Heart Rate 55 AXIS AZ 184 P 53 QRSd 101 QRS 46 QT 450 T 2 QTc 431 Conclusion Sinus bradycardia, rate 55 No interval abnormalities No STEMI T wave inversion lead III, unchanged from priors
[2025-05-13 15:52] LABS: Abs Immature Grans 0.02 10^3/uL (0.0-0.06); HCT 34.8 % (40.0-50.0); HGB 11.2 g/dL (13.5-17.5); Immature Grans % 0.4 %; MCH 31.1 pg (27.0-33.0); MCHC 32.2 % (32.0-36.0); MCV 97 fL (80-95); MPV 11.1 fL (8.0-11.0); Platelet Count 180 10^3/uL (130-400); RBC 3.60 10^6/uL (4.36-5.78); RDW 13.3 % (11.8-14.1); RDW-SD 47.7 fL; WBC 5.70 10^3/uL (4.4-10.8)
[2025-05-13 16:14] LABS: ALT 27 U/L (16-63); AST 34 U/L (15-37); Albumin 3.2 g/dL (3.4-5.0); Alkaline Phosphatase 113 U/L (46-116); Anion Gap 7.1 mmol/L (3-11); BUN 15 mg/dL (7-18); Bilirubin, Total 0.5 mg/dL (0.2-1.0); CO2 31.9 mmol/L (21.0-32.0); Calcium 8.3 mg/dL (8.5-10.1); Chloride 102 mmol/L (98-107); Estimated GFR 106.46 (mL/min/1.73m2); Glucose 88 mg/dL (74-106); Potassium 3.4 mmol/L (3.5-5.1); Sodium 141 mmol/L (136-145); Total Protein 7.0 g/dL (6.4-8.2); Troponin I 1645 ng/L (<or=76)
[2025-05-13 17:22] LABS: Abs Immature Grans 0.01 10^3/uL (0.0-0.06); HCT 33.2 % (40.0-50.0); HGB 10.8 g/dL (13.5-17.5); Immature Grans % 0.2 %; MCH 31.6 pg (27.0-33.0); MCHC 32.5 % (32.0-36.0); MCV 97 fL (80-95); MPV 10.9 fL (8.0-11.0); Platelet Count 141 10^3/uL (130-400); RBC 3.42 10^6/uL (4.36-5.78); RDW 13.2 % (11.8-14.1); RDW-SD 47.5 fL; WBC 5.27 10^3/uL (4.4-10.8)
[2025-05-13 17:45] LABS: Troponin I 1667 ng/L (<or=76)
[2025-05-13 18:24] LABS: Glucose Negative (Negative)
[2025-05-13] MEDS: Pantoprazole 40 MG VIAL IVP (18:50)
[2025-05-13] MEDS: Apixaban 5 MG TAB PO (21:37)
[2025-05-13] MEDS: levETIRAcetam 500 MG TAB PO (21:37)
[2025-05-13] MEDS: Normal Saline 1,000 ML 100 ML IV (21:37)
--- NOTE | 2025-05-13 21:51 | W.ED.GENAD ---
Discharge Plan Disposition Patient Disposition: Transfer-Acute Inpatient Care Condition: Serious Discharge Details Clinical Impression: GI (gastrointestinal bleed), CAD (coronary artery disease) Primary Care Provider: Davidson Cline ED Provider: Gricelda Amaro Home Meds and New Rx's Prescriptions: No Action acetaminophen [Tylenol Extra Strength] 500 mg tablet 500 mg PO Q6H PRN calcium citrate-vitamin D3 315 mg-6.25 mcg (250 unit) tablet 2 tab PO DAILY ergocalciferol (vitamin D2) 1,250 mcg (50,000 unit) capsule 1,250 mcg PO QWEEK allopurinol 300 mg tablet 300 mg PO .COMPLEX Qty: 90 4RF Rx Instructions: 300 mg orally; cholecalciferol (vitamin D3) 1,000 unit capsule 1,000 unit PO DAILY Eliquis 5 mg tablet 5 mg PO BID Patient Comments: 12/30/18 rx by cardiology at [facility] atorvastatin 40 mg tablet 40 mg PO DAILY nitroglycerin 0.4 mg tablet, sublingual 0.4 mg sublingual Q5M PRN Rx Instructions: do not exceed 3 doses per episode levetiracetam [Keppra] 500 mg tablet 500 mg PO BID Qty: 180 3RF lidocaine 5 % cream 1 applic topical QID PRN (Reason: pain) Qty: 30 5RF Rx Instructions: apply small amount to L thigh as needed folic acid 1 mg tablet 1 mg PO DAILY Qty: 90 3RF pantoprazole 40 mg tablet,delayed release (DR/EC) See Rx Instructions .ROUTE .COMPLEX Qty: 90 3RF Dose Instruction: TAKE ONE TABLET BY MOUTH EVERY DAY Rx Instructions: TAKE ONE TABLET BY MOUTH EVERY DAY Men's One Daily 1 EACH tablet 1 ea PO DAILY omega-3 fatty acids-fish oil 1 EACH capsule 1 ea PO HS clopidogrel 75 mg tablet 75 mg PO DAILY diltiazem HCl [Cardizem] 30 mg tablet 30 mg PO DAILY PRN Rx Instructions: prn recurrence of rapid Afib. Go to the ED if this does not control your symptoms within 1 hour. zoledronic [id number] [Reclast] 5 mg/100 mL piggyback See Rx Instructions IV .COMPLEX Rx Instructions: intravenously every 14mo for osteoarthritis; hydrochlorothiazide 12.5 mg tablet 12.5 mg PO DAILY Patient Comments: TAKE ONE TABLET BY MOUTH EVERY MORNING lidocaine [Lidoderm] 5 % adhesive patch,medicated 1 patch Topical Q24H Qty: 15 0RF Discharge Data Discharge Date/Time-TO BE ENTERED AT DEPARTURE: 05/14/25 00:14 HPI General Date/Time Provider Initiated Documentation: 05/13/25 14:34. HPI Narrative: This 64-year-old male with history of seizures, coronary artery disease with recent circumflex artery stent placed on 05/[address] [facility], atrial fibrillation on chronic anticoagulation, hyperlipidemia presents with report of blood in stool. Patient awoke this morning and had an episode of blood mixed with stool which she describes as bright red. He states that 30 minutes prior to arrival today he had an additional episode of blood clots that were bright red in the toilet there was no stool with this episode. He states he feels lightheaded and slightly weak. He denies any chest pain or shortness of breath. He has been on Eliquis chronically but had the clopidogrel and aspirin added to his regimen secondary to stent placement. He denies any calf pain or swelling. He denies any falls or injuries. He denies history of alcohol use or GI bleed in the past. He does has had colonoscopy as his last was several years ago per patient. He denies any black stools or nausea currently. He took his Plavix and Eliquis this morning per patient. Related Data Home Medications ?Medication ?Instructions ?Recorded ?Confirmed multivitamin with minerals (Men's 1 ea PO DAILY 12/17/12 05/13/25 One Daily tablet) omega-3 fatty acids-fish oil 300 1 ea PO HS 06/04/16 05/13/25 mg-1,000 mg capsule cholecalciferol (vitamin D3) 25 1,000 unit PO DAILY 06/15/18 05/13/25 mcg (1,000 unit) capsule apixaban 5 mg tablet (Eliquis) 5 mg PO BID 12/30/18 05/13/25 acetaminophen 500 mg tablet 500 mg PO Q6H PRN 06/04/21 05/13/25 (Tylenol Extra Strength) atorvastatin 40 mg tablet 40 mg PO DAILY 09/26/21 05/13/25 nitroglycerin 0.4 mg sublingual 0.4 mg sublingual Q5M PRN 09/26/21 05/13/25 tablet calcium 315 mg (as 2 tab PO DAILY 10/17/21 05/13/25 citrate)-vitamin D3 6.25 mcg (250 unit) tablet zoledronic acid 5 mg/100 mL in See Rx Instructions IV .COMPLEX 11/30/23 05/13/25 mannitol 5 %-water intravenous piggybck (Reclast) hydrochlorothiazide 12.5 mg tablet 12.5 mg PO DAILY 12/02/23 05/13/25 ergocalciferol (vitamin D2) 1,250 1,250 mcg PO QWEEK 12/09/23 05/13/25 mcg (50,000 unit) capsule lidocaine 5 % topical patch 1 patch topical Q24H #15 ea 04/03/24 05/13/25 (Lidoderm) folic acid 1 mg tablet 1 mg PO DAILY #90 tabs 04/24/24 05/13/25 pantoprazole 40 mg tablet,delayed See Rx Instructions .Route 11/08/24 05/13/25 release .COMPLEX #90 tabs allopurinol 300 mg tablet 300 mg PO .COMPLEX #90 tabs 11/14/24 05/13/25 levetiracetam 500 mg tablet 500 mg PO BID #180 tab-caps 01/10/25 05/13/25 (Keppra) lidocaine 5 % topical cream 1 applic topical QID PRN pain #30 01/10/25 05/13/25 grams clopidogrel 75 mg tablet 75 mg PO DAILY 05/13/25 05/13/25 diltiazem HCl 30 mg tablet 30 mg PO DAILY PRN 05/13/25 05/13/25 (Cardizem) Previous Rx's ?Medication ?Instructions ?Recorded lidocaine 5 % topical patch 1 patch topical Q24H #15 ea 04/03/24 (Lidoderm) folic acid 1 mg tablet 1 mg PO DAILY #90 tabs 04/24/24 pantoprazole 40 mg tablet,delayed See Rx Instructions .Route 11/08/24 release .COMPLEX #90 tabs allopurinol 300 mg tablet 300 mg PO .COMPLEX #90 tabs 11/14/24 levetiracetam 500 mg tablet 500 mg PO BID #180 tab-caps 01/10/25 (Keppra) lidocaine 5 % topical cream 1 applic topical QID PRN pain #30 01/10/25 grams Allergies Allergy/AdvReac Type Severity Reaction Status Date / Time No Known Allergies Allergy Verified 05/13/25 14:58 General Stated Complaint: GenMedical FLY: 3 Exam Narrative Exam Narrative: Pale, alert, oriented gentleman in no acute distress, blood noted around rectum maroon-colored, no hemorrhoid, no tenderness, no abdominal tenderness, sinus bradycardia, murmur noted, no significant peripheral edema, cath site in right forearm well-appearing Course Vital Signs Vital signs: Vital Signs Temperature 36.8 C 05/13/25 14:50 Pulse 62 05/13/25 14:50 Respiratory Rate 18 05/13/25 14:50 Blood Pressure 123/71 05/13/25 14:50 Pulse Oximetry 95 05/13/25 14:50 Temperature 36.8 C 05/13/25 15:42 Temperature Source Oral 05/13/25 15:42 Pulse 54 L 05/13/25 21:40 Pulse 54 L 05/13/25 21:40 Respiratory Rate 20 05/13/25 21:40 Respiratory Effort Normal 05/13/25 15:42 Respiratory Depth Normal 05/13/25 15:42 Respiratory Pattern Normal 05/13/25 15:42 Blood Pressure 115/63 05/13/25 21:30 Blood Pressure Mean 80 05/13/25 21:30 Blood Pressure Position Sitting 05/13/25 15:42 Pulse Oximetry 94 05/13/25 21:40 Oxygen Delivery Method Room Air 05/13/25 15:42 Oxygen Flow Rate 0 05/13/25 15:42 Lab/Test Results Lab/Test Results: Laboratory Tests Range/Units 05/13/25 05/13/25 05/13/25 15:40 17:15 17:41 WBC (4.4-10.8) 10^3/uL 5.70 5.27 RBC (4.36-5.78) 10^6/uL 3.60 L 3.42 L Hgb (13.5-17.5) g/dL 11.2 L 10.8 L Hct (40.0-50.0) % 34.8 L 33.2 L MCV (80-95) fL 97 H 97 H MCH (27.0-33.0) pg 31.1 31.6 MCHC (32.0-36.0) % 32.2 32.5 RDW (11.8-14.1) % 13.3 13.2 Plt Count (130-400) 10^3/uL 180 141 MPV (8.0-11.0) fL 11.1 H 10.9 Immature Gran % % 0.4 0.2 Neutrophils % % 71.1 69.4 Lymphocytes % % 16.5 18.0 Monocytes % % 8.9 9.1 Eosinophils % % 2.6 2.5 Basophils % % 0.5 0.8 Nucleated RBC % (0.0-0.3) % 0.0 0.0 Absolute Neutrophils (1.2-6.7) 10^3/uL 4.05 3.66 Absolute Lymphocytes (1.2-3.4) 10^3/uL 0.94 L 0.95 L Absolute Monocytes (0.1-0.8) 10^3/uL 0.51 0.48 Absolute Eosinophils (0.0-0.7) 10^3/uL 0.15 0.13 Absolute Basophils (0.0-0.2) 10^3/uL 0.03 0.04 Sodium (136-145) mmol/L 141 Potassium (3.5-5.1) mmol/L 3.4 L Chloride (98-107) mmol/L 102 Carbon Dioxide (21.0-32.0) mmol/L 31.9 Anion Gap (3-11) mmol/L 7.1 BUN (7-18) mg/dL 15 Creatinine (0.70-1.30) mg/dL 0.6 L Est GFR (CKD-EPI 2020) (mL/min/1.73m2) 106.46 Glucose (74-106) mg/dL 88 Calcium (8.5-10.1) mg/dL 8.3 L Total Bilirubin (0.2-1.0) mg/dL 0.5 AST (15-37) U/L 34 ALT (16-63) U/L 27 Alkaline Phosphatase (46-116) U/L 113 Troponin I (<or=76) ng/L 1645 H* 1667 H* Total Protein (6.4-8.2) g/dL 7.0 Albumin (3.4-5.0) g/dL 3.2 L Urine Color (Yellow) Yellow Urine Clarity (Clear) Clear Urine pH (5-8) 7.5 Ur Specific [place] (1.005-1.025) 1.015 Urine Protein (Neg-Trace) mg/dL Negative Urine Ketones (Negative) mg/dL Negative Urine Blood (Negative) Negative Urine Nitrite (Negative) Negative Urine Bilirubin (Negative) Negative Urine Urobilinogen (Up to 0.2) mg/dL 0.2 Ur Leukocyte Esterase (Negative) Negative Urine Glucose (Negative) mg/dL Negative ABO/Rh O Positive Antibody Screen NEGATIVE Medical Decision Making Results: CBC, hemoglobin initially of 11.3 hematocrit of 33, repeat shows evidence of hemoglobin of 10.8 creatinine and BUN stable LFTs within normal limits troponin 1645 and repeat troponin was 1667 patient does not have any chest pain associated with this, type and screen shows O+, urinalysis without acute abnormality calcium of 8.3 creatinine 0.6, hypoalbuminemia adjusted calcium 8.5 Assessment and plan: Patient initially with 2 episodes of GI bleeding, placed on telemetry EKG is nonischemic 2 point drop in hemoglobin and hematocrit after reviewing [facility] records for approximately 10 minutes including cath report. Patient was given Protonix 40 mg although I suspect the source of this bleeding is lower. He was given 100 cc an hour of fluid and he has had some p.o. fluids after discussing plan with [facility] it sounds like there is no intervention this evening. I spoke with Dr. Ruffin cardiology at [facility] and his recommendation is to continue anticoagulation unless bleeding worsens or patient becomes unstable in which case he recommends holding the aspirin 81 mg. He recommends consulting with GI. I did speak with our surgeon, however Dr. Castillo is concerned about keeping the patient at our facility secondary to risk of bleeding on anticoagulation and need for continuation of the dual antiplatelet. I spoke with Dr. Carlos, gastroenterology and she would like to scope the patient in the morning with endoscopy and colonoscopy. They have agreed to take the patient in transfer to their facility have spoken with the hospitalistist, Dr. Retana has not excepted patient in transition. Patient is pending bed placement. blood pressure has been stable. No indication for blood products at this time. Patient wishes to be full CODE STATUS. Patient agreeable to transfer to [facility] at this time he did receive his nightly dose of Eliquis 5 mg and Keppra 500 mg., Pending bed placement at this time Quality:SDOH Health Related Social Needs: Health related social needs details none PFSH All Active Problems CAD (coronary artery disease) (Chronic) GI (gastrointestinal bleed) (Chronic) Bilateral hip pain (Acute) Right lumbosacral radiculopathy (Acute) Paroxysmal A-fib (Acute) Sees cardiology at [facility] Hx of gastroesophageal reflux (GERD) (Acute) Sleep apnea (Acute) Uses CPAP Hyperlipidemia (Acute) Essential hypertension (Chronic) History of postoperative nausea and vomiting (Acute) Onychocryptosis (Acute) Heart murmur (Acute) Left leg numbness (Acute) Urinary hesitancy (Acute) Rising PSA level (Acute) Kidney stones (Chronic) Actinic keratoses (Chronic) Tobacco use disorder (Chronic) Quit 15 years ago. Serum calcium elevated (Chronic 11/19/15) Hyper PTH Parathyroid surgery 10/03 removing one of 4 glands Sciatica (Chronic) left; disk; persistent left foot numbness 05/2021-recurrent low back pain. No persistent sciatica, prior history of compression fracture to L1-stable per imaging consistent with diagnosis of prior osteoporosis Osteoporosis (Chronic) T score of 3.5 LS spine, history of compression fracture, managed by endocrine at [facility], presumed secondary to iatrogenic effect with long-term seizure use-Dilantin, as of 05/2021 on Reclast infusion Hyperparathyroidism (Chronic 10/22/17) surgery [facility] 2017 Hearing loss (Chronic) Benign prostatic hyperplasia (Chronic) Aortic valve stenosis (Chronic) mild. echo 2012 neg MPI 12/01. Alcohol abuse (Chronic) sober for 7 years as of 2021 Medical History Ascending aortic aneurysm Seizure last seizure 35 years ago Surgical History Hx of esophagogastroduodenoscopy (~10/01/20) H/O parathyroidectomy Excision, Distal Clavicle (03/22/15) ALSO NEER ACROMIOPLASTY/LIMITED ROTATOR CUFF REPAIR/ DR ROSARIO Cystoscopy 11/14/15; DR. DEVI Colonoscopy - [facility] 2008 Family History Mother , age 68 Alzheimer disease MS (multiple sclerosis) Father , age 72 Diabetes Essential hypertension Heart disease Hyperlipidemia Sister No problems noted. Brother No problems noted. Brother Crohns disease Maternal Grandfather , age 70 Heart disease Paternal Grandfather , age 92 No problems noted. Maternal Grandmother , age 70 No problems noted. Paternal Grandmother , age 94 Intestinal cancer Brother No problems noted. Son No problems noted. Daughter No problems noted. Daughter No problems noted. Social History (Updated 01/11/25 @ 14:28 by Dorota Wang) Smoking/Tobacco Use Status: Former Tobacco Use tobacco type: cigarettes Quit Date: 07/19/08 Pack-years: 25 Tobacco: How many years used: 25 Second Hand Exposure: Yes Smoking risk assessment performed?: Yes Alcohol Intake: former Year quit: 2014 Drug use: Current Sobriety Substance use type: does not use and marijuana Counseling given: No Details: sober for 6 years Caregiver/Support person: Yes Household members: spouse Housing: house Communication Needs: None Do you need help understanding health information?: Rarely Pets and animals: Yes Pets and animals: dog(s) Sexually active: Yes Do you think of yourself as: straight/heterosexual Current gender identity: male What is your relationship status?: How often do you talk on the phone with friends or family?: once per week How often do you get together with friends or relatives?: once per week How often do you attend zoroastrian or restoration services?: decline to answer Do you belong to any clubs or organized social groups?: no Panel score (0-1 are the most socially isolated patients): 1 What type of physical activity do you participate in: walking Duration: 30-45 minutes/day Frequency: 1-2 times per week Caitlin/Mormonism: No preference Special caitlin needs: No Seatbelt use: always Helmet use: Yes Helmet use: always Drive intox or ride w/intox driver license reviewing officer: No Do you feel safe at home: Yes Do you feel safe in your relationship?: Yes
[2025-05-14] VITALS: PULSE 56; RESP 19; O2SAT 90
[2025-05-14 00:01] VITALS: BP 101/51; PULSE 54; PULSE 55; RESP 19; O2SAT 91
[2025-05-14 00:02] VITALS: PULSE 58; RESP 17; O2SAT 90
== END 2025-05-14 00:14 | disposition short-term general hospital (02) ==
PROVIDERS: Emergency Provider Physician Assistant; PCP Nurse Practitioner Family
DX: K92.2 Gastrointestinal hemorrhage, unspecified (principal); R00.1 Bradycardia, unspecified; I25.10 Atherosclerotic heart disease of native coronary artery without angina pectoris; I48.0 Paroxysmal atrial fibrillation; E78.5 Hyperlipidemia, unspecified; G40.909 Epilepsy, unspecified, not intractable, without status epilepticus; Z95.2 Presence of prosthetic heart valve; Z79.01 Long term (current) use of anticoagulants; Z79.02 Long term (current) use of antithrombotics/antiplatelets; Z87.891 Personal history of nicotine dependence
CPT/HCPCS: 80053; 86850; 86900; 86901; 93005; 96374; 99284; 81003; 84484; 85025; 93010; J2470

== ENCOUNTER 2025-05-21 03:46 | Outpatient (CLI) | payer MEDICARE, SELFPAY ==
[2025-05-21 07:33] LABS: HCT 30.2 % (40.0-50.0); HGB 9.7 g/dL (13.5-17.5); MCH 31.3 pg (27.0-33.0); MCHC 32.1 % (32.0-36.0); MCV 97 fL (80-95); MPV 10.5 fL (8.0-11.0); Platelet Count 227 10^3/uL (130-400); RBC 3.10 10^6/uL (4.36-5.78); RDW 13.6 % (11.8-14.1); RDW-SD 48.2 fL; WBC 4.26 10^3/uL (4.4-10.8)
[2025-05-21 09:03] LABS: ALT 22 U/L (16-63); AST 22 U/L (15-37); Albumin 3.3 g/dL (3.4-5.0); Alkaline Phosphatase 111 U/L (46-116); Anion Gap 8.4 mmol/L (3-11); BUN 9 mg/dL (7-18); Bilirubin, Total 0.5 mg/dL (0.2-1.0); CO2 30.6 mmol/L (21.0-32.0); Calcium 8.7 mg/dL (8.5-10.1); Chloride 102 mmol/L (98-107); Glucose 116 mg/dL (74-106); Potassium 3.0 mmol/L (3.5-5.1); Sodium 141 mmol/L (136-145); Total Protein 7.0 g/dL (6.4-8.2)
== END 2025-05-21 03:47 | disposition home or self-care (01) ==
LOC: LBO 03:46
PROVIDERS: PCP Nurse Practitioner Family; Visit Provider Nurse Practitioner Family
DX: D64.9 Anemia, unspecified (principal)
CPT/HCPCS: 36415; 80053; 85027

== ENCOUNTER 2025-05-26 10:50 | Outpatient (REF) | payer MEDICARE, SELFPAY | END 2025-05-26 10:51 | disposition home or self-care (01) | LOC: LBN 10:50 | PROVIDERS: PCP Nurse Practitioner Family; Visit Provider Internal Medicine | DX: K50.011 Crohn's disease of small intestine with rectal bleeding (principal) | CPT/HCPCS: 83993 ==

== ENCOUNTER 2025-05-29 08:08 | Outpatient (RCR) | payer MEDICARE, SELFPAY ==
--- NOTE | 2025-05-29 07:45 | RT.EKG_ITS ---
APPROVED REPORT Exam: Resting ECG Reason for Exam: CR Intake Appointment - Baseline EKG Patient Location: O HR:60 bpm ECG Measurements Heart Rate 60 AXIS UT 184 P 62 QRSd 101 QRS 44 QT 415 T 45 QTc 415 Conclusion Sinus rhythm...normal P axis, V-rate 50- 99 Normal Electrocardiogram
== END 2025-06-17 23:59 | disposition home or self-care (01) ==
LOC: CR 08:08
PROVIDERS: PCP Nurse Practitioner Family; Visit Provider Internal Medicine Cardiovascular Disease
DX: I25.10 Atherosclerotic heart disease of native coronary artery without angina pectoris (principal); Z95.5 Presence of coronary angioplasty implant and graft; Z51.89 Encounter for other specified aftercare
CPT/HCPCS: S9472

== ENCOUNTER 2025-06-06 03:36 | Outpatient (CLI) | payer MEDICARE, SELFPAY ==
[2025-06-06 13:57] LABS: HCT 31.9 % (40.0-50.0); HGB 10.1 g/dL (13.5-17.5); MCH 30.3 pg (27.0-33.0); MCHC 31.7 % (32.0-36.0); MCV 96 fL (80-95); MPV 9.9 fL (8.0-11.0); Platelet Count 219 10^3/uL (130-400); RBC 3.33 10^6/uL (4.36-5.78); RDW 13.3 % (11.8-14.1); RDW-SD 46.6 fL; WBC 4.99 10^3/uL (4.4-10.8)
[2025-06-06 15:53] LABS: Anion Gap 7 mmol/L (3-11); BUN 9 mg/dL (9-23); CO2 31.0 mmol/L (20.0-31.0); Calcium 8.7 mg/dL (8.3-10.6); Chloride 104 mmol/L (98-107); Glucose 70 mg/dL (74-106); Potassium 3.4 mmol/L (3.5-5.1); Sodium 142 mmol/L (136-145)
== END 2025-06-06 03:37 | disposition home or self-care (01) ==
LOC: LBO 03:36
PROVIDERS: PCP Nurse Practitioner Family; Visit Provider Nurse Practitioner Family
DX: E87.6 Hypokalemia (principal); K92.2 Gastrointestinal hemorrhage, unspecified
CPT/HCPCS: 36415; 80048; 85027

== ENCOUNTER 2025-06-13 13:00 | Outpatient (RCR) | payer MEDICARE, SELFPAY | END 2025-06-17 23:59 | disposition home or self-care (01) | LOC: CR 13:00 | PROVIDERS: PCP Nurse Practitioner Family; Visit Provider Internal Medicine Cardiovascular Disease | DX: I25.10 Atherosclerotic heart disease of native coronary artery without angina pectoris (principal); Z51.89 Encounter for other specified aftercare; I71.21 Aneurysm of the ascending aorta, without rupture | CPT/HCPCS: S9472 ==

== ENCOUNTER 2025-06-15 02:20 | Outpatient (CLI) | payer MEDICARE, SELFPAY ==
[2025-06-15 14:22] LABS: HCT 32.0 % (40.0-50.0); HGB 10.0 g/dL (13.5-17.5); MCH 30.1 pg (27.0-33.0); MCHC 31.3 % (32.0-36.0); MCV 96 fL (80-95); MPV 10.2 fL (8.0-11.0); Platelet Count 217 10^3/uL (130-400); RBC 3.32 10^6/uL (4.36-5.78); RDW 14.0 % (11.8-14.1); RDW-SD 49.0 fL; WBC 5.14 10^3/uL (4.4-10.8)
== END 2025-06-15 02:21 | disposition home or self-care (01) ==
LOC: LBO 02:20
PROVIDERS: PCP Nurse Practitioner Family; Visit Provider Nurse Practitioner Family
DX: D64.9 Anemia, unspecified (principal)
CPT/HCPCS: 36415; 85027

== ENCOUNTER 2025-07-09 14:44 | Outpatient (CLI) | payer MEDICARE, SELFPAY ==
[2025-07-09 14:26] LABS: HCT 36.0 % (40.0-50.0); HGB 11.4 g/dL (13.5-17.5); MCH 29.5 pg (27.0-33.0); MCHC 31.7 % (32.0-36.0); MCV 93 fL (80-95); MPV 10.6 fL (8.0-11.0); Platelet Count 239 10^3/uL (130-400); RBC 3.87 10^6/uL (4.36-5.78); RDW 14.3 % (11.8-14.1); RDW-SD 48.6 fL; WBC 5.71 10^3/uL (4.4-10.8)
[2025-07-09 18:54] LABS: Iron 30 ug/dL (65-175)
== END 2025-07-09 14:45 | disposition home or self-care (01) ==
LOC: LBO 14:44
PROVIDERS: PCP Nurse Practitioner Family; Visit Provider Nurse Practitioner Family
DX: D50.9 Iron deficiency anemia, unspecified (principal)
CPT/HCPCS: 36415; 85027; 83540

== ENCOUNTER 2025-07-16 13:00 | Outpatient (RCR) | payer MEDICARE, SELFPAY | END 2025-07-18 23:59 | disposition home or self-care (01) | LOC: CR 13:00 | PROVIDERS: PCP Nurse Practitioner Family; Visit Provider Internal Medicine Cardiovascular Disease | DX: I71.40 Abdominal aortic aneurysm, without rupture, unspecified (principal); I25.10 Atherosclerotic heart disease of native coronary artery without angina pectoris; Z95.5 Presence of coronary angioplasty implant and graft; Z51.89 Encounter for other specified aftercare | CPT/HCPCS: S9472 ==